=== PATIENT | male | born 1960 | race Caucasian/White ===

== ENCOUNTER → 2017-11-06 | Outpatient (CLI) | payer OTHER, MEDICAID ==
[2015-04-14 10:14] VITALS: BP 119/78
--- NOTE | 2017-11-06 15:00 | RAD ---
Examination: Left hip, two views History: Left hip pain Findings: There is no evidence for recent injury, bone destruction, periarticular calcification or ot her abnormality. The joint space is normal for age. The femoral head is in normal position. Impression: No acute or significant abnormality demonstrated. Reported By:
--- NOTE | 2017-11-06 15:05 | RAD ---
Examination: Lumbar spine, five views History: Low back pain Findings: There are transitional vertebrae at the thoracolumbar and lumbosacral junctions. There is m inimal levoscoliosis. There is no significant contour deformity, fracture, bone destruction or pedicl e erosion. The sacroiliac joints are normal. No subluxation/instability is demonstrated between flexi on-extension. Impression: No acute process. Minimal scoliosis. Congenital transitional vertebrae as described. Reported By:
== END ==
LOC: RAD 14:14
PROVIDERS: ATTEND Nurse Practitioner Family
DX: M25.552 Pain in left hip (principal); M51.36 Other intervertebral disc degeneration, lumbar region
CPT/HCPCS: 72110; 73501

== ENCOUNTER → 2018-03-27 | Outpatient (CLI) | payer OTHER, MEDICAID ==
[2015-04-14 10:14] VITALS: BP 119/78
--- NOTE | 2018-03-27 15:08 | RAD ---
HISTORY: Cough Study: PA and lateral chest Comparison: 05/29/2014 Findings: The lungs are clear. The heart size is normal. Electronic cardiac device is present on the left and its leads appear to be in appropriate position. Prior cervical spine surgery at been performed. Mi nimal thoracic spondylosis is noted. IMPRESSION: 1. No radiographic evidence of acute cardiopulmonary disease or significant change is noted when com pared to the prior examination. Reported By:
== END ==
LOC: RAD 14:40
PROVIDERS: ATTEND Internal Medicine
DX: R05 Cough (principal)
CPT/HCPCS: 71046

== ENCOUNTER 2018-08-08 10:36 | Observation (INO) ==
--- NOTE | 2018-08-08 11:50 | DR.H&P ---
H&P - History & Physical for Day of: H&P Date: 08/08/18 - Chief Complaint Chief Complaint: syncope, weakness, sob - History of Present Illness History of Present Illness: 58 WM DIRECT ADMIT FROM DR MILLER OFFICE AFTER PRESENTING FOR A FOLLOW UP ON CO MULTIPLE SYNCOPE EPISODES, PT HAS PACE MAKER SINCE 2012, EVALUATED BY DR BENJAMIN APPROX 2 WEEKS AGO. PT HAS PMH OF OA, MR, BLINDNESS, MENTAL HEALTH DISORDERS, AR, REFLUX. PT DENIES HX OF HEART CATH, CANNOT REMEMBER LAST STRESS TEST OR ECHO. PT HAD "EPISODE" WHILE IN OFFICE THIS AM. CO HEADACHE, DIZZINESS THEN BECAME PALE AND LAID BACK ON EXAM TABLE, PT BECAME VERY DIAPHORETIC, BP STABLE, BLOOD SUGAR 101. PT HAD EKG WITH LBBB, SR AT 90 WITH PACE SPIKES. EPISODE LAST APPROX 10 UNTIL FULL RECOVERY, PT CONTINUES WITH WEAKNESS AND DYSPNEA. PT ADMITTED TO ICU FOR STABLIZATION AND ARRANGE FOR TRANSFER FOR CARDIAC CATH. - Past Medical History Past Medical History: Arthritis, GERD, Hypertension Additional Medical History: MR - Past Surgical History Surgical History: Ortho Surgery Additional Surgical History: CSPINE. CATARACT. PACE MAKER 1013 - Family History Family Medical History: Diabetes Mellitus, Cancer, Hypertension - Social History Does patient currently use any type of tobacco product: No Have you used tobacco products in the last 12 months: No Type of Tobacco Use: None Does any household member use tobacco: No Alcohol Use: None Drug Use: None - Medications Home Medications: nitroglycerin Allergy (Verified 08/08/18 11:33) tetanus immune globulin Allergy (Verified 08/08/18 11:33) - Review of Systems Constitutional: Chills, Weakness Eyes: No Symptoms Reported ENT: No Symptoms Reported Respiratory: SOB with Excertion Cardiovascular: Palpitations, Light Headedness Gastrointestinal: No Symptoms Reported Genitourinary: No Symptoms Reported Musculoskeletal: No Symptoms Reported Skin: No Symptoms Reported Neurological: Weakness, Other (DIZZINESS) - Physical Exam Vital Signs: Blood Pressure [Right Arm] 116/80 Blood Pressure 116/80 Oriented: Normal Eyes: Normal Ear: Normal Nose: Normal Throat: Normal Respiratory: RLL Diminished, LLL Diminished Cardiovascular: Normal, Other (PACE MAKER PRES). negative: Murmur, Edema : Normal Auscultation: Bowel Sounds: Normal Palpation: Normal Tenderness: Normal Skin: Diaphoresis Musculoskeletal: Normal Psychiatric: Anxiety Affect: Anxious Speech Pattern: Clear, Appropriate - Assessment/Plan (1) Syncopal episodes Status: Acute Plan: ADMIT ICU, CARDIAC AND BP MONITORING. NPO, CXR ON ADMISSION. CARDIAC ENZYMES. SUPPLEMENTAL O2, VERIFY HOME MEDS. CBC CMP, ARRANGE FOR TRANSFER FOR CARDIAC CATH (2) Artificial cardiac pacemaker Status: Acute (3) Hypertension Status: Chronic (4) Mental retardation Status: Chronic (5) Chest pain Qualifiers: Chest pain type: unspecified Qualified Code(s): R07.9 - Chest pain, unspecified Status: Acute - Allergies Allergies/Adverse Reactions: Allergies Allergy/AdvReac Type Severity Reaction Status Date / Time nitroglycerin Allergy Verified 08/08/18 11:33 tetanus immune globulin Allergy Verified 08/08/18 11:33
[2018-08-08] MEDS ORDERED: NS 1000 ML 1,000 ML IV ONE (12:00)
[2018-08-08] MEDS ORDERED: NS 1000 ML 1,000 ML IV SCH (12:00)
[2018-08-08 12:10] VITALS: BMI 30.4
[2018-08-08 12:22] LABS: BASOPHILS % (AUTO) 0.6 % (0.2-1.0); EOSINOPHILS # (AUTO) 0.2 x10^3/uL (0.0-0.2); HEMATOCRIT 45.2 % (42.0-54.0); HEMOGLOBIN 15.7 g/dL (13.5-18.0); LYMPHOCYTES % (AUTO) 12.4 % (21.0-51.0); MEAN CORPUSCULAR HEMOGLOBIN 32.3 pg (27.0-34.0); MEAN CORPUSCULAR HGB CONC 34.7 g/dL (33.0-35.0); MEAN CORPUSCULAR VOLUME 93.1 fL (80.0-100.0); MEAN PLATELET VOLUME 7.9 fL (7.4-11.0); MONOCYTES # (AUTO) 0.7 x10^3/uL (0.3-0.8); MONOCYTES % (AUTO) 8.7 % (0.0-13.0); NEUTROPHILS # (AUTO) 6.3 x10^3/uL (2.2-4.8); NEUTROPHILS % (AUTO) 76.3 % (42.0-75.0); PLATELET COUNT 263 X10^3/uL (150.0-450.0); RED BLOOD COUNT 4.85 X10^6/uL (4.7-6.0); RED CELL DISTRIBUTION WIDTH 13.8 % (11.6-16.5); WHITE BLOOD COUNT 8.2 X10^3/uL (3.6-10.0)
[2018-08-08 12:37] LABS: BLOOD UREA NITROGEN 18 mg/dL (7-18); CALCIUM 8.9 mg/dL (8.5-10.1); CARBON DIOXIDE 26.4 mmol/L (21-32); CHLORIDE 101 mmol/L (98-107); COR NA(FOR HYPERGLY) 138 mmol/L (136-145); CREATININE 1.79 mg/dL (0.70-1.30); SODIUM 137 mmol/L (136-145); eGFR NON BLACK RACES 42 (>60)
[2018-08-08 12:41] LABS: ALANINE AMINOTRANSFERASE 20 Units/L (12-78); ALKALINE PHOSPHATASE 69 Units/L (46-116); ASPARTATE AMINO TRANSFERASE 14 Units/L (15-37); CKMB % 1.3 % (<4); CREATINE KINASE 76 Units/L (39-308); CREATINE KINASE MB < 1.0 ng/mL (0-4.0); TOTAL PROTEIN 8.3 g/dL (6.4-8.2)
[2018-08-08] MEDS: APRESOLINE INJ 20 MG VIAL IVP PRN ×2 (12:49→12:56)
[2018-08-08 13:29] LABS: TROPONIN I < 0.70 ng/mL (0-1.5)
[2018-08-08 15:11] VITALS: BP 113/68
--- NOTE | 2018-08-08 16:29 | RAD ---
HISTORY: Syncope, shortness of breath Study: Single view chest Comparison: 06/06/2018 Findings: Cervical fusion hardware is noted. There is a stable dual-chamber pacemaker. Lung volumes are reduced . No infiltrate, effusion or pneumothorax identified. The cardiac and mediastinal contours are within normal limits. The soft tissues are unremarkable. IMPRESSION: 1. No acute cardiopulmonary abnormality. Reported By:
--- NOTE | 2018-08-18 12:08 | PCM.DCPLAN ---
Discharge Summary - Admission Date Date of Admission: 08/08/18 - Discharge Date Discharge Date: 08/08/18 - Admission Diagnoses (1) Artificial cardiac pacemaker Status: Acute (2) Syncopal episodes Status: Acute (3) Hypertension Status: Chronic (4) Mental retardation Status: Chronic - Discharge Diagnoses Discharge Diagnosis: same as admission diagnosis - Discharge Medications Discharge Medications: Home Medication List latanoprost 1 drp/day OPHTHALMIC (EYE) DAILY 08/08/18 [History] Prescriptions: - Hospital Course Vital Signs: Temperature 97.9 F Pulse Rate [Apical] 73 Respiratory Rate 12 Blood Pressure [Right Arm] 113/68 Blood Pressure 116/80 O2 Sat by Pulse Oximetry 97 Latest Lab Results: Laboratory Last Values WBC 8.2 X10^3/uL (3.6-10.0) 08/08/18 12:10 RBC 4.85 X10^6/uL (4.7-6.0) 08/08/18 12:10 Hgb 15.7 g/dL (13.5-18.0) 08/08/18 12:10 Hct 45.2 % (42.0-54.0) 08/08/18 12:10 MCV 93.1 fL (80.0-100.0) 08/08/18 12:10 MCH 32.3 pg (27.0-34.0) 08/08/18 12:10 MCHC 34.7 g/dL (33.0-35.0) 08/08/18 12:10 RDW 13.8 % (11.6-16.5) 08/08/18 12:10 Plt Count 263 X10^3/uL (150.0-450.0) 08/08/18 12:10 MPV 7.9 fL (7.4-11.0) 08/08/18 12:10 Neut % (Auto) 76.3 % (42.0-75.0) H 08/08/18 12:10 Lymph % (Auto) 12.4 % (21.0-51.0) L 08/08/18 12:10 [place] % (Auto) 8.7 % (0.0-13.0) 08/08/18 12:10 Eos % (Auto) 2.0 % (0.9-2.9) 08/08/18 12:10 Baso % (Auto) 0.6 % (0.2-1.0) 08/08/18 12:10 Neut # (Auto) 6.3 x10^3/uL (2.2-4.8) H 08/08/18 12:10 Lymph # (Auto) 1.0 X10^3/uL (1.3-2.9) L 08/08/18 12:10 [place] # (Auto) 0.7 x10^3/uL (0.3-0.8) 08/08/18 12:10 Eos # (Auto) 0.2 x10^3/uL (0.0-0.2) 08/08/18 12:10 Baso # (Auto) 0.0 X10^3/uL (0.0-0.1) 08/08/18 12:10 Absolute Nucleated RBC 0.0 /100WBC 08/08/18 12:10 Sodium 137 mmol/L (136-145) 08/08/18 12:10 Corrected Sodium 138 mmol/L (136-145) 08/08/18 12:10 Potassium 3.7 mmol/L (3.5-5.1) 08/08/18 12:10 Chloride 101 mmol/L (98-107) 08/08/18 12:10 Carbon Dioxide 26.4 mmol/L (21-32) 08/08/18 12:10 BUN 18 mg/dL (7-18) 08/08/18 12:10 Creatinine 1.79 mg/dL (0.70-1.30) H 08/08/18 12:10 Est GFR (MDRD) Af Amer 50 (>60) L 08/08/18 12:10 Est GFR (MDRD) Non-Af 42 (>60) L 08/08/18 12:10 Glucose 128 mg/dL (65-99) H 08/08/18 12:10 POC Glucose (mg/dL) 110 mg/dL (65-99) H 08/08/18 12:13 Calcium 8.9 mg/dL (8.5-10.1) 08/08/18 12:10 Corrected Calcium TNP 08/08/18 12:10 Total Bilirubin 0.70 mg/dL (0.2-1.0) 08/08/18 12:10 AST 14 Units/L (15-37) L 08/08/18 12:10 ALT 20 Units/L (12-78) 08/08/18 12:10 Alkaline Phosphatase 69 Units/L (46-116) 08/08/18 12:10 Creatine Kinase 76 Units/L (39-308) 08/08/18 12:10 CK-MB (CK-2) < 1.0 ng/mL (0-4.0) 08/08/18 12:10 CK/CKMB % Calc 1.3 % (<4) 08/08/18 12:10 Troponin I < 0.70 ng/mL (0-1.5) 08/08/18 12:10 Total Protein 8.3 g/dL (6.4-8.2) H 08/08/18 12:10 Albumin 4.0 g/dL (3.4-5.0) 08/08/18 12:10 Globulin 4.3 g/dL (2.5-4.5) 08/08/18 12:10 Albumin/Globulin Ratio 0.9 Ratio (1.1-2.1) L 08/08/18 12:10 Hospital Course: 58 WM DIRECT ADMIT FROM DR MILLER OFFICE AFTER PRESENTING FOR A FOLLOW UP ON CO MULTIPLE SYNCOPE EPISODES, PT HAS PACE MAKER SINCE 2012, EVALUATED BY DR BENJAMIN APPROX 2 WEEKS AGO. PT HAS PMH OF OA, MR, BLINDNESS, MENTAL HEALTH DISORDERS, AR, REFLUX. PT DENIES HX OF HEART CATH, CANNOT REMEMBER LAST STRESS TEST OR ECHO. PT HAD "EPISODE" WHILE IN OFFICE THIS AM. CO HEADACHE, DIZZINESS THEN BECAME PALE AND LAID BACK ON EXAM TABLE, PT BECAME VERY DIAPHORETIC, BP STABLE, BLOOD SUGAR 101. PT HAD EKG WITH LBBB, SR AT 90 WITH PACE SPIKES. EPISODE LAST APPROX 10 UNTIL FULL RECOVERY, PT CONTINUES WITH WEAKNESS AND DYSPNEA. PT ADMITTED TO ICU FOR STABLIZATION AND ARRANGED TRANSFER FOR CARDIAC CATH TO [facility]. - Discharge Plan Disposition: XF [facility] HOSP Condition: Stable - Follow ups/Referrals Follow ups/Referrals: [facility] [Other] (PT TRANSFERRED VIA EMS TO [facility] FOR FURTHER ACUTE CARE.) NEISHA CARRILLO [Primary Care Provider] - 1 WEEK - Instructions Forms: Patient Portal
== END 2018-08-08 15:30 | disposition short-term general hospital (02) ==
LOC: ICU
PROVIDERS: ADMIT Internal Medicine; ATTEND Internal Medicine
DX: K21.9 Gastro-esophageal reflux disease without esophagitis; R53.1 Weakness; Z95.0 Presence of cardiac pacemaker; R06.02 Shortness of breath; R55 Syncope and collapse; R94.4 Abnormal results of kidney function studies; I10 Essential (primary) hypertension; F78 Other intellectual disabilities; R07.89 Other chest pain; R94.31 Abnormal electrocardiogram [ECG] [EKG]; R73.09 Other abnormal glucose
CPT/HCPCS: 36415; 71010; 71045; 80053; 82550; 82553; 84484; 85025; 93005; 93010; A4222; G0378; J7030

== ENCOUNTER 2018-08-20 10:19 | Observation (INO) ==
[2018-08-20] MEDS ORDERED: NS 1000 ML 1,000 ML ONE (10:30)
[2018-08-20] MEDS ORDERED: NS 1000 ML 1,000 ML IV ONE (10:42)
[2018-08-20 10:44] LABS: BASOPHILS # (AUTO) 0.1 X10^3/uL (0.0-0.1); BASOPHILS % (AUTO) 0.8 % (0.2-1.0); EOSINOPHILS # (AUTO) 0.2 x10^3/uL (0.0-0.2); EOSINOPHILS % (AUTO) 3.3 % (0.9-2.9); HEMATOCRIT 45.2 % (42.0-54.0); HEMOGLOBIN 15.7 g/dL (13.5-18.0); LYMPHOCYTES # (AUTO) 1.4 X10^3/uL (1.3-2.9); MEAN CORPUSCULAR HEMOGLOBIN 32.5 pg (27.0-34.0); MEAN CORPUSCULAR HGB CONC 34.8 g/dL (33.0-35.0); MEAN CORPUSCULAR VOLUME 93.5 fL (80.0-100.0); MEAN PLATELET VOLUME 7.9 fL (7.4-11.0); MONOCYTES # (AUTO) 0.6 x10^3/uL (0.3-0.8); MONOCYTES % (AUTO) 9.1 % (0.0-13.0); NEUTROPHILS % (AUTO) 63.8 % (42.0-75.0); PLATELET COUNT 267 X10^3/uL (150.0-450.0); RED BLOOD COUNT 4.84 X10^6/uL (4.7-6.0); WHITE BLOOD COUNT 6.3 X10^3/uL (3.6-10.0)
--- NOTE | 2018-08-20 10:53 | RAD ---
Chest portable one view Clinical indication: Syncopal episode, hypotension Findings: The lungs are well expanded and clear as are the pleural spaces. There are no findings of p ulmonary edema. A duo cardiac pacemaker is in place with good position of the leads. The heart size i s average for portable film. Impression: No acute radiographic abnormalities of the chest identified by portable technique. Reported By:
[2018-08-20] MEDS ORDERED: NS 1000 ML 1,000 ML IV SCH (11:00)
[2018-08-20 11:03] LABS: BLOOD UREA NITROGEN 19 mg/dL (7-18); CALCIUM 9.2 mg/dL (8.5-10.1); CARBON DIOXIDE 27.8 mmol/L (21-32); CHLORIDE 101 mmol/L (98-107); COR NA(FOR HYPERGLY) 140 mmol/L (136-145); CREATININE 1.42 mg/dL (0.70-1.30); SODIUM 138 mmol/L (136-145); TROPONIN I < 0.02 ng/mL (0-1.5); eGFR NON BLACK RACES 54 (>60)
[2018-08-20 11:08] LABS: ALANINE AMINOTRANSFERASE 26 Units/L (12-78); ALBUMIN 3.6 g/dL (3.4-5.0); ALKALINE PHOSPHATASE 61 Units/L (46-116); ASPARTATE AMINO TRANSFERASE 13 Units/L (15-37); CKMB % 2.1 % (<4); CREATINE KINASE 47 Units/L (39-308); CREATINE KINASE MB < 1.0 ng/mL (0-4.0); MAGNESIUM 2.1 mg/dL (1.7-2.9); TOTAL PROTEIN 8.2 g/dL (6.4-8.2)
--- NOTE | 2018-08-20 11:11 | CT ---
HISTORY: Syncope, hypotension Study: CT brain without contrast Comparison: None Technique: Multiple axial images of the brain were obtained without administration of IV contrast. Dose reducti on techniques including Automated Exposure Control (AEC) and adjustment of mA and kV were utilized. Findings: The brain parenchyma is within normal limits for patient's age. No evidence of acute hemorrhage, mid line shift, mass effect or abnormal extra-axial fluid collection. The ventricular system is symmetri c and nondilated. The soft tissues and osseous structures are unremarkable. The visualized paranasal sinuses are clear. There is a right ocular prosthesis. IMPRESSION: 1.No acute intracranial abnormality. Reported By:
--- NOTE | 2018-08-20 12:15 | DR.DIZZY ---
HPI Time seen Time seen: 12:15 PCP Primary Care Physician: SHELLIE DRIVER Complaint Chief Complaint Doctor Comments: Patient presented to the ED with complaint that he was going to "pass out". He had similar episode and was sent to [facility]; his cardiac work up is reported to have been negative. Chief Complaint:: EMS OUT TO PT WITH LOW BP/ PTS STATES " I WAS GOING TO PASS OUT JUST LIKE LAST TIME" PT WAS DIAPHORETIC AND PT WAS TT WETMORE 1 /12 WEEKS AGO AND THEY COULD NOT FIND OUT WHAT WAS GOING ON AND HE IS SCHEDULED FOR SOME TESTS ON SATURDAY PER NEISHA,ROBBIN Self Treatment fo Chief Complaint: PT IS ALERT AND ORIENTED TIMES FOUR, Source History Provided: Patient and EMS Mode of Arrival Mode of Arrival: Stretcher Timing Onset of Chief Complaint: 08/20/18 Context Stroke Symptoms: None PMH PMH Past Medical History: Yes Past Medical History: Arthritis, GERD and Hypertension Past Medical History Comment: ASCENCION DEE Past Surgical History: Yes Surgical History: Ortho Surgery Past Surgical History Comment: vani valiente Family History History of Family Medical Conditions: Yes Family Medical History: Diabetes Mellitus, Cancer and Hypertension Social History Does patient currently use any type of tobacco product: No Have you used tobacco products in the last 12 months: No Type of Tobacco Use: None Does any household member use tobacco: No Alcohol Use: None Do you use any recreational Drugs:: No Lives With: Family infectious screening In the last 2 months have you had wt loss of >10#?: NO Have you had fever, night sweats or hemotysis?: No Have you traveled outside the country in the last 6 months?: No Isolation: Standard ROS Review of Systems Constitutional: Weakness Eyes: No Symptoms Reported ENTM: No Symptoms Reported Cardiovascular: Syncope (near syncope) PE Vital Signs Vitals: Temperature 98.6 F Pulse Rate [Right Brachial] 60 Pulse Rate [Apical] 70 Pulse Rate 79 Respiratory Rate 18 Blood Pressure [Right Arm] 122/59 Blood Pressure 98/73 O2 Sat by Pulse Oximetry 96 General Limitations: Language Barrier General Appearance: Alert and In No Apparent Distress Head Head Exam: Normal Inspection, Atraumatic and Normocephalic Eyes Eye exam: Normal Appearance and PERRL; negative Conjunctival Injection Pupils: Regular, Round: Bilateral Sclera/Conjunctival: Normal Inspection: Bilateral Anterior Chamber: Normal Inspection: Bilateral ENT ENT Exam: Normal Exam, Normal Oropharynx and Normal External Ear Exam Chest Chest Inspection: Normal Inspection and Symmetric Chest Wall Rise Respiratory Respiratory Exam: Normal Lung Sounds Bilat Respiratory Exam: Bilateral: Clear to Auscultation Cardiovascular Cardiovascular Exam: Regular Rate and Normal Rhythm Abdominal Exam Abdominal Exam: Normal Inspection, Normal Bowel Sounds and Soft Abdominal Tenderness: negative RUQ, RLQ and LUQ Rectal Rectal Exam: Deferred Extremeties Extremities Exam: Normal Inspection and Normal Capillary Refill Back Back Exam: Normal Inspection and Full ROM Neurologic Neurological Exam: Alert, Oriented X3 and CN II-XII Intact Cranial Nerve Exam: EOM Function (II, III, IV, ): Normal Cerebellar Function: Normal Gait Skin Skin Exam: Warm, Dry, Normal Color and Pallor; negative Diaphoresis and Erythema COURSE Treatment Treatment: NS 1L BP 138/90 Reevaluation 1st: Improved Consultation Called: 12:00 Consultation Comments: Dr. Fierro agreed to admit for further evaluation and treatment ROR Labs Reviewed Laboratory Results Reviewed?: Yes Result Diagrams: 08/21/18 04:30 08/20/18 10:35 Laboratory: WBC 7.3 X10^3/uL (3.6-10.0) 08/21/18 04:30 RBC 4.29 X10^6/uL (4.7-6.0) L 08/21/18 04:30 Hgb 13.8 g/dL (13.5-18.0) 08/21/18 04:30 Hct 39.5 % (42.0-54.0) L 08/21/18 04:30 MCV 92.1 fL (80.0-100.0) 08/21/18 04:30 MCH 32.1 pg (27.0-34.0) 08/21/18 04:30 MCHC 34.9 g/dL (33.0-35.0) 08/21/18 04:30 RDW 13.8 % (11.6-16.5) 08/21/18 04:30 Plt Count 190 X10^3/uL (150.0-450.0) 08/21/18 04:30 MPV 8.4 fL (7.4-11.0) 08/21/18 04:30 Neut % (Auto) 55.5 % (42.0-75.0) 08/21/18 04:30 Lymph % (Auto) 30.5 % (21.0-51.0) 08/21/18 04:30 [place] % (Auto) 10.5 % (0.0-13.0) 08/21/18 04:30 Eos % (Auto) 2.9 % (0.9-2.9) 08/21/18 04:30 Baso % (Auto) 0.6 % (0.2-1.0) 08/21/18 04:30 Neut # (Auto) 4.0 x10^3/uL (2.2-4.8) 08/21/18 04:30 Lymph # (Auto) 2.2 X10^3/uL (1.3-2.9) 08/21/18 04:30 [place] # (Auto) 0.8 x10^3/uL (0.3-0.8) 08/21/18 04:30 Eos # (Auto) 0.2 x10^3/uL (0.0-0.2) 08/21/18 04:30 Baso # (Auto) 0.0 X10^3/uL (0.0-0.1) 08/21/18 04:30 Absolute Nucleated RBC 0.0 /100WBC 08/21/18 04:30 INR Target Range - 08/20/18 10:35 INR 1.05 (0.8-1.3) 08/20/18 10:35 APTT 29.7 SECONDS (22.9-36.5) 08/20/18 10:35 PTT Comment - 08/20/18 10:35 D-Dimer 152 ng/mL (0-400) 08/20/18 10:35 Sodium 138 mmol/L (136-145) 08/20/18 10:35 Corrected Sodium 140 mmol/L (136-145) 08/20/18 10:35 Potassium 3.3 mmol/L (3.5-5.1) L 08/20/18 10:35 Chloride 101 mmol/L (98-107) 08/20/18 10:35 Carbon Dioxide 27.8 mmol/L (21-32) 08/20/18 10:35 BUN 19 mg/dL (7-18) H 08/20/18 10:35 Creatinine 1.42 mg/dL (0.70-1.30) H 08/20/18 10:35 Est GFR (MDRD) Af Amer > 60 (>60) 08/20/18 10:35 Est GFR (MDRD) Non-Af 54 (>60) L 08/20/18 10:35 Glucose 165 mg/dL (65-99) H 08/20/18 10:35 Hemoglobin A1c 6.2 % 08/20/18 16:45 Calcium 9.2 mg/dL (8.5-10.1) 08/20/18 10:35 Corrected Calcium TNP 08/20/18 10:35 Magnesium 2.1 mg/dL (1.7-2.9) 08/20/18 10:35 Total Bilirubin 0.60 mg/dL (0.2-1.0) 08/20/18 10:35 AST 13 Units/L (15-37) L 08/20/18 10:35 ALT 26 Units/L (12-78) 08/20/18 10:35 Alkaline Phosphatase 61 Units/L (46-116) 08/20/18 10:35 Creatine Kinase 46 Units/L (39-308) 08/20/18 16:45 CK-MB (CK-2) < 1.0 ng/mL (0-4.0) 08/20/18 16:45 CK/CKMB % Calc 2.2 % (<4) 08/20/18 16:45 Troponin I < 0.02 ng/mL (0-1.5) 08/20/18 16:45 Total Protein 8.2 g/dL (6.4-8.2) 08/20/18 10:35 Albumin 3.6 g/dL (3.4-5.0) 08/20/18 10:35 Globulin 4.6 g/dL (2.5-4.5) H 08/20/18 10:35 Albumin/Globulin Ratio 0.8 Ratio (1.1-2.1) L 08/20/18 10:35 Specimen Type Clean catch urine 08/20/18 02:59 Urine Color Yellow (YELLOW) 08/20/18 02:59 Urine Appearance Clear (CLEAR) 08/20/18 02:59 Urine pH 5.0 (5.0 - 8.0) 08/20/18 02:59 Ur Specific [place] 1.015 (1.000-1.030) 08/20/18 02:59 Urine Protein Negative (NEGATIVE) 08/20/18 02:59 Urine Glucose (UA) Negative (NEGATIVE) 08/20/18 02:59 Urine Ketones Negative (NEGATIVE) 08/20/18 02:59 Urine Occult Blood Negative (NEGATIVE) 08/20/18 02:59 Urine Nitrite Negative (NEGATIVE) 08/20/18 02:59 Urine Bilirubin Negative (NEGATIVE) 08/20/18 02:59 Urine Urobilinogen Normal (NORMAL) 08/20/18 02:59 Ur Leukocyte Esterase Negative (NEGATIVE) 08/20/18 02:59 Other Results Comments: No acute brain abnormality XRAY XRAY Interpreted by: Radiologist XRAY Findings: Chest: No acute radiographic abnormalities of the chest identified... Diagnosis Discharge Problem: Near syncope, Acute hypokalemia
[2018-08-20] MEDS ORDERED: K-LYTE EFFERVESCENT ONE (12:21)
[2018-08-20] MEDS: K-LYTE EFFERVESCENT PO ONE (12:38)
[2018-08-20] MEDS: NS 1000 ML 1,000 ML IV SCH (13:39)
[2018-08-20 14:37] VITALS: BMI 23.6
--- NOTE | 2018-08-20 16:35 | DR.H&P ---
H&P - History & Physical for Day of: H&P Date: 08/20/18 - Chief Complaint Chief Complaint: SYNCOPE - History of Present Illness History of Present Illness: 58 WM ER ADMISSION AFTER PRESENTING WITH CO SYNCOPE. PT STATES HE HAD "WAVE COME OVER HIS HEAD, THEN HEADACHE AND STARTS TO SWEAT AND GETS DIZZY" PRIOR TO FAINTING EPISODES. PT DOES NOT ALWAY COMPLETELY FAINT. PT HAD EPISODE APPROX 1-[address] KELLOGG OFFICE AND SENT TO [facility] FOR HEART EVALUATION. PT HAD STRESS TEST AND ECHO, NO REPORTED HEART CATH. PT HAD NO MEDICATION CHANGES. PT DENIES CHEST PAIN, CO WEAKNESS. PT HAS PMH OF MR, BLINDNESS, HTN, OA, AR, PACE MAKER - Past Medical History Past Medical History: Hypertension, GERD, Arthritis Additional Medical History: MR - Past Surgical History Surgical History: Ortho Surgery Additional Surgical History: CSPINE. CATARACT. PACE MAKER 1013 - Family History Family Medical History: Diabetes Mellitus, Cancer, Hypertension - Social History Does patient currently use any type of tobacco product: No Have you used tobacco products in the last 12 months: No Type of Tobacco Use: None Does any household member use tobacco: No Alcohol Use: None Drug Use: None - Medications Home Medications: nitroglycerin Allergy (Verified 08/20/18 10:30) tetanus immune globulin Allergy (Verified 08/20/18 10:30) CONTINUE taking the following medications esomeprazole magnesium [Nexium] 40 mg PO DAILY 08/20/18 [History] - Review of Systems Constitutional: Weakness ENT: No Symptoms Reported Respiratory: SOB with Excertion Cardiovascular: No Symptoms Reported, Edema, Light Headedness Gastrointestinal: Nausea Genitourinary: No Symptoms Reported Musculoskeletal: No Symptoms Reported Skin: No Symptoms Reported Neurological: Weakness - Physical Exam Vital Signs: Temperature 98.4 F Pulse Rate [Right Brachial] 73 Pulse Rate [Apical] 70 Pulse Rate 79 Respiratory Rate 20 Blood Pressure [Right Arm] 99/62 Blood Pressure 98/73 O2 Sat by Pulse Oximetry 99 Oriented: Normal Eyes: Blurred Vision Ear: Normal Nose: Normal Throat: Normal Respiratory: RLL Diminished, LLL Diminished Cardiovascular: Normal. negative: Murmur : Normal Auscultation: Bowel Sounds: Normal Palpation: Normal Tenderness: Normal Skin: Diaphoresis Musculoskeletal: Normal Psychiatric: Anxiety Affect: Anxious Speech Pattern: Clear, Appropriate - Assessment/Plan (1) Syncopal episodes Status: Acute Plan: ADMIT, SERIAL CE, EKGS, POTASSIUM REPLACMENT. CXR ON ADMISSION CBC CMP UA ON ADMISSION. VERIFY HOME MEDS, BP AND LIPID CONTROL. A1C DUE TO NON FASTING HYPERGLYCEMIA. STATIN AND ASPIRIN THERAPY (2) Hypertension Status: Chronic (3) Artificial cardiac pacemaker Status: Acute - Allergies Allergies/Adverse Reactions: Allergies Allergy/AdvReac Type Severity Reaction Status Date / Time nitroglycerin Allergy Verified 08/20/18 10:30 tetanus immune globulin Allergy Verified 08/20/18 10:30
[2018-08-20 17:16] LABS: CKMB % 2.2 % (<4); CREATINE KINASE 46 Units/L (39-308); CREATINE KINASE MB < 1.0 ng/mL (0-4.0); TROPONIN I < 0.02 ng/mL (0-1.5)
[2018-08-21] MEDS: NS 1000 ML 1,000 ML IV SCH ×3 (03:24→23:18)
[2018-08-21 03:27] LABS: BILIRUBIN,URINE NEGATIVE (NEGATIVE); BLOOD/HEMOGLOBIN,URINE NEGATIVE (NEGATIVE); GLUCOSE, URINE NEGATIVE (NEGATIVE); KETONES,URINE NEGATIVE (NEGATIVE); LEUKOCYTE ESTERASE ,URINE NEGATIVE (NEGATIVE); NITRITES,URINE NEGATIVE (NEGATIVE); PROTEIN,URINE NEGATIVE (NEGATIVE); UROBILINOGEN,URINE NORMAL (NORMAL)
[2018-08-21 03:30] LABS: APPEARANCE,URINE CLEAR (CLEAR); COLOR,URINE YELLOW (YELLOW)
[2018-08-21 05:05] LABS: BASOPHILS % (AUTO) 0.6 % (0.2-1.0); EOSINOPHILS # (AUTO) 0.2 x10^3/uL (0.0-0.2); EOSINOPHILS % (AUTO) 2.9 % (0.9-2.9); HEMATOCRIT 39.5 % (42.0-54.0); HEMOGLOBIN 13.8 g/dL (13.5-18.0); LYMPHOCYTES # (AUTO) 2.2 X10^3/uL (1.3-2.9); LYMPHOCYTES % (AUTO) 30.5 % (21.0-51.0); MEAN CORPUSCULAR HEMOGLOBIN 32.1 pg (27.0-34.0); MEAN CORPUSCULAR HGB CONC 34.9 g/dL (33.0-35.0); MEAN CORPUSCULAR VOLUME 92.1 fL (80.0-100.0); MEAN PLATELET VOLUME 8.4 fL (7.4-11.0); MONOCYTES # (AUTO) 0.8 x10^3/uL (0.3-0.8); MONOCYTES % (AUTO) 10.5 % (0.0-13.0); NEUTROPHILS % (AUTO) 55.5 % (42.0-75.0); PLATELET COUNT 190 X10^3/uL (150.0-450.0); RED BLOOD COUNT 4.29 X10^6/uL (4.7-6.0); RED CELL DISTRIBUTION WIDTH 13.8 % (11.6-16.5); WHITE BLOOD COUNT 7.3 X10^3/uL (3.6-10.0)
[2018-08-21 05:10] LABS: ALANINE AMINOTRANSFERASE 20 Units/L (12-78); ALBUMIN 3.2 g/dL (3.4-5.0); ALKALINE PHOSPHATASE 52 Units/L (46-116); ASPARTATE AMINO TRANSFERASE 11 Units/L (15-37); BLOOD UREA NITROGEN 13 mg/dL (7-18); CALCIUM 8.5 mg/dL (8.5-10.1); CARBON DIOXIDE 28.9 mmol/L (21-32); CHLORIDE 103 mmol/L (98-107); COR CA(FOR HYPOALB) 9.1 mg/dL (8.5-10.1); CREATININE 1.17 mg/dL (0.70-1.30); SODIUM 139 mmol/L (136-145); TOTAL PROTEIN 6.9 g/dL (6.4-8.2); eGFR NON BLACK RACES > 60 (>60)
[2018-08-21] MEDS ORDERED: POTASSIUM CHLORIDE LIQ 20 MEQ UDC PO PRN (05:40)
[2018-08-21] MEDS ORDERED: K-RIDER 10 MEQ/NS 100 ML 10 MEQ/100 ML BAG IV PRN (05:40)
[2018-08-21] MEDS ORDERED: POTASSIUM CHL 40 MEQ/NS 0.45% 500 ML IV PRN (05:40)
[2018-08-21] MEDS ORDERED: K-LYTE EFFERVESCENT PO PRN (05:40)
[2018-08-21] MEDS ORDERED: POTASSIUM CHL 60 MEQ/NS 0.45% 500 ML IV PRN (05:40)
[2018-08-21] MEDS: FLONASE NASAL SPRAY ENOSTRIL SCH (08:36)
[2018-08-21] MEDS: MOBIC TAB 15 MG PO SCH (08:37)
[2018-08-21] MEDS: NexIUM PO SCH (08:37)
[2018-08-21] MEDS: HYZAAR 50/12.5 MG PO SCH (08:37)
[2018-08-21] MEDS: PROzac PO SCH (08:37)
[2018-08-21] MEDS ORDERED: NexIUM PO SCH (09:00)
[2018-08-21] MEDS ORDERED: FLUTICASONE PROPIONATE ENOSTRIL SCH (09:00)
[2018-08-21] MEDS ORDERED: XALATAN EACHEYE SCH (09:00)
[2018-08-21] MEDS ORDERED: PATIENT'S HOME MEDICATION (Esomeprazole Magnesium [Nexium 40mg Cap] 40 MG) PO SCH (09:00)
--- NOTE | 2018-08-21 13:19 | CT ---
CT ANGIOGRAM OF THE NECK WITH IV CONTRAST CLINICAL INDICATION: Syncope TECHNIQUE: Images were obtained through the neck per standard CTA protocol. Multiplanar reformatted, MIP, and volume rendered images were generated from the CT dataset.3D reconstructions were performed. Dose reduction techniques including Automated Exposure Control (AEC) and adjustment of mA and kV wer e utlized. COMPARISON: None. FINDINGS: The imaged aortic arch is normal. The origins of the brachiocephalic, bilateral common carotid, bila teral subclavian, and bilateral vertebral arteries demonstrate no significant stenosis.The bilateral internal and external carotid arteries are patent. There is no grossly significant ICA stenosis.The c ervical vertebral arteries are normal.There is no evidence of arterial dissection, significant stenos is, occlusion, extravasation of contrast material, arteriovenous fistula, or pseudoaneurysm.The visua lized soft tissues of the neck appear normal. ACDF has C4 through C7 with extensive multilevel degene rative disc disease.. IMPRESSION: 1. No significant arterial stenosis involving the vessels of the neck. Reported By:
[2018-08-21] MEDS: K-LYTE EFFERVESCENT PO ONE (14:34)
[2018-08-22] MEDS: NS 1000 ML 1,000 ML IV SCH ×2 (04:28→17:47)
[2018-08-22 05:10] LABS: BASOPHILS % (AUTO) 0.6 % (0.2-1.0); EOSINOPHILS # (AUTO) 0.2 x10^3/uL (0.0-0.2); EOSINOPHILS % (AUTO) 3.6 % (0.9-2.9); HEMATOCRIT 39.2 % (42.0-54.0); HEMOGLOBIN 13.6 g/dL (13.5-18.0); LYMPHOCYTES # (AUTO) 2.1 X10^3/uL (1.3-2.9); LYMPHOCYTES % (AUTO) 33.3 % (21.0-51.0); MEAN CORPUSCULAR HEMOGLOBIN 32.4 pg (27.0-34.0); MEAN CORPUSCULAR HGB CONC 34.7 g/dL (33.0-35.0); MEAN CORPUSCULAR VOLUME 93.5 fL (80.0-100.0); MEAN PLATELET VOLUME 8.5 fL (7.4-11.0); MONOCYTES # (AUTO) 0.6 x10^3/uL (0.3-0.8); MONOCYTES % (AUTO) 9.9 % (0.0-13.0); NEUTROPHILS # (AUTO) 3.4 x10^3/uL (2.2-4.8); NEUTROPHILS % (AUTO) 52.6 % (42.0-75.0); PLATELET COUNT 219 X10^3/uL (150.0-450.0); RED BLOOD COUNT 4.19 X10^6/uL (4.7-6.0); WHITE BLOOD COUNT 6.4 X10^3/uL (3.6-10.0)
[2018-08-22 05:33] LABS: ALANINE AMINOTRANSFERASE 18 Units/L (12-78); ALBUMIN 3.1 g/dL (3.4-5.0); ALKALINE PHOSPHATASE 51 Units/L (46-116); ASPARTATE AMINO TRANSFERASE 12 Units/L (15-37); BLOOD UREA NITROGEN 10 mg/dL (7-18); CALCIUM 8.4 mg/dL (8.5-10.1); CHLORIDE 104 mmol/L (98-107); COR CA(FOR HYPOALB) 9.1 mg/dL (8.5-10.1); CREATININE 1.15 mg/dL (0.70-1.30); SODIUM 140 mmol/L (136-145); TOTAL PROTEIN 6.7 g/dL (6.4-8.2); eGFR NON BLACK RACES > 60 (>60)
[2018-08-22] MEDS: PROzac PO SCH (08:47)
[2018-08-22] MEDS: HYZAAR 50/12.5 MG PO SCH (08:47)
[2018-08-22] MEDS: NexIUM PO SCH (08:47)
[2018-08-22] MEDS: MOBIC TAB 15 MG PO SCH (08:47)
[2018-08-22] MEDS: FLONASE NASAL SPRAY ENOSTRIL SCH (08:48)
[2018-08-22] MEDS ORDERED: K-DUR TAB 20 MEQ PO ONE (10:00)
--- NOTE | 2018-08-22 13:56 | PCM.PROG ---
Progress Note - Progress Note for Day of Date of Exam: 08/21/18 - Subjective Subjective: 58 WM ER ADMISSION WITH SYNCOPE. PT HYPOKALEMIA ON ADMISSION, SERIAL CE NEGATIVE. PT CURRENLTY ON POTASSIUM REPLACEMENT. CONTINUOUS CARDIAC MONITORING, CTA CAROTID THIS AM. ORTHOSTATICS, CONTINUE CURRENT MEDICATION REGIMEN. - Past Medical Family Social History Past Med/Fam/Surg Hx: No changes since H&P Allergies: Allergies nitroglycerin Allergy (Verified 08/20/18 10:30) tetanus immune globulin Allergy (Verified 08/20/18 10:30) - Review of Systems ROS: No change since H&P - Vital Signs and I&O's Vital Signs: Temperature 98.5 F Pulse Rate [Right Brachial] 66 Pulse Rate [Apical] 70 Pulse Rate 79 Respiratory Rate 19 Blood Pressure [Left Arm] 154/95 Blood Pressure [Right Arm] 129/75 Blood Pressure 98/73 O2 Sat by Pulse Oximetry 94 Intake and Output: Intake & Output 08/20/18 08/21/18 08/22/18 08/23/18 11:59 11:59 11:59 11:59 Intake Total 1360 / 1360 1780 / 1780 Output Total 600 / 600 Balance 760 / 760 1780 / 0 - Physical Exam Oriented: Normal Eyes: Blurred Vision Ear: Normal Nose: Normal Throat: Normal Respiratory: Normal Cardiovascular: Normal. negative: Murmur : Normal Auscultation: Bowel Sounds: Normal Tenderness: Normal Skin: Diaphoresis Musculoskeletal: Normal Psychiatric: Anxiety Affect: Anxious Speech Pattern: Clear - Laboratory and Diagnostics Result Diagrams: 08/22/18 04:05 08/22/18 04:05 Labs: Laboratory WBC 6.4 X10^3/uL (3.6-10.0) 08/22/18 04:05 RBC 4.19 X10^6/uL (4.7-6.0) L 08/22/18 04:05 Hgb 13.6 g/dL (13.5-18.0) 08/22/18 04:05 Hct 39.2 % (42.0-54.0) L 08/22/18 04:05 MCV 93.5 fL (80.0-100.0) 08/22/18 04:05 MCH 32.4 pg (27.0-34.0) 08/22/18 04:05 MCHC 34.7 g/dL (33.0-35.0) 08/22/18 04:05 RDW 14.0 % (11.6-16.5) 08/22/18 04:05 Plt Count 219 X10^3/uL (150.0-450.0) 08/22/18 04:05 MPV 8.5 fL (7.4-11.0) 08/22/18 04:05 Neut % (Auto) 52.6 % (42.0-75.0) 08/22/18 04:05 Lymph % (Auto) 33.3 % (21.0-51.0) 08/22/18 04:05 [place] % (Auto) 9.9 % (0.0-13.0) 08/22/18 04:05 Eos % (Auto) 3.6 % (0.9-2.9) H 08/22/18 04:05 Baso % (Auto) 0.6 % (0.2-1.0) 08/22/18 04:05 Neut # (Auto) 3.4 x10^3/uL (2.2-4.8) 08/22/18 04:05 Lymph # (Auto) 2.1 X10^3/uL (1.3-2.9) 08/22/18 04:05 [place] # (Auto) 0.6 x10^3/uL (0.3-0.8) 08/22/18 04:05 Eos # (Auto) 0.2 x10^3/uL (0.0-0.2) 08/22/18 04:05 Baso # (Auto) 0.0 X10^3/uL (0.0-0.1) 08/22/18 04:05 Absolute Nucleated RBC 0.1 /100WBC 08/22/18 04:05 INR Target Range - 08/20/18 10:35 INR 1.05 (0.8-1.3) 08/20/18 10:35 APTT 29.7 SECONDS (22.9-36.5) 08/20/18 10:35 PTT Comment - 08/20/18 10:35 D-Dimer 152 ng/mL (0-400) 08/20/18 10:35 Sodium 140 mmol/L (136-145) 08/22/18 04:05 Corrected Sodium TNP 08/22/18 04:05 Potassium 3.7 mmol/L (3.5-5.1) 08/22/18 04:05 Chloride 104 mmol/L (98-107) 08/22/18 04:05 Carbon Dioxide 28.0 mmol/L (21-32) 08/22/18 04:05 BUN 10 mg/dL (7-18) 08/22/18 04:05 Creatinine 1.15 mg/dL (0.70-1.30) 08/22/18 04:05 Est GFR (MDRD) Af Amer > 60 (>60) 08/22/18 04:05 Est GFR (MDRD) Non-Af > 60 (>60) 08/22/18 04:05 Glucose 108 mg/dL (65-99) H 08/22/18 04:05 Hemoglobin A1c 6.2 % 08/20/18 16:45 Calcium 8.4 mg/dL (8.5-10.1) L 08/22/18 04:05 Corrected Calcium 9.1 mg/dL (8.5-10.1) 08/22/18 04:05 Magnesium 1.7 mg/dL (1.7-2.9) 08/21/18 04:30 Total Bilirubin 0.30 mg/dL (0.2-1.0) 08/22/18 04:05 AST 12 Units/L (15-37) L 08/22/18 04:05 ALT 18 Units/L (12-78) 08/22/18 04:05 Alkaline Phosphatase 51 Units/L (46-116) 08/22/18 04:05 Creatine Kinase 46 Units/L (39-308) 08/20/18 16:45 CK-MB (CK-2) < 1.0 ng/mL (0-4.0) 08/20/18 16:45 CK/CKMB % Calc 2.2 % (<4) 08/20/18 16:45 Troponin I < 0.02 ng/mL (0-1.5) 08/20/18 16:45 Total Protein 6.7 g/dL (6.4-8.2) 08/22/18 04:05 Albumin 3.1 g/dL (3.4-5.0) L 08/22/18 04:05 Globulin 3.6 g/dL (2.5-4.5) 08/22/18 04:05 Albumin/Globulin Ratio 0.9 Ratio (1.1-2.1) L 08/22/18 04:05 Specimen Type Clean catch urine 08/20/18 02:59 Urine Color Yellow (YELLOW) 08/20/18 02:59 Urine Appearance Clear (CLEAR) 08/20/18 02:59 Urine pH 5.0 (5.0 - 8.0) 08/20/18 02:59 Ur Specific [place] 1.015 (1.000-1.030) 08/20/18 02:59 Urine Protein Negative (NEGATIVE) 08/20/18 02:59 Urine Glucose (UA) Negative (NEGATIVE) 08/20/18 02:59 Urine Ketones Negative (NEGATIVE) 08/20/18 02:59 Urine Occult Blood Negative (NEGATIVE) 08/20/18 02:59 Urine Nitrite Negative (NEGATIVE) 08/20/18 02:59 Urine Bilirubin Negative (NEGATIVE) 08/20/18 02:59 Urine Urobilinogen Normal (NORMAL) 08/20/18 02:59 Ur Leukocyte Esterase Negative (NEGATIVE) 08/20/18 02:59 - Plan (1) Syncopal episodes Status: Acute Plan: SERIAL CE, EKGS, POTASSIUM REPLACMENT. CXR Q AM CBC CMP UA ON ADMISSION. VERIFY HOME MEDS, BP AND LIPID CONTROL. A1C DUE TO NON FASTING HYPERGLYCEMIA. STATIN AND ASPIRIN THERAPY (2) Hypertension Status: Chronic (3) Artificial cardiac pacemaker Status: Acute (4) Mental retardation Status: Chronic
[2018-08-22 17:48] VITALS: BP 125/75
--- NOTE | 2018-08-31 15:08 | PCM.DCPLAN ---
Discharge Summary - Admission Date Date of Admission: 08/20/18 - Discharge Date Discharge Date: 08/20/18 - Admission Diagnoses (1) Acute hypokalemia Status: Acute (2) Artificial cardiac pacemaker Status: Acute (3) Near syncope Status: Acute (4) Hypertension Status: Chronic (5) Mental retardation Status: Chronic - Discharge Diagnoses Discharge Diagnosis: SAME ADMISSION DIAGNOSIS - Discharge Medications Discharge Medications: Home Medication List esomeprazole magnesium [Nexium] 40 mg PO DAILY 08/20/18 [History] Prescriptions: - Hospital Course Vital Signs: Temperature 97.9 F Pulse Rate [Right Brachial] 65 Pulse Rate [Apical] 70 Pulse Rate 79 Respiratory Rate 20 Blood Pressure [Left Arm] 154/95 Blood Pressure [Right Arm] 125/75 Blood Pressure 98/73 O2 Sat by Pulse Oximetry 96 Latest Lab Results: Laboratory Last Values WBC 6.4 X10^3/uL (3.6-10.0) 08/22/18 04:05 RBC 4.19 X10^6/uL (4.7-6.0) L 08/22/18 04:05 Hgb 13.6 g/dL (13.5-18.0) 08/22/18 04:05 Hct 39.2 % (42.0-54.0) L 08/22/18 04:05 MCV 93.5 fL (80.0-100.0) 08/22/18 04:05 MCH 32.4 pg (27.0-34.0) 08/22/18 04:05 MCHC 34.7 g/dL (33.0-35.0) 08/22/18 04:05 RDW 14.0 % (11.6-16.5) 08/22/18 04:05 Plt Count 219 X10^3/uL (150.0-450.0) 08/22/18 04:05 MPV 8.5 fL (7.4-11.0) 08/22/18 04:05 Neut % (Auto) 52.6 % (42.0-75.0) 08/22/18 04:05 Lymph % (Auto) 33.3 % (21.0-51.0) 08/22/18 04:05 [place] % (Auto) 9.9 % (0.0-13.0) 08/22/18 04:05 Eos % (Auto) 3.6 % (0.9-2.9) H 08/22/18 04:05 Baso % (Auto) 0.6 % (0.2-1.0) 08/22/18 04:05 Neut # (Auto) 3.4 x10^3/uL (2.2-4.8) 08/22/18 04:05 Lymph # (Auto) 2.1 X10^3/uL (1.3-2.9) 08/22/18 04:05 [place] # (Auto) 0.6 x10^3/uL (0.3-0.8) 08/22/18 04:05 Eos # (Auto) 0.2 x10^3/uL (0.0-0.2) 08/22/18 04:05 Baso # (Auto) 0.0 X10^3/uL (0.0-0.1) 08/22/18 04:05 Absolute Nucleated RBC 0.1 /100WBC 08/22/18 04:05 INR Target Range - 08/20/18 10:35 INR 1.05 (0.8-1.3) 08/20/18 10:35 APTT 29.7 SECONDS (22.9-36.5) 08/20/18 10:35 PTT Comment - 08/20/18 10:35 D-Dimer 152 ng/mL (0-400) 08/20/18 10:35 Sodium 140 mmol/L (136-145) 08/22/18 04:05 Corrected Sodium TNP 08/22/18 04:05 Potassium 3.7 mmol/L (3.5-5.1) 08/22/18 04:05 Chloride 104 mmol/L (98-107) 08/22/18 04:05 Carbon Dioxide 28.0 mmol/L (21-32) 08/22/18 04:05 BUN 10 mg/dL (7-18) 08/22/18 04:05 Creatinine 1.15 mg/dL (0.70-1.30) 08/22/18 04:05 Est GFR (MDRD) Af Amer > 60 (>60) 08/22/18 04:05 Est GFR (MDRD) Non-Af > 60 (>60) 08/22/18 04:05 Glucose 108 mg/dL (65-99) H 08/22/18 04:05 Hemoglobin A1c 6.2 % 08/20/18 16:45 Calcium 8.4 mg/dL (8.5-10.1) L 08/22/18 04:05 Corrected Calcium 9.1 mg/dL (8.5-10.1) 08/22/18 04:05 Magnesium 1.7 mg/dL (1.7-2.9) 08/21/18 04:30 Total Bilirubin 0.30 mg/dL (0.2-1.0) 08/22/18 04:05 AST 12 Units/L (15-37) L 08/22/18 04:05 ALT 18 Units/L (12-78) 08/22/18 04:05 Alkaline Phosphatase 51 Units/L (46-116) 08/22/18 04:05 Creatine Kinase 46 Units/L (39-308) 08/20/18 16:45 CK-MB (CK-2) < 1.0 ng/mL (0-4.0) 08/20/18 16:45 CK/CKMB % Calc 2.2 % (<4) 08/20/18 16:45 Troponin I < 0.02 ng/mL (0-1.5) 08/20/18 16:45 Total Protein 6.7 g/dL (6.4-8.2) 08/22/18 04:05 Albumin 3.1 g/dL (3.4-5.0) L 08/22/18 04:05 Globulin 3.6 g/dL (2.5-4.5) 08/22/18 04:05 Albumin/Globulin Ratio 0.9 Ratio (1.1-2.1) L 08/22/18 04:05 Specimen Type Clean catch urine 08/20/18 02:59 Urine Color Yellow (YELLOW) 08/20/18 02:59 Urine Appearance Clear (CLEAR) 08/20/18 02:59 Urine pH 5.0 (5.0 - 8.0) 08/20/18 02:59 Ur Specific [place] 1.015 (1.000-1.030) 08/20/18 02:59 Urine Protein Negative (NEGATIVE) 08/20/18 02:59 Urine Glucose (UA) Negative (NEGATIVE) 08/20/18 02:59 Urine Ketones Negative (NEGATIVE) 08/20/18 02:59 Urine Occult Blood Negative (NEGATIVE) 08/20/18 02:59 Urine Nitrite Negative (NEGATIVE) 08/20/18 02:59 Urine Bilirubin Negative (NEGATIVE) 08/20/18 02:59 Urine Urobilinogen Normal (NORMAL) 08/20/18 02:59 Ur Leukocyte Esterase Negative (NEGATIVE) 08/20/18 02:59 Hospital Course: 58 WM ER ADMISSION AFTER PRESENTING WITH CO SYNCOPE. PT STATES HE HAD "WAVE COME OVER HIS HEAD, THEN HEADACHE AND STARTS TO SWEAT AND GETS DIZZY" PRIOR TO FAINTING EPISODES. PT DOES NOT ALWAYS COMPLETELY FAINT. PT HAD EPISODE APPROX 1- [address] KELLOGG OFFICE AND SENT TO [facility] FOR HEART EVALUATION. PT HAD STRESS TEST AND ECHO, NO REPORTED HEART CATH. PT HAD NO MEDICATION CHANGES. PT DENIES CHEST PAIN, CO WEAKNESS. PT HAS PMH OF MR, BLINDNESS, HTN, OA, AR, PACE MAKER. LABS AND TELEMETRY WERE MONITORED. NO ACUTE EVENTS NOTED. PATIENT WAS STABLE AND WAS DISCHARGED HOME TO BE FOLLOWED IN OP SETTING. - Discharge Plan Disposition: 01 HOME, SELF-CARE Condition: Stable - Follow ups/Referrals Follow ups/Referrals: NEISHA CARRILLO [Primary Care Provider] - 1 WEEK - Instructions
== END 2018-08-22 18:30 | disposition home or self-care (01) ==
LOC: MED/SURG 10:19 → ER 10:19 → MED/SURG 12:57
PROVIDERS: ADMIT Internal Medicine; ATTEND Internal Medicine
DX: R94.4 Abnormal results of kidney function studies; F78 Other intellectual disabilities; R73.09 Other abnormal glucose; E87.6 Hypokalemia; Z95.0 Presence of cardiac pacemaker; K21.9 Gastro-esophageal reflux disease without esophagitis; R94.31 Abnormal electrocardiogram [ECG] [EKG]; R55 Syncope and collapse; I10 Essential (primary) hypertension; R06.02 Shortness of breath; M13.89 Other specified arthritis, multiple sites
CPT/HCPCS: 36415; 70450; 70498; 71010; 71045; 80053; 81003; 82550; 82553; 83036; 83735; 84132; 84484; 85025; 85378; 85610; 85730; 93005; 93010; 94760; 96365; 96367; 99284; A4222; G0378; J3480; J7030; J8499

== ENCOUNTER 2020-06-22 11:35 | Inpatient (IN) ==
[2020-06-22 13:34] LABS: BASOPHILS # (AUTO) 0.1 X10^3/uL (0.0-0.1); BASOPHILS % (AUTO) 1.2 % (0.2-1.0); EOSINOPHILS # (AUTO) 0.3 x10^3/uL (0.0-0.2); EOSINOPHILS % (AUTO) 6.2 % (0.9-2.9); HEMOGLOBIN 13.5 g/dL (13.5-18.0); LYMPHOCYTES # (AUTO) 1.4 X10^3/uL (1.3-2.9); LYMPHOCYTES % (AUTO) 29.4 % (21.0-51.0); MEAN CORPUSCULAR HEMOGLOBIN 29.7 pg (27.0-34.0); MEAN CORPUSCULAR VOLUME 89.8 fL (80.0-100.0); MEAN PLATELET VOLUME 7.5 fL (7.4-11.0); MONOCYTES # (AUTO) 0.6 x10^3/uL (0.3-0.8); MONOCYTES % (AUTO) 11.5 % (0.0-13.0); NEUTROPHILS # (AUTO) 2.5 x10^3/uL (2.2-4.8); NEUTROPHILS % (AUTO) 51.7 % (42.0-75.0); PLATELET COUNT 242 X10^3/uL (150.0-450.0); RED BLOOD COUNT 4.57 X10^6/uL (4.7-6.0); RED CELL DISTRIBUTION WIDTH 15.7 % (11.6-16.5); WHITE BLOOD COUNT 4.8 X10^3/uL (3.6-10.0)
[2020-06-22 13:48] LABS: ALANINE AMINOTRANSFERASE 20 Units/L (12-78); ALBUMIN 3.7 g/dL (3.4-5.0); ALKALINE PHOSPHATASE 63 Units/L (46-116); ASPARTATE AMINO TRANSFERASE 16 Units/L (15-37); BLOOD UREA NITROGEN 25 mg/dL (7-18); CALCIUM 8.9 mg/dL (8.5-10.1); CARBON DIOXIDE 28.2 mmol/L (21-32); CHLORIDE 106 mmol/L (98-107); COR NA(FOR HYPERGLY) 141 mmol/L (136-145); CREATININE 1.15 mg/dL (0.70-1.30); SODIUM 140 mmol/L (136-145); TOTAL PROTEIN 7.6 g/dL (6.4-8.2); eGFR NON BLACK RACES > 60 (>60)
--- NOTE | 2020-06-22 13:56 | RAD ---
HISTORYAB, SOBSTUDYPortable AP chestCOMPARISONSeptember 2017, report onlyFINDINGSThe lungs are grossly clear. There are intact pacemaker wire leads via the left subclavian vein. There is no edema or effusion or congestion.IMPRESSIONNo evidence for acute cardiopulmonary diseaseElectronically signed by: CHELSEA HUFF (Jun 22, 2020 13:54:50)
[2020-06-22] MEDS: NS 1000 ML 1,000 ML IV SCH (15:44)
[2020-06-22] MEDS: ZITHROMAX INJ 500 MG VIAL 500 MG in NS 250 ML IV 250 ML IV SCH (15:45)
[2020-06-22] MEDS: ZOSYN VIAL 3.375 GRAMS 3.375 G in NS 100 ML IV + SPIKE MINIBAG* 100 ML IV SCH ×2 (15:45→22:00)
[2020-06-22] MEDS: SOLU-Medrol 40 MG VIAL IVP SCH ×2 (15:45→21:39)
[2020-06-22 16:02] VITALS: BMI 31.6
[2020-06-22] MEDS: ROBITUSSIN DM PO SCH ×2 (17:00→20:50)
[2020-06-22] MEDS: ACCUNEB 1.25 MG NEBULE NEB SCH ×2 (17:15→17:16)
[2020-06-23] MEDS ORDERED: TYLENOL 325 MG TAB PO ONE (00:27)
[2020-06-23] MEDS: TYLENOL 325 MG TAB PO PRN ×2 (00:39→15:45)
[2020-06-23 02:58] LABS: BILIRUBIN,URINE NEGATIVE (NEGATIVE); BLOOD/HEMOGLOBIN,URINE NEGATIVE (NEGATIVE); GLUCOSE, URINE 4+ (NEGATIVE); KETONES,URINE 1+ (NEGATIVE); LEUKOCYTE ESTERASE ,URINE NEGATIVE (NEGATIVE); NITRITES,URINE NEGATIVE (NEGATIVE); PROTEIN,URINE NEGATIVE (NEGATIVE); UROBILINOGEN,URINE NORMAL (NORMAL)
[2020-06-23 03:01] LABS: APPEARANCE,URINE CLEAR (CLEAR); COLOR,URINE YELLOW (YELLOW)
[2020-06-23] MEDS: ACCUNEB 1.25 MG NEBULE NEB SCH ×4 (05:40→18:31)
[2020-06-23] MEDS: SOLU-Medrol 40 MG VIAL IVP SCH (05:53)
[2020-06-23] MEDS: ZOSYN VIAL 3.375 GRAMS 3.375 G in NS 100 ML IV + SPIKE MINIBAG* 100 ML IV SCH ×3 (05:53→22:26)
[2020-06-23 06:08] LABS: BASOPHILS % (AUTO) 0.1 % (0.2-1.0); HEMATOCRIT 40.4 % (42.0-54.0); HEMOGLOBIN 13.3 g/dL (13.5-18.0); LYMPHOCYTES # (AUTO) 0.5 X10^3/uL (1.3-2.9); LYMPHOCYTES % (AUTO) 5.7 % (21.0-51.0); MEAN CORPUSCULAR HEMOGLOBIN 29.6 pg (27.0-34.0); MEAN CORPUSCULAR HGB CONC 32.8 g/dL (33.0-35.0); MEAN CORPUSCULAR VOLUME 90.2 fL (80.0-100.0); MEAN PLATELET VOLUME 8.3 fL (7.4-11.0); MONOCYTES # (AUTO) 0.1 x10^3/uL (0.3-0.8); MONOCYTES % (AUTO) 1.4 % (0.0-13.0); NEUTROPHILS # (AUTO) 8.2 x10^3/uL (2.2-4.8); NEUTROPHILS % (AUTO) 92.8 % (42.0-75.0); PLATELET COUNT 240 X10^3/uL (150.0-450.0); RED BLOOD COUNT 4.48 X10^6/uL (4.7-6.0); RED CELL DISTRIBUTION WIDTH 15.7 % (11.6-16.5); WHITE BLOOD COUNT 8.8 X10^3/uL (3.6-10.0)
[2020-06-23 06:22] LABS: ALANINE AMINOTRANSFERASE 23 Units/L (12-78); ALBUMIN 3.7 g/dL (3.4-5.0); ALKALINE PHOSPHATASE 60 Units/L (46-116); ASPARTATE AMINO TRANSFERASE 17 Units/L (15-37); BLOOD UREA NITROGEN 25 mg/dL (7-18); CALCIUM 8.9 mg/dL (8.5-10.1); CARBON DIOXIDE 23.9 mmol/L (21-32); CHLORIDE 106 mmol/L (98-107); COR NA(FOR HYPERGLY) 142 mmol/L (136-145); CREATININE 1.25 mg/dL (0.70-1.30); SODIUM 141 mmol/L (136-145); TOTAL PROTEIN 7.7 g/dL (6.4-8.2); eGFR NON BLACK RACES > 60 (>60)
[2020-06-23 06:38] LABS: PLATELET MORPHOLOGY COMMENT NORMAL (NORMAL)
[2020-06-23] MEDS: MOBIC TAB 15 MG PO SCH (09:59)
[2020-06-23] MEDS: NORVASC TAB 5 MG PO SCH (09:59)
[2020-06-23] MEDS: NexIUM PO SCH (09:59)
[2020-06-23] MEDS: CLARITIN PO SCH (10:00)
[2020-06-23] MEDS: PROzac PO SCH (10:00)
[2020-06-23] MEDS: ROBITUSSIN DM PO SCH ×4 (10:02→21:00)
[2020-06-23] MEDS: FLONASE NASAL SPRAY ENOSTRIL SCH (10:02)
[2020-06-23] MEDS: ZITHROMAX INJ 500 MG VIAL 500 MG in NS 250 ML IV 250 ML IV SCH (10:02)
--- NOTE | 2020-06-23 14:01 | DR.H&P ---
H&P - History & Physical for Day of: H&P Date: 06/22/20 - Chief Complaint Chief Complaint: CCC, WHEEZING, SOB - History of Present Illness History of Present Illness: PT IS 60 WM DIRECT ADMIT FROM DR MILLER OFFICE WITH AB, FAILED OUTPT THERAPY. PT TOOK A ROUND OF ZITHROMAX AND HAD IM ROCEPHIN WITHOUT IMPROVEMENT. PT HAS PMH OF BLINDNESS, HTN, PACE MAKER, OA. PT ADMITTED FOR TREATMENT OF ACUTE ILLNESS, R/O COVID PNEUMONIA - Past Medical History Past Medical History: Hypertension, GERD, Arthritis Additional Medical History: MR - Past Surgical History Surgical History: Ortho Surgery Additional Surgical History: CSPINE. CATARACT. PACE MAKER 1013 - Family History Family Medical History: Diabetes Mellitus, Cancer, Hypertension - Social History Does patient currently use any type of tobacco product: No Have you used tobacco products in the last 12 months: No Type of Tobacco Use: None Alcohol Use: None Drug Use: None - Medications Home Medications: nitroglycerin Allergy (Verified 10/01/19 12:02) tetanus immune globulin Allergy (Verified 10/01/19 12:02) CONTINUE taking the following medications amlodipine 5 mg PO DAILY 06/22/20 [History] fluticasone propionate [Flonase Allergy Relief] 1 spray INTRANASAL DAILY 06/22/20 [History] latanoprost 1 drp OPHTHALMIC (EYE) HS 06/22/20 [History] loratadine 10 mg PO DAILY 06/22/20 [History] - Review of Systems Constitutional: Fever, Chills, Sweats, Malaise Eyes: No Symptoms Reported ENT: Nose Congestion, Throat Pain Respiratory: Cough, Shortness of Breath, Wheezing Cardiovascular: No Symptoms Reported Gastrointestinal: Nausea Genitourinary: No Symptoms Reported Musculoskeletal: No Symptoms Reported Skin: No Symptoms Reported Neurological: No Symptoms Reported - Physical Exam Vital Signs: Temperature 98.5 F Pulse Rate [Left Brachial] 86 Pulse Rate [Right Brachial] 77 Pulse Rate 80 Respiratory Rate 18 Blood Pressure [Left Arm] 122/71 Blood Pressure [Right Arm] 146/71 Blood Pressure 140/81 O2 Sat by Pulse Oximetry 96 Oriented: Normal Eyes: Other (CHRONICALLY LEGALLY BLIND) Ear: Normal Nose: Injected, Discharge Throat: Exudate Respiratory: RLL Diminished, LLL Diminished, RUL Exp. Wheeze, RML Exp. Wheeze, RLL Exp. Wheeze Cardiovascular: Normal, Other (PACE MAKER PRESENT) : Normal Auscultation: Bowel Sounds: Normal Palpation: Normal Tenderness: Normal Skin: Normal Musculoskeletal: Right, Left, Knee Psychiatric: Normal Mood Description: Calm Speech Pattern: Clear, Appropriate - Assessment/Plan (1) Shortness of breath Status: Acute Plan: ADMIT, CXR ON ADMISSION. COVID 19 RAPID SWAB R/O BERRIOS VIRUS ILLNESS. BLOOD AND SPUTUM CULTURES, IV ATBX THERAPY. RESP THEARPY, IV HYDRATION. SUPPLEMENTAL O2, VERIFY HOME MEDICATION. FALL RISK, BP CONTROL (2) Bronchopneumonia Status: Acute (3) Artificial cardiac pacemaker Status: Chronic (4) Hypertension Status: Chronic - Allergies Allergies/Adverse Reactions: Allergies Allergy/AdvReac Type Severity Reaction Status Date / Time nitroglycerin Allergy Verified 10/01/19 12:02 tetanus immune globulin Allergy Verified 10/01/19 12:02
[2020-06-23] MEDS: NS 1000 ML 1,000 ML IV SCH (15:44)
[2020-06-23] MEDS ORDERED: XALATAN OP SCH (21:00)
[2020-06-24] MEDS: ACCUNEB 1.25 MG NEBULE NEB SCH ×2 (00:31→06:26)
[2020-06-24 05:39] LABS: BASOPHILS % (AUTO) 0.1 % (0.2-1.0); HEMATOCRIT 36.8 % (42.0-54.0); HEMOGLOBIN 12.1 g/dL (13.5-18.0); LYMPHOCYTES # (AUTO) 1.8 X10^3/uL (1.3-2.9); LYMPHOCYTES % (AUTO) 12.6 % (21.0-51.0); MEAN CORPUSCULAR HEMOGLOBIN 29.8 pg (27.0-34.0); MEAN CORPUSCULAR HGB CONC 32.8 g/dL (33.0-35.0); MEAN CORPUSCULAR VOLUME 90.7 fL (80.0-100.0); MONOCYTES # (AUTO) 1.2 x10^3/uL (0.3-0.8); MONOCYTES % (AUTO) 8.4 % (0.0-13.0); NEUTROPHILS # (AUTO) 11.4 x10^3/uL (2.2-4.8); NEUTROPHILS % (AUTO) 78.9 % (42.0-75.0); PLATELET COUNT 223 X10^3/uL (150.0-450.0); RED BLOOD COUNT 4.06 X10^6/uL (4.7-6.0); RED CELL DISTRIBUTION WIDTH 15.7 % (11.6-16.5); WHITE BLOOD COUNT 14.4 X10^3/uL (3.6-10.0)
[2020-06-24 06:01] LABS: ALANINE AMINOTRANSFERASE 25 Units/L (12-78); ALBUMIN 3.4 g/dL (3.4-5.0); ALKALINE PHOSPHATASE 55 Units/L (46-116); ASPARTATE AMINO TRANSFERASE 19 Units/L (15-37); BLOOD UREA NITROGEN 30 mg/dL (7-18); CALCIUM 8.3 mg/dL (8.5-10.1); CARBON DIOXIDE 25.6 mmol/L (21-32); CHLORIDE 107 mmol/L (98-107); COR NA(FOR HYPERGLY) 142 mmol/L (136-145); CREATININE 1.29 mg/dL (0.70-1.30); SODIUM 141 mmol/L (136-145); eGFR NON BLACK RACES > 60 (>60)
[2020-06-24] MEDS: ZOSYN VIAL 3.375 GRAMS 3.375 G in NS 100 ML IV + SPIKE MINIBAG* 100 ML IV SCH (06:26)
[2020-06-24] MEDS: MOBIC TAB 15 MG PO SCH (08:40)
[2020-06-24] MEDS: NexIUM PO SCH (08:40)
[2020-06-24] MEDS: CLARITIN PO SCH (08:40)
[2020-06-24] MEDS: PROzac PO SCH (08:41)
[2020-06-24] MEDS: ZITHROMAX INJ 500 MG VIAL 500 MG in NS 250 ML IV 250 ML IV SCH (08:41)
[2020-06-24] MEDS: ROBITUSSIN DM PO SCH (08:41)
[2020-06-24] MEDS: NORVASC TAB 5 MG PO SCH (08:41)
[2020-06-24] MEDS: FLONASE NASAL SPRAY ENOSTRIL SCH (08:41)
--- NOTE | 2020-06-24 10:40 | RAD ---
HISTORYCough, wheezing, shortness of breathSTUDYChest PA and lateralCOMPARISONNoneFINDINGSThe heart is mildly enlarged. No congestive heart failure is noted. The lungs are well inflated and free of acute infiltrates. No pleural effusions are identified. There is a left-sided pacemaker overlying the left axilla.IMPRESSIONMild cardiomegaly without congestive heart failureLungs clearElectronically signed by: NAHOMY CONDON (Jun 24, 2020 10:39:16)
[2020-06-24 13:29] VITALS: BP 137/87
== END 2020-06-24 12:55 | disposition home health service (06) | DRG 195 ==
LOC: OBS 11:36 → MED/SURG 13:54
PROVIDERS: ADMIT Internal Medicine; ATTEND Internal Medicine
DX: Z11.59 Encounter for screening for other viral diseases; I49.5 Sick sinus syndrome; R06.02 Shortness of breath; K21.9 Gastro-esophageal reflux disease without esophagitis; J18.0 Bronchopneumonia, unspecified organism; Z95.0 Presence of cardiac pacemaker; F41.1 Generalized anxiety disorder
CPT/HCPCS: 36415; 71010; 71020; 71045; 71046; 80053; 81003; 85025; 87040; 87635; 94640; 94669; 97161; A4222; J0456; J2543; J2920; J3490; J7030; J7050; J7613

== ENCOUNTER 2021-10-18 10:47 | Observation (INO) ==
[2021-10-18] MEDS ORDERED: ZOFRAN INJ 4 MG VIAL IVP PRN (13:46)
--- NOTE | 2021-10-18 13:53 | DR.H&P ---
H&P - History & Physical for Day of: H&P Date: 10/18/21 - Chief Complaint Chief Complaint: CHEST PAIN, SOB, DIZZINESS, ELEVATED BP - History of Present Illness History of Present Illness: PT IS 61WM DIRECT ADMIT FROM DR KELLOGG OFFICE WITH CO CHEST PAIN WITH SOB, ONSET THIS AM. PT STATES HE BP WAS ELEVATED YESTERDAY AND HE HAS HAD DIZZINESS FOR 1 DAY. PT HAD HX OF HTN AND SICK SINUS SYNDROME, WITH PACEMAKER PRESENT. 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 PT STATES HE "WORRIED PACEMAKER IS NOT ACTING RIGHT". PT ADMITTED FOR TREATMENT AND EVALUATION OF ACUTE ILLNESS. - Past Medical History Past Medical History: Hypertension, GERD, Arthritis Additional Medical History: MR - Past Surgical History Surgical History: Ortho Surgery Additional Surgical History: CSPINE. CATARACT. PACE MAKER 1013 - Family History Family Medical History: Diabetes Mellitus, Cancer, Hypertension - Social History Does patient currently use any type of tobacco product: No Have you used tobacco products in the last 12 months: No Type of Tobacco Use: None Does any household member use tobacco: No Alcohol Use: None Drug Use: None Risks, benefits, and alternatives of opioids discussed: No Prescription drug monitoring program results: PDMP reviewed and no concerns identified - Medications Home Medications: nitroglycerin Allergy (Verified 04/20/21 09:34) tetanus immune globulin Allergy (Verified 04/20/21 09:34) - Review of Systems Constitutional: Weakness Eyes: No Symptoms Reported ENT: No Symptoms Reported Respiratory: Shortness of Breath Cardiovascular: Chest Pain Gastrointestinal: No Symptoms Reported Genitourinary: No Symptoms Reported Musculoskeletal: No Symptoms Reported, Arm Pain Neurological: Other (DIZZINESS) - Physical Exam Vital Signs: Blood Pressure [Left Arm] 137/87 Blood Pressure [Right Arm] 146/71 Blood Pressure 105/67 Oriented: Normal Eyes: Normal Ear: Normal Nose: Normal Throat: Normal Respiratory: RLL Diminished, LLL Diminished Cardiovascular: Normal, Other (PACEMAKER PRESENT) : Normal Auscultation: Bowel Sounds: Normal Palpation: Normal Tenderness: Normal Skin: Normal Musculoskeletal: Normal Psychiatric: Anxiety Affect: Anxious Speech Pattern: Clear, Appropriate - Assessment/Plan (1) Chest pain Status: Acute Plan: ADMIT, SERIAL CE AND EKG ON ADMISSION. D DIMER. CXR ON ADMISSION. VERIFY HOME MEDICATION. 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
[2021-10-18] MEDS ORDERED: NS 1,000 ML IV 1,000 ML IV SCH (14:00)
[2021-10-18 14:36] LABS: BASOPHILS % (AUTO) 0.6 % (0.2-1.0); EOSINOPHILS # (AUTO) 0.1 x10^3/uL (0.0-0.2); EOSINOPHILS % (AUTO) 2.1 % (0.9-2.9); HEMATOCRIT 45.2 % (42.0-54.0); HEMOGLOBIN 15.4 g/dL (13.5-18.0); LYMPHOCYTES # (AUTO) 0.8 X10^3/uL (1.3-2.9); LYMPHOCYTES % (AUTO) 11.9 % (21.0-51.0); MEAN CORPUSCULAR HEMOGLOBIN 32.4 pg (27.0-34.0); MEAN CORPUSCULAR HGB CONC 34.2 g/dL (33.0-35.0); MEAN CORPUSCULAR VOLUME 94.8 fL (80.0-100.0); MEAN PLATELET VOLUME 7.8 fL (7.4-11.0); MONOCYTES # (AUTO) 0.5 x10^3/uL (0.3-0.8); MONOCYTES % (AUTO) 8.1 % (0.0-13.0); NEUTROPHILS # (AUTO) 4.9 x10^3/uL (2.2-4.8); NEUTROPHILS % (AUTO) 77.3 % (42.0-75.0); PLATELET COUNT 243 X10^3/uL (150.0-450.0); RED BLOOD COUNT 4.76 X10^6/uL (4.7-6.0); RED CELL DISTRIBUTION WIDTH 13.9 % (11.6-16.5); WHITE BLOOD COUNT 6.3 X10^3/uL (3.6-10.0)
[2021-10-18] MEDS: PROTONIX INJ 40 MG VIAL IVP SCH (14:47)
[2021-10-18] MEDS ORDERED: PROVENTIL NEB TX 0.083% 2.5MG/ 3ML NEB PRN (14:47)
--- NOTE | 2021-10-18 14:51 | RAD ---
HISTORYCHEST PAIN, SOBSTUDYCHEST, 1 [id number]/31/2020FINDINGSThe cardiomediastinal silhouette is stable. Left-sided pacer and pacer wires unchanged. The lungs are clear without evidence of airspace disease or effusion. No pneumothorax. The bony thorax appears intact. ACDF hardware partially visualized.IMPRESSIONNo acute cardiopulmonary disease.Electronically signed by: NAHOMY CONDON (Oct 18, 2021 14:50:27)
[2021-10-18 14:54] LABS: ALANINE AMINOTRANSFERASE 16 Units/L (12-78); ALBUMIN 3.9 g/dL (3.4-5.0); ALKALINE PHOSPHATASE 62 Units/L (46-116); ASPARTATE AMINO TRANSFERASE 12 Units/L (15-37); BLOOD UREA NITROGEN 23 mg/dL (7-18); CALCIUM 8.9 mg/dL (8.5-10.1); CARBON DIOXIDE 24.2 mmol/L (21-32); CHLORIDE 102 mmol/L (98-107); CKMB % 1.2 % (<4); CREATINE KINASE 86 Units/L (39-308); CREATINE KINASE MB < 1.0 ng/mL (0-4.0); CREATININE 1.24 mg/dL (0.70-1.30); MAGNESIUM 2.4 mg/dL (1.7-2.9); SODIUM 136 mmol/L (136-145); TOTAL PROTEIN 7.7 g/dL (6.4-8.2); TROPONIN I < 0.02 ng/mL (0-1.5); eGFR NON BLACK RACES > 60 (>60)
[2021-10-18 16:32] LABS: BILIRUBIN,URINE NEGATIVE (NEGATIVE); BLOOD/HEMOGLOBIN,URINE 2+ (NEGATIVE); GLUCOSE, URINE NEGATIVE (NEGATIVE); KETONES,URINE 2+ (NEGATIVE); LEUKOCYTE ESTERASE ,URINE NEGATIVE (NEGATIVE); NITRITES,URINE NEGATIVE (NEGATIVE); PROTEIN,URINE 2+ (NEGATIVE); UROBILINOGEN,URINE 1+ (NORMAL)
[2021-10-18 16:52] LABS: APPEARANCE,URINE CLEAR (CLEAR); BACTERIA,URINE TRACE /HPF (NEGATIVE); COLOR,URINE YELLOW (YELLOW); SQUAMOUS EPITHELIAL CELL,UR RARE /HPF (NEGATIVE)
[2021-10-18 20:11] LABS: CKMB % 1.2 % (<4); CREATINE KINASE MB < 1.0 ng/mL (0-4.0); TROPONIN I < 0.02 ng/mL (0-1.5)
[2021-10-18 20:12] LABS: CREATINE KINASE 82 Units/L (39-308)
[2021-10-19 02:34] LABS: CKMB % 1.2 % (<4); CREATINE KINASE 84 Units/L (39-308); CREATINE KINASE MB < 1.0 ng/mL (0-4.0); TROPONIN I < 0.02 ng/mL (0-1.5)
[2021-10-19] MEDS: PROTONIX INJ 40 MG VIAL IVP SCH (08:54)
[2021-10-19] MEDS ORDERED: NORVASC TAB 5 MG PO SCH (09:00)
--- NOTE | 2021-10-19 10:45 | W.DIS.FURT ---
Summary of Discharge Discharge Summary of Date Date of Exam: 10/19/21 Admission Date Date of Admission: 10/18/21 Admission Diagnosis Patient Problems (Updated 10/18/21 @ 13:59 by NEISHA CARRILLO) Shortness of breath (Acute) R06.02 Legal blindness (Acute) H54.8 Mild intellectual disabilities (Acute) F70 Chest pain (Acute) R07.9 Hypertension (Chronic) I10 Artificial cardiac pacemaker (Chronic) Z95.0 Hospital Course: Pt is a 61 year old male past medical history of Hypertension, Pacemaker, legal blindness, and mild intellectual disability admitted for chest pain rule out after having some chest pain and shortness of breath. Serial ekg and cardiac enzymes negative, D-dimer negative, CXR: no acute cardiopulmonary concerns. On morning of discharge patient reports feeling better and symptoms have resolved. Pt discharged in stable condition. Instructed to follow up with pcp in 3-5 days. Vital Signs: Vital Signs (72 hours) 10/18/21 13:13 10/18/21 13:15 10/18/21 13:30 Temperature 98.1 F Pulse Rate 73 70 67 Pulse Rate [Apical] Respiratory Rate 15 14 16 Blood Pressure Blood Pressure [Left Arm] Blood Pressure [Right Arm] O2 Sat by Pulse Oximetry 96 96 93 L 10/18/21 13:45 10/18/21 13:46 10/18/21 14:00 Temperature 98.1 F Pulse Rate 75 73 74 Pulse Rate [Apical] Respiratory Rate 17 18 18 Blood Pressure 134/82 134/82 Blood Pressure [Left Arm] Blood Pressure [Right Arm] O2 Sat by Pulse Oximetry 96 99 96 10/18/21 14:03 10/18/21 14:15 10/18/21 14:30 Temperature 98.1 F Pulse Rate 82 85 Pulse Rate [Apical] 73 Respiratory Rate 18 22 24 Blood Pressure Blood Pressure [Left Arm] Blood Pressure [Right Arm] 133/85 O2 Sat by Pulse Oximetry 99 96 97 10/18/21 14:45 10/18/21 15:00 10/18/21 15:15 Temperature Pulse Rate 96 H 90 87 Pulse Rate [Apical] Respiratory Rate 18 17 12 Blood Pressure 120/68 Blood Pressure [Left Arm] Blood Pressure [Right Arm] O2 Sat by Pulse Oximetry 95 94 L 94 L 10/18/21 15:23 10/18/21 15:30 10/18/21 15:45 Temperature 98.1 F Pulse Rate 91 H 93 H Pulse Rate [Apical] 73 Respiratory Rate 18 18 24 Blood Pressure Blood Pressure [Left Arm] 133/85 Blood Pressure [Right Arm] O2 Sat by Pulse Oximetry 99 90 L 94 L 10/18/21 16:00 10/18/21 16:15 10/18/21 16:30 Temperature 97.4 F L Pulse Rate 89 90 93 H Pulse Rate [Apical] Respiratory Rate 14 15 22 Blood Pressure 130/74 Blood Pressure [Left Arm] Blood Pressure [Right Arm] O2 Sat by Pulse Oximetry 98 97 97 10/18/21 16:45 10/18/21 17:00 10/18/21 17:15 Temperature 97.4 F L Pulse Rate 88 106 H 99 H Pulse Rate [Apical] Respiratory Rate 12 31 H 36 H Blood Pressure 127/67 Blood Pressure [Left Arm] Blood Pressure [Right Arm] O2 Sat by Pulse Oximetry 97 96 96 10/18/21 17:30 10/18/21 17:47 10/18/21 18:00 Temperature Pulse Rate 95 H 98 H 92 H Pulse Rate [Apical] Respiratory Rate 12 24 16 Blood Pressure 127/74 Blood Pressure [Left Arm] Blood Pressure [Right Arm] O2 Sat by Pulse Oximetry 97 96 96 10/18/21 19:00 10/18/21 20:00 10/18/21 21:00 Temperature 98.5 F Pulse Rate 90 90 83 Pulse Rate [Apical] Respiratory Rate 15 21 24 Blood Pressure 141/69 120/62 121/63 Blood Pressure [Left Arm] Blood Pressure [Right Arm] O2 Sat by Pulse Oximetry 97 95 97 10/18/21 22:00 10/18/21 22:15 10/18/21 22:30 Temperature Pulse Rate 94 H 91 H 91 H Pulse Rate [Apical] Respiratory Rate 18 15 21 Blood Pressure 111/58 Blood Pressure [Left Arm] Blood Pressure [Right Arm] O2 Sat by Pulse Oximetry 96 96 97 10/18/21 22:45 10/18/21 23:00 10/18/21 23:15 Temperature Pulse Rate 93 H 85 97 H Pulse Rate [Apical] Respiratory Rate 29 H 18 16 Blood Pressure 120/67 Blood Pressure [Left Arm] Blood Pressure [Right Arm] O2 Sat by Pulse Oximetry 96 98 97 10/18/21 23:30 10/18/21 23:45 10/19/21 00:00 Temperature 98.3 F Pulse Rate 84 82 88 Pulse Rate [Apical] Respiratory Rate 18 26 H 26 H Blood Pressure 120/71 Blood Pressure [Left Arm] Blood Pressure [Right Arm] O2 Sat by Pulse Oximetry 97 96 93 L 10/19/21 00:15 10/19/21 00:30 10/19/21 00:45 Temperature Pulse Rate 87 88 96 H Pulse Rate [Apical] Respiratory Rate 25 H 25 H 30 H Blood Pressure Blood Pressure [Left Arm] Blood Pressure [Right Arm] O2 Sat by Pulse Oximetry 93 L 93 L 97 10/19/21 01:00 10/19/21 01:01 10/19/21 01:02 Temperature Pulse Rate 82 106 H 98 H Pulse Rate [Apical] Respiratory Rate 22 30 H 31 H Blood Pressure 128/70 128/70 Blood Pressure [Left Arm] Blood Pressure [Right Arm] O2 Sat by Pulse Oximetry 98 95 95 10/19/21 01:15 10/19/21 01:30 10/19/21 01:45 Temperature Pulse Rate 84 86 82 Pulse Rate [Apical] Respiratory Rate 22 18 27 H Blood Pressure Blood Pressure [Left Arm] Blood Pressure [Right Arm] O2 Sat by Pulse Oximetry 94 L 94 L 91 L 10/19/21 02:00 10/19/21 02:19 10/19/21 02:30 Temperature Pulse Rate 81 79 Pulse Rate [Apical] Respiratory Rate 29 H 16 Blood Pressure 121/62 Blood Pressure [Left Arm] Blood Pressure [Right Arm] O2 Sat by Pulse Oximetry 91 L 95 95 10/19/21 02:45 10/19/21 03:00 10/19/21 03:15 Temperature Pulse Rate 75 80 80 Pulse Rate [Apical] Respiratory Rate 19 14 26 H Blood Pressure 124/72 Blood Pressure [Left Arm] Blood Pressure [Right Arm] O2 Sat by Pulse Oximetry 96 93 L 91 L 10/19/21 03:30 10/19/21 03:45 10/19/21 04:00 Temperature Pulse Rate 81 80 77 Pulse Rate [Apical] Respiratory Rate 26 H 27 H 26 H Blood Pressure 113/71 Blood Pressure [Left Arm] Blood Pressure [Right Arm] O2 Sat by Pulse Oximetry 94 L 91 L 91 L 10/19/21 04:15 10/19/21 04:30 10/19/21 04:45 Temperature Pulse Rate 79 81 89 Pulse Rate [Apical] Respiratory Rate 26 H 22 22 Blood Pressure Blood Pressure [Left Arm] Blood Pressure [Right Arm] O2 Sat by Pulse Oximetry 92 L 91 L 93 L 10/19/21 05:00 10/19/21 05:18 10/19/21 05:30 Temperature 97.7 F Pulse Rate 80 97 H 79 Pulse Rate [Apical] Respiratory Rate 27 H 28 H Blood Pressure 123/56 Blood Pressure [Left Arm] Blood Pressure [Right Arm] O2 Sat by Pulse Oximetry 93 L 93 L 93 L 10/19/21 05:45 10/19/21 06:00 10/19/21 06:15 Temperature Pulse Rate 75 79 82 Pulse Rate [Apical] Respiratory Rate 19 12 25 H Blood Pressure 124/73 Blood Pressure [Left Arm] Blood Pressure [Right Arm] O2 Sat by Pulse Oximetry 95 96 90 L 10/19/21 06:30 10/19/21 06:45 10/19/21 07:00 Temperature Pulse Rate 83 81 77 Pulse Rate [Apical] Respiratory Rate 24 17 15 Blood Pressure 114/70 Blood Pressure [Left Arm] Blood Pressure [Right Arm] O2 Sat by Pulse Oximetry 92 L 92 L 94 L 10/19/21 07:15 10/19/21 07:30 10/19/21 07:45 Temperature Pulse Rate 74 80 103 H Pulse Rate [Apical] Respiratory Rate 18 25 H 27 H Blood Pressure Blood Pressure [Left Arm] Blood Pressure [Right Arm] O2 Sat by Pulse Oximetry 90 L 89 L 96 10/19/21 08:00 10/19/21 08:15 10/19/21 08:30 Temperature 98.1 F Pulse Rate 85 82 87 Pulse Rate [Apical] Respiratory Rate 23 13 7 L Blood Pressure 122/74 Blood Pressure [Left Arm] Blood Pressure [Right Arm] O2 Sat by Pulse Oximetry 96 97 96 10/19/21 08:45 10/19/21 09:00 Temperature Pulse Rate 84 88 Pulse Rate [Apical] Respiratory Rate 19 22 Blood Pressure 118/65 Blood Pressure [Left Arm] Blood Pressure [Right Arm] O2 Sat by Pulse Oximetry 98 96 Labs: Laboratory Last Values WBC 6.3 X10^3/uL (3.6-10.0) 10/18/21 14:21 RBC 4.76 X10^6/uL (4.7-6.0) 10/18/21 14:21 Hgb 15.4 g/dL (13.5-18.0) 10/18/21 14:21 Hct 45.2 % (42.0-54.0) 10/18/21 14:21 MCV 94.8 fL (80.0-100.0) 10/18/21 14:21 MCH 32.4 pg (27.0-34.0) 10/18/21 14: MCHC 34.2 g/dL (33.0-35.0) 10/18/21 14:21 RDW 13.9 % (11.6-16.5) 10/18/21 14:21 Plt Count 243 X10^3/uL (150.0-450.0) 10/18/21 14: MPV 7.8 fL (7.4-11.0) 10/18/21 14: Neut % (Auto) 77.3 % (42.0-75.0) H 10/18/21 14: Lymph % (Auto) 11.9 % (21.0-51.0) L 10/18/21 14: [place] % (Auto) 8.1 % (0.0-13.0) 10/18/21 14: Eos % (Auto) 2.1 % (0.9-2.9) 10/18/21 14: Baso % (Auto) 0.6 % (0.2-1.0) 10/18/21 14: Neut # (Auto) 4.9 x10^3/uL (2.2-4.8) H 10/18/21 14:21 Lymph # (Auto) 0.8 X10^3/uL (1.3-2.9) L 10/18/21 14:21 [place] # (Auto) 0.5 x10^3/uL (0.3-0.8) 10/18/21 14: Eos # (Auto) 0.1 x10^3/uL (0.0-0.2) 10/18/21 14:21 Baso # (Auto) 0.0 X10^3/uL (0.0-0.1) 10/18/21 14: Absolute Nucleated RBC 0.0 /100WBC 10/18/21 14:21 D-Dimer < 0.27 ug/ml (0.0-0.57) 10/18/21 14:21 Sodium 136 mmol/L (136-145) 10/18/21 14:21 Corrected Sodium TNP 10/18/21 14:21 Potassium 5.0 mmol/L (3.5-5.1) 10/18/21 14:21 Chloride 102 mmol/L (98-107) 10/18/21 14:21 Carbon Dioxide 24.2 mmol/L (21-32) 10/18/21 14:21 BUN 23 mg/dL (7-18) H 10/18/21 14:21 Creatinine 1.24 mg/dL (0.70-1.30) 10/18/21 14:21 Est GFR (MDRD) Af Amer > 60 (>60) 10/18/21 14:21 Est GFR (MDRD) Non-Af > 60 (>60) 10/18/21 14:21 Glucose 108 mg/dL (65-99) H 10/18/21 14:21 Calcium 8.9 mg/dL (8.5-10.1) 10/18/21 14:21 Corrected Calcium TNP 10/18/21 14:21 Magnesium 2.4 mg/dL (1.7-2.9) 10/18/21 14:21 Total Bilirubin 0.60 mg/dL (0.2-1.0) 10/18/21 14:21 AST 12 Units/L (15-37) L 10/18/21 14:21 ALT 16 Units/L (12-78) 10/18/21 14:21 Alkaline Phosphatase 62 Units/L (46-116) 10/18/21 14:21 Creatine Kinase 84 Units/L (39-308) 10/19/21 02:04 CK-MB (CK-2) < 1.0 ng/mL (0-4.0) 10/19/21 02:04 CK/CKMB % Calc 1.2 % (<4) 10/19/21 02:04 Troponin I < 0.02 ng/mL (0-1.5) 10/19/21 02:04 Total Protein 7.7 g/dL (6.4-8.2) 10/18/21 14:21 Albumin 3.9 g/dL (3.4-5.0) 10/18/21 14:21 Globulin 3.8 g/dL (2.5-4.5) 10/18/21 14:21 Albumin/Globulin Ratio 1.0 Ratio (1.1-2.1) L 10/18/21 14:21 Specimen Type Clean catch urine 10/18/21 16:05 Urine Color Yellow (YELLOW) 10/18/21 16:05 Urine Appearance Clear (CLEAR) 10/18/21 16:05 Urine pH 6.0 (5.0 - 8.0) 10/18/21 16:05 Ur Specific [place] 1.025 (1.000-1.030) 10/18/21 16:05 Urine Protein 2+ (NEGATIVE) 10/18/21 16:05 Urine Glucose (UA) Negative (NEGATIVE) 10/18/21 16:05 Urine Ketones 2+ (NEGATIVE) 10/18/21 16:05 Urine Occult Blood 2+ (NEGATIVE) 10/18/21 16:05 Urine Nitrite Negative (NEGATIVE) 10/18/21 16:05 Urine Bilirubin Negative (NEGATIVE) 10/18/21 16:05 Urine Urobilinogen 1+ (NORMAL) 10/18/21 16:05 Ur Leukocyte Esterase Negative (NEGATIVE) 10/18/21 16:05 Urine RBC 5-10 /HPF (0-3) A 10/18/21 16:05 Urine WBC 0-2 /HPF (0-5) 10/18/21 16:05 Ur Squamous Epith Cells Rare /HPF (NEGATIVE) 10/18/21 16:05 Urine Bacteria Trace /HPF (NEGATIVE) 10/18/21 16:05 Ur Culture Indicated? No/not indicated 10/18/21 16:05 SARS CoV-2 RNA Rapid JESSICA Negative (NEGATIVE) 10/18/21 12:05 Reason For Visit: CHEST PAIN Discharge Date Discharge Date: 10/19/21 Discharge Diagnosis All Active Problems (Updated 10/18/21 @ 13:59 by NEISHA CARRILLO) Bronchopneumonia (Acute) Shortness of breath (Acute) Legal blindness (Acute) Mild intellectual disabilities (Acute) Chest pain (Acute) Pneumonia (Acute) Hypertension (Chronic) Mental retardation (Chronic) Artificial cardiac pacemaker (Chronic) Plan of Treatment: Continue with present treatment and follow up plan. Pt is to keep follow up appointment as instructed and take medications as ordered. Discharge Medications Discharge Medications: nitroglycerin Allergy (Verified 10/18/21 14:22) tetanus immune globulin Allergy (Verified 10/18/21 14:22) CONTINUE taking the following medications Linzess 72 mcg PO QAM 10/18/21 [History] brimonidine 1 drp OPHTHALMIC (EYE) BID 10/18/21 [History] ferrous sulfate 325 mg PO DAILY 10/18/21 [History] sulfamethoxazole-trimethoprim 1 tab PO Q12H 10/18/21 [History] Follow up and Referral Follow Up: 1 Week Discharge Disposition Discharge Disposition: Home Discharge Condition: Stable Discharge Plan Discharge Plan Hospital Course: Pt is a 61 year old male past medical history of Hypertension, Pacemaker, legal blindness, and mild intellectual disability admitted for chest pain rule out after having some chest pain and shortness of breath. Serial ekg and cardiac enzymes negative, D-dimer negative, CXR: no acute cardiopulmonary concerns. On morning of discharge patient reports feeling better and symptoms have resolved. Pt discharged in stable condition. Instructed to follow up with pcp in 3-5 days. Patient Disposition: 01 , SELF-CARE Condition: Stable Health Concerns: Post Hospitalization: new medications and changes needed to prevent readmission or further decline. Pt educated and given instructions on all concerns. Plan of Treatment: Continue with present treatment and follow up plan. Pt is to keep follow up appointment as instructed and take medications as ordered. Prescriptions: Continued meloxicam 15 mg Tablet 15 mg PO DAILY RF: 0 fluoxetine 20 mg capsule 20 mg PO DAILY RF: 0 esomeprazole magnesium 40 mg capsule,delayed release(DR/EC) 40 mg PO DAILY RF: 0 latanoprost 0.005 % drops 1 drp OPHTHALMIC (EYE) HS RF: 0 amlodipine 5 mg tablet 5 mg PO DAILY RF: 0 sulfamethoxazole-trimethoprim 800-160 mg Tablet 1 tab PO Q12H RF: 0 ferrous sulfate 325 mg (65 mg iron) Tablet 325 mg PO DAILY RF: 0 brimonidine 0.2 % Drops 1 drp OPHTHALMIC (EYE) BID RF: 0 Linzess 72 mcg Capsule 72 mcg PO QAM RF: 0 Orders to Discharge Patient Discharge Orders: Discharge (Routine); Ordered 10/19/21 Ordered By: Eligio Buchanan Follow ups/Referrals Follow ups/Referrals: NEISHA CARRILLO [Primary Care Provider] - 1 WEEK Instructions Stand Alone Forms: Excuse From Work or School, Precautions for COVID19, [facility], Patient Portal, Social Distancing
[2021-10-19 10:59] VITALS: BP 117/60
== END 2021-10-19 11:38 | disposition home or self-care (01) ==
LOC: ICU
PROVIDERS: ADMIT Internal Medicine; ATTEND Internal Medicine
DX: R06.02 Shortness of breath; Z95.0 Presence of cardiac pacemaker; H54.8 Legal blindness, as defined in USA; K21.9 Gastro-esophageal reflux disease without esophagitis; R94.31 Abnormal electrocardiogram [ECG] [EKG]; I10 Essential (primary) hypertension; R42 Dizziness and giddiness; F70 Mild intellectual disabilities; Z20.822 Contact with and (suspected) exposure to COVID-19; R07.89 Other chest pain

== ENCOUNTER 2023-05-06 09:27 | Observation (INO) ==
[2023-05-06 09:38] VITALS: BMI 30.4
--- NOTE | 2023-05-06 09:39 | DR.HEADACH ---
HPI Time Seen Time Seen by Provider: 05/06/23 09:37 HPI Comment HPI Comment: PATIENT IS 62YR OLD MALE IN ER WITH HEADACHE, DIZZINESS AND WEAKNESS FOR SEVERAL DAYS. PATIENT SAID HIS BP WAS RUNNING HIGH AND MEDS ADJUSTED. FEELING WEAK SINCE. HE IS BLIND AND HAVE BALANCE ISSUES BUT THIS IS WORSE PAST FEW DAYS. NO VOMITING OR FEVER. DENIES TRAUMA.. Complaint/Symptoms Chief Complaint Doctors Comments: HEADACHE, DIZZINESS, WEAKNESS FOR SEVERAL DAYS. COVID-19 Coronavirus risk:travel/contact w/high risk person: Yes Has patient experienced Coronavirus symptoms: Yes Reviewed Nurses Notes Reviewed: Yes PMH PMH Past Medical History: Arthritis, GERD and Hypertension Past Surgical History: Yes Surgical History: Ortho Surgery Family History Family Medical History: Diabetes Mellitus and Hypertension Social History Do you use any recreational Drugs:: No ROS Review of Systems Constitutional: No Symptoms Reported; negative Fever Eyes: Other (BLINDNESS.) ENTM: Nose Congestion; negative Nose Discharge or Throat Pain Respiratoy: No Symptoms Reported Cardiovascular: No Symptoms Reported; negative Chest Pain Gastrointestinal/Abdominal: Nausea; negative Abdominal Pain, Diarrhea or Vomiting Genitourinary: No Symptoms Reported; negative Dysuria Neurological: Other (BLINDNESS.); negative Headache, Weakness or Dizziness Musculoskeletal: No Symptoms Reported; negative Muscle Pain Integumentary: No Symptoms Reported; negative Rash or Juandice Hematologic/Lymphatic: Easy Bruising Endocrine: No Symptoms Reported; negative Increased Thirst or Increased Urine Psychiatric: No Symptoms Reported All Other Systems: Reviewed and Negative PE Vital Signs Vitals: Temperature 98.1 F Pulse Rate 63 Pulse Rate 79 Respiratory Rate 16 Respiratory Rate 18 Blood Pressure [Left Arm] 140/85 Blood Pressure [Right Arm] 133/85 Blood Pressure 130/85 Blood Pressure 128/77 O2 Sat by Pulse Oximetry 99 O2 Sat by Pulse Oximetry 96 General Limitations: No Limitations General Appearance: Alert and In No Apparent Distress Head Head Exam: Normal Inspection and Atraumatic Eyes Eye exam: Other (BLINDNESS WITH INDWELLING PROSTHESIS.) ENT ENT Exam: Normal Exam, Normal Oropharynx, Normal External Ear Exam and TM's Normal Bilaterally External Ear Exam: Normal External Inspection TM/Canal Exam: Bilateral: Normal Nose Exam: Normal Nose Exam Throat Exam: Normal Inspection Neck Neck Exam: Normal Inspection and Trachea Midline; negative Tenderness Chest Chest Inspection: Normal Inspection and Symmetric Chest Wall Rise; negative T enderness Respiratory Respiratory Exam: Normal Lung Sounds Bilat; negative Accessory Muscle Use, Chest Wall Tenderness or Respiratory Distress Respiratory Exam: Bilateral: Rhonchi Cardiovascular Cardiovascular Exam: Regular Rate, Normal Rhythm and Normal Heart Sounds; negative Systolic Murmur or Diastolic Murmur Abdominal Exam Abdominal Exam: Normal Inspection, Normal Bowel Sounds, Soft and Distention; negative Tenderness Extremities Extremities Exam: Normal Inspection and Normal Capillary Refill Back Back Exam: Normal Inspection; negative (R) CVA Tenderness or (L) CVA Tenderness Neurologic Neurological Exam: Alert, Oriented X3 and Other (BLINDNESS.) Psychiatric Psychiatric Exam: Normal Affect and Normal Mood Skin Skin Exam: Intact MDM Differential Diagnosis Differential Diagnosis: Considerations may include:: Migraine, CVA, Mass Lesion, Sinusitis and Other (VERTIGO.) COURSE Treatment Treatment: SEE ORDERS DONE WHILE PATIENT WAS IN ER. LABS, EKG, CT AND XRAY REPORTS DISCUSSED WITH PATIENT. HE WILL BE ADMITTED FOR FURTHER EVALUATION AND MANAGEMENT. Consultation Consultation Comments: PATIENT DISCUSSED WITH DR. KELLOGG. HE WILL ADMIT PATIENT. Education/Counseling Education/Counseling: Patient Educated On: Diagnosis ROR Labs Reviewed Laboratory Results Reviewed?: Yes Result Diagrams: 05/09/23 06:10 05/09/23 06:10 Laboratory: WBC 7.8 X10^3/uL (3.6-10.0) 05/06/23 10:20 RBC 4.75 X10^6/uL (4.7-6.0) 05/06/23 10:20 Hgb 15.0 g/dL (13.5-18.0) 05/06/23 10:20 Hct 44.4 % (42.0-54.0) 05/06/23 10:20 MCV 93.6 fL (80.0-100.0) 05/06/23 10:20 MCH 31.6 pg (27.0-34.0) 05/06/23 10:20 MCHC 33.8 g/dL (33.0-35.0) 05/06/23 10:20 RDW 14.1 % (11.6-16.5) 05/06/23 10:20 Plt Count 250 X10^3/uL (150.0-450.0) 05/06/23 10:20 MPV 7.8 fL (7.4-11.0) 05/06/23 10:20 Neut % (Auto) 70.4 % (42.0-75.0) 05/06/23 10:20 Lymph % (Auto) 17.1 % (21.0-51.0) L 05/06/23 10:20 [place] % (Auto) 9.5 % (0.0-13.0) 05/06/23 10:20 Eos % (Auto) 2.4 % (0.9-2.9) 05/06/23 10:20 Baso % (Auto) 0.6 % (0.2-1.0) 05/06/23 10:20 Neut # (Auto) 5.5 x10^3/uL (2.2-4.8) H 05/06/23 10:20 Lymph # (Auto) 1.3 X10^3/uL (1.3-2.9) 05/06/23 10:20 [place] # (Auto) 0.7 x10^3/uL (0.3-0.8) 05/06/23 10:20 Eos # (Auto) 0.2 x10^3/uL (0.0-0.2) 05/06/23 10:20 Baso # (Auto) 0.0 X10^3/uL (0.0-0.1) 05/06/23 10:20 Absolute Nucleated RBC 0.0 /100WBC 05/06/23 10:20 Sodium 141 mmol/L (136-145) 05/06/23 10:20 Corrected Sodium 141 mmol/L (136-145) 05/06/23 10:20 Potassium 4.1 mmol/L (3.5-5.1) 05/06/23 10:20 Chloride 105 mmol/L (98-107) 05/06/23 10:20 Carbon Dioxide 27.6 mmol/L (21-32) 05/06/23 10:20 BUN 25 mg/dL (7-18) H 05/06/23 10:20 Creatinine 1.30 mg/dL (0.70-1.30) 05/06/23 10:20 Est GFR (MDRD) Af Amer > 60 (>60) 05/06/23 10:20 Est GFR (MDRD) Non-Af 59 (>60) 05/06/23 10:20 Glucose 115 mg/dL (65-99) H 05/06/23 10:20 Calcium 8.6 mg/dL (8.5-10.1) 05/06/23 10:20 Corrected Calcium TNP 05/06/23 10:20 Total Bilirubin 0.90 mg/dL (0.2-1.0) 05/06/23 10:20 AST 12 Units/L (15-37) L 05/06/23 10:20 ALT 18 Units/L (12-78) 05/06/23 10:20 Alkaline Phosphatase 56 Units/L (46-116) 05/06/23 10:20 Creatine Kinase 53 Units/L (39-308) 05/06/23 10:20 Troponin I High Sens 4.5 ng/L (4.0-60.0) 05/06/23 10:20 Total Protein 7.5 g/dL (6.4-8.2) 05/06/23 10:20 Albumin 3.9 g/dL (3.4-5.0) 05/06/23 10:20 Globulin 3.6 g/dL (2.5-4.5) 05/06/23 10:20 Albumin/Globulin Ratio 1.1 Ratio (1.1-2.1) 05/06/23 10:20 SARS-CoV-2 (PCR) Negative (NEGATIVE) 05/06/23 11:30 Influenza Type A (PCR) Negative (NEGATIVE) 05/06/23 11:30 Influenza Type B (PCR) Negative (NEGATIVE) 05/06/23 11:30 RSV (PCR) Negative (NEGATIVE) 05/06/23 11:30 XRAY XRAY Interpreted by: Radiologist (REPORTS DISCUSSED WITH PATIENT.) and Self EKG Rate: 62 [place]: Normal Rhythm: Paced Block: None Hypertrophy: None ST: Normal Opioid Opioid Risk Tool Age (Lucien box if 16-45): No History of Preadolescent Sexual Abuse: No Total: 0 Total Score Risk Category: Low Risk Copyright: Ashok CHAUDHRY predicting aberrant behaviors Discharge Plan Diagnosis Discharge Problem: Headache, Vertigo, Generalized weakness, Dizziness, Blindness of both eyes Discharge Plan Patient Disposition: 09 ADMITTED INPATIENT Condition: Stable Orders to Discharge Patient Discharge Orders: Discharge (Routine); Ordered 05/09/23 Ordered By: NEISHA CARRILLO
[2023-05-06] MEDS ORDERED: ANTIVERT TAB 25 MG PO ONE (09:57)
[2023-05-06] MEDS ORDERED: ANTIVERT TAB 25 MG ONE (09:58)
--- NOTE | 2023-05-06 10:16 | EKG ---
Test Reason : HEADACHE, DIZZINESS Blood Pressure : */* mmHG Vent. Rate : 62 BPM Atrial Rate : 62 BPM P-R Int : 184 ms QRS Dur : 88 ms QT Int : 390 ms P-R-T Axes : 47 65 38 degrees QTc Int : 395 ms Atrial-paced rhythm Abnormal ECG No previous ECGs available Confirmed by Gilberto Sahni ([id number]) on 05/07/2023 7:32:44 PM Referred By: Confirmed By: Gilberto Sahni
--- NOTE | 2023-05-06 10:27 | CT ---
HISTORYHeadache and dizzinessSTUDYCT brain without contrastCOMPARISONSeptember 2018TECHNIQUEMultiple axial images of the brain were obtained from the skull base to the vertex [without] administration of IV contrast.Dose reduction techniques including Automated Exposure Control (AEC) and adjustment of mA and kV were utlized.FINDINGS[No acute intraparenchymal hemorrhage or mass can be identified.] [No extra-axial fluid collections are seen.] [No alteration in the attenuation of the brain parenchyma can be identified to suggest acute or subacute ischemic change.] Mild periventricular small vessel ischemic changes and age-appropriate atrophy are noted. [The ventricular system is symmetric and nondilated.] [There is a right prosthesis noted in place.IMPRESSION[No acute intracranial process can be identified.]Electronically signed by: LEO MARIN (May 06, 2023 10:23:18)
[2023-05-06 10:29] LABS: BASOPHILS % (AUTO) 0.6 % (0.2-1.0); EOSINOPHILS # (AUTO) 0.2 x10^3/uL (0.0-0.2); EOSINOPHILS % (AUTO) 2.4 % (0.9-2.9); HEMATOCRIT 44.4 % (42.0-54.0); LYMPHOCYTES # (AUTO) 1.3 X10^3/uL (1.3-2.9); LYMPHOCYTES % (AUTO) 17.1 % (21.0-51.0); MEAN CORPUSCULAR HEMOGLOBIN 31.6 pg (27.0-34.0); MEAN CORPUSCULAR HGB CONC 33.8 g/dL (33.0-35.0); MEAN CORPUSCULAR VOLUME 93.6 fL (80.0-100.0); MEAN PLATELET VOLUME 7.8 fL (7.4-11.0); MONOCYTES # (AUTO) 0.7 x10^3/uL (0.3-0.8); MONOCYTES % (AUTO) 9.5 % (0.0-13.0); NEUTROPHILS # (AUTO) 5.5 x10^3/uL (2.2-4.8); NEUTROPHILS % (AUTO) 70.4 % (42.0-75.0); PLATELET COUNT 250 X10^3/uL (150.0-450.0); RED BLOOD COUNT 4.75 X10^6/uL (4.7-6.0); RED CELL DISTRIBUTION WIDTH 14.1 % (11.6-16.5); WHITE BLOOD COUNT 7.8 X10^3/uL (3.6-10.0)
[2023-05-06 10:46] LABS: ALANINE AMINOTRANSFERASE 18 Units/L (12-78); ALBUMIN 3.9 g/dL (3.4-5.0); ALKALINE PHOSPHATASE 56 Units/L (46-116); ASPARTATE AMINO TRANSFERASE 12 Units/L (15-37); BLOOD UREA NITROGEN 25 mg/dL (7-18); CALCIUM 8.6 mg/dL (8.5-10.1); CARBON DIOXIDE 27.6 mmol/L (21-32); CHLORIDE 105 mmol/L (98-107); COR NA(FOR HYPERGLY) 141 mmol/L (136-145); CREATINE KINASE 53 Units/L (39-308); GLUCOSE 115 mg/dL (65-99); POTASSIUM 4.1 mmol/L (3.5-5.1); SODIUM 141 mmol/L (136-145); TOTAL PROTEIN 7.5 g/dL (6.4-8.2); eGFR NON BLACK RACES 59 (>60)
[2023-05-06] MEDS ORDERED: NS 1,000 ML IV 1,000 ML ONE (13:03)
[2023-05-06] MEDS: NS 1,000 ML IV 1,000 ML IV SCH (13:12)
[2023-05-06] MEDS ORDERED: ANTIVERT TAB 25 MG PO PRN (13:41)
[2023-05-06] MEDS ORDERED: PHENERGAN TAB 25 MG PO PRN (13:41)
--- NOTE | 2023-05-06 15:32 | RAD ---
HISTORYHTN, ORTHO, PACEMAKER SOBSTUDYCHEST, 1 VIEWCOMPARISONJune 2021FINDINGSThe trachea is midline. The cardiac silhouette is stable as is a left-sided pacing device and a hiatal hernia. The lungs are clear without focal infiltrate or effusion. The bony thorax is unremarkable.IMPRESSIONNo acute cardiopulmonary disease.Electronically signed by: LEO MARIN (May 06, 2023 15:31:34)
--- NOTE | 2023-05-06 16:02 | EKG ---
Test Reason : weakness, fatigue Blood Pressure : */* mmHG Vent. Rate : 67 BPM Atrial Rate : 67 BPM P-R Int : 170 ms QRS Dur : 88 ms QT Int : 402 ms P-R-T Axes : 7 -20 15 degrees QTc Int : 424 ms Atrial-paced rhythm Abnormal ECG When compared with ECG of 06-MAY-2023 10:14, (Unconfirmed) Questionable change in QRS axis Confirmed by Gilberto Sahni ([id number]) on 05/07/2023 7:32:30 PM Referred By: Confirmed By: Gilberto Sahni
[2023-05-06] MEDS: MELATONIN PO SCH (21:12)
[2023-05-06] MEDS: CARDIZEM TAB 30 MG PLAIN PO SCH (21:12)
[2023-05-06 23:33] LABS: BILIRUBIN,URINE 1+ (NEGATIVE); BLOOD/HEMOGLOBIN,URINE NEGATIVE (NEGATIVE); GLUCOSE, URINE NEGATIVE (NEGATIVE); KETONES,URINE 1+ (NEGATIVE); LEUKOCYTE ESTERASE ,URINE 1+ (NEGATIVE); NITRITES,URINE NEGATIVE (NEGATIVE); PROTEIN,URINE 2+ (NEGATIVE); UROBILINOGEN,URINE 1+ (NORMAL)
[2023-05-06 23:40] LABS: APPEARANCE,URINE CLEAR (CLEAR); COLOR,URINE AMBER (YELLOW)
[2023-05-06 23:41] LABS: BACTERIA,URINE TRACE /HPF (NEGATIVE); CALCIUM OXALATE CRYSTALS,UR MANY /HPF (NEGATIVE); RBC,URINE NONE SEEN /HPF (0-3); SPERM,URINE FEW /HPF (NEGATIVE); SQUAMOUS EPITHELIAL CELL,UR FEW /HPF (NEGATIVE)
[2023-05-07 06:04] LABS: BASOPHILS % (AUTO) 0.7 % (0.2-1.0); EOSINOPHILS # (AUTO) 0.2 x10^3/uL (0.0-0.2); EOSINOPHILS % (AUTO) 3.8 % (0.9-2.9); HEMATOCRIT 40.9 % (42.0-54.0); HEMOGLOBIN 13.8 g/dL (13.5-18.0); LYMPHOCYTES # (AUTO) 1.6 X10^3/uL (1.3-2.9); LYMPHOCYTES % (AUTO) 26.2 % (21.0-51.0); MEAN CORPUSCULAR HEMOGLOBIN 31.7 pg (27.0-34.0); MEAN CORPUSCULAR HGB CONC 33.7 g/dL (33.0-35.0); MEAN PLATELET VOLUME 8.2 fL (7.4-11.0); MONOCYTES # (AUTO) 0.6 x10^3/uL (0.3-0.8); MONOCYTES % (AUTO) 9.9 % (0.0-13.0); NEUTROPHILS # (AUTO) 3.7 x10^3/uL (2.2-4.8); NEUTROPHILS % (AUTO) 59.4 % (42.0-75.0); PLATELET COUNT 240 X10^3/uL (150.0-450.0); RED BLOOD COUNT 4.35 X10^6/uL (4.7-6.0); WHITE BLOOD COUNT 6.2 X10^3/uL (3.6-10.0)
[2023-05-07 06:28] LABS: ALANINE AMINOTRANSFERASE 15 Units/L (12-78); ALBUMIN 3.4 g/dL (3.4-5.0); ALKALINE PHOSPHATASE 49 Units/L (46-116); ASPARTATE AMINO TRANSFERASE 9 Units/L (15-37); BLOOD UREA NITROGEN 30 mg/dL (7-18); CALCIUM 8.2 mg/dL (8.5-10.1); CARBON DIOXIDE 29.6 mmol/L (21-32); CHLORIDE 106 mmol/L (98-107); COR NA(FOR HYPERGLY) 143 mmol/L (136-145); CREATININE 1.13 mg/dL (0.70-1.30); GLUCOSE 126 mg/dL (65-99); POTASSIUM 4.1 mmol/L (3.5-5.1); SODIUM 142 mmol/L (136-145); TOTAL PROTEIN 6.7 g/dL (6.4-8.2); eGFR NON BLACK RACES > 60 (>60)
[2023-05-07] MEDS ORDERED: PATIENT'S HOME MEDICATION (Linaclotide [Linzess] 72 mcg capsule) PO SCH (09:00)
[2023-05-07] MEDS: NexIUM PO SCH (09:48)
[2023-05-07] MEDS: CARDIZEM TAB 30 MG PLAIN PO SCH ×2 (09:49→20:28)
[2023-05-07] MEDS: MOBIC TAB 15 MG PO SCH (09:49)
[2023-05-07] MEDS: PROzac PO SCH (09:49)
[2023-05-07] MEDS: NORVASC TAB 5 MG PO SCH (09:49)
[2023-05-07] MEDS: PATIENT'S HOME MEDICATION PO SCH (14:02)
[2023-05-07] MEDS: NS 1,000 ML IV 1,000 ML IV SCH (14:05)
--- NOTE | 2023-05-07 15:58 | EKG ---
Test Reason : weakness, fatigue Blood Pressure : */* mmHG Vent. Rate : 69 BPM Atrial Rate : 69 BPM P-R Int : * ms QRS Dur : 80 ms QT Int : 378 ms P-R-T Axes : * -17 11 degrees QTc Int : 405 ms Atrial-paced rhythm Abnormal ECG When compared with ECG of 06-MAY-2023 15:54, (Unconfirmed) No significant change was found Confirmed by Gilberto Sahni ([id number]) on 05/07/2023 5:40:20 PM Referred By: Confirmed By: Gilberto Sahni
[2023-05-07] MEDS: MELATONIN PO SCH (20:28)
[2023-05-08] MEDS: CARDIZEM TAB 30 MG PLAIN PO SCH ×2 (08:12→21:09)
[2023-05-08] MEDS: NORVASC TAB 5 MG PO SCH (08:12)
[2023-05-08] MEDS: PROzac PO SCH (08:12)
[2023-05-08] MEDS: MOBIC TAB 15 MG PO SCH (08:12)
[2023-05-08] MEDS: NexIUM PO SCH (08:13)
[2023-05-08] MEDS: PATIENT'S HOME MEDICATION PO SCH (09:49)
[2023-05-08] MEDS: NS 1,000 ML IV 1,000 ML IV SCH (13:22)
[2023-05-08] MEDS: MELATONIN PO SCH (21:09)
[2023-05-09 06:51] LABS: BASOPHILS % (AUTO) 0.5 % (0.2-1.0); EOSINOPHILS # (AUTO) 0.3 x10^3/uL (0.0-0.2); EOSINOPHILS % (AUTO) 3.8 % (0.9-2.9); HEMATOCRIT 40.3 % (42.0-54.0); HEMOGLOBIN 13.7 g/dL (13.5-18.0); LYMPHOCYTES # (AUTO) 1.3 X10^3/uL (1.3-2.9); LYMPHOCYTES % (AUTO) 19.2 % (21.0-51.0); MEAN CORPUSCULAR HEMOGLOBIN 31.7 pg (27.0-34.0); MEAN CORPUSCULAR VOLUME 93.2 fL (80.0-100.0); MEAN PLATELET VOLUME 8.2 fL (7.4-11.0); MONOCYTES # (AUTO) 0.6 x10^3/uL (0.3-0.8); MONOCYTES % (AUTO) 8.4 % (0.0-13.0); NEUTROPHILS # (AUTO) 4.7 x10^3/uL (2.2-4.8); NEUTROPHILS % (AUTO) 68.1 % (42.0-75.0); PLATELET COUNT 234 X10^3/uL (150.0-450.0); RED BLOOD COUNT 4.32 X10^6/uL (4.7-6.0); RED CELL DISTRIBUTION WIDTH 13.8 % (11.6-16.5); WHITE BLOOD COUNT 6.9 X10^3/uL (3.6-10.0)
[2023-05-09 07:11] LABS: ALANINE AMINOTRANSFERASE 15 Units/L (12-78); ALBUMIN 3.3 g/dL (3.4-5.0); ALKALINE PHOSPHATASE 48 Units/L (46-116); ASPARTATE AMINO TRANSFERASE 8 Units/L (15-37); BLOOD UREA NITROGEN 16 mg/dL (7-18); CALCIUM 8.2 mg/dL (8.5-10.1); CARBON DIOXIDE 26.8 mmol/L (21-32); CHLORIDE 106 mmol/L (98-107); COR CA(FOR HYPOALB) 8.8 mg/dL (8.5-10.1); GLUCOSE 100 mg/dL (65-99); POTASSIUM 3.5 mmol/L (3.5-5.1); SODIUM 141 mmol/L (136-145); TOTAL PROTEIN 6.5 g/dL (6.4-8.2); eGFR NON BLACK RACES > 60 (>60)
[2023-05-09] MEDS: PATIENT'S HOME MEDICATION PO SCH (08:35)
[2023-05-09] MEDS: CARDIZEM TAB 30 MG PLAIN PO SCH (08:36)
[2023-05-09] MEDS: NORVASC TAB 5 MG PO SCH (08:36)
[2023-05-09] MEDS: NexIUM PO SCH (08:36)
[2023-05-09] MEDS: MOBIC TAB 15 MG PO SCH (08:36)
[2023-05-09] MEDS: PROzac PO SCH (08:36)
[2023-05-09 09:28] VITALS: BP 120/70; PULSE 62; TEMP 97.8; O2SAT 96
--- NOTE | 2023-05-16 13:05 | DR.H&P ---
H&P - History & Physical for Day of: H&P Date: 05/06/23 - Chief Complaint Chief Complaint: MAURICIO, DIZZINESS, WEAKNESS - History of Present Illness History of Present Illness: PATIENT IS 62YR OLD MALE IN ER WITH HEADACHE, DIZZINESS AND WEAKNESS FOR SEVERAL DAYS. PATIENT SAID HIS BP WAS RUNNING HIGH AND MEDS ADJUSTED RECENTLY. PT FEELING WEAK SINCE. HE IS BLIND AND HAVE BALANCE ISSUES BUT THIS IS WORSE PAST FEW DAYS. NO VOMITING OR FEVER. DENIES TRAUMA. - Past Medical History Past Medical History: Hypertension, GERD, Arthritis Additional Medical History: MR - Past Surgical History Surgical History: Ortho Surgery Additional Surgical History: CSPINE. CATARACT. PACE MAKER 1013 - Family History Family Medical History: Diabetes Mellitus, Hypertension - Social History Does patient currently use any type of tobacco product: No Have you used tobacco products in the last 12 months: No Type of Tobacco Use: None Does any household member use tobacco: No Alcohol Use: None Drug Use: None - Review of Systems Constitutional: Weakness Eyes: No Symptoms Reported ENT: No Symptoms Reported Respiratory: SOB with Excertion Cardiovascular: No Symptoms Reported Gastrointestinal: No Symptoms Reported Genitourinary: No Symptoms Reported Musculoskeletal: No Symptoms Reported Skin: No Symptoms Reported (DIZZINESS) Oriented: Normal Eyes: negative: Normal (CHRONIC VISION IMPAIREMENT) Ear: Normal Nose: Normal Respiratory: RLL Diminished, LLL Diminished Cardiovascular: Normal : Normal Auscultation: Bowel Sounds: Normal Palpation: Normal Tenderness: Normal Skin: Decreased Turgur Musculoskeletal: Normal Psychiatric: Anxiety Affect: Anxious Speech Pattern: Clear, Appropriate - Assessment/Plan (1) Dizziness Status: Acute Plan: CT HEAD ON ADMISSION, SERIAL CE AND EKG. BP CONTROL, CXR ON ADMISSION. VERIFY HOME MEDICATIONS (2) Legal blindness Status: Acute (3) Mild intellectual disabilities Status: Acute (4) Headache Status: Acute (5) Vertigo Status: Acute (6) Generalized weakness Status: Acute (7) Hypertension Status: Chronic - Allergies Allergies/Adverse Reactions: Allergies Allergy/AdvReac Type Severity Reaction Status Date / Time brimonidine Allergy Verified 05/06/23 09:38 ferrous sulfate Allergy Verified 05/06/23 09:38 [From FeroSul] iron [From FeroSul] Allergy Verified 05/06/23 09:38 nitroglycerin Allergy Verified 05/11/22 09:42 tetanus immune globulin Allergy Verified 05/11/22 09:42 - Medications Home Medications: Home Medications Medication Instructions Recorded Confirmed amlodipine 2.5 mg tablet (Norvasc) 5 mg PO DAILY 05/06/23 05/06/23 diltiazem HCl 60 mg tablet 1 tab PO BID 05/06/23 05/06/23 esomeprazole magnesium 40 mg 40 mg PO DAILY 05/06/23 05/06/23 capsule,delayed release (Nexium) fluoxetine 20 mg capsule 1 cap PO QDAY 05/06/23 05/06/23 linaclotide 72 mcg capsule 1 cap PO QAM 05/06/23 05/06/23 (Linzess) melatonin 5 mg tablet 5 mg PO HS 05/06/23 05/06/23 meloxicam 15 mg tablet 15 mg PO DAILY 05/06/23 05/06/23 promethazine 25 mg tablet 25 mg PO QID PRN 05/06/23 05/06/23
--- NOTE | 2023-05-16 13:29 | PCM.PROG ---
Progress Note - Progress Note for Day of Date of Exam: 05/07/23 - Subjective Subjective: PT IS 62 WM, ER ADMISSION WITH CO MAURICIO AND DIZZINESS WITH ELEVATED BLOOD PRESSURE. PT REPORTS HE WAS SET UP FOR AN OUTPT STRESS TEST WITH [facility]. PLANNED TO CONSULT DR QUILES TODAY. PT'S SERIAL CE AND EKGS WERE STABLE. PT HAS NOT HAD ANY CHEST PAIN OR SOB SINCE ADMISSION. BP ST ABLE. - Past Medical Family Social History Past Med/Fam/Surg Hx: No changes since H&P Allergies: Allergies brimonidine Allergy (Verified 05/06/23 09:38) ferrous sulfate [From FeroSul] Allergy (Verified 05/06/23 09:38) iron [From FeroSul] Allergy (Verified 05/06/23 09:38) nitroglycerin Allergy (Verified 05/11/22 09:42) tetanus immune globulin Allergy (Verified 05/11/22 09:42) - Review of Systems ROS: No change since H&P - Physical Exam Oriented: Normal Eyes: negative: Normal (CHRONIC VISION IMPAIREMENT) Ear: Normal Nose: Normal Respiratory: Diminished Cardiovascular: Normal : Normal Auscultation: Bowel Sounds: Normal Tenderness: Normal Skin: Decreased Turgur Musculoskeletal: Normal Psychiatric: Anxiety Affect: Anxious Speech Pattern: Clear, Appropriate - Laboratory and Diagnostics Result Diagrams: 05/09/23 06:10 05/09/23 06:10 Labs: Laboratory WBC 6.9 X10^3/uL (3.6-10.0) 05/09/23 06:10 RBC 4.32 X10^6/uL (4.7-6.0) L 05/09/23 06:10 Hgb 13.7 g/dL (13.5-18.0) 05/09/23 06:10 Hct 40.3 % (42.0-54.0) L 05/09/23 06:10 MCV 93.2 fL (80.0-100.0) 05/09/23 06:10 MCH 31.7 pg (27.0-34.0) 05/09/23 06:10 MCHC 34.0 g/dL (33.0-35.0) 05/09/23 06:10 RDW 13.8 % (11.6-16.5) 05/09/23 06:10 Plt Count 234 X10^3/uL (150.0-450.0) 05/09/23 06:10 MPV 8.2 fL (7.4-11.0) 05/09/23 06:10 Neut % (Auto) 68.1 % (42.0-75.0) 05/09/23 06:10 Lymph % (Auto) 19.2 % (21.0-51.0) L 05/09/23 06:10 [place] % (Auto) 8.4 % (0.0-13.0) 05/09/23 06:10 Eos % (Auto) 3.8 % (0.9-2.9) H 05/09/23 06:10 Baso % (Auto) 0.5 % (0.2-1.0) 05/09/23 06:10 Neut # (Auto) 4.7 x10^3/uL (2.2-4.8) 05/09/23 06:10 Lymph # (Auto) 1.3 X10^3/uL (1.3-2.9) 05/09/23 06:10 [place] # (Auto) 0.6 x10^3/uL (0.3-0.8) 05/09/23 06:10 Eos # (Auto) 0.3 x10^3/uL (0.0-0.2) H 05/09/23 06:10 Baso # (Auto) 0.0 X10^3/uL (0.0-0.1) 05/09/23 06:10 Absolute Nucleated RBC 0.0 /100WBC 05/09/23 06:10 D-Dimer 0.29 ug/ml (0.0-0.57) 05/09/23 06:10 Sodium 141 mmol/L (136-145) 05/09/23 06:10 Corrected Sodium TNP 05/09/23 06:10 Potassium 3.5 mmol/L (3.5-5.1) 05/09/23 06:10 Chloride 106 mmol/L (98-107) 05/09/23 06:10 Carbon Dioxide 26.8 mmol/L (21-32) 05/09/23 06:10 BUN 16 mg/dL (7-18) 05/09/23 06:10 Creatinine 0.90 mg/dL (0.70-1.30) 05/09/23 06:10 Est GFR (MDRD) Af Amer > 60 (>60) 05/09/23 06:10 Est GFR (MDRD) Non-Af > 60 (>60) 05/09/23 06:10 Glucose 100 mg/dL (65-99) H 05/09/23 06:10 Calcium 8.2 mg/dL (8.5-10.1) L 05/09/23 06:10 Corrected Calcium 8.8 mg/dL (8.5-10.1) 05/09/23 06:10 Magnesium 2.0 mg/dL (2.0-2.9) 05/07/23 05:27 Total Bilirubin 0.40 mg/dL (0.2-1.0) 05/09/23 06:10 AST 8 Units/L (15-37) L 05/09/23 06:10 ALT 15 Units/L (12-78) 05/09/23 06:10 Alkaline Phosphatase 48 Units/L (46-116) 05/09/23 06:10 Creatine Kinase 53 Units/L (39-308) 05/06/23 10:20 Troponin I High Sens < 4.0 ng/L (4.0-60.0) L 05/06/23 22:20 Total Protein 6.5 g/dL (6.4-8.2) 05/09/23 06:10 Albumin 3.3 g/dL (3.4-5.0) L 05/09/23 06:10 Globulin 3.2 g/dL (2.5-4.5) 05/09/23 06:10 Albumin/Globulin Ratio 1.0 Ratio (1.1-2.1) L 05/09/23 06:10 Specimen Type Clean catch urine 05/06/23 23:15 Urine Color Jojo (YELLOW) 05/06/23 23:15 Urine Appearance Clear (CLEAR) 05/06/23 23:15 Urine pH 5.0 (5.0 - 8.0) 05/06/23 23:15 Ur Specific [place] 1.030 (1.000-1.030) 05/06/23 23:15 Urine Protein 2+ (NEGATIVE) 05/06/23 23:15 Urine Glucose (UA) Negative (NEGATIVE) 05/06/23 23:15 Urine Ketones 1+ (NEGATIVE) 05/06/23 23:15 Urine Blood Negative (NEGATIVE) 05/06/23 23:15 Urine Nitrite Negative (NEGATIVE) 05/06/23 23:15 Urine Bilirubin 1+ (NEGATIVE) 05/06/23 23:15 Urine Urobilinogen 1+ (NORMAL) 05/06/23 23:15 Ur Leukocyte Esterase 1+ (NEGATIVE) 05/06/23 23:15 Urine RBC None seen /HPF (0-3) 05/06/23 23:15 Urine WBC 0-2 /HPF (0-5) 05/06/23 23:15 Ur Squamous Epith Cells Few /HPF (NEGATIVE) 05/06/23 23:15 Calcium Oxalate Crystal Many /HPF (NEGATIVE) 05/06/23 23:15 Urine Bacteria Trace /HPF (NEGATIVE) 05/06/23 23:15 Urine Mucus Many /HPF (NEGATIVE) 05/06/23 23:15 Urine Sperm Few /HPF (NEGATIVE) 05/06/23 23:15 Ur Culture Indicated? No/not indicated 05/06/23 23:15 SARS-CoV-2 (PCR) Negative (NEGATIVE) 05/06/23 11:30 Influenza Type A (PCR) Negative (NEGATIVE) 05/06/23 11:30 Influenza Type B (PCR) Negative (NEGATIVE) 05/06/23 11:30 RSV (PCR) Negative (NEGATIVE) 05/06/23 11:30 - Plan (1) Dizziness Status: Acute Plan: CT HEAD ON ADMISSION, SERIAL CE AND EKG. BP CONTROL, CXR ON ADMISSION. VERIFY HOME MEDICATIONS. CARDIOLOGY CONSULT (2) Sick sinus syndrome Status: Acute (3) Legal blindness Status: Acute (4) Mild intellectual disabilities Status: Acute (5) Headache Status: Acute (6) Vertigo Status: Acute (7) Generalized weakness Status: Acute (8) Hypertension Status: Chronic
== END 2023-05-09 11:20 | disposition home or self-care (01) ==
LOC: ER 09:27 → MED/SURG 09:27
PROVIDERS: ADMIT Internal Medicine; ATTEND Internal Medicine
DX: Z95.0 Presence of cardiac pacemaker; K21.9 Gastro-esophageal reflux disease without esophagitis; I10 Essential (primary) hypertension; I49.5 Sick sinus syndrome; G47.33 Obstructive sleep apnea (adult) (pediatric); R42 Dizziness and giddiness; R53.1 Weakness; R06.02 Shortness of breath; F70 Mild intellectual disabilities; Z20.822 Contact with and (suspected) exposure to COVID-19; R51.9 Headache, unspecified; H54.8 Legal blindness, as defined in USA

== ENCOUNTER 2023-12-23 14:06 | Observation (INO) ==
[2023-12-23 14:13] VITALS: BMI 29.6
--- NOTE | 2023-12-23 19:15 | DR.GENAD ---
HPI Time Seen Time Seen by Provider: 12/23/23 19:13 PCP Primary Care Physician: Sofie HPI Comment HPI Comment: Posted biopsy this morning and patient is having hematuria. Complaint/Symptoms Chief Complaint Doctors Comments: Patient is 63-year-old male in the emergency room with hematuria. He had a prostate biopsy at [place] this morning with Dr. Russell. Patient in ER with caregiver who usually care for patient during the day at night. There is no care available to him at night and the caregiver was concerned that he may fall. He is legally blind. 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 Patient denies dysuria or fever. Chief Complaint:: financial planning assistant is present with the patient in triage. She states that the patient had a prostate biopsy this morning and can't be left alone. She states that Clementina Hernandez FURRIER APPRENTICE stated that she would direct admit the patient to be monitored overnight. However, Clementina Hernandez is currently sick and could not put in the order. The health care attorney states that she is unable to stay the night with the patient to monitor him, so they have presented to the ER for monitoring. COVID-19 Coronavirus risk:travel/contact w/high risk person: No Has patient experienced Coronavirus symptoms: No Nurses notes reviewed Nurses Notes Review: Yes Source History Provided: Patient and Other Mode of Arrival Mode of Arrival: Wheelchair Timing Onset of Chief Complaint: 12/23/23 PMH PMH Past Medical History: Yes Past Medical History: Arthritis, COPD, GERD, Hypertension and Sleep Apnea Past Surgical History: Yes Surgical History: Ortho Surgery and Other Past Surgical History Comment: Neck, carpel tunnel, Pacemaker placement, right elbow, cornial transplant Family History History of Family Medical Conditions: Yes Family Medical History: Diabetes Mellitus and Hypertension Social History Does patient currently use any type of tobacco product: No Have you used tobacco products in the last 12 months: No Type of Tobacco Use: None Does any household member use tobacco: No Alcohol Use: None Do you use any recreational Drugs:: No Lives With: Alone Lives Where: Home Travel Risk Coronavirus risk:travel/contact w/high risk person: No Has patient experienced Coronavirus symptoms: No Infectious screening In the last 2 months have you had wt loss of >10#?: NO Have you had fever, night sweats or hemotysis?: No Have you traveled outside the country in the last 6 months?: No Isolation: Standard ROS Review of Systems Constitutional: Weakness; negative Fever Eyes: Other (Legally blind.) ENTM: negative Nose Discharge or Nose Congestion Respiratoy: negative Moist Cough, Short of Breath or Wheezing Cardiovascular: No Symptoms Reported; negative Chest Pain Gastrointestinal/Abdominal: No Symptoms Reported; negative Abdominal Pain, Diarrhea or Vomiting Genitourinary: Hematuria; negative Dysuria Neurological: Dizziness and Other (ATAXIA.); negative Headache Musculoskeletal: No Symptoms Reported; negative Muscle Pain Integumentary: No Symptoms Reported; negative Rash or Juandice Hematologic/Lymphatic: No Symptoms Reported; negative Easy Bruising Endocrine: No Symptoms Reported; negative Increased Thirst or Increased Urine Psychiatric: Other (Patient appeared to have mild slowness.) All Other Systems: Reviewed and Negative PE Vital Signs Vitals: Vital Signs Pulse Rate [Left Brachial] 78 Respiratory Rate 20 Blood Pressure [Left Arm] 122/70 Blood Pressure [Left Arm] 126/75 O2 Sat by Pulse Oximetry 98 General Limitations: Other (Mild mental slowness.) General Appearance: Alert and In No Apparent Distress Head Head Exam: Normal Inspection Eyes Eye exam: Normal Appearance; negative Scleral Icterus or Conjunctival Injection ENT ENT Exam: Normal Exam, Normal Oropharynx, Normal External Ear Exam and TM's Normal Bilaterally Neck Neck Exam: Normal Inspection and Trachea Midline; negative Tenderness Chest Chest Inspection: Normal Inspection and Symmetric Chest Wall Rise; negative Tenderness Respiratory Respiratory Exam: Normal Lung Sounds Bilat; negative Accessory Muscle Use, Chest Wall Tenderness or Respiratory Distress Cardiovascular Cardiovascular Exam: Regular Rate, Normal Rhythm and Normal Heart Sounds; negative Systolic Murmur or Diastolic Murmur Abdominal Exam Abdominal Exam: Normal Inspection, Normal Bowel Sounds and Soft; negative Tenderness Extremities Extremities Exam: Normal Inspection and Tenderness; negative Normal Capillary Refill Back Back Exam: Normal Inspection; negative (R) CVA Tenderness or (L) CVA Tenderness Neurologic Neurological Exam: Alert and Oriented X3; negative Motor Sensory Deficit Psychiatric Psychiatric Exam: Normal Affect and Normal Mood Skin Skin Exam: Warm and Dry; negative Rash MDM Differential Diagnosis Differential Diagnosis: Hematuria status, post prostate biopsy, ataxia/imbalance. COURSE Treatment Treatment: See orders done while patient was in the ER. Patient had continue mon ving bright red hematuria in the emergency room. Patient was calm and did not have any pain in the abdomen or lower back area. Patient is being admitted to the hospital for further management. Consultation Consultation Comments: Discussed patient with Dr. Fierro. He will admit patient. 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.) ROR Labs Reviewed Laboratory Results Reviewed?: Yes 12/24/23 06:53 12/24/23 06:53 Laboratory: WBC 7.4 X10^3/uL (3.6-10.0) 12/24/23 06:53 RBC 4.51 X10^6/uL (4.7-6.0) L 12/24/23 06:53 Hgb 14.4 g/dL (13.5-18.0) 12/24/23 06:53 Hct 42.6 % (42.0-54.0) 12/24/23 06:53 MCV 94.6 fL (80.0-100.0) 12/24/23 06:53 MCH 31.9 pg (27.0-34.0) 12/24/23 06:53 MCHC 33.7 g/dL (33.0-35.0) 12/24/23 06:53 RDW 13.8 % (11.6-16.5) 12/24/23 06:53 Plt Count 257 X10^3/uL (150.0-450.0) 12/24/23 06:53 MPV 7.7 fL (7.4-11.0) 12/24/23 06:53 Neut % (Auto) 66.9 % (42.0-75.0) 12/24/23 06:53 Lymph % (Auto) 19.0 % (21.0-51.0) L 12/24/23 06:53 [place] % (Auto) 10.3 % (0.0-13.0) 12/24/23 06:53 Eos % (Auto) 3.1 % (0.9-2.9) H 12/24/23 06:53 Baso % (Auto) 0.7 % (0.2-1.0) 12/24/23 06:53 Neut # (Auto) 5.0 x10^3/uL (2.2-4.8) H 12/24/23 06:53 Lymph # (Auto) 1.4 X10^3/uL (1.3-2.9) 12/24/23 06:53 [place]igg # (Auto) 0.8 x10^3/uL (0.3-0.8) 12/24/23 06:53 Eos # (Auto) 0.2 x10^3/uL (0.0-0.2) 12/24/23 06:53 Baso # (Auto) 0.1 X10^3/uL (0.0-0.1) 12/24/23 06:53 Absolute Nucleated RBC 0.1 /100WBC 12/24/23 06:53 PT 14.3 SECONDS (11.8-14.3) 12/24/23 06:53 INR Target Range - 12/24/23 06:53 INR 1.13 (0.8-1.3) 12/24/23 06:53 APTT 33.2 SECONDS (22.9-36.5) 12/24/23 06:53 PTT Comment - 12/24/23 06:53 Sodium 138 mmol/L (136-145) 12/24/23 06:53 Corrected Sodium 138 mmol/L (136-145) 12/24/23 06:53 Potassium 3.6 mmol/L (3.5-5.1) 12/24/23 06:53 Chloride 103 mmol/L (98-107) 12/24/23 06:53 Carbon Dioxide 27.3 mmol/L (21-32) 12/24/23 06:53 BUN 15 mg/dL (7-18) 12/24/23 06:53 Creatinine 1.22 mg/dL (0.70-1.30) 12/24/23 06:53 Est GFR (MDRD) Af Amer > 60 (>60) 12/24/23 06:53 Est GFR (MDRD) Non-Af > 60 (>60) 12/24/23 06:53 Glucose 119 mg/dL (65-99) H 12/24/23 06:53 Calcium 8.6 mg/dL (8.5-10.1) 12/24/23 06:53 Corrected Calcium 9.2 mg/dL (8.5-10.1) 12/24/23 06:53 Total Bilirubin 0.80 mg/dL (0.2-1.0) 12/24/23 06:53 AST 10 Units/L (15-37) L 12/24/23 06:53 ALT 13 Units/L (12-78) 12/24/23 06:53 Alkaline Phosphatase 73 Units/L (46-116) 12/24/23 06:53 Total Protein 7.0 g/dL (6.4-8.2) 12/24/23 06:53 Albumin 3.2 g/dL (3.4-5.0) L 12/24/23 06:53 Globulin 3.8 g/dL (2.5-4.5) 12/24/23 06:53 Albumin/Globulin Ratio 0.8 Ratio (1.1-2.1) L 12/24/23 06:53 Specimen Type Clean catch urine 12/23/23 20:09 Urine Color Bloody (YELLOW) 12/23/23 20:09 Urine Appearance Cloudy (CLEAR) 12/23/23 20:09 Urine pH 5.0 (5.0 - 8.0) 12/23/23 20:09 Ur Specific [place] 1.030 (1.000-1.030) 12/23/23 20:09 Urine Protein 1+ (NEGATIVE) 12/23/23 20:09 Urine Glucose (UA) Negative (NEGATIVE) 12/23/23 20:09 Urine Ketones Negative (NEGATIVE) 12/23/23 20:09 Urine Blood Negative (NEGATIVE) 12/23/23 20:09 Urine Nitrite Negative (NEGATIVE) 12/23/23 20:09 Urine Bilirubin Negative (NEGATIVE) 12/23/23 20:09 Urine Urobilinogen Normal (NORMAL) 12/23/23 20:09 Ur Leukocyte Esterase Negative (NEGATIVE) 12/23/23 20:09 Urine RBC Tntc /HPF (0-3) A 12/23/23 20:09 Urine WBC None seen /HPF (0-5) 12/23/23 20:09 Ur Squamous Epith Cells Negative /HPF (NEGATIVE) 12/23/23 20:09 Urine Bacteria Trace /HPF (NEGATIVE) 12/23/23 20:09 Ur Culture Indicated? No/not indicated 12/23/23 20:09 Opioid Opioid Risk Tool Age (Lucien box if 16-45): No History of Preadolescent Sexual Abuse: No Total: 0 Total Score Risk Category: Low Risk Copyright: Ashok CHAUDHRY predicting aberrant behaviors Discharge Plan Diagnosis Discharge Problem: Legal blindness, Ataxia, H/O prostate biopsy Hematuria Qualifiers: Hematuria type: unspecified type Qualified Code(s): R31.9 - Hematuria, unspecified Discharge Plan Patient Disposition: 09 ADMITTED INPATIENT Condition: Stable
[2023-12-23 19:46] LABS: BASOPHILS # (AUTO) 0.1 X10^3/uL (0.0-0.1); BASOPHILS % (AUTO) 0.9 % (0.2-1.0); EOSINOPHILS # (AUTO) 0.2 x10^3/uL (0.0-0.2); HEMATOCRIT 42.8 % (42.0-54.0); HEMOGLOBIN 14.4 g/dL (13.5-18.0); LYMPHOCYTES # (AUTO) 1.4 X10^3/uL (1.3-2.9); LYMPHOCYTES % (AUTO) 15.7 % (21.0-51.0); MEAN CORPUSCULAR HEMOGLOBIN 32.2 pg (27.0-34.0); MEAN CORPUSCULAR HGB CONC 33.7 g/dL (33.0-35.0); MEAN CORPUSCULAR VOLUME 95.7 fL (80.0-100.0); MEAN PLATELET VOLUME 7.5 fL (7.4-11.0); MONOCYTES % (AUTO) 11.1 % (0.0-13.0); NEUTROPHILS # (AUTO) 6.1 x10^3/uL (2.2-4.8); NEUTROPHILS % (AUTO) 70.3 % (42.0-75.0); PLATELET COUNT 255 X10^3/uL (150.0-450.0); RED BLOOD COUNT 4.47 X10^6/uL (4.7-6.0); WHITE BLOOD COUNT 8.7 X10^3/uL (3.6-10.0)
[2023-12-23 19:58] LABS: ALANINE AMINOTRANSFERASE 14 Units/L (12-78); ALBUMIN 3.2 g/dL (3.4-5.0); ALKALINE PHOSPHATASE 74 Units/L (46-116); ASPARTATE AMINO TRANSFERASE 8 Units/L (15-37); BLOOD UREA NITROGEN 17 mg/dL (7-18); CALCIUM 8.6 mg/dL (8.5-10.1); CARBON DIOXIDE 29.3 mmol/L (21-32); CHLORIDE 103 mmol/L (98-107); COR CA(FOR HYPOALB) 9.2 mg/dL (8.5-10.1); COR NA(FOR HYPERGLY) 139 mmol/L (136-145); CREATININE 1.31 mg/dL (0.70-1.30); GLUCOSE 114 mg/dL (65-99); POTASSIUM 3.9 mmol/L (3.5-5.1); SODIUM 139 mmol/L (136-145); TOTAL PROTEIN 7.2 g/dL (6.4-8.2); eGFR NON BLACK RACES 59 (>60)
[2023-12-23 20:34] LABS: BILIRUBIN,URINE NEGATIVE (NEGATIVE); BLOOD/HEMOGLOBIN,URINE NEGATIVE (NEGATIVE); GLUCOSE, URINE NEGATIVE (NEGATIVE); KETONES,URINE NEGATIVE (NEGATIVE); LEUKOCYTE ESTERASE ,URINE NEGATIVE (NEGATIVE); NITRITES,URINE NEGATIVE (NEGATIVE); PROTEIN,URINE 1+ (NEGATIVE); UROBILINOGEN,URINE NORMAL (NORMAL)
[2023-12-23 20:46] LABS: COLOR,URINE BLOODY (YELLOW)
[2023-12-23 20:48] LABS: APPEARANCE,URINE CLOUDY (CLEAR)
[2023-12-23 20:49] LABS: BACTERIA,URINE TRACE /HPF (NEGATIVE); RBC,URINE TNTC /HPF (0-3); SQUAMOUS EPITHELIAL CELL,UR NEGATIVE /HPF (NEGATIVE)
[2023-12-24 07:12] LABS: BASOPHILS # (AUTO) 0.1 X10^3/uL (0.0-0.1); BASOPHILS % (AUTO) 0.7 % (0.2-1.0); EOSINOPHILS # (AUTO) 0.2 x10^3/uL (0.0-0.2); EOSINOPHILS % (AUTO) 3.1 % (0.9-2.9); HEMATOCRIT 42.6 % (42.0-54.0); HEMOGLOBIN 14.4 g/dL (13.5-18.0); LYMPHOCYTES # (AUTO) 1.4 X10^3/uL (1.3-2.9); MEAN CORPUSCULAR HEMOGLOBIN 31.9 pg (27.0-34.0); MEAN CORPUSCULAR HGB CONC 33.7 g/dL (33.0-35.0); MEAN CORPUSCULAR VOLUME 94.6 fL (80.0-100.0); MEAN PLATELET VOLUME 7.7 fL (7.4-11.0); MONOCYTES # (AUTO) 0.8 x10^3/uL (0.3-0.8); MONOCYTES % (AUTO) 10.3 % (0.0-13.0); NEUTROPHILS % (AUTO) 66.9 % (42.0-75.0); PLATELET COUNT 257 X10^3/uL (150.0-450.0); RED BLOOD COUNT 4.51 X10^6/uL (4.7-6.0); RED CELL DISTRIBUTION WIDTH 13.8 % (11.6-16.5); WHITE BLOOD COUNT 7.4 X10^3/uL (3.6-10.0)
[2023-12-24 07:22] LABS: ALANINE AMINOTRANSFERASE 13 Units/L (12-78); ALBUMIN 3.2 g/dL (3.4-5.0); ALKALINE PHOSPHATASE 73 Units/L (46-116); ASPARTATE AMINO TRANSFERASE 10 Units/L (15-37); BLOOD UREA NITROGEN 15 mg/dL (7-18); CALCIUM 8.6 mg/dL (8.5-10.1); CARBON DIOXIDE 27.3 mmol/L (21-32); CHLORIDE 103 mmol/L (98-107); COR CA(FOR HYPOALB) 9.2 mg/dL (8.5-10.1); COR NA(FOR HYPERGLY) 138 mmol/L (136-145); CREATININE 1.22 mg/dL (0.70-1.30); GLUCOSE 119 mg/dL (65-99); POTASSIUM 3.6 mmol/L (3.5-5.1); SODIUM 138 mmol/L (136-145); eGFR NON BLACK RACES > 60 (>60)
[2023-12-24 07:29] LABS: INR 1.13 (0.8-1.3)
[2023-12-24] MEDS: NS 1,000 ML IV 1,000 ML ONE ×2 (08:36→08:58)
[2023-12-24] MEDS ORDERED: NS 1,000 ML IV 1,000 ML IV SCH ×2 (11:17)
[2023-12-24] MEDS ORDERED: NORCO 7.5/325 MG TAB PO PRN (11:49)
[2023-12-24] MEDS: CIPRO IV 400 MG PREMIX* 400 MG/200 ML IV.SOLN. IV SCH ×2 (13:54→20:34)
[2023-12-24] MEDS: NS 1,000 ML IV 1,000 ML IV SCH (13:55)
[2023-12-24] MEDS ORDERED: COSOPT OPTH AFFEYE SCH (15:00)
[2023-12-24 17:09] LABS: BILIRUBIN,URINE 1+ (NEGATIVE); BLOOD/HEMOGLOBIN,URINE 5+ (NEGATIVE); GLUCOSE, URINE NEGATIVE (NEGATIVE); KETONES,URINE 1+ (NEGATIVE); LEUKOCYTE ESTERASE ,URINE 2+ (NEGATIVE); NITRITES,URINE POSITIVE (NEGATIVE); PROTEIN,URINE 3+ (NEGATIVE); UROBILINOGEN,URINE 1+ (NORMAL)
[2023-12-24 17:20] LABS: APPEARANCE,URINE CLOUDY (CLEAR); BACTERIA,URINE 2+ /HPF (NEGATIVE); COLOR,URINE BLOODY (YELLOW); RBC,URINE TNTC /HPF (0-3); SQUAMOUS EPITHELIAL CELL,UR RARE /HPF (NEGATIVE)
--- NOTE | 2023-12-24 17:59 | DR.H&P ---
H&P History & Physical for Day of: H&P Date: 12/24/23 Chief Complaint Chief Complaint: BLOOD IN URINE Allergies Allergies Allergy/AdvReac Type Severity Reaction Status Date / Time brimonidine Allergy Verified 12/24/23 08:29 ferrous sulfate Allergy Verified 12/24/23 08:29 [From FeroSul] iron [From FeroSul] Allergy Verified 12/24/23 08:29 nitroglycerin Allergy Verified 12/24/23 08:29 tetanus immune globulin Allergy Verified 12/24/23 08:29 History of Present Illness History of Present Illness: PT IS 63 WM, ER ADMISSION AFTER PRESENTING WITH CO HEMATURIA FOLLOWING A PROSTATE BIOPSY ON 12/[address] STEIN AT [facility]. PT IS LEGALLY BLIND AND REQUIRES ASSISTANCE WITH ADLS. PT ADMITTED FOR TREATMENT AND EVALUATION OF POST OPERATIVE HEMATURIA AND PAIN CONTROL. 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 1013 Family History Family Medical History: Diabetes Mellitus and Hypertension Social History Does patient currently use any type of tobacco product: No Have you used tobacco products in the last 12 months: No Type of Tobacco Use: None Does any household member use tobacco: No Alcohol Use: None Medications Home Medications: Home Medications Medication Instructions Recorded Confirmed Type amlodipine 2.5 mg tablet (Norvasc) 5 mg PO DAILY 05/06/23 12/24/23 History diltiazem HCl 60 mg tablet 60 mg PO BID 05/06/23 12/24/23 History linaclotide 72 mcg capsule 72 mcg PO QAM 05/06/23 12/24/23 History (Linzess) melatonin 5 mg tablet 5 mg PO HS 05/06/23 12/23/23 History meloxicam 15 mg tablet 15 mg PO DAILY 05/06/23 12/23/23 History albuterol sulfate 90 mcg/actuation 90 mcg inhalation Q4HR PRN 08/20/23 12/24/23 History aerosol inhaler pantoprazole 40 mg tablet,delayed 40 mg PO BID 08/20/23 12/23/23 History release ciprofloxacin HCl 500 mg tablet 500 mg PO BID 12/23/23 12/23/23 History (Cipro) fluoxetine 40 mg capsule 40 mg PO QDAY 12/23/23 12/23/23 History hydrocodone 7.5 mg-acetaminophen 1 tab PO Q8H PRN 12/23/23 12/23/23 History 325 mg tablet loratadine 10 mg capsule 10 mg PO DAILY 12/23/23 12/23/23 History dorzolamide-timolol (PF) 2 %-0.5 % 1 drp ophthalmic (eye) BID 12/24/23 12/24/23 History eye drops in a dropperette [id number] 3.5 1 - 2 drp ophthalmic (eye) BID 12/24/23 12/24/23 History mg/mL-10,000 unit/mL-0.1% eye drops Labs 12/24/23 06:53 12/24/23 06:53 Labs: Laboratory WBC 7.4 X10^3/uL (3.6-10.0) 12/24/23 06:53 RBC 4.51 X10^6/uL (4.7-6.0) L 12/24/23 06:53 Hgb 14.4 g/dL (13.5-18.0) 12/24/23 06:53 Hct 42.6 % (42.0-54.0) 12/24/23 06:53 MCV 94.6 fL (80.0-100.0) 12/24/23 06:53 MCH 31.9 pg (27.0-34.0) 12/24/23 06:53 MCHC 33.7 g/dL (33.0-35.0) 12/24/23 06:53 RDW 13.8 % (11.6-16.5) 12/24/23 06:53 Plt Count 257 X10^3/uL (150.0-450.0) 12/24/23 06:53 MPV 7.7 fL (7.4-11.0) 12/24/23 06:53 Neut % (Auto) 66.9 % (42.0-75.0) 12/24/23 06:53 Lymph % (Auto) 19.0 % (21.0-51.0) L 12/24/23 06:53 Carbon % (Auto) 10.3 % (0.0-13.0) 12/24/23 06:53 Eos % (Auto) 3.1 % (0.9-2.9) H 12/24/23 06:53 Baso % (Auto) 0.7 % (0.2-1.0) 12/24/23 06:53 Neut # (Auto) 5.0 x10^3/uL (2.2-4.8) H 12/24/23 06:53 Lymph # (Auto) 1.4 X10^3/uL (1.3-2.9) 12/24/23 06:53 Carbon # (Auto) 0.8 x10^3/uL (0.3-0.8) 12/24/23 06:53 Eos # (Auto) 0.2 x10^3/uL (0.0-0.2) 12/24/23 06:53 Baso # (Auto) 0.1 X10^3/uL (0.0-0.1) 12/24/23 06:53 Absolute Nucleated RBC 0.1 /100WBC 12/24/23 06:53 PT 14.3 SECONDS (11.8-14.3) 12/24/23 06:53 INR Target Range - 12/24/23 06:53 INR 1.13 (0.8-1.3) 12/24/23 06:53 APTT 33.2 SECONDS (22.9-36.5) 12/24/23 06:53 PTT Comment - 12/24/23 06:53 Sodium 138 mmol/L (136-145) 12/24/23 06:53 Corrected Sodium 138 mmol/L (136-145) 12/24/23 06:53 Potassium 3.6 mmol/L (3.5-5.1) 12/24/23 06:53 Chloride 103 mmol/L (98-107) 12/24/23 06:53 Carbon Dioxide 27.3 mmol/L (21-32) 12/24/23 06:53 BUN 15 mg/dL (7-18) 12/24/23 06:53 Creatinine 1.22 mg/dL (0.70-1.30) 12/24/23 06:53 Est GFR (MDRD) Af Amer > 60 (>60) 12/24/23 06:53 Est GFR (MDRD) Non-Af > 60 (>60) 12/24/23 06:53 Glucose 119 mg/dL (65-99) H 12/24/23 06:53 Calcium 8.6 mg/dL (8.5-10.1) 12/24/23 06:53 Corrected Calcium 9.2 mg/dL (8.5-10.1) 12/24/23 06:53 Total Bilirubin 0.80 mg/dL (0.2-1.0) 12/24/23 06:53 AST 10 Units/L (15-37) L 12/24/23 06:53 ALT 13 Units/L (12-78) 12/24/23 06:53 Alkaline Phosphatase 73 Units/L (46-116) 12/24/23 06:53 Total Protein 7.0 g/dL (6.4-8.2) 12/24/23 06:53 Albumin 3.2 g/dL (3.4-5.0) L 12/24/23 06:53 Globulin 3.8 g/dL (2.5-4.5) 12/24/23 06:53 Albumin/Globulin Ratio 0.8 Ratio (1.1-2.1) L 12/24/23 06:53 Specimen Type Clean catch urine 12/24/23 16:48 Urine Color Bloody (YELLOW) 12/24/23 16:48 Urine Appearance Cloudy (CLEAR) 12/24/23 16:48 Urine pH 5.0 (5.0 - 8.0) 12/24/23 16:48 Ur Specific [place] 1.025 (1.000-1.030) 12/24/23 16:48 Urine Protein 3+ (NEGATIVE) 12/24/23 16:48 Urine Glucose (UA) Negative (NEGATIVE) 12/24/23 16:48 Urine Ketones 1+ (NEGATIVE) 12/24/23 16:48 Urine Blood 5+ (NEGATIVE) 12/24/23 16:48 Urine Nitrite Positive (NEGATIVE) 12/24/23 16:48 Urine Bilirubin 1+ (NEGATIVE) 12/24/23 16:48 Urine Urobilinogen 1+ (NORMAL) 12/24/23 16:48 Ur Leukocyte Esterase 2+ (NEGATIVE) 12/24/23 16:48 Urine RBC Tntc /HPF (0-3) A 12/24/23 16:48 Urine WBC 5-10 /HPF (0-5) A 12/24/23 16:48 Ur Squamous Epith Cells Rare /HPF (NEGATIVE) 12/24/23 16:48 Amorphous Sediment 2+ /HPF (NEGATIVE) 12/24/23 16:48 Urine Bacteria 2+ /HPF (NEGATIVE) 12/24/23 16:48 Ur Culture Indicated? Yes/culture set up 12/24/23 16:48 Review of Systems Constitutional: No Symptoms Reported Eyes: Redness ENT: No Symptoms Reported Respiratory: No Symptoms Reported Cardiovascular: No Symptoms Reported Gastrointestinal: Constipation Genitourinary: Dysuria and Hematuria Musculoskeletal: Back Pain Skin: No Symptoms Reported Neurological: No Symptoms Reported Physical Exam Vital Signs: Vital Signs Temperature 98.6 F Pulse Rate [Left Brachial] 73 Respiratory Rate 18 Blood Pressure [Left Arm] 127/60 O2 Sat by Pulse Oximetry 95 Oriented: Normal Eyes: Other (CHRONIC VISION IMPAIRMENT) Ear: Normal Throat: Normal Cardiovascular: Normal (PACEMAKER PRESENT) : Hematuria Auscultation: Bowel Sounds: Normal Skin: Normal Musculoskeletal: Back:Lumbar Mood Description: Calm Speech Pattern: Clear and Appropriate Assessment/Plan (1) Hematuria: Qualifiers: Hematuria type: unspecified type Qualified Code(s): R31.9 - Hematuria, unspecified Narrative Support Text: ADMIT, IV HYDRATION BP CONTROL RESUME HOME MEDICATION PAIN CONTROL, MONITOR FOR CONSTIPATION REPEAT AM LABS, STRICT I&OS Status: Acute (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
[2023-12-24] MEDS: COSOPT OPTH RIGHTEYE SCH (20:30)
[2023-12-24] MEDS: PROTONIX TAB 40 MG PO SCH (20:31)
[2023-12-24] MEDS: MELATONIN PO SCH (20:32)
[2023-12-24] MEDS: CARDIZEM TAB 30 MG PLAIN PO SCH (20:33)
[2023-12-24] MEDS ORDERED: STERILE WATER IRRIGATION IR ONE (21:32)
[2023-12-25] MEDS: NS 1,000 ML IV 1,000 ML IV SCH (05:18)
[2023-12-25 06:30] LABS: BASOPHILS % (AUTO) 0.7 % (0.2-1.0); EOSINOPHILS # (AUTO) 0.3 x10^3/uL (0.0-0.2); EOSINOPHILS % (AUTO) 4.8 % (0.9-2.9); HEMATOCRIT 37.7 % (42.0-54.0); HEMOGLOBIN 12.6 g/dL (13.5-18.0); LYMPHOCYTES # (AUTO) 1.6 X10^3/uL (1.3-2.9); LYMPHOCYTES % (AUTO) 23.1 % (21.0-51.0); MEAN CORPUSCULAR HEMOGLOBIN 31.9 pg (27.0-34.0); MEAN CORPUSCULAR HGB CONC 33.5 g/dL (33.0-35.0); MEAN CORPUSCULAR VOLUME 95.2 fL (80.0-100.0); MEAN PLATELET VOLUME 7.8 fL (7.4-11.0); MONOCYTES # (AUTO) 0.9 x10^3/uL (0.3-0.8); MONOCYTES % (AUTO) 12.6 % (0.0-13.0); NEUTROPHILS % (AUTO) 58.8 % (42.0-75.0); PLATELET COUNT 237 X10^3/uL (150.0-450.0); RED BLOOD COUNT 3.95 X10^6/uL (4.7-6.0); RED CELL DISTRIBUTION WIDTH 13.9 % (11.6-16.5); WHITE BLOOD COUNT 6.8 X10^3/uL (3.6-10.0)
[2023-12-25 07:01] LABS: ALANINE AMINOTRANSFERASE 11 Units/L (12-78); ALBUMIN 2.7 g/dL (3.4-5.0); ALKALINE PHOSPHATASE 60 Units/L (46-116); ASPARTATE AMINO TRANSFERASE 9 Units/L (15-37); BLOOD UREA NITROGEN 14 mg/dL (7-18); CARBON DIOXIDE 27.4 mmol/L (21-32); CHLORIDE 106 mmol/L (98-107); COR NA(FOR HYPERGLY) 141 mmol/L (136-145); CREATININE 1.11 mg/dL (0.70-1.30); GLUCOSE 112 mg/dL (65-99); POTASSIUM 3.4 mmol/L (3.5-5.1); SODIUM 141 mmol/L (136-145); TOTAL PROTEIN 6.2 g/dL (6.4-8.2); eGFR NON BLACK RACES > 60 (>60)
[2023-12-25] MEDS: PROTONIX TAB 40 MG PO SCH ×2 (08:33→20:39)
[2023-12-25] MEDS: NS + KCL 20 MEQ/L 1,000 ML IV SCH (08:33)
[2023-12-25] MEDS: CARDIZEM TAB 30 MG PLAIN PO SCH ×2 (08:33→20:39)
[2023-12-25] MEDS: CIPRO IV 400 MG PREMIX* 400 MG/200 ML IV.SOLN. IV SCH ×2 (08:44→20:40)
[2023-12-25] MEDS: COSOPT OPTH RIGHTEYE SCH ×2 (08:47→20:42)
[2023-12-25] MEDS ORDERED: CONSULT PHARMACY - POTASSIUM & MAGNESIUM XX SCH (09:00)
[2023-12-25 19:53] VITALS: RESP 20
[2023-12-25] MEDS: MELATONIN PO SCH (20:39)
[2023-12-26] MEDS: NS + KCL 20 MEQ/L 1,000 ML IV SCH (03:50)
[2023-12-26 06:28] LABS: BASOPHILS # (AUTO) 0.1 X10^3/uL (0.0-0.1); EOSINOPHILS # (AUTO) 0.4 x10^3/uL (0.0-0.2); EOSINOPHILS % (AUTO) 5.2 % (0.9-2.9); HEMATOCRIT 39.1 % (42.0-54.0); HEMOGLOBIN 13.1 g/dL (13.5-18.0); LYMPHOCYTES # (AUTO) 1.6 X10^3/uL (1.3-2.9); LYMPHOCYTES % (AUTO) 22.8 % (21.0-51.0); MEAN CORPUSCULAR HEMOGLOBIN 31.7 pg (27.0-34.0); MEAN CORPUSCULAR HGB CONC 33.4 g/dL (33.0-35.0); MEAN CORPUSCULAR VOLUME 95.1 fL (80.0-100.0); MEAN PLATELET VOLUME 8.1 fL (7.4-11.0); MONOCYTES # (AUTO) 0.9 x10^3/uL (0.3-0.8); MONOCYTES % (AUTO) 12.7 % (0.0-13.0); NEUTROPHILS # (AUTO) 4.1 x10^3/uL (2.2-4.8); NEUTROPHILS % (AUTO) 58.3 % (42.0-75.0); PLATELET COUNT 236 X10^3/uL (150.0-450.0); RED BLOOD COUNT 4.12 X10^6/uL (4.7-6.0)
[2023-12-26 07:04] LABS: ALANINE AMINOTRANSFERASE 10 Units/L (12-78); ALBUMIN 2.7 g/dL (3.4-5.0); ALKALINE PHOSPHATASE 70 Units/L (46-116); ASPARTATE AMINO TRANSFERASE 10 Units/L (15-37); BLOOD UREA NITROGEN 11 mg/dL (7-18); CALCIUM 8.2 mg/dL (8.5-10.1); CARBON DIOXIDE 26.1 mmol/L (21-32); CHLORIDE 107 mmol/L (98-107); COR CA(FOR HYPOALB) 9.2 mg/dL (8.5-10.1); COR NA(FOR HYPERGLY) 141 mmol/L (136-145); CREATININE 0.96 mg/dL (0.70-1.30); GLUCOSE 115 mg/dL (65-99); POTASSIUM 3.6 mmol/L (3.5-5.1); SODIUM 141 mmol/L (136-145); TOTAL PROTEIN 6.3 g/dL (6.4-8.2); eGFR NON BLACK RACES > 60 (>60)
[2023-12-26] MEDS: PROTONIX TAB 40 MG PO SCH (08:59)
[2023-12-26] MEDS: CIPRO IV 400 MG PREMIX* 400 MG/200 ML IV.SOLN. IV SCH (08:59)
[2023-12-26] MEDS: COSOPT OPTH RIGHTEYE SCH (08:59)
[2023-12-26] MEDS: CARDIZEM TAB 30 MG PLAIN PO SCH (08:59)
[2023-12-26] MEDS ORDERED: LINZESS PO SCH (09:00)
[2023-12-26] MEDS ORDERED: K-DUR TAB 20 MEQ PO ONE (09:00)
[2023-12-26] MEDS ORDERED: CONSULT PHARMACY - POTASSIUM & MAGNESIUM XX SCH (09:00)
[2023-12-26 10:24] VITALS: BP 144/70; PULSE 75; TEMP 98.3; O2SAT 98
== END 2023-12-26 10:40 | disposition home or self-care (01) ==
LOC: U 14:06 → ER 14:06 → MED/SURG 14:06 → U 12-24 08:40
PROVIDERS: ADMIT Internal Medicine; ATTEND Internal Medicine
DX: Z98.890 Other specified postprocedural states; K21.9 Gastro-esophageal reflux disease without esophagitis; I49.5 Sick sinus syndrome; R31.9 Hematuria, unspecified; I10 Essential (primary) hypertension; Z95.0 Presence of cardiac pacemaker; H54.8 Legal blindness, as defined in USA; F41.8 Other specified anxiety disorders; F70 Mild intellectual disabilities; N39.0 Urinary tract infection, site not specified; M54.59 Other low back pain; E87.6 Hypokalemia; J44.9 Chronic obstructive pulmonary disease, unspecified

== ENCOUNTER 2024-04-16 11:00 | Inpatient (IN) ==
--- NOTE | 2024-04-16 11:19 | DR.N/VMALE ---
HPI Time Seen Time Seen by Provider: 04/16/24 11:10 Primary Care Physician Primary Care Physician: Tiffany Hernandez Complaints Chief Complaint Doctors Comments: 63-year-old male presents for evaluation. Brought in by EMS. Patient developed nausea and vomiting, diarrhea yesterday. Vomiting persisted throughout the night. Having a headache. No known fevers, no upper respiratory symptoms. He is having some chills. Denies urinary difficulty. Stools have been loose. Chief Complaint:: nausea and vomiting since yesterday, patient has dark emesis without foul odor. Patient complains of headache but denies other pain. He r eports a loose stool yesterday COVID-19 Coronavirus risk:travel/contact w/high risk person: No Has patient experienced Coronavirus symptoms: No Reviewed Nurses Notes Reviewed: Yes Source History Provided: Patient and EMS Mode of Arrival Mode of Arrival: EMS Timing Onset of Chief Complaint: 04/15/24 PMH PMH Past Medical History: Yes Past Medical History: Arthritis, COPD, GERD, Hypertension and Sleep Apnea Past Surgical History: Yes Surgical History: Ortho Surgery and Other Family History History of Family Medical Conditions: Yes Family Medical History: Diabetes Mellitus and Hypertension Social History Does patient currently use any type of tobacco product: No Have you used tobacco products in the last 12 months: No Type of Tobacco Use: None Does any household member use tobacco: No Alcohol Use: None Do you use any recreational Drugs:: No Lives With: Other Lives Where: Assisted Care Travel Risk Coronavirus risk:travel/contact w/high risk person: No Has patient experienced Coronavirus symptoms: No Infectious screening In the last 2 months have you had wt loss of >10#?: NO Have you had fever, night sweats or hemotysis?: No Have you traveled outside the country in the last 6 months?: No Isolation: Standard ROS Review of Systems Constitutional: Chills and Weakness Eyes: No Symptoms Reported ENTM: No Symptoms Reported Respiratoy: No Symptoms Reported Cardiovascular: No Symptoms Reported Gastrointestinal/Abdominal: See HPI Genitourinary: No Symptoms Reported Neurological: No Symptoms Reported Musculoskeletal: No Symptoms Reported Integumentary: No Symptoms Reported Hematologic/Lymphatic: No Symptoms Reported Endocrine: No Symptoms Reported All Other Systems: Reviewed and Negative PE Vital Signs Vitals: Vital Signs Temperature 98.5 F Pulse Rate 100 Pulse Rate 109 Pulse Rate 108 Pulse Rate 103 Pulse Rate 109 Pulse Rate 92 Respiratory Rate 16 Blood Pressure 143/88 Blood Pressure 135/64 Blood Pressure 135/64 Blood Pressure 123/79 O2 Sat by Pulse Oximetry 93 O2 Sat by Pulse Oximetry 99 O2 Sat by Pulse Oximetry 98 O2 Sat by Pulse Oximetry 99 O2 Sat by Pulse Oximetry 99 O2 Sat by Pulse Oximetry 98 General General Appearance: Alert and In No Apparent Distress ENT ENT Exam: Normal Oropharynx and Mucous Membranes Moist Neck Neck Exam: Normal Inspection and Full ROM; negative Tenderness Respiratory Respiratory Exam: Normal Lung Sounds Bilat; negative Accessory Muscle Use or Respiratory Distress Cardiovascular Cardiovascular Exam: Regular Rate, Normal Rhythm and Normal Heart Sounds Abdominal Exam Abdominal Exam: Normal Bowel Sounds, Soft and Tenderness (Suprapubic region, no guarding or rebound) Extremities Extremities Exam: Normal Inspection; negative Edema Neurologic Neurological Exam: Alert, Oriented X3 and CN II-XII Intact; negative Motor Sensory Deficit Skin Skin Exam: Warm and Dry COURSE Treatment Treatment: 63-year-old male with nausea, vomiting, diarrhea since yesterday. IV started by EMS, given Zofran prior to arrival. Will add IV Protonix here. Workup initiated. 1236 - + coffee ground emesis, sent for hemoccult testing. Emesis + for blood. Hgb 11.8. Rest of labs acceptable. CT of the abdomen pelvis with IV contrast performed, has hazy inflammation involving the mesentery, shotty nodes, consistent with mesenteric adenitis. Discussed with covering MD, Dr. Fierro, accepts the admission. [facility] Labs Reviewed Laboratory Results Reviewed?: Yes 04/16/24 11:20 04/16/24 11:20 Laboratory: WBC 12.6 X10^3/uL (3.6-10.0) H 04/16/24 11:20 RBC 3.90 X10^6/uL (4.7-6.0) L 04/16/24 11:20 Hgb 11.8 g/dL (13.5-18.0) L 04/16/24 11:20 Hct 36.4 % (42.0-54.0) L 04/16/24 11:20 MCV 93.4 fL (80.0-100.0) 04/16/24 11:20 MCH 30.4 pg (27.0-34.0) 04/16/24 11:20 MCHC 32.6 g/dL (33.0-35.0) L 04/16/24 11:20 RDW 14.2 % (11.6-16.5) 04/16/24 11:20 Plt Count 234 X10^3/uL (150.0-450.0) 04/16/24 11:20 MPV 8.0 fL (7.4-11.0) 04/16/24 11:20 Neut % (Auto) 82.0 % (42.0-75.0) H 04/16/24 11:20 Lymph % (Auto) 10.5 % (21.0-51.0) L 04/16/24 11:20 [place] % (Auto) 7.0 % (0.0-13.0) 04/16/24 11:20 Eos % (Auto) 0.0 % (0.9-2.9) L 04/16/24 11:20 Baso % (Auto) 0.5 % (0.2-1.0) 04/16/24 11:20 Neut # (Auto) 10.3 x10^3/uL (2.2-4.8) H 04/16/24 11:20 Lymph # (Auto) 1.3 X10^3/uL (1.3-2.9) 04/16/24 11:20 [place] # (Auto) 0.9 x10^3/uL (0.3-0.8) H 04/16/24 11:20 Eos # (Auto) 0.0 x10^3/uL (0.0-0.2) 04/16/24 11:20 Baso # (Auto) 0.1 X10^3/uL (0.0-0.1) 04/16/24 11:20 Absolute Nucleated RBC 0.0 /100WBC 04/16/24 11:20 Sodium 142 mmol/L (136-145) 04/16/24 11:20 Corrected Sodium 143 mmol/L (136-145) 04/16/24 11:20 Potassium 4.3 mmol/L (3.5-5.1) 04/16/24 11:20 Chloride 109 mmol/L (98-107) H 04/16/24 11:20 Carbon Dioxide 26.4 mmol/L (21-32) 04/16/24 11:20 BUN 47 mg/dL (7-18) H 04/16/24 11:20 Creatinine 1.13 mg/dL (0.70-1.30) 04/16/24 11:20 Est GFR (MDRD) Af Amer > 60 (>60) 04/16/24 11:20 Est GFR (MDRD) Non-Af > 60 (>60) 04/16/24 11:20 Glucose 141 mg/dL (65-99) H 04/16/24 11:20 Calcium 8.1 mg/dL (8.5-10.1) L 04/16/24 11:20 Corrected Calcium 8.7 mg/dL (8.5-10.1) 04/16/24 11:20 Total Bilirubin 0.40 mg/dL (0.2-1.0) 04/16/24 11:20 AST 7 Units/L (15-37) L 04/16/24 11:20 ALT 11 Units/L (12-78) L 04/16/24 11:20 Alkaline Phosphatase 46 Units/L (46-116) 04/16/24 11:20 Troponin I High Sens 7.5 ng/L (4.0-60.0) 04/16/24 11:20 Total Protein 6.5 g/dL (6.4-8.2) 04/16/24 11:20 Albumin 3.2 g/dL (3.4-5.0) L 04/16/24 11:20 Globulin 3.3 g/dL (2.5-4.5) 04/16/24 11:20 Albumin/Globulin Ratio 1.0 Ratio (1.1-2.1) L 04/16/24 11:20 Lipase 22 Units/L (16-77) 04/16/24 11:20 Specimen Type Clean catch urine 04/16/24 11:06 Urine Color Yellow (YELLOW) 04/16/24 11:06 Urine Appearance Clear (CLEAR) 04/16/24 11:06 Urine pH 6.0 (5.0 - 8.0) 04/16/24 11:06 Ur Specific [place] 1.015 (1.000-1.030) 04/16/24 11:06 Urine Protein 1+ (NEGATIVE) 04/16/24 11:06 Urine Glucose (UA) Negative (NEGATIVE) 04/16/24 11:06 Urine Ketones 1+ (NEGATIVE) 04/16/24 11:06 Urine Blood Negative (NEGATIVE) 04/16/24 11:06 Urine Nitrite Negative (NEGATIVE) 04/16/24 11:06 Urine Bilirubin Negative (NEGATIVE) 04/16/24 11:06 Urine Urobilinogen Normal (NORMAL) 04/16/24 11:06 Ur Leukocyte Esterase Negative (NEGATIVE) 04/16/24 11:06 Urine RBC 0-2 /HPF (0-3) 04/16/24 11:06 Urine WBC 0-2 /HPF (0-5) 04/16/24 11:06 Ur Squamous Epith Cells Rare /HPF (NEGATIVE) 04/16/24 11:06 Urine Bacteria Negative /HPF (NEGATIVE) 04/16/24 11:06 Urine Mucus Rare /HPF (NEGATIVE) 04/16/24 11:06 Urine Sperm Few /HPF (NEGATIVE) 04/16/24 11:06 Ur Culture Indicated? No/not indicated 04/16/24 11:06 Stool Occult Blood Positive (NEGATIVE) A 04/16/24 12:30 Labs acceptable. XRAY XRAY Interpreted by: Both X-ray Results: EXAM: ABDCMEN/PELVIS WITH CON HISTORY: Nausea vomiting abdominal pain COMPARISON: None available. TECHNIQUE: Multiple axial images of the abdomen and pelvis were obtained from the lung bases to the pubic symphysis after the administration of IV contrast. Dose reduction techniques including Automated Exposure Control (AEC) and adjustment of mA and kV were utilized. FINDINGS: The visualized portions of the lung bases are unremarkable . The liver, spleen, pancreas, kidneys, and adrenal glands are unremarkable in their CT appearance. The gallbladder is unremarkable in its CT appearance. Hazy mesentery with prominent lymph nodes within the central mesentery is observed maybe on the basis of mesenteric lymphadenitis uncommonly associated with other viral illnesses. Correlation with history and presentation is requested. Continued follow up based on clinical needs is recommended. The appendix is not definitely identified. However, no pericecal stranding or fluid can be identified to suggest secondary signs of appendicitis. no bowel wall thickening or bowel dilatation is present. The colon is unremarkable. Specifically, there is no diverticulosis noted within the sigmoid colon. The urinary bladder is grossly unremarkable. The bony structures are grossly intact. IMPRESSION: Hazy mesentery with shotty lymph nodes throughout consistent with a mesenteric adenitis. Otherwise unremarkable evaluation of the abdomen and pelvis with contrast. THIS IS AN ELECTRONICALLY VERIFIED FINAL REPORT 04/16/2024 12:46 PM - Electronically signed by Roberth Branch MD Opioid Opioid Risk Tool Age (Lucien box if 16-45): No History of Preadolescent Sexual Abuse: No Total: 0 Total Score Risk Category: Low Risk Copyright: [facility] predicting aberrant behaviors Discharge Plan Diagnosis Discharge Problem: Hematemesis Discharge Plan Patient Disposition: 09 ADMITTED INPATIENT Condition: Stable Orders to Discharge Patient Discharge Orders: Transfer (Routine); Ordered 04/16/24 Ordered By: Carlos Davidson
[2024-04-16] MEDS: PROTONIX INJ 40 MG VIAL IVP ONE (11:20)
[2024-04-16 11:30] LABS: HEMOGLOBIN 11.8 g/dL (13.5-18.0); MEAN CORPUSCULAR HEMOGLOBIN 30.4 pg (27.0-34.0); PLATELET COUNT 234 X10^3/uL (150.0-450.0)
[2024-04-16 11:33] LABS: BASOPHILS # (AUTO) 0.1 X10^3/uL (0.0-0.1); BASOPHILS % (AUTO) 0.5 % (0.2-1.0); HEMATOCRIT 36.4 % (42.0-54.0); LYMPHOCYTES # (AUTO) 1.3 X10^3/uL (1.3-2.9); LYMPHOCYTES % (AUTO) 10.5 % (21.0-51.0); MEAN CORPUSCULAR HGB CONC 32.6 g/dL (33.0-35.0); MEAN CORPUSCULAR VOLUME 93.4 fL (80.0-100.0); MONOCYTES # (AUTO) 0.9 x10^3/uL (0.3-0.8); NEUTROPHILS # (AUTO) 10.3 x10^3/uL (2.2-4.8); RED CELL DISTRIBUTION WIDTH 14.2 % (11.6-16.5); WHITE BLOOD COUNT 12.6 X10^3/uL (3.6-10.0)
[2024-04-16 11:44] LABS: ALANINE AMINOTRANSFERASE 11 Units/L (12-78); ALBUMIN 3.2 g/dL (3.4-5.0); ALKALINE PHOSPHATASE 46 Units/L (46-116); ASPARTATE AMINO TRANSFERASE 7 Units/L (15-37); BLOOD UREA NITROGEN 47 mg/dL (7-18); CALCIUM 8.1 mg/dL (8.5-10.1); CARBON DIOXIDE 26.4 mmol/L (21-32); CHLORIDE 109 mmol/L (98-107); COR CA(FOR HYPOALB) 8.7 mg/dL (8.5-10.1); COR NA(FOR HYPERGLY) 143 mmol/L (136-145); CREATININE 1.13 mg/dL (0.70-1.30); GLUCOSE 141 mg/dL (65-99); LIPASE 22 Units/L (16-77); POTASSIUM 4.3 mmol/L (3.5-5.1); SODIUM 142 mmol/L (136-145); TOTAL PROTEIN 6.5 g/dL (6.4-8.2); eGFR NON BLACK RACES > 60 (>60)
[2024-04-16] MEDS: ZOFRAN INJ 4 MG VIAL IVP ONE (11:46)
[2024-04-16 11:58] LABS: BILIRUBIN,URINE NEGATIVE (NEGATIVE); BLOOD/HEMOGLOBIN,URINE NEGATIVE (NEGATIVE); GLUCOSE, URINE NEGATIVE (NEGATIVE); KETONES,URINE 1+ (NEGATIVE); LEUKOCYTE ESTERASE ,URINE NEGATIVE (NEGATIVE); NITRITES,URINE NEGATIVE (NEGATIVE); PROTEIN,URINE 1+ (NEGATIVE); UROBILINOGEN,URINE NORMAL (NORMAL)
[2024-04-16 12:02] LABS: APPEARANCE,URINE CLEAR (CLEAR); COLOR,URINE YELLOW (YELLOW)
[2024-04-16 12:20] LABS: BACTERIA,URINE NEGATIVE /HPF (NEGATIVE); RBC,URINE 0-2 /HPF (0-3); SQUAMOUS EPITHELIAL CELL,UR RARE /HPF (NEGATIVE)
[2024-04-16 12:21] LABS: SPERM,URINE FEW /HPF (NEGATIVE)
--- NOTE | 2024-04-16 12:50 | CT ---
EXAM:ABDCMEN/PELVIS WITH CONHISTORY:Nausea vomiting abdominal painCOMPARISON:None available.TECHNIQUE:Multiple axial images of the abdomen and pelvis were obtained from the lung bases to the pubic symphysis after the administration of IV contrast. Dose reduction techniques including Automated Exposure Control (AEC) and adjustment of mA and kV were utilized.FINDINGS:The visualized portions of the lung bases are unremarkable . The liver, spleen, pancreas, kidneys, and adrenal glands are unremarkable in their CT appearance. The gallbladder is unremarkable in its CT appearance. Hazy mesentery with prominent lymph nodes within the central mesentery is observed maybe on the basis of mesenteric lymphadenitis uncommonly associated with other viral illnesses. Correlation with history and presentation is requested. Continued follow up based on clinical needs is recommended. The appendix is not definitely identified. However, no pericecal stranding or fluid can be identified to suggest secondary signs of appendicitis. no bowel wall thickening or bowel dilatation is present. The colon is unremarkable. Specifically, there is no diverticulosis noted within the sigmoid colon. The urinary bladder is grossly unremarkable. The bony structures are grossly intact.IMPRESSION:Hazy mesentery with shotty lymph nodes throughout consistent with a mesenteric adenitis. Otherwise unremarkable evaluation of the abdomen and pelvis with contrast.THIS IS AN ELECTRONICALLY VERIFIED FINAL REPORT04/16/2024 12:46 PM - Electronically signed by Roberth Branch MD
[2024-04-16] MEDS: COMPAZINE INJ IVP ONE (13:42)
[2024-04-16] MEDS: BENADRYL INJ 50 MG VIAL IVP ONE (13:42)
[2024-04-16 14:38] VITALS: BMI 27.9
[2024-04-16] MEDS: ZOFRAN INJ 4 MG VIAL ONE (14:39)
[2024-04-16] MEDS: BENADRYL INJ 50 MG VIAL ONE (14:39)
[2024-04-16] MEDS: OMNIPAQUE 350 mg/mL 100 mL BTL 100 ML ONE (14:39)
[2024-04-16] MEDS: COMPAZINE INJ ONE (14:39)
[2024-04-16] MEDS ORDERED: ZOFRAN INJ 4 MG VIAL IVP PRN (15:08)
[2024-04-16] MEDS: D5 NS 1,000 ML IV 1,000 ML IV SCH (15:16)
[2024-04-16] MEDS: CONSULT PHARMACY - POTASSIUM & MAGNESIUM XX SCH (15:18)
[2024-04-16] MEDS ORDERED: PROVENTIL NEB TX 0.083% 2.5MG/ 3ML NEB PRN (16:19)
[2024-04-16] MEDS: TOBREX DROPS LEFTEYE SCH (16:59)
[2024-04-16] MEDS: TOBREX DROPS RIGHTEYE SCH (17:00)
[2024-04-16] MEDS: CARDIZEM TAB 30 MG PLAIN PO SCH (22:00)
[2024-04-17 06:50] LABS: BASOPHILS % (AUTO) 0.4 % (0.2-1.0); HEMATOCRIT 26.4 % (42.0-54.0); LYMPHOCYTES # (AUTO) 1.4 X10^3/uL (1.3-2.9); LYMPHOCYTES % (AUTO) 15.9 % (21.0-51.0); MEAN CORPUSCULAR HEMOGLOBIN 31.2 pg (27.0-34.0); MEAN CORPUSCULAR VOLUME 91.8 fL (80.0-100.0); MEAN PLATELET VOLUME 7.6 fL (7.4-11.0); MONOCYTES # (AUTO) 0.9 x10^3/uL (0.3-0.8); MONOCYTES % (AUTO) 9.7 % (0.0-13.0); NEUTROPHILS # (AUTO) 6.6 x10^3/uL (2.2-4.8); PLATELET COUNT 196 X10^3/uL (150.0-450.0); RED BLOOD COUNT 2.88 X10^6/uL (4.7-6.0); RED CELL DISTRIBUTION WIDTH 14.6 % (11.6-16.5)
[2024-04-17 07:04] LABS: ALANINE AMINOTRANSFERASE 13 Units/L (12-78); ALBUMIN 2.8 g/dL (3.4-5.0); ALKALINE PHOSPHATASE 36 Units/L (46-116); ASPARTATE AMINO TRANSFERASE 8 Units/L (15-37); BLOOD UREA NITROGEN 27 mg/dL (7-18); CALCIUM 7.7 mg/dL (8.5-10.1); CARBON DIOXIDE 27.3 mmol/L (21-32); CHLORIDE 110 mmol/L (98-107); COR CA(FOR HYPOALB) 8.7 mg/dL (8.5-10.1); COR NA(FOR HYPERGLY) 143 mmol/L (136-145); CREATININE 0.99 mg/dL (0.70-1.30); GLUCOSE 160 mg/dL (65-99); POTASSIUM 3.5 mmol/L (3.5-5.1); SODIUM 142 mmol/L (136-145); TOTAL PROTEIN 5.6 g/dL (6.4-8.2); eGFR NON BLACK RACES > 60 (>60)
[2024-04-17] MEDS ORDERED: NORVASC TAB 2.5 MG ONE (08:25)
--- NOTE | 2024-04-17 08:33 | EKG ---
Test Reason : Preop Blood Pressure : */* mmHG Vent. Rate : 85 BPM Atrial Rate : 85 BPM P-R Int : 148 ms QRS Dur : 80 ms QT Int : 358 ms P-R-T Axes : 47 2 -10 degrees QTc Int : 426 ms Atrial-paced rhythm Septal infarct (cited on or before 20-AUG-2023) Abnormal ECG When compared with ECG of 20-AUG-2023 08:52, Questionable change in initial forces of Septal leads Confirmed by Lucho Mina MD ([id number]) on 04/17/2024 8:52:26 AM Referred By: Confirmed By: Lucho Mina MD
[2024-04-17] MEDS: PROTONIX INJ 40 MG VIAL IVP SCH ×2 (08:53→21:24)
[2024-04-17] MEDS: NORVASC TAB 2.5 MG PO SCH (08:54)
[2024-04-17] MEDS: PROzac PO SCH (09:03)
[2024-04-17] MEDS: D5 LR 1,000 ML 1,000 ML IV ONE (10:46)
[2024-04-17] MEDS: DIPRIVAN VIAL 20 ML ONE (10:50)
--- NOTE | 2024-04-17 11:28 | DR.H&P ---
H&P History & Physical for Day of: H&P Date: 04/16/24 Chief Complaint Chief Complaint: N/V/D History of Present Illness History of Present Illness: PT IS 63 WM, ER ADMISSION AFTER EMS TRANSPORT FOR [place] nausea and vomiting since yesterday, patient has dark emesis without foul odor. Patient complains of headache but denies other pain. He reports a loose stool yesterday. 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 PT HAS CHRONIC VISION IMPAIRMENT, AND MID. 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 1013 Family History Family Medical History: Diabetes Mellitus and Hypertension Social History Does patient currently use any type of tobacco product: No Have you used tobacco products in the last 12 months: No Type of Tobacco Use: None Does any household member use tobacco: No Alcohol Use: None Drug Use: None Medications Home Medications: Home Medications Medication Instructions Recorded Confirmed Type amlodipine 2.5 mg tablet (Norvasc) 5 mg PO DAILY 05/06/23 04/16/24 History diltiazem HCl 60 mg tablet 60 mg PO BID 05/06/23 04/16/24 History linaclotide 72 mcg capsule 72 mcg PO QAM 05/06/23 04/16/24 History (Linzess) meloxicam 15 mg tablet 15 mg PO DAILY 05/06/23 04/16/24 History pantoprazole 40 mg tablet,delayed 40 mg PO BID 08/20/23 04/16/24 History release fluoxetine 40 mg capsule 40 mg PO QDAY 12/23/23 04/16/24 History erythromycin 5 mg/gram (0.5 %) eye 1 applic ophthalmic (eye) DAILY 04/16/24 04/16/24 History ointment Allergies Allergies Allergy/AdvReac Type Severity Reaction Status Date / Time brimonidine Allergy Verified 04/16/24 11:08 ferrous sulfate Allergy Verified 04/16/24 11:08 [From FeroSul] iron [From FeroSul] Allergy Verified 04/16/24 11:08 nitroglycerin Allergy Verified 04/16/24 11:08 tetanus immune globulin Allergy Verified 04/16/24 11:08 Labs 04/17/24 06:35 04/17/24 06:35 Labs: Laboratory WBC 9.0 X10^3/uL (3.6-10.0) 04/17/24 06:35 RBC 2.88 X10^6/uL (4.7-6.0) L 04/17/24 06:35 Hgb 9.0 g/dL (13.5-18.0) L D 04/17/24 06:35 Hct 26.4 % (42.0-54.0) L 04/17/24 06:35 MCV 91.8 fL (80.0-100.0) 04/17/24 06:35 MCH 31.2 pg (27.0-34.0) 04/17/24 06:35 MCHC 34.0 g/dL (33.0-35.0) 04/17/24 06:35 RDW 14.6 % (11.6-16.5) 04/17/24 06:35 Plt Count 196 X10^3/uL (150.0-450.0) 04/17/24 06:35 MPV 7.6 fL (7.4-11.0) 04/17/24 06:35 Neut % (Auto) 74.0 % (42.0-75.0) 04/17/24 06:35 Lymph % (Auto) 15.9 % (21.0-51.0) L 04/17/24 06:35 [place] % (Auto) 9.7 % (0.0-13.0) 04/17/24 06:35 Eos % (Auto) 0.0 % (0.9-2.9) L 04/17/24 06:35 Baso % (Auto) 0.4 % (0.2-1.0) 04/17/24 06:35 Neut # (Auto) 6.6 x10^3/uL (2.2-4.8) H 04/17/24 06:35 Lymph # (Auto) 1.4 X10^3/uL (1.3-2.9) 04/17/24 06:35 [place] # (Auto) 0.9 x10^3/uL (0.3-0.8) H 04/17/24 06:35 Eos # (Auto) 0.0 x10^3/uL (0.0-0.2) 04/17/24 06:35 Baso # (Auto) 0.0 X10^3/uL (0.0-0.1) 04/17/24 06:35 Absolute Nucleated RBC 0.0 /100WBC 04/17/24 06:35 Sodium 142 mmol/L (136-145) 04/17/24 06:35 Corrected Sodium 143 mmol/L (136-145) 04/17/24 06:35 Potassium 3.5 mmol/L (3.5-5.1) 04/17/24 06:35 Chloride 110 mmol/L (98-107) H 04/17/24 06:35 Carbon Dioxide 27.3 mmol/L (21-32) 04/17/24 06:35 BUN 27 mg/dL (7-18) H 04/17/24 06:35 Creatinine 0.99 mg/dL (0.70-1.30) 04/17/24 06:35 Est GFR (MDRD) Af Amer > 60 (>60) 04/17/24 06:35 Est GFR (MDRD) Non-Af > 60 (>60) 04/17/24 06:35 Glucose 160 mg/dL (65-99) H 04/17/24 06:35 Calcium 7.7 mg/dL (8.5-10.1) L 04/17/24 06:35 Corrected Calcium 8.7 mg/dL (8.5-10.1) 04/17/24 06:35 Magnesium 2.0 mg/dL (2.0-2.9) 04/17/24 06:35 Total Bilirubin 0.60 mg/dL (0.2-1.0) 04/17/24 06:35 AST 8 Units/L (15-37) L 04/17/24 06:35 ALT 13 Units/L (12-78) 04/17/24 06:35 Alkaline Phosphatase 36 Units/L (46-116) L 04/17/24 06:35 Troponin I High Sens 7.5 ng/L (4.0-60.0) 04/16/24 11:20 Total Protein 5.6 g/dL (6.4-8.2) L 04/17/24 06:35 Albumin 2.8 g/dL (3.4-5.0) L 04/17/24 06:35 Globulin 2.8 g/dL (2.5-4.5) 04/17/24 06:35 Albumin/Globulin Ratio 1.0 Ratio (1.1-2.1) L 04/17/24 06:35 Lipase 22 Units/L (16-77) 04/16/24 11:20 Specimen Type Clean catch urine 04/16/24 11:06 Urine Color Yellow (YELLOW) 04/16/24 11:06 Urine Appearance Clear (CLEAR) 04/16/24 11:06 Urine pH 6.0 (5.0 - 8.0) 04/16/24 11:06 Ur Specific [place] 1.015 (1.000-1.030) 04/16/24 11:06 Urine Protein 1+ (NEGATIVE) 04/16/24 11:06 Urine Glucose (UA) Negative (NEGATIVE) 04/16/24 11:06 Urine Ketones 1+ (NEGATIVE) 04/16/24 11:06 Urine Blood Negative (NEGATIVE) 04/16/24 11:06 Urine Nitrite Negative (NEGATIVE) 04/16/24 11:06 Urine Bilirubin Negative (NEGATIVE) 04/16/24 11:06 Urine Urobilinogen Normal (NORMAL) 04/16/24 11:06 Ur Leukocyte Esterase Negative (NEGATIVE) 04/16/24 11:06 Urine RBC 0-2 /HPF (0-3) 04/16/24 11:06 Urine WBC 0-2 /HPF (0-5) 04/16/24 11:06 Ur Squamous Epith Cells Rare /HPF (NEGATIVE) 04/16/24 11:06 Urine Bacteria Negative /HPF (NEGATIVE) 04/16/24 11:06 Urine Mucus Rare /HPF (NEGATIVE) 04/16/24 11:06 Urine Sperm Few /HPF (NEGATIVE) 04/16/24 11:06 Ur Culture Indicated? No/not indicated 04/16/24 11:06 Stool Occult Blood Positive (NEGATIVE) A 04/16/24 12:30 Review of Systems Constitutional: Weakness Eyes: No Symptoms Reported ENT: Nose Congestion Respiratory: Shortness of Breath Cardiovascular: No Symptoms Reported Gastrointestinal: Nausea, Vomiting and Diarrhea Genitourinary: No Symptoms Reported Musculoskeletal: No Symptoms Reported Skin: No Symptoms Reported Neurological: Weakness Physical Exam Vital Signs: Vital Signs Temperature 97.4 F Temperature 98.2 F Pulse Rate [Left Brachial] 96 Pulse Rate [Left Brachial] 89 Respiratory Rate 18 Respiratory Rate 20 Blood Pressure [Right Arm] 129/59 Blood Pressure [Right Arm] 145/78 O2 Sat by Pulse Oximetry 94 O2 Sat by Pulse Oximetry 96 Oriented: Normal Eyes: Normal Ear: Normal Nose: Discharge Throat: Normal Respiratory: Diminished Throughout Cardiovascular: Normal : Normal Auscultation: Bowel Sounds: Increased Palpation: negative Spleen Enlarged or Liver Enlarged Tenderness: Diffuse Skin: Decreased Turgur Musculoskeletal: Normal Psychiatric: Anxiety Mood Description: Calm Affect: Normal Speech Pattern: Clear and Appropriate Assessment/Plan (1) Hematemesis: Narrative Support Text: ADMIT, PPI BID ANEMIA PANEL, OCCULT STOOL IV HYDRATION, GI CONSULT VERIFY HOME MEDICATIONS NO NSAIDS Status: Acute (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
[2024-04-17 11:34] LABS: RETICULOCYTE % 1.29 % (0.8-2.2)
[2024-04-17] MEDS: CARAFATE PO SCH (13:08)
[2024-04-18 05:12] LABS: BASOPHILS # (AUTO) 0.1 X10^3/uL (0.0-0.1); BASOPHILS % (AUTO) 0.9 % (0.2-1.0); EOSINOPHILS # (AUTO) 0.1 x10^3/uL (0.0-0.2); EOSINOPHILS % (AUTO) 1.5 % (0.9-2.9); HEMATOCRIT 24.6 % (42.0-54.0); HEMOGLOBIN 8.4 g/dL (13.5-18.0); LYMPHOCYTES # (AUTO) 1.7 X10^3/uL (1.3-2.9); MEAN CORPUSCULAR HEMOGLOBIN 31.3 pg (27.0-34.0); MEAN CORPUSCULAR HGB CONC 34.2 g/dL (33.0-35.0); MEAN CORPUSCULAR VOLUME 91.5 fL (80.0-100.0); MONOCYTES # (AUTO) 0.8 x10^3/uL (0.3-0.8); NEUTROPHILS # (AUTO) 4.3 x10^3/uL (2.2-4.8); NEUTROPHILS % (AUTO) 61.6 % (42.0-75.0); PLATELET COUNT 182 X10^3/uL (150.0-450.0); RED BLOOD COUNT 2.68 X10^6/uL (4.7-6.0); RED CELL DISTRIBUTION WIDTH 14.2 % (11.6-16.5); WHITE BLOOD COUNT 6.9 X10^3/uL (3.6-10.0)
[2024-04-18 05:23] LABS: ALANINE AMINOTRANSFERASE 14 Units/L (12-78); ALBUMIN 2.8 g/dL (3.4-5.0); ALKALINE PHOSPHATASE 35 Units/L (46-116); ASPARTATE AMINO TRANSFERASE 13 Units/L (15-37); BLOOD UREA NITROGEN 12 mg/dL (7-18); CALCIUM 7.9 mg/dL (8.5-10.1); CARBON DIOXIDE 25.8 mmol/L (21-32); CHLORIDE 108 mmol/L (98-107); COR CA(FOR HYPOALB) 8.9 mg/dL (8.5-10.1); COR NA(FOR HYPERGLY) 141 mmol/L (136-145); CREATININE 0.87 mg/dL (0.70-1.30); GLUCOSE 135 mg/dL (65-99); POTASSIUM 3.3 mmol/L (3.5-5.1); SODIUM 140 mmol/L (136-145); TOTAL PROTEIN 5.6 g/dL (6.4-8.2); eGFR NON BLACK RACES > 60 (>60)
[2024-04-18] MEDS ORDERED: NORVASC TAB 2.5 MG ONE (08:27)
[2024-04-18] MEDS: K-DUR TAB 20 MEQ PO ONE (08:44)
[2024-04-18 11:37] LABS: RETICULOCYTE % 1.57 % (0.8-2.2)
[2024-04-18] MEDS: VITAMIN B-12 INJ IM SCH (12:03)
[2024-04-18] MEDS: REGLAN TAB 5 MG PO SCH (12:03)
--- NOTE | 2024-04-18 17:27 | PCM.PROG ---
Progress Note Progress Note for Day of Date of Exam: 04/18/24 Subjective Subjective: The patient reports feeling much better this morning and has no new complaints. We planned to discharge the patient home today; however, his hemoglobin has gone from 9.0-8.4. His potassium level was also low this morning at 3.3, and his albumin level was also low. His vitamin B12 is low at 187, and his ferritin is low at 25. We were going to replace his potassium this afternoon; however, we see he is allergic to ferrous sulfate from FeroSul and iron from FeroSul. I discussed this with him in the morning and the pharmacist to see if he might be a possible candidate for ferrous gluconate instead. We will also call the patient's family to see if they know anything about this so we can proceed with iron replacement. I started his vitamin B12 replacement today with cyanocobalamin 1000 mcg IM daily while he is in the hospital. His folate level was normal. His reticulocyte count and reticulocyte percent were also both normal. We will continue his IV Protonix twice daily and repeat his labs tomorrow morning. Past Medical Family Social History Allergies: Allergies brimonidine Allergy (Verified 04/16/24 11:08) ferrous sulfate [From FeroSul] Allergy (Verified 04/16/24 11:08) iron [From FeroSul] Allergy (Verified 04/16/24 11:08) nitroglycerin Allergy (Verified 04/16/24 11:08) tetanus immune globulin Allergy (Verified 04/16/24 11:08) Review of Systems ROS: No change since H&P Vital Signs and I&O's Vital Signs: Vital Signs Temperature 97.8 F Temperature 97.6 F Pulse Rate [Left Brachial] 81 Pulse Rate [Left Brachial] 84 Respiratory Rate 18 Respiratory Rate 18 Blood Pressure [Right Arm] 150/69 Blood Pressure [Right Arm] 149/71 O2 Sat by Pulse Oximetry 97 O2 Sat by Pulse Oximetry 97 Intake and Output: Intake & Output 04/16/24 04/17/24 04/18/24 04/19/24 11:59 11:59 11:59 11:59 Intake Total 2012 3423 / 3423 1355 / 1355 Output Total 0 / 0 200 / 200 100 / 100 Balance 2012 3223 / 3223 1255 / 1255 Physical Exam Oriented: Normal Eyes: Normal Ear: Normal Nose: Discharge Throat: Normal Respiratory: Normal Cardiovascular: Normal : Normal Auscultation: Bowel Sounds: Increased Tenderness: Diffuse Skin: Decreased Turgur Musculoskeletal: Normal Psychiatric: Anxiety Mood Description: Calm Affect: Normal Speech Pattern: Clear Laboratory and Diagnostics 04/18/24 04:42 04/18/24 04:42 Labs: Laboratory WBC 6.9 X10^3/uL (3.6-10.0) 04/18/24 04:42 RBC 2.68 X10^6/uL (4.7-6.0) L 04/18/24 04:42 Hgb 8.4 g/dL (13.5-18.0) L 04/18/24 04:42 Hct 24.6 % (42.0-54.0) L 04/18/24 04:42 MCV 91.5 fL (80.0-100.0) 04/18/24 04:42 MCH 31.3 pg (27.0-34.0) 04/18/24 04:42 MCHC 34.2 g/dL (33.0-35.0) 04/18/24 04:42 RDW 14.2 % (11.6-16.5) 04/18/24 04:42 Plt Count 182 X10^3/uL (150.0-450.0) 04/18/24 04:42 MPV 8.0 fL (7.4-11.0) 04/18/24 04:42 Neut % (Auto) 61.6 % (42.0-75.0) 04/18/24 04:42 Lymph % (Auto) 24.0 % (21.0-51.0) 04/18/24 04:42 [place] % (Auto) 12.0 % (0.0-13.0) 04/18/24 04:42 Eos % (Auto) 1.5 % (0.9-2.9) 04/18/24 04:42 Baso % (Auto) 0.9 % (0.2-1.0) 04/18/24 04:42 Neut # (Auto) 4.3 x10^3/uL (2.2-4.8) 04/18/24 04:42 Lymph # (Auto) 1.7 X10^3/uL (1.3-2.9) 04/18/24 04:42 [place] # (Auto) 0.8 x10^3/uL (0.3-0.8) 04/18/24 04:42 Eos # (Auto) 0.1 x10^3/uL (0.0-0.2) 04/18/24 04:42 Baso # (Auto) 0.1 X10^3/uL (0.0-0.1) 04/18/24 04:42 Absolute Nucleated RBC 0.1 /100WBC 04/18/24 04:42 Absolute Retic 0.0421 10^6/uL 04/18/24 11:20 Percent Retic 1.57 % (0.8-2.2) 04/18/24 11:20 Sodium 140 mmol/L (136-145) 04/18/24 04:42 Corrected Sodium 141 mmol/L (136-145) 04/18/24 04:42 Potassium 3.3 mmol/L (3.5-5.1) L 04/18/24 04:42 Chloride 108 mmol/L (98-107) H 04/18/24 04:42 Carbon Dioxide 25.8 mmol/L (21-32) 04/18/24 04:42 BUN 12 mg/dL (7-18) 04/18/24 04:42 Creatinine 0.87 mg/dL (0.70-1.30) 04/18/24 04:42 Est GFR (MDRD) Af Amer > 60 (>60) 04/18/24 04:42 Est GFR (MDRD) Non-Af > 60 (>60) 04/18/24 04:42 Glucose 135 mg/dL (65-99) H 04/18/24 04:42 Calcium 7.9 mg/dL (8.5-10.1) L 04/18/24 04:42 Corrected Calcium 8.9 mg/dL (8.5-10.1) 04/18/24 04:42 Magnesium 2.0 mg/dL (2.0-2.9) 04/17/24 06:35 Iron 40 ug/dL (50-175) L 04/18/24 11:20 TIBC 277 ug/dL (250-450) 04/18/24 11:20 Transferrin 229 mg/dL (202-364) 04/18/24 11:20 Ferritin 25 ng/mL (26-388) L 04/18/24 11:20 Total Bilirubin 0.50 mg/dL (0.2-1.0) 04/18/24 04:42 AST 13 Units/L (15-37) L 04/18/24 04:42 ALT 14 Units/L (12-78) 04/18/24 04:42 Alkaline Phosphatase 35 Units/L (46-116) L 04/18/24 04:42 Troponin I High Sens 7.5 ng/L (4.0-60.0) 04/16/24 11:20 Total Protein 5.6 g/dL (6.4-8.2) L 04/18/24 04:42 Albumin 2.8 g/dL (3.4-5.0) L 04/18/24 04:42 Globulin 2.8 g/dL (2.5-4.5) 04/18/24 04:42 Albumin/Globulin Ratio 1.0 Ratio (1.1-2.1) L 04/18/24 04:42 Lipase 22 Units/L (16-77) 04/16/24 11:20 Vitamin B12 187 pg/mL (193-986) L 04/18/24 11:20 Folate 13.5 ng/mL (>8.6) 04/18/24 11:20 Specimen Type Clean catch urine 04/16/24 11:06 Urine Color Yellow (YELLOW) 04/16/24 11:06 Urine Appearance Clear (CLEAR) 04/16/24 11:06 Urine pH 6.0 (5.0 - 8.0) 04/16/24 11:06 Ur Specific [place] 1.015 (1.000-1.030) 04/16/24 11:06 Urine Protein 1+ (NEGATIVE) 04/16/24 11:06 Urine Glucose (UA) Negative (NEGATIVE) 04/16/24 11:06 Urine Ketones 1+ (NEGATIVE) 04/16/24 11:06 Urine Blood Negative (NEGATIVE) 04/16/24 11:06 Urine Nitrite Negative (NEGATIVE) 04/16/24 11:06 Urine Bilirubin Negative (NEGATIVE) 04/16/24 11:06 Urine Urobilinogen Normal (NORMAL) 04/16/24 11:06 Ur Leukocyte Esterase Negative (NEGATIVE) 04/16/24 11:06 Urine RBC 0-2 /HPF (0-3) 04/16/24 11:06 Urine WBC 0-2 /HPF (0-5) 04/16/24 11:06 Ur Squamous Epith Cells Rare /HPF (NEGATIVE) 04/16/24 11:06 Urine Bacteria Negative /HPF (NEGATIVE) 04/16/24 11:06 Urine Mucus Rare /HPF (NEGATIVE) 04/16/24 11:06 Urine Sperm Few /HPF (NEGATIVE) 04/16/24 11:06 Ur Culture Indicated? No/not indicated 04/16/24 11:06 Stool Occult Blood Positive (NEGATIVE) A 04/16/24 12:30 Plan (1) Hematemesis: Status: Resolved Qualifiers: Nausea presence: unspecified Qualified Code(s): K92.0 - Hematemesis Narrative Support Text: Resolved at this time (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 (5) Iron deficiency anemia due to chronic blood loss: Status: Acute Plan: Since the patient is allergic to ferrous sulfate and iron from FeroSul, I will discuss this with the pharmacist in the morning to see if he will be a candidate for ferrous gluconate. I will also have the charge nurse call the patient's family to see if they know if he has a true allergy to iron or ferrous sulfate. (6) Vitamin B 12 deficiency: Status: Acute Plan: Cyanocobalamin 1000 mcg IM daily. (7) Hypokalemia: Status: Acute Plan: We will start the potassium replacement protocol and replace his potassium per protocol.
[2024-04-18] MEDS: RESTORIL CAP 15 MG PO PRN (23:52)
[2024-04-19 06:42] LABS: BASOPHILS # (AUTO) 0.1 X10^3/uL (0.0-0.1); BASOPHILS % (AUTO) 0.6 % (0.2-1.0); EOSINOPHILS # (AUTO) 0.2 x10^3/uL (0.0-0.2); EOSINOPHILS % (AUTO) 2.6 % (0.9-2.9); HEMATOCRIT 26.4 % (42.0-54.0); HEMOGLOBIN 8.9 g/dL (13.5-18.0); LYMPHOCYTES # (AUTO) 1.8 X10^3/uL (1.3-2.9); LYMPHOCYTES % (AUTO) 21.1 % (21.0-51.0); MEAN CORPUSCULAR HEMOGLOBIN 31.3 pg (27.0-34.0); MEAN CORPUSCULAR HGB CONC 33.6 g/dL (33.0-35.0); MEAN CORPUSCULAR VOLUME 93.3 fL (80.0-100.0); MEAN PLATELET VOLUME 8.5 fL (7.4-11.0); MONOCYTES # (AUTO) 0.9 x10^3/uL (0.3-0.8); MONOCYTES % (AUTO) 10.7 % (0.0-13.0); NEUTROPHILS # (AUTO) 5.4 x10^3/uL (2.2-4.8); PLATELET COUNT 230 X10^3/uL (150.0-450.0); RED BLOOD COUNT 2.83 X10^6/uL (4.7-6.0); RED CELL DISTRIBUTION WIDTH 14.6 % (11.6-16.5); WHITE BLOOD COUNT 8.3 X10^3/uL (3.6-10.0)
[2024-04-19 07:02] LABS: ALANINE AMINOTRANSFERASE 13 Units/L (12-78); ALBUMIN 3.1 g/dL (3.4-5.0); ALKALINE PHOSPHATASE 43 Units/L (46-116); ASPARTATE AMINO TRANSFERASE 18 Units/L (15-37); BLOOD UREA NITROGEN 11 mg/dL (7-18); CALCIUM 7.9 mg/dL (8.5-10.1); CHLORIDE 107 mmol/L (98-107); COR CA(FOR HYPOALB) 8.6 mg/dL (8.5-10.1); COR NA(FOR HYPERGLY) 141 mmol/L (136-145); CREATININE 0.97 mg/dL (0.70-1.30); GLUCOSE 122 mg/dL (65-99); MAGNESIUM 1.9 mg/dL (2.0-2.9); SODIUM 140 mmol/L (136-145); TOTAL PROTEIN 6.2 g/dL (6.4-8.2); eGFR NON BLACK RACES > 60 (>60)
[2024-04-19 07:09] LABS: POTASSIUM 2.9 mmol/L (3.5-5.1)
[2024-04-19] MEDS ORDERED: CONSULT PHARMACY - POTASSIUM & MAGNESIUM XX SCH (08:00)
[2024-04-19] MEDS ORDERED: NORVASC TAB 2.5 MG ONE (08:17)
[2024-04-19] MEDS: MAG-OX TAB PO SCH (08:52)
[2024-04-19] MEDS: K-DUR TAB 20 MEQ PO ONE ×2 (08:52→10:43)
[2024-04-19] MEDS: FERROUS GLUCONATE PO SCH (11:49)
[2024-04-19] MEDS ORDERED: TYLENOL 325 MG TAB PO PRN (18:32)
--- NOTE | 2024-04-19 19:18 | PCM.PROG ---
Progress Note Progress Note for Day of Date of Exam: 04/19/24 Subjective Subjective: The patient reports feeling much better this morning and has no new complaints. Unfortunately, we are not able to discharge the patient home today since his potassium dropped to 2.9. His magnesium is low at 1.9. We will replace his electrolytes today and, hopefully, can correct them before discharge tomorrow. His hemoglobin has gone up from 8.4 to 8.9 and is stable now. His vital signs are stable, and he is afebrile. Past Medical Family Social History Allergies: Allergies brimonidine Allergy (Verified 04/16/24 11:08) ferrous sulfate [From FeroSul] Allergy (Verified 04/16/24 11:08) iron [From FeroSul] Allergy (Verified 04/16/24 11:08) nitroglycerin Allergy (Verified 04/16/24 11:08) tetanus immune globulin Allergy (Verified 04/16/24 11:08) Review of Systems ROS: No change since H&P Vital Signs and I&O's Vital Signs: Vital Signs Temperature 98.2 F Temperature 98.1 F Pulse Rate [Left Brachial] 102 Pulse Rate [Left Brachial] 92 Respiratory Rate 20 Respiratory Rate 20 Blood Pressure [Right Arm] 139/79 Blood Pressure [Right Arm] 123/69 O2 Sat by Pulse Oximetry 97 O2 Sat by Pulse Oximetry 93 Intake and Output: Intake & Output 04/17/24 04/18/24 04/19/24 04/20/24 11:59 11:59 11:59 11:59 Intake Total 2012 3423 / 3423 3375 / 3375 2124 Output Total 0 / 0 200 / 200 100 / 100 Balance 2012 3223 / 3223 3275 / 3275 2124 Physical Exam Oriented: Normal Eyes: Normal Ear: Normal Nose: Discharge Throat: Normal Respiratory: Normal Cardiovascular: Normal : Normal Auscultation: Bowel Sounds: Increased Tenderness: Diffuse Skin: Decreased Turgur Musculoskeletal: Normal Psychiatric: Anxiety Mood Description: Calm Affect: Normal Speech Pattern: Clear Laboratory and Diagnostics 04/19/24 05:20 04/19/24 05:20 Labs: Laboratory WBC 8.3 X10^3/uL (3.6-10.0) 04/19/24 05:20 RBC 2.83 X10^6/uL (4.7-6.0) L 04/19/24 05:20 Hgb 8.9 g/dL (13.5-18.0) L 04/19/24 05:20 Hct 26.4 % (42.0-54.0) L 04/19/24 05:20 MCV 93.3 fL (80.0-100.0) 04/19/24 05:20 MCH 31.3 pg (27.0-34.0) 04/19/24 05:20 MCHC 33.6 g/dL (33.0-35.0) 04/19/24 05:20 RDW 14.6 % (11.6-16.5) 04/19/24 05:20 Plt Count 230 X10^3/uL (150.0-450.0) 04/19/24 05:20 MPV 8.5 fL (7.4-11.0) 04/19/24 05:20 Neut % (Auto) 65.0 % (42.0-75.0) 04/19/24 05:20 Lymph % (Auto) 21.1 % (21.0-51.0) 04/19/24 05:20 [place] % (Auto) 10.7 % (0.0-13.0) 04/19/24 05:20 Eos % (Auto) 2.6 % (0.9-2.9) 04/19/24 05:20 Baso % (Auto) 0.6 % (0.2-1.0) 04/19/24 05:20 Neut # (Auto) 5.4 x10^3/uL (2.2-4.8) H 04/19/24 05:20 Lymph # (Auto) 1.8 X10^3/uL (1.3-2.9) 04/19/24 05:20 [place] # (Auto) 0.9 x10^3/uL (0.3-0.8) H 04/19/24 05:20 Eos # (Auto) 0.2 x10^3/uL (0.0-0.2) 04/19/24 05:20 Baso # (Auto) 0.1 X10^3/uL (0.0-0.1) 04/19/24 05:20 Absolute Nucleated RBC 0.0 /100WBC 04/19/24 05:20 Absolute Retic 0.0421 10^6/uL 04/18/24 11:20 Percent Retic 1.57 % (0.8-2.2) 04/18/24 11:20 Sodium 140 mmol/L (136-145) 04/19/24 05:20 Corrected Sodium 141 mmol/L (136-145) 04/19/24 05:20 Potassium 2.9 mmol/L (3.5-5.1) L* 04/19/24 05:20 Chloride 107 mmol/L (98-107) 04/19/24 05:20 Carbon Dioxide 27.0 mmol/L (21-32) 04/19/24 05:20 BUN 11 mg/dL (7-18) 04/19/24 05:20 Creatinine 0.97 mg/dL (0.70-1.30) 04/19/24 05:20 Est GFR (MDRD) Af Amer > 60 (>60) 04/19/24 05:20 Est GFR (MDRD) Non-Af > 60 (>60) 04/19/24 05:20 Glucose 122 mg/dL (65-99) H 04/19/24 05:20 Calcium 7.9 mg/dL (8.5-10.1) L 04/19/24 05:20 Corrected Calcium 8.6 mg/dL (8.5-10.1) 04/19/24 05:20 Magnesium 1.9 mg/dL (2.0-2.9) L 04/19/24 05:20 Iron 40 ug/dL (50-175) L 04/18/24 11:20 TIBC 277 ug/dL (250-450) 04/18/24 11:20 Transferrin 229 mg/dL (202-364) 04/18/24 11:20 Ferritin 25 ng/mL (26-388) L 04/18/24 11:20 Total Bilirubin 0.50 mg/dL (0.2-1.0) 04/19/24 05:20 AST 18 Units/L (15-37) 04/19/24 05:20 ALT 13 Units/L (12-78) 04/19/24 05:20 Alkaline Phosphatase 43 Units/L (46-116) L 04/19/24 05:20 Troponin I High Sens 7.5 ng/L (4.0-60.0) 04/16/24 11:20 Total Protein 6.2 g/dL (6.4-8.2) L 04/19/24 05:20 Albumin 3.1 g/dL (3.4-5.0) L 04/19/24 05:20 Globulin 3.1 g/dL (2.5-4.5) 04/19/24 05:20 Albumin/Globulin Ratio 1.0 Ratio (1.1-2.1) L 04/19/24 05:20 Lipase 22 Units/L (16-77) 04/16/24 11:20 Vitamin B12 187 pg/mL (193-986) L 04/18/24 11:20 Folate 13.5 ng/mL (>8.6) 04/18/24 11:20 Specimen Type Clean catch urine 04/16/24 11:06 Urine Color Yellow (YELLOW) 04/16/24 11:06 Urine Appearance Clear (CLEAR) 04/16/24 11:06 Urine pH 6.0 (5.0 - 8.0) 04/16/24 11:06 Ur Specific [place] 1.015 (1.000-1.030) 04/16/24 11:06 Urine Protein 1+ (NEGATIVE) 04/16/24 11:06 Urine Glucose (UA) Negative (NEGATIVE) 04/16/24 11:06 Urine Ketones 1+ (NEGATIVE) 04/16/24 11:06 Urine Blood Negative (NEGATIVE) 04/16/24 11:06 Urine Nitrite Negative (NEGATIVE) 04/16/24 11:06 Urine Bilirubin Negative (NEGATIVE) 04/16/24 11:06 Urine Urobilinogen Normal (NORMAL) 04/16/24 11:06 Ur Leukocyte Esterase Negative (NEGATIVE) 04/16/24 11:06 Urine RBC 0-2 /HPF (0-3) 04/16/24 11:06 Urine WBC 0-2 /HPF (0-5) 04/16/24 11:06 Ur Squamous Epith Cells Rare /HPF (NEGATIVE) 04/16/24 11:06 Urine Bacteria Negative /HPF (NEGATIVE) 04/16/24 11:06 Urine Mucus Rare /HPF (NEGATIVE) 04/16/24 11:06 Urine Sperm Few /HPF (NEGATIVE) 04/16/24 11:06 Ur Culture Indicated? No/not indicated 04/16/24 11:06 Stool Occult Blood Positive (NEGATIVE) A 04/16/24 12:30 Plan (1) Hematemesis: Status: Resolved Qualifiers: Nausea presence: unspecified Qualified Code(s): K92.0 - Hematemesis (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 (5) Iron deficiency anemia due to chronic blood loss: Status: Acute Plan: Since the patient is allergic to ferrous sulfate and iron from FeroSul, I will discuss this with the pharmacist in the morning to see if he will be a candidate for ferrous gluconate. I will also have the charge nurse call the patient's family to see if they know if he has a true allergy to iron or ferrous sulfate. (6) Vitamin B 12 deficiency: Status: Acute Plan: Cyanocobalamin 1000 mcg IM daily. (7) Hypokalemia: Status: Acute Plan: We will start the potassium replacement protocol and replace his potassium per protocol. (8) Hypomagnesemia: Status: Acute Plan: Replace.
[2024-04-19] MEDS: CONSULT PHARMACY - POTASSIUM & MAGNESIUM XX SCH (19:23)
[2024-04-19] MEDS: ULTRAM PO PRN (19:46)
[2024-04-20 06:10] LABS: BASOPHILS % (AUTO) 0.2 % (0.2-1.0); EOSINOPHILS % (AUTO) 0.1 % (0.9-2.9); HEMATOCRIT 26.1 % (42.0-54.0); HEMOGLOBIN 8.7 g/dL (13.5-18.0); LYMPHOCYTES # (AUTO) 0.7 X10^3/uL (1.3-2.9); LYMPHOCYTES % (AUTO) 4.6 % (21.0-51.0); MEAN CORPUSCULAR HEMOGLOBIN 30.9 pg (27.0-34.0); MEAN CORPUSCULAR HGB CONC 33.2 g/dL (33.0-35.0); MEAN CORPUSCULAR VOLUME 93.1 fL (80.0-100.0); MEAN PLATELET VOLUME 7.9 fL (7.4-11.0); MONOCYTES % (AUTO) 12.3 % (0.0-13.0); NEUTROPHILS # (AUTO) 13.3 x10^3/uL (2.2-4.8); NEUTROPHILS % (AUTO) 82.8 % (42.0-75.0); PLATELET COUNT 243 X10^3/uL (150.0-450.0); RED CELL DISTRIBUTION WIDTH 14.5 % (11.6-16.5); WHITE BLOOD COUNT 16.1 X10^3/uL (3.6-10.0)
[2024-04-20 06:24] LABS: CALCIUM 8.4 mg/dL (8.5-10.1); CARBON DIOXIDE 21.7 mmol/L (21-32); CREATININE 1.78 mg/dL (0.70-1.30); POTASSIUM 3.7 mmol/L (3.5-5.1)
[2024-04-20 06:27] LABS: MAGNESIUM 2.2 mg/dL (2.0-2.9)
[2024-04-20] MEDS ORDERED: CONSULT PHARMACY - POTASSIUM & MAGNESIUM XX SCH (07:00)
[2024-04-20] MEDS ORDERED: NORVASC TAB 2.5 MG ONE (08:08)
[2024-04-20] MEDS: MICRO K EXTEN CAP 10 MEQ PO SCH (08:33)
[2024-04-20] MEDS: INVanz INJ 1 GRAM VIAL 1 G in NS 100 ML IV 100 ML IV SCH (11:53)
[2024-04-20] MEDS: NS 250 ML IV 25 ML IV PRN (11:53)
[2024-04-20] MEDS: COREG TAB 12.5 MG PO SCH (11:54)
[2024-04-20] MEDS: LEVAQUIN PREMIX IV 500 MG 500 MG/100 ML BAG IV SCH (13:37)
[2024-04-20 14:45] LABS: BILIRUBIN,URINE NEGATIVE (NEGATIVE); BLOOD/HEMOGLOBIN,URINE 5+ (NEGATIVE); GLUCOSE, URINE NEGATIVE (NEGATIVE); KETONES,URINE NEGATIVE (NEGATIVE); LEUKOCYTE ESTERASE ,URINE 1+ (NEGATIVE); NITRITES,URINE NEGATIVE (NEGATIVE); PROTEIN,URINE 2+ (NEGATIVE); UROBILINOGEN,URINE NORMAL (NORMAL)
[2024-04-20 14:48] LABS: APPEARANCE,URINE SLIGHTLY HAZY (CLEAR); COLOR,URINE YELLOW (YELLOW)
[2024-04-20 14:54] LABS: BACTERIA,URINE 1+ /HPF (NEGATIVE); SPERM,URINE MANY /HPF (NEGATIVE); SQUAMOUS EPITHELIAL CELL,UR FEW /HPF (NEGATIVE)
--- NOTE | 2024-04-20 15:33 | RAD ---
EXAM: CHEST, 1 VIEW HISTORY: WBC; COMPARISON: 11/26/2023 FINDINGS: The cardiomediastinal silhouette is stable. Similar hiatal hernia. Left-sided pacer and pacer wires unchanged. No acute airspace disease. No pneumothorax or effusion. No acute osseous abnormality. ACDF hardware. IMPRESSION: No acute cardiopulmonary disease. THIS IS AN ELECTRONICALLY VERIFIED FINAL REPORT 04/20/2024 3:29 PM - Electronically signed by Je Jones MD
--- NOTE | 2024-04-20 16:02 | PCM.PROG ---
Progress Note Progress Note for Day of Date of Exam: 04/20/24 Subjective Subjective: The patient reports the same this morning. This morning, we see that his white blood cell count has doubled since yesterday and is 16,100. His creatinine has gone up to 1.78, and his estimated GFR has gone from greater than 60 down to 41. The patient had a lactic acid that was elevated at 2.1 this morning. It was repeated a few hours later and had increased to 8.0. Repeating this a few hours later showed that he had decreased down to 2.5. After I was called about the level going from 2.8 to 8.0, I was called, and we added Levaquin 500 mg IV daily. We had started him on Invanz yesterday at 1 g IV daily. I see that the patient is becoming tachycardic, and it looks like the patient is septic. He had a fever again last night, but not as high as the night before. This chest x-ray and urinalysis were clear, indicating that he had no UTI and no nosocomial pneumonia. He had blood cultures drawn x 2 the night before when he had a fever of 101.3F. Those blood cultures are currently still pending. We will assume that he is septic and treat him accordingly. I have initiated the sepsis protocol. The charge nurse has moved him to a bed closer to the nurse's station so they can monitor him more closely. Past Medical Family Social History Allergies: Allergies brimonidine Allergy (Verified 04/16/24 11:08) ferrous sulfate [From FeroSul] Allergy (Verified 04/16/24 11:08) iron [From FeroSul] Allergy (Verified 04/16/24 11:08) nitroglycerin Allergy (Verified 04/16/24 11:08) tetanus immune globulin Allergy (Verified 04/16/24 11:08) Review of Systems ROS: No change since H&P Vital Signs and I&O's Vital Signs: Vital Signs Temperature 98.8 F Temperature 97.2 F Pulse Rate [Left Brachial] 115 Pulse Rate [Left Brachial] 101 Respiratory Rate 20 Respiratory Rate 18 Blood Pressure [Right Arm] 133/68 Blood Pressure [Right Arm] 162/84 O2 Sat by Pulse Oximetry 95 O2 Sat by Pulse Oximetry 95 Intake and Output: Intake & Output 05/25/24 05/26/24 05/27/24 05/28/24 11:59 11:59 11:59 11:59 Intake Total 3423 / 3423 3375 / 3375 5415 / 5415 Output Total 200 / 200 100 / 100 Balance 3223 / 3223 3275 / 3275 5415 / 5415 Physical Exam Oriented: Normal Eyes: Normal Ear: Normal Nose: Discharge Throat: Normal Respiratory: Normal Cardiovascular: Normal : Normal Auscultation: Bowel Sounds: Increased Tenderness: Diffuse Skin: Decreased [place]urgur Musculoskeletal: Normal Psychiatric: Anxiety Mood Description: Calm Affect: Normal Speech Pattern: Clear Laboratory and Diagnostics 04/20/24 05:58 04/20/24 05:58 Labs: Laboratory WBC 16.1 X10^3/uL (3.6-10.0) H 04/20/24 05:58 RBC 2.80 X10^6/uL (4.7-6.0) L 04/20/24 05:58 Hgb 8.7 g/dL (13.5-18.0) L 04/20/24 05:58 Hct 26.1 % (42.0-54.0) L 04/20/24 05:58 MCV 93.1 fL (80.0-100.0) 04/20/24 05:58 MCH 30.9 pg (27.0-34.0) 04/20/24 05:58 MCHC 33.2 g/dL (33.0-35.0) 04/20/24 05:58 RDW 14.5 % (11.6-16.5) 04/20/24 05:58 Plt Count 243 X10^3/uL (150.0-450.0) 04/20/24 05:58 MPV 7.9 fL (7.4-11.0) 04/20/24 05:58 Neut % (Auto) 82.8 % (42.0-75.0) H 04/20/24 05:58 Lymph % (Auto) 4.6 % (21.0-51.0) L 04/20/24 05:58 [place] % (Auto) 12.3 % (0.0-13.0) 04/20/24 05:58 Eos % (Auto) 0.1 % (0.9-2.9) L 04/20/24 05:58 Baso % (Auto) 0.2 % (0.2-1.0) 04/20/24 05:58 Neut # (Auto) 13.3 x10^3/uL (2.2-4.8) H 04/20/24 05:58 Lymph # (Auto) 0.7 X10^3/uL (1.3-2.9) L 04/20/24 05:58 [place] # (Auto) 2.0 x10^3/uL (0.3-0.8) H 04/20/24 05:58 Eos # (Auto) 0.0 x10^3/uL (0.0-0.2) 04/20/24 05:58 Baso # (Auto) 0.0 X10^3/uL (0.0-0.1) 04/20/24 05:58 Absolute Nucleated RBC 0.1 /100WBC 04/20/24 05:58 Absolute Retic 0.0421 10^6/uL 04/18/24 11:20 Percent Retic 1.57 % (0.8-2.2) 04/18/24 11:20 Sodium 139 mmol/L (136-145) 04/20/24 05:58 Corrected Sodium 140 mmol/L (136-145) 04/20/24 05:58 Potassium 3.7 mmol/L (3.5-5.1) 04/20/24 05:58 Chloride 105 mmol/L (98-107) 04/20/24 05:58 Carbon Dioxide 21.7 mmol/L (21-32) 04/20/24 05:58 BUN 22 mg/dL (7-18) H 04/20/24 05:58 Creatinine 1.78 mg/dL (0.70-1.30) H 04/20/24 05:58 Est GFR (MDRD) Af Amer 50 (>60) L 04/20/24 05:58 Est GFR (MDRD) Non-Af 41 (>60) L 04/20/24 05:58 Glucose 144 mg/dL (65-99) H 04/20/24 05:58 Lactic Acid 2.5 mmol/L (0.4-2.0) H 04/20/24 13:10 Calcium 8.4 mg/dL (8.5-10.1) L 04/20/24 05:58 Corrected Calcium 8.6 mg/dL (8.5-10.1) 04/19/24 05:20 Magnesium 2.2 mg/dL (2.0-2.9) 04/20/24 05:58 Iron 40 ug/dL (50-175) L 04/18/24 11:20 TIBC 277 ug/dL (250-450) 04/18/24 11:20 Transferrin 229 mg/dL (202-364) 04/18/24 11:20 Ferritin 25 ng/mL (26-388) L 04/18/24 11:20 Total Bilirubin 0.50 mg/dL (0.2-1.0) 04/19/24 05:20 AST 18 Units/L (15-37) 04/19/24 05:20 ALT 13 Units/L (12-78) 04/19/24 05:20 Alkaline Phosphatase 43 Units/L (46-116) L 04/19/24 05:20 Troponin I High Sens 7.5 ng/L (4.0-60.0) 04/16/24 11:20 Total Protein 6.2 g/dL (6.4-8.2) L 04/19/24 05:20 Albumin 3.1 g/dL (3.4-5.0) L 04/19/24 05:20 Globulin 3.1 g/dL (2.5-4.5) 04/19/24 05:20 Albumin/Globulin Ratio 1.0 Ratio (1.1-2.1) L 04/19/24 05:20 Lipase 22 Units/L (16-77) 04/16/24 11:20 Vitamin B12 187 pg/mL (193-986) L 04/18/24 11:20 Folate 13.5 ng/mL (>8.6) 04/18/24 11:20 Specimen Type Clean catch urine 04/20/24 14:15 Urine Color Yellow (YELLOW) 04/20/24 14:15 Urine Appearance Slightly hazy (CLEAR) 04/20/24 14:15 Urine pH 7.0 (5.0 - 8.0) 04/20/24 14:15 Ur Specific [place] 1.010 (1.000-1.030) 04/20/24 14:15 Urine Protein 2+ (NEGATIVE) 04/20/24 14:15 Urine Glucose (UA) Negative (NEGATIVE) 04/20/24 14:15 Urine Ketones Negative (NEGATIVE) 04/20/24 14:15 Urine Blood 5+ (NEGATIVE) 04/20/24 14:15 Urine Nitrite Negative (NEGATIVE) 04/20/24 14:15 Urine Bilirubin Negative (NEGATIVE) 04/20/24 14:15 Urine Urobilinogen Normal (NORMAL) 04/20/24 14:15 Ur Leukocyte Esterase 1+ (NEGATIVE) 04/20/24 14:15 Urine RBC 10-20 /HPF (0-3) A 04/20/24 14:15 Urine WBC 0-2 /HPF (0-5) 04/20/24 14:15 Ur Squamous Epith Cells Few /HPF (NEGATIVE) 04/20/24 14:15 Amorphous Sediment 1+ /HPF (NEGATIVE) 04/20/24 14:15 Urine Bacteria 1+ /HPF (NEGATIVE) 04/20/24 14:15 Urine Mucus Rare /HPF (NEGATIVE) 04/16/24 11:06 Urine Sperm Many /HPF (NEGATIVE) 04/20/24 14:15 Ur Culture Indicated? No/not indicated 04/20/24 14:15 Stool Occult Blood Positive (NEGATIVE) A 04/16/24 12:30 Radiology Reviewed: Yes Plan (1) Sepsis: Status: Acute Plan: The patient reports feeling fine and ready to go home this morning. I told him that he needed to stay here because he had a white blood cell count that doubled from yesterday and was very elevated at 16,100. I also see that his heart rate is going up, as well as his creatinine, and I told him that he could likely have an infection somewhere, and it would most likely be in the blood. He states that he is definitely going home tomorrow. He does not appear ill or sick at all today. His lungs are clear, and his physical exam is unremarkable. We checked a urinalysis, chest x-ray, an AIT sputum culture, and a regular sputum culture to find the source of the patient's fever and elevated white count. We also suspect that he is most likely septic because his lactic acid level is elevated at 2.1, which trended up to 8.0 and then trended back down to 2.5. The patient was already started on Invanz 1 g IV daily yesterday because of the fever he had the night before. After I was called because of his elevated lactic acid, I added Levaquin 500 mg IV daily. I also initiated the sepsis protocol. The charge nurse changed his room to another one closer to the nurse's station so they could observe him more closely. (2) Iron deficiency anemia due to chronic blood loss: Status: Acute Plan: Since the patient is allergic to ferrous sulfate and iron from FeroSul, I will discuss this with the pharmacist in the morning to see if he will be a candidate for ferrous gluconate. I will also have the charge nurse call the patient's family to see if they know if he has a true allergy to iron or ferrous sulfate. (3) Vitamin B 12 deficiency: Status: Acute Plan: Cyanocobalamin 1000 mcg IM daily. (4) Hypokalemia: Status: Acute Plan: We will start the potassium replacement protocol and replace his potassium per protocol. (5) Hypomagnesemia: Status: Acute Plan: Replace. (6) Hematemesis: Status: Resolved Qualifiers: Nausea presence: unspecified Qualified Code(s): K92.0 - Hematemesis (7) Mild intellectual disabilities: Status: Acute (8) Legal blindness: Status: Acute (9) Artificial cardiac pacemaker: Status: Chronic
[2024-04-21 06:35] LABS: BASOPHILS % (AUTO) 0 % (0.2-1.0); HEMOGLOBIN 7.6 g/dL (13.5-18.0); LYMPHOCYTES # (AUTO) 0.6 X10^3/uL (1.3-2.9); MEAN CORPUSCULAR HEMOGLOBIN 30.8 pg (27.0-34.0); MEAN CORPUSCULAR HGB CONC 32.9 g/dL (33.0-35.0); MEAN CORPUSCULAR VOLUME 93.8 fL (80.0-100.0); MEAN PLATELET VOLUME 7.8 fL (7.4-11.0); MONOCYTES # (AUTO) 1.9 x10^3/uL (0.3-0.8); MONOCYTES % (AUTO) 9.9 % (0.0-13.0); NEUTROPHILS # (AUTO) 16.3 x10^3/uL (2.2-4.8); NEUTROPHILS % (AUTO) 87.1 % (42.0-75.0); PLATELET COUNT 235 X10^3/uL (150.0-450.0); RED BLOOD COUNT 2.45 X10^6/uL (4.7-6.0); RED CELL DISTRIBUTION WIDTH 14.8 % (11.6-16.5); WHITE BLOOD COUNT 18.7 X10^3/uL (3.6-10.0)
[2024-04-21 06:40] LABS: CALCIUM 8.4 mg/dL (8.5-10.1); CARBON DIOXIDE 20.2 mmol/L (21-32); CREATININE 2.94 mg/dL (0.70-1.30); POTASSIUM 3.7 mmol/L (3.5-5.1)
[2024-04-21 06:42] LABS: MAGNESIUM 2.2 mg/dL (2.0-2.9)
--- NOTE | 2024-04-21 07:22 | RAD ---
EXAM: Portable chest HISTORY: Leukocytosis COMPARISON: 04/20/2024 FINDINGS: There is a pacemaker in the left axilla. Heart size is normal. Bryanna are normal. Right hemidiaphr agm is chronically elevated. Lung ely are free of acute infiltrates. There is hiatal hernia pres ent. No pleural effusions are identified. Bony thorax is unremarkable. IMPRESSION: Chronic elevation of the right hemidiaphragm Lungs clear Hiatal hernia THIS IS AN ELECTRONICALLY VERIFIED FINAL REPORT 04/21/2024 7:18 AM - Electronically signed by Je Jones MD
[2024-04-21] MEDS ORDERED: CONSULT PHARMACY - POTASSIUM & MAGNESIUM XX SCH (08:00)
[2024-04-21 08:24] VITALS: RESP 20
[2024-04-21] MEDS ORDERED: NORVASC TAB 2.5 MG ONE (08:42)
[2024-04-21] MEDS: K-DUR TAB 20 MEQ PO SCH (09:10)
[2024-04-21 13:39] LABS: ALBUMIN 2.7 g/dL (3.4-5.0); COR CA(FOR HYPOALB) 9.4 mg/dL (8.5-10.1); TOTAL PROTEIN 6.1 g/dL (6.4-8.2)
[2024-04-21 14:13] LABS: ALBUMIN 3.3 g/dL (3.4-5.0); TOTAL PROTEIN 6.6 g/dL (6.4-8.2)
[2024-04-21 15:45] LABS: ALBUMIN 2.5 g/dL (3.4-5.0); CALCIUM 8.3 mg/dL (8.5-10.1); CARBON DIOXIDE 20.8 mmol/L (21-32); COR CA(FOR HYPOALB) 9.5 mg/dL (8.5-10.1); CREATININE 2.38 mg/dL (0.70-1.30); POTASSIUM 3.6 mmol/L (3.5-5.1); TOTAL PROTEIN 5.9 g/dL (6.4-8.2)
--- NOTE | 2024-04-21 17:14 | PCM.PROG ---
Progress Note Progress Note for Day of Date of Exam: 04/21/24 Subjective Subjective: Patient is a 63 year old white male who was an ER admission on 04/16 after presenting with nausea/vomiting with dark emesis without foul odor. ER workup included + coffee ground emesis, sent for hemoccult testing. Emesis + for blood. Hgb 11.8. Rest of labs acceptable. CT of the abdomen pelvis with IV contrast performed, has hazy inflammation involving the mesentery, shotty nodes, consistent with mesenteric adenitis. Upon admission, we obtained an anemia panel and started him on PPI BID, IV hydration, IV abx, and consulted GI. He had a fever up to 100.1 on the night of admission. His hgb dropped to 9.0 on the morning after admission. His anemia panel resulted ferritin 26, iron 133, b12 184. He is status post EGD per Dr. Gutierrez on 04/17 that revealed hiatial hernia and gastritis. The next morning, 04/18, his hgb further dropped to 8.4. He was also hypokalemic with low protein. He was started on a b12 supplement and potassium replacement. The morning of 04/19, patient hgb had increased to 8.9 and his vital signs were stable. His potassium had further dropped to 2.9, so we ordered pot assium replacement per protocol. We started him on ferrous gluconate since he has an allergy to ferrous sulfate. The next morning, 04/20, his hgb was 8.7, potassium up to 3.7, and kidney function declined to bun 22/creatinine 1.78. His wbc had doubled from the day prior- up to 16.100. His lactic acid was also up at 2.1. We obtained a repeat lactic acid a few hours after and it had increased to 8.0. Sepsis protocol was initiated and Levaquin was added. We obtained a repeat chest xray yesterday that was negative for acute cardiopulmonary disease. We obtained a respiratory swab and blood cultures. Repeat lactic acid yesterday afternoon was down to 2.5. Morning labs: hgb 7.6, wbc 18.7, bun 39/creatinine 2.94. His vitals are stable. He is afebrile. Morning chest xray showed Chronic elevation of the right hemidiaphragm, Lungs clear, Hiatal hernia. Respiratory swab and blood cultures are still pending. Past Medical Family Social History Allergies: Allergies brimonidine Allergy (Verified 04/16/24 11:08) ferrous sulfate [From FeroSul] Allergy (Verified 04/16/24 11:08) iron [From FeroSul] Allergy (Verified 04/16/24 11:08) nitroglycerin Allergy (Verified 04/16/24 11:08) tetanus immune globulin Allergy (Verified 04/16/24 11:08) Review of Systems ROS: No change since H&P Vital Signs and I&O's Vital Signs: Vital Signs Temperature 97.3 F Temperature 97.9 F Pulse Rate [Left Brachial] 86 Pulse Rate [Left Brachial] 93 Respiratory Rate 20 Respiratory Rate 20 Respiratory Rate 20 Blood Pressure [Right Arm] 115/63 Blood Pressure [Right Arm] 132/68 O2 Sat by Pulse Oximetry 93 O2 Sat by Pulse Oximetry 95 Intake and Output: Intake & Output 04/19/24 04/20/24 04/21/24 04/22/24 11:59 11:59 11:59 11:59 Intake Total 3375 / 3375 5415 / 5415 3294 / 3294 Output Total 100 / 100 Balance 3275 / 3275 5415 / 5415 3294 / 3294 Physical Exam Oriented: Normal Eyes: Normal Ear: Normal Nose: Normal Throat: Normal Respiratory: Diminished Cardiovascular: Normal : Normal Auscultation: Bowel Sounds: Normal Palpation: Normal Tenderness: Normal Skin: Decreased [place]urg[place] Musculoskeletal: Normal Psychiatric: Anxiety Mood Description: Anxious Affect: Normal Speech Pattern: Clear Laboratory and Diagnostics 04/21/24 06:15 04/21/24 15:20 Labs: Laboratory WBC 18.7 X10^3/uL (3.6-10.0) H 04/21/24 06:15 RBC 2.45 X10^6/uL (4.7-6.0) L 04/21/24 06:15 Hgb 7.6 g/dL (13.5-18.0) L 04/21/24 06:15 Hct 23.0 % (42.0-54.0) L 04/21/24 06:15 MCV 93.8 fL (80.0-100.0) 04/21/24 06:15 MCH 30.8 pg (27.0-34.0) 04/21/24 06:15 MCHC 32.9 g/dL (33.0-35.0) L 04/21/24 06:15 RDW 14.8 % (11.6-16.5) 04/21/24 06:15 Plt Count 235 X10^3/uL (150.0-450.0) 04/21/24 06:15 MPV 7.8 fL (7.4-11.0) 04/21/24 06:15 Neut % (Auto) 87.1 % (42.0-75.0) H 04/21/24 06:15 Lymph % (Auto) 3.0 % (21.0-51.0) L 04/21/24 06:15 [place] % (Auto) 9.9 % (0.0-13.0) 04/21/24 06:15 Eos % (Auto) 0.0 % (0.9-2.9) L 04/21/24 06:15 Baso % (Auto) 0 % (0.2-1.0) L 04/21/24 06:15 Neut # (Auto) 16.3 x10^3/uL (2.2-4.8) H 04/21/24 06:15 Lymph # (Auto) 0.6 X10^3/uL (1.3-2.9) L 04/21/24 06:15 [place] # (Auto) 1.9 x10^3/uL (0.3-0.8) H 04/21/24 06:15 Eos # (Auto) 0.0 x10^3/uL (0.0-0.2) 04/21/24 06:15 Baso # (Auto) 0.0 X10^3/uL (0.0-0.1) 04/21/24 06:15 Absolute Nucleated RBC 0.1 /100WBC 04/21/24 06:15 Absolute Retic 0.0421 10^6/uL 04/18/24 11:20 Percent Retic 1.57 % (0.8-2.2) 04/18/24 11:20 Sodium 137 mmol/L (136-145) 04/21/24 06:15 Corrected Sodium 138 mmol/L (136-145) 04/21/24 06:15 Potassium 3.7 mmol/L (3.5-5.1) 04/21/24 06:15 Chloride 105 mmol/L (98-107) 04/21/24 06:15 Carbon Dioxide 20.2 mmol/L (21-32) L 04/21/24 06:15 BUN 39 mg/dL (7-18) H 04/21/24 06:15 Creatinine 2.94 mg/dL (0.70-1.30) H 04/21/24 06:15 Est GFR (MDRD) Af Amer 28 (>60) L 04/21/24 06:15 Est GFR (MDRD) Non-Af 23 (>60) L 04/21/24 06:15 Glucose 145 mg/dL (65-99) H 04/21/24 06:15 Lactic Acid 1.7 mmol/L (0.4-2.0) 04/20/24 19:07 Calcium 8.4 mg/dL (8.5-10.1) L 04/21/24 06:15 Corrected Calcium 9.4 mg/dL (8.5-10.1) 04/21/24 06:15 Magnesium 2.2 mg/dL (2.0-2.9) 04/21/24 06:15 Iron 40 ug/dL (50-175) L 04/18/24 11:20 TIBC 277 ug/dL (250-450) 04/18/24 11:20 Transferrin 229 mg/dL (202-364) 04/18/24 11:20 Ferritin 25 ng/mL (26-388) L 04/18/24 11:20 Total Bilirubin 0.60 mg/dL (0.2-1.0) 04/21/24 06:15 AST 24 Units/L (15-37) 04/21/24 06:15 ALT 17 Units/L (12-78) 04/21/24 06:15 Alkaline Phosphatase 48 Units/L (46-116) 04/21/24 06:15 Troponin I High Sens 7.5 ng/L (4.0-60.0) 04/16/24 11:20 Total Protein 6.1 g/dL (6.4-8.2) L 04/21/24 06:15 Albumin 2.7 g/dL (3.4-5.0) L 04/21/24 06:15 Globulin 3.4 g/dL (2.5-4.5) 04/21/24 06:15 Albumin/Globulin Ratio 0.8 Ratio (1.1-2.1) L 04/21/24 06:15 Lipase 22 Units/L (16-77) 04/16/24 11:20 Vitamin B12 187 pg/mL (193-986) L 04/18/24 11:20 Folate 13.5 ng/mL (>8.6) 04/18/24 11:20 Specimen Type Clean catch urine 04/20/24 14:15 Urine Color Yellow (YELLOW) 04/20/24 14:15 Urine Appearance Slightly hazy (CLEAR) 04/20/24 14:15 Urine pH 7.0 (5.0 - 8.0) 04/20/24 14:15 Ur Specific [place] 1.010 (1.000-1.030) 04/20/24 14:15 Urine Protein 2+ (NEGATIVE) 04/20/24 14:15 Urine Glucose (UA) Negative (NEGATIVE) 04/20/24 14:15 Urine Ketones Negative (NEGATIVE) 04/20/24 14:15 Urine Blood 5+ (NEGATIVE) 04/20/24 14:15 Urine Nitrite Negative (NEGATIVE) 04/20/24 14:15 Urine Bilirubin Negative (NEGATIVE) 04/20/24 14:15 Urine Urobilinogen Normal (NORMAL) 04/20/24 14:15 Ur Leukocyte Esterase 1+ (NEGATIVE) 04/20/24 14:15 Urine RBC 10-20 /HPF (0-3) A 04/20/24 14:15 Urine WBC 0-2 /HPF (0-5) 04/20/24 14:15 Ur Squamous Epith Cells Few /HPF (NEGATIVE) 04/20/24 14:15 Amorphous Sediment 1+ /HPF (NEGATIVE) 04/20/24 14:15 Urine Bacteria 1+ /HPF (NEGATIVE) 04/20/24 14:15 Urine Mucus Rare /HPF (NEGATIVE) 04/16/24 11:06 Urine Sperm Many /HPF (NEGATIVE) 04/20/24 14:15 Ur Culture Indicated? No/not indicated 04/20/24 14:15 Stool Occult Blood Positive (NEGATIVE) A 04/16/24 12:30 Plan (1) Sepsis: Status: Acute Plan: Obtain repeat lactic acid, stool studies. Insert de souza catheter. Hold Levaquin due to renal function. Continue IV hydration, IV abx, strict I&O's. (2) Iron deficiency anemia due to chronic blood loss: Status: Acute (3) Vitamin B 12 deficiency: Status: Acute Plan: Cyanocobalamin 1000 mcg IM daily. (4) Hypokalemia: Status: Acute Plan: We will start the potassium replacement protocol and replace his potassium per protocol. (5) Hypomagnesemia: Status: Acute Plan: Replace. (6) Hematemesis: Status: Resolved Qualifiers: Nausea presence: unspecified Qualified Code(s): K92.0 - Hematemesis (7) Mild intellectual disabilities: Status: Acute (8) Legal blindness: Status: Acute (9) Artificial cardiac pacemaker: Status: Chronic
[2024-04-22 04:47] LABS: BASOPHILS % (AUTO) 0.3 % (0.2-1.0); EOSINOPHILS # (AUTO) 0.2 x10^3/uL (0.0-0.2); EOSINOPHILS % (AUTO) 1.3 % (0.9-2.9); HEMATOCRIT 22.3 % (42.0-54.0); HEMOGLOBIN 7.5 g/dL (13.5-18.0); LYMPHOCYTES # (AUTO) 1.4 X10^3/uL (1.3-2.9); LYMPHOCYTES % (AUTO) 10.2 % (21.0-51.0); MEAN CORPUSCULAR HEMOGLOBIN 31.2 pg (27.0-34.0); MEAN CORPUSCULAR HGB CONC 33.5 g/dL (33.0-35.0); MEAN CORPUSCULAR VOLUME 93.3 fL (80.0-100.0); MEAN PLATELET VOLUME 7.8 fL (7.4-11.0); MONOCYTES # (AUTO) 1.5 x10^3/uL (0.3-0.8); MONOCYTES % (AUTO) 10.9 % (0.0-13.0); NEUTROPHILS # (AUTO) 10.3 x10^3/uL (2.2-4.8); NEUTROPHILS % (AUTO) 77.3 % (42.0-75.0); PLATELET COUNT 237 X10^3/uL (150.0-450.0); RED BLOOD COUNT 2.39 X10^6/uL (4.7-6.0); RED CELL DISTRIBUTION WIDTH 15.6 % (11.6-16.5); WHITE BLOOD COUNT 13.3 X10^3/uL (3.6-10.0)
[2024-04-22 04:59] LABS: ALANINE AMINOTRANSFERASE 16 Units/L (12-78); ALBUMIN 2.3 g/dL (3.4-5.0); ALKALINE PHOSPHATASE 44 Units/L (46-116); ASPARTATE AMINO TRANSFERASE 23 Units/L (15-37); BLOOD UREA NITROGEN 23 mg/dL (7-18); CALCIUM 7.8 mg/dL (8.5-10.1); CARBON DIOXIDE 26.8 mmol/L (21-32); CHLORIDE 110 mmol/L (98-107); COR CA(FOR HYPOALB) 9.2 mg/dL (8.5-10.1); COR NA(FOR HYPERGLY) 144 mmol/L (136-145); CREATININE 1.43 mg/dL (0.70-1.30); GLUCOSE 125 mg/dL (65-99); SODIUM 143 mmol/L (136-145); TOTAL PROTEIN 5.4 g/dL (6.4-8.2); eGFR NON BLACK RACES 53 (>60)
[2024-04-22] MEDS ORDERED: CONSULT PHARMACY - POTASSIUM & MAGNESIUM XX SCH ×2 (06:00→08:00)
[2024-04-22] MEDS ORDERED: K-DUR TAB 20 MEQ PO SCH (09:00)
[2024-04-22] MEDS: D5 NS + KCL 20 MEQ/L 1,000 ML IV SCH (09:13)
[2024-04-22] MEDS ORDERED: MILK OF MAGNESIA PO PRN (09:25)
[2024-04-22] MEDS: COLACE CAP 100 MG PO PRN (11:08)
[2024-04-22] MEDS ORDERED: NS 250 ML IV 250 ML IV ONE (14:48)
[2024-04-22] MEDS: NORVASC TAB 2.5 MG ONE (15:29)
[2024-04-23 04:48] VITALS: PULSE 78
[2024-04-23 06:32] LABS: BASOPHILS # (AUTO) 0.1 X10^3/uL (0.0-0.1); BASOPHILS % (AUTO) 0.6 % (0.2-1.0); EOSINOPHILS # (AUTO) 0.3 x10^3/uL (0.0-0.2); EOSINOPHILS % (AUTO) 3.6 % (0.9-2.9); HEMATOCRIT 23.8 % (42.0-54.0); LYMPHOCYTES % (AUTO) 12.1 % (21.0-51.0); MEAN CORPUSCULAR HEMOGLOBIN 31.2 pg (27.0-34.0); MEAN CORPUSCULAR HGB CONC 33.6 g/dL (33.0-35.0); MEAN PLATELET VOLUME 7.7 fL (7.4-11.0); MONOCYTES # (AUTO) 0.9 x10^3/uL (0.3-0.8); MONOCYTES % (AUTO) 11.5 % (0.0-13.0); NEUTROPHILS # (AUTO) 5.9 x10^3/uL (2.2-4.8); NEUTROPHILS % (AUTO) 72.2 % (42.0-75.0); PLATELET COUNT 274 X10^3/uL (150.0-450.0); RED BLOOD COUNT 2.56 X10^6/uL (4.7-6.0); RED CELL DISTRIBUTION WIDTH 15.7 % (11.6-16.5); WHITE BLOOD COUNT 8.2 X10^3/uL (3.6-10.0)
[2024-04-23 06:46] LABS: ALANINE AMINOTRANSFERASE 18 Units/L (12-78); ALBUMIN 2.2 g/dL (3.4-5.0); ALKALINE PHOSPHATASE 45 Units/L (46-116); ASPARTATE AMINO TRANSFERASE 24 Units/L (15-37); BLOOD UREA NITROGEN 11 mg/dL (7-18); CALCIUM 7.8 mg/dL (8.5-10.1); CARBON DIOXIDE 28.8 mmol/L (21-32); CHLORIDE 109 mmol/L (98-107); COR CA(FOR HYPOALB) 9.2 mg/dL (8.5-10.1); COR NA(FOR HYPERGLY) 146 mmol/L (136-145); CREATININE 0.86 mg/dL (0.70-1.30); GLUCOSE 125 mg/dL (65-99); POTASSIUM 3.3 mmol/L (3.5-5.1); SODIUM 145 mmol/L (136-145); TOTAL PROTEIN 5.6 g/dL (6.4-8.2); eGFR NON BLACK RACES > 60 (>60)
[2024-04-23 07:34] VITALS: BP 130/65; TEMP 97.8; O2SAT 96
[2024-04-23] MEDS ORDERED: NORVASC TAB 2.5 MG ONE (08:36)
[2024-04-23] MEDS: MILK OF MAGNESIA PO SCH (09:06)
[2024-04-23] MEDS: K-DUR TAB 20 MEQ PO SCH (09:33)
[2024-04-23] MEDS: CIPRO TAB 500 MG PO SCH (09:33)
--- NOTE | 2024-04-23 09:43 | RAD ---
EXAM: ACUTE ABDOMEN SERI ES HISTORY: ABD PAIN AND DISTENTION ; COMPARISON: None FINDINGS: The cardiomediastinal silhouette is normal in size. Left-sided pacer and pacer wires demonstrate exp ected positioning. No acute airspace disease. No pneumothorax or effusion.ACDF hardware. Evaluation of the abdomen demonstrates a nonobstructive bowel gas pattern. no evidence of pneumoperit oneum. No pathologic soft tissue calcification. No acute osseous abnormality in the abdomen. IMPRESSION: 1. No acute cardiopulmonary process. 2. No acute abdominal process. THIS IS AN ELECTRONICALLY VERIFIED FINAL REPORT 04/23/2024 9:40 AM - Electronically signed by Je Jones MD
[2024-04-23] MEDS: K-DUR TAB 20 MEQ PO ONE (09:44)
== END 2024-04-23 13:30 | disposition home health service (06) | DRG 391 ==
LOC: ER 11:00 → MED/SURG 13:24
PROVIDERS: ADMIT Internal Medicine; ATTEND Internal Medicine
DX: I10 Essential (primary) hypertension; E83.42 Hypomagnesemia; E53.8 Deficiency of other specified B group vitamins; F41.8 Other specified anxiety disorders; H54.8 Legal blindness, as defined in USA; K21.00 Gastro-esophageal reflux disease with esophagitis, without bleeding; K29.00 Acute gastritis without bleeding; K44.9 Diaphragmatic hernia without obstruction or gangrene; K31.84 Gastroparesis; A41.89 Other specified sepsis; R51.9 Headache, unspecified; J44.9 Chronic obstructive pulmonary disease, unspecified; E87.6 Hypokalemia; Z95.0 Presence of cardiac pacemaker; K52.89 Other specified noninfective gastroenteritis and colitis; F70 Mild intellectual disabilities; D50.0 Iron deficiency anemia secondary to blood loss (chronic); R11.2 Nausea with vomiting, unspecified

== ENCOUNTER 2024-05-06 10:13 | Inpatient (IN) ==
--- NOTE | 2024-05-06 10:21 | DR.DIZZY ---
HPI Time seen Time Seen by Provider: 05/06/24 10:28 Complaint Chief Complaint Doctor Comments: 63 y/o male brought in via EMS for evaluation. Patient took his a.m. meds, shortly after he became lightheaded, dizzy, diaphoretic. EMS was called. Patient found to have low blood pressure at the scene. BP improved while they were there. Patient denies associated chest pain. Had some nausea, no vomiting. Denies fever, chills, URI symptoms. No bowel or bladder issues. Does have a chronic Kelly. Currently feeling better, without EMS intervention. Has a pacemaker. Nurses Notes Reviewed Nurses Notes Review: Yes Source History Provided: Patient and EMS Mode of Arrival Mode of Arrival: EMS Context Stroke Symptoms: None PMH PMH Past Medical History: Arthritis, COPD, GERD, Hypertension and Sleep Apnea Past Surgical History: Yes Surgical History: Ortho Surgery and Other Family History Family Medical History: Diabetes Mellitus and Hypertension Social History Does patient currently use any type of tobacco product: No Alcohol Use: None Do you use any recreational Drugs:: No ROS Review of Systems Constitutional: Weakness Eyes: No Symptoms Reported ENTM: No Symptoms Reported Respiratoy: No Symptoms Reported Cardiovascular: No Symptoms Reported Gastrointestinal/Abdominal: No Symptoms Reported Genitourinary: No Symptoms Reported Neurological: Weakness and Dizziness Musculoskeletal: No Symptoms Reported Integumentary: No Symptoms Reported Hematologic/Lymphatic: No Symptoms Reported All Other Systems: Reviewed and Negative PE Vital Signs Vitals: Vital Signs Temperature 98.0 F Pulse Rate 76 Pulse Rate 73 Pulse Rate 71 Pulse Rate 77 Pulse Rate 77 Pulse Rate 75 Pulse Rate 80 Pulse Rate 79 Respiratory Rate 20 Respiratory Rate 15 Respiratory Rate 24 Respiratory Rate 23 Respiratory Rate 16 Respiratory Rate 21 Respiratory Rate 13 Respiratory Rate 14 Respiratory Rate 20 Blood Pressure 119/67 Blood Pressure 122/64 Blood Pressure 119/63 Blood Pressure 132/98 O2 Sat by Pulse Oximetry 98 O2 Sat by Pulse Oximetry 95 O2 Sat by Pulse Oximetry 98 O2 Sat by Pulse Oximetry 100 O2 Sat by Pulse Oximetry 99 O2 Sat by Pulse Oximetry 99 O2 Sat by Pulse Oximetry 99 O2 Sat by Pulse Oximetry 98 General General Appearance: Alert and In No Apparent Distress Eyes Eye exam: PERRL and EOMI ENT ENT Exam: Normal Exam and Normal Oropharynx; negative Mucous Membranes Moist Neck Neck Exam: Normal Inspection Respiratory Respiratory Exam: Normal Lung Sounds Bilat; negative Accessory Muscle Use or Respiratory Distress Cardiovascular Cardiovascular Exam: Regular Rate, Normal Rhythm and Normal Heart Sounds Abdominal Exam Abdominal Exam: Normal Bowel Sounds; negative Tenderness Extremeties Extremities Exam: Normal Inspection; negative Edema Neurologic Neurological Exam: Alert, Oriented X3 and CN II-XII Intact (but legally blind); negative Motor Sensory Deficit Skin Skin Exam: Warm and Dry COURSE Treatment Treatment: 63-year-old male brought in by EMS for evaluation. Had episode of low blood pressure prior to arrival, BP currently better without intervention. Patient with a syncopal episode yesterday AM, was seen at [place] ER yesterday, then here at our ER yesterday afternoon. Workup was unremarkable, was discharged to home.. Patient was fine last p.m. W/u initiated. CXR with slight streaking of left base, possible early infiltrate. Will treat IV rocephin, continue IV fluids, and admit for observation. Discussed with Dr Fierro, accepts the admission. [facility] Labs Reviewed Laboratory Results Reviewed?: Yes 05/06/24 10:23 05/06/24 10:23 Laboratory: WBC 6.9 X10^3/uL (3.6-10.0) 05/06/24 10:23 RBC 3.06 X10^6/uL (4.7-6.0) L 05/06/24 10:23 Hgb 9.0 g/dL (13.5-18.0) L 05/06/24 10:23 Hct 27.8 % (42.0-54.0) L 05/06/24 10:23 MCV 91.0 fL (80.0-100.0) 05/06/24 10:23 MCH 29.6 pg (27.0-34.0) 05/06/24 10:23 MCHC 32.5 g/dL (33.0-35.0) L 05/06/24 10:23 RDW 16.1 % (11.6-16.5) 05/06/24 10:23 Plt Count 430 X10^3/uL (150.0-450.0) 05/06/24 10:23 MPV 7.1 fL (7.4-11.0) L 05/06/24 10:23 Neut % (Auto) 76.2 % (42.0-75.0) H 05/06/24 10:23 Lymph % (Auto) 13.5 % (21.0-51.0) L 05/06/24 10:23 [place] % (Auto) 7.0 % (0.0-13.0) 05/06/24 10:23 Eos % (Auto) 2.7 % (0.9-2.9) 05/06/24 10:23 Baso % (Auto) 0.6 % (0.2-1.0) 05/06/24 10:23 Neut # (Auto) 5.2 x10^3/uL (2.2-4.8) H 05/06/24 10:23 Lymph # (Auto) 0.9 X10^3/uL (1.3-2.9) L 05/06/24 10:23 [place] # (Auto) 0.5 x10^3/uL (0.3-0.8) 05/06/24 10:23 Eos # (Auto) 0.2 x10^3/uL (0.0-0.2) 05/06/24 10:23 Baso # (Auto) 0.0 X10^3/uL (0.0-0.1) 05/06/24 10:23 Absolute Nucleated RBC 0.0 /100WBC 05/06/24 10:23 Sodium 141 mmol/L (136-145) 05/06/24 10:23 Corrected Sodium 143 mmol/L (136-145) 05/06/24 10:23 Potassium 4.9 mmol/L (3.5-5.1) 05/06/24 10:23 Chloride 105 mmol/L (98-107) 05/06/24 10:23 Carbon Dioxide 30.8 mmol/L (21-32) 05/06/24 10:23 BUN 20 mg/dL (7-18) H 05/06/24 10:23 Creatinine 1.12 mg/dL (0.70-1.30) 05/06/24 10:23 Est GFR (MDRD) Af Amer > 60 (>60) 05/06/24 10:23 Est GFR (MDRD) Non-Af > 60 (>60) 05/06/24 10:23 Glucose 187 mg/dL (65-99) H 05/06/24 10:23 Lactic Acid 1.5 mmol/L (0.4-2.0) 05/06/24 11:12 Calcium 8.4 mg/dL (8.5-10.1) L 05/06/24 10:23 Corrected Calcium 9.4 mg/dL (8.5-10.1) 05/06/24 10:23 Total Bilirubin 0.40 mg/dL (0.2-1.0) 05/06/24 10:23 AST 31 Units/L (15-37) 05/06/24 10:23 ALT 20 Units/L (12-78) 05/06/24 10:23 Alkaline Phosphatase 50 Units/L (46-116) 05/06/24 10:23 Troponin I High Sens 4.2 ng/L (4.0-60.0) 05/06/24 10:23 Total Protein 6.5 g/dL (6.4-8.2) 05/06/24 10:23 Albumin 2.7 g/dL (3.4-5.0) L 05/06/24 10:23 Globulin 3.8 g/dL (2.5-4.5) 05/06/24 10:23 Albumin/Globulin Ratio 0.7 Ratio (1.1-2.1) L 05/06/24 10:23 Lipase 29 Units/L (16-77) 05/06/24 10:23 Specimen Type Catherized urine 05/06/24 11:40 Urine Color Yellow (YELLOW) 05/06/24 11:40 Urine Appearance Flocculent (CLEAR) 05/06/24 11:40 Urine pH 7.0 (5.0 - 8.0) 05/06/24 11:40 Ur Specific [place] 1.015 (1.000-1.030) 05/06/24 11:40 Urine Protein 2+ (NEGATIVE) 05/06/24 11:40 Urine Glucose (UA) Negative (NEGATIVE) 05/06/24 11:40 Urine Ketones Negative (NEGATIVE) 05/06/24 11:40 Urine Blood 5+ (NEGATIVE) 05/06/24 11:40 Urine Nitrite Negative (NEGATIVE) 05/06/24 11:40 Urine Bilirubin Negative (NEGATIVE) 05/06/24 11:40 Urine Urobilinogen Normal (NORMAL) 05/06/24 11:40 Ur Leukocyte Esterase 1+ (NEGATIVE) 05/06/24 11:40 Urine RBC Tntc /HPF (0-3) A 05/06/24 11:40 Urine WBC 3-5 /HPF (0-5) 05/06/24 11:40 Ur Squamous Epith Cells Negative /HPF (NEGATIVE) 05/06/24 11:40 Calcium Oxalate Crystal Rare /HPF (NEGATIVE) 05/06/24 11:40 Amorphous Sediment 1+ /HPF (NEGATIVE) 05/06/24 11:40 Urine Bacteria 2+ /HPF (NEGATIVE) 05/06/24 11:40 Urine Mucus Moderate /HPF (NEGATIVE) 05/06/24 11:40 Ur Culture Indicated? Yes/culture set up 05/06/24 11:40 XRAY XRAY Interpreted by: Both X-ray Results: EXAM: CHEST, 1 VIEW HISTORY: WEAKNESS, HYPOTENSION; COMPARISON: Chest x-ray 05/05/2024 TECHNIQUE: Single AP view of the chest FINDINGS: Lungs are expanded. Patchy infiltrate left pulmonary base. Mild cardiac silhouette enlargement. Moderately sized gastric hiatal hernia. Bones appear intact. Cardiac pacer device left upper lateral chest. Fusion hardware cervical spine. IMPRESSION: Streaky opacity left pulmonary base. Mild cardiac silhouette enlargement. Gastric hiatal hernia. THIS IS AN ELECTRONICALLY VERIFIED FINAL REPORT 05/06/2024 10:53 AM - Electronically signed by Patience Jane MD EKG Rate: 70 [place]: Normal Rhythm: Paced (atrial) Opioid Opioid Risk Tool Age (Lucien box if 16-45): No History of Preadolescent Sexual Abuse: No Total: 0 Total Score Risk Category: Low Risk Copyright: Ashok CHAUDHRY predicting aberrant behaviors Discharge Plan Diagnosis Discharge Problem: Acute hypotension Discharge Plan Patient Disposition: ADMITTED INPATIENT Condition: Stable Orders to Discharge Patient Discharge Orders: Transfer (Routine); Ordered 05/06/24 Ordered By: Carlos Davidson
[2024-05-06 10:26] VITALS: BMI 28.6
[2024-05-06] MEDS: NS 500 ML IV 500 ML IV ONE (10:28)
--- NOTE | 2024-05-06 10:28 | EKG ---
Test Reason : hypotension Blood Pressure : */* mmHG Vent. Rate : 70 BPM Atrial Rate : 70 BPM P-R Int : 168 ms QRS Dur : 86 ms QT Int : 392 ms P-R-T Axes : 10 0 18 degrees QTc Int : 423 ms Atrial-paced rhythm Abnormal ECG When compared with ECG of 05-MAY-2024 17:12, No significant change was found Confirmed by Lucho Mina MD ([id number]) on 05/07/2024 7:34:37 AM Referred By: Confirmed By: Lucho Mina MD
[2024-05-06 10:39] LABS: BASOPHILS % (AUTO) 0.6 % (0.2-1.0); EOSINOPHILS # (AUTO) 0.2 x10^3/uL (0.0-0.2); EOSINOPHILS % (AUTO) 2.7 % (0.9-2.9); HEMATOCRIT 27.8 % (42.0-54.0); LYMPHOCYTES # (AUTO) 0.9 X10^3/uL (1.3-2.9); LYMPHOCYTES % (AUTO) 13.5 % (21.0-51.0); MEAN CORPUSCULAR HEMOGLOBIN 29.6 pg (27.0-34.0); MEAN CORPUSCULAR HGB CONC 32.5 g/dL (33.0-35.0); MEAN PLATELET VOLUME 7.1 fL (7.4-11.0); MONOCYTES # (AUTO) 0.5 x10^3/uL (0.3-0.8); NEUTROPHILS # (AUTO) 5.2 x10^3/uL (2.2-4.8); NEUTROPHILS % (AUTO) 76.2 % (42.0-75.0); PLATELET COUNT 430 X10^3/uL (150.0-450.0); RED BLOOD COUNT 3.06 X10^6/uL (4.7-6.0); RED CELL DISTRIBUTION WIDTH 16.1 % (11.6-16.5); WHITE BLOOD COUNT 6.9 X10^3/uL (3.6-10.0)
[2024-05-06 10:56] LABS: ALANINE AMINOTRANSFERASE 20 Units/L (12-78); ALBUMIN 2.7 g/dL (3.4-5.0); ALKALINE PHOSPHATASE 50 Units/L (46-116); ASPARTATE AMINO TRANSFERASE 31 Units/L (15-37); BLOOD UREA NITROGEN 20 mg/dL (7-18); CALCIUM 8.4 mg/dL (8.5-10.1); CARBON DIOXIDE 30.8 mmol/L (21-32); CHLORIDE 105 mmol/L (98-107); COR CA(FOR HYPOALB) 9.4 mg/dL (8.5-10.1); COR NA(FOR HYPERGLY) 143 mmol/L (136-145); CREATININE 1.12 mg/dL (0.70-1.30); GLUCOSE 187 mg/dL (65-99); LIPASE 29 Units/L (16-77); POTASSIUM 4.9 mmol/L (3.5-5.1); SODIUM 141 mmol/L (136-145); TOTAL PROTEIN 6.5 g/dL (6.4-8.2); eGFR NON BLACK RACES > 60 (>60)
--- NOTE | 2024-05-06 10:56 | RAD ---
EXAM:CHEST, 1 VIEWHISTORY:WEAKNESS, HYPOTENSION;COMPARISON:Chest x-ray 05/05/2024TECHNIQUE:Single AP view of the chestFINDINGS:Lungs are expanded. Patchy infiltrate left pulmonary base. Mild cardiac silhouette enlargement. Moderately sized gastric hiatal hernia. Bones appear intact. Cardiac pacer device left upper lateral chest. Fusion hardware cervical spine.IMPRESSION:Streaky opacity left pulmonary base.Mild cardiac silhouette enlargement.Gastric hiatal hernia.THIS IS AN ELECTRONICALLY VERIFIED FINAL REPORT05/06/2024 10:53 AM - Electronically signed by Patience Jane MD
[2024-05-06] MEDS: ROCEPHIN VIAL 1 GRAM IVP ONE (11:36)
[2024-05-06 11:48] LABS: BILIRUBIN,URINE NEGATIVE (NEGATIVE); BLOOD/HEMOGLOBIN,URINE 5+ (NEGATIVE); GLUCOSE, URINE NEGATIVE (NEGATIVE); KETONES,URINE NEGATIVE (NEGATIVE); LEUKOCYTE ESTERASE ,URINE 1+ (NEGATIVE); NITRITES,URINE NEGATIVE (NEGATIVE); PROTEIN,URINE 2+ (NEGATIVE); UROBILINOGEN,URINE NORMAL (NORMAL)
[2024-05-06 12:01] LABS: COLOR,URINE YELLOW (YELLOW)
[2024-05-06 12:03] LABS: APPEARANCE,URINE FLOCCULENT (CLEAR)
[2024-05-06 12:04] LABS: BACTERIA,URINE 2+ /HPF (NEGATIVE); CALCIUM OXALATE CRYSTALS,UR RARE /HPF (NEGATIVE); RBC,URINE TNTC /HPF (0-3); SQUAMOUS EPITHELIAL CELL,UR NEGATIVE /HPF (NEGATIVE)
[2024-05-06] MEDS ORDERED: CONSULT PHARMACY - POTASSIUM & MAGNESIUM XX SCH (12:57)
[2024-05-06] MEDS ORDERED: CITROMA PO SCH (13:00)
--- NOTE | 2024-05-06 13:18 | DR.DIZZY ---
HPI Time seen Time Seen by Provider: 05/06/24 10:28 PCP Primary Care Physician: Clementina Hernandez Complaint Chief Complaint Doctor Comments: (see other chart generated today) Chief Complaint:: "feel like Im going to pass out" states that other than yesterday he has never had this feeling. Was in the yesterday for syncopal episode. was brought in via EMS BP low at scene 70/40s but came up to 110s/70s once loaded and in truck COVID-19 Coronavirus risk:travel/contact w/high risk person: No Has patient experienced Coronavirus symptoms: No Source History Provided: Patient and EMS Mode of Arrival Mode of Arrival: EMS Timing Onset of Chief Complaint: 05/06/24 Context Stroke Symptoms: None PMH PMH Past Medical History: Yes Past Medical History: Arthritis, COPD, GERD, Hypertension and Sleep Apnea Past Surgical History: Yes Surgical History: Ortho Surgery and Other Family History History of Family Medical Conditions: Yes Family Medical History: Diabetes Mellitus and Hypertension Social History Does patient currently use any type of tobacco product: No Alcohol Use: None Do you use any recreational Drugs:: No Lives With: Friend Lives Where: Home Travel Risk Coronavirus risk:travel/contact w/high risk person: No Has patient experienced Coronavirus symptoms: No Infectious screening Have you traveled outside the country in the last 6 months?: No Isolation: Standard PE Vital Signs Vitals: Vital Signs Temperature 98.0 F Pulse Rate 76 Pulse Rate 73 Pulse Rate 71 Pulse Rate 77 Pulse Rate 77 Pulse Rate 75 Pulse Rate 80 Pulse Rate 79 Respiratory Rate 20 Respiratory Rate 15 Respiratory Rate 24 Respiratory Rate 23 Respiratory Rate 16 Respiratory Rate 21 Respiratory Rate 13 Respiratory Rate 14 Respiratory Rate 20 Blood Pressure 119/67 Blood Pressure 122/64 Blood Pressure 119/63 Blood Pressure 132/98 O2 Sat by Pulse Oximetry 98 O2 Sat by Pulse Oximetry 95 O2 Sat by Pulse Oximetry 98 O2 Sat by Pulse Oximetry 100 O2 Sat by Pulse Oximetry 99 O2 Sat by Pulse Oximetry 99 O2 Sat by Pulse Oximetry 99 O2 Sat by Pulse Oximetry 98 [facility] Labs Reviewed 05/06/24 10:23 05/06/24 10:23 Laboratory: WBC 6.9 X10^3/uL (3.6-10.0) 05/06/24 10:23 RBC 3.06 X10^6/uL (4.7-6.0) L 05/06/24 10:23 Hgb 9.0 g/dL (13.5-18.0) L 05/06/24 10:23 Hct 27.8 % (42.0-54.0) L 05/06/24 10:23 MCV 91.0 fL (80.0-100.0) 05/06/24 10:23 MCH 29.6 pg (27.0-34.0) 05/06/24 10:23 MCHC 32.5 g/dL (33.0-35.0) L 05/06/24 10:23 RDW 16.1 % (11.6-16.5) 05/06/24 10:23 Plt Count 430 X10^3/uL (150.0-450.0) 05/06/24 10:23 MPV 7.1 fL (7.4-11.0) L 05/06/24 10:23 Neut % (Auto) 76.2 % (42.0-75.0) H 05/06/24 10:23 Lymph % (Auto) 13.5 % (21.0-51.0) L 05/06/24 10:23 [place] % (Auto) 7.0 % (0.0-13.0) 05/06/24 10:23 Eos % (Auto) 2.7 % (0.9-2.9) 05/06/24 10:23 Baso % (Auto) 0.6 % (0.2-1.0) 05/06/24 10:23 Neut # (Auto) 5.2 x10^3/uL (2.2-4.8) H 05/06/24 10:23 Lymph # (Auto) 0.9 X10^3/uL (1.3-2.9) L 05/06/24 10:23 [place] # (Auto) 0.5 x10^3/uL (0.3-0.8) 05/06/24 10:23 Eos # (Auto) 0.2 x10^3/uL (0.0-0.2) 05/06/24 10:23 Baso # (Auto) 0.0 X10^3/uL (0.0-0.1) 05/06/24 10:23 Absolute Nucleated RBC 0.0 /100WBC 05/06/24 10:23 Sodium 141 mmol/L (136-145) 05/06/24 10:23 Corrected Sodium 143 mmol/L (136-145) 05/06/24 10:23 Potassium 4.9 mmol/L (3.5-5.1) 05/06/24 10:23 Chloride 105 mmol/L (98-107) 05/06/24 10:23 Carbon Dioxide 30.8 mmol/L (21-32) 05/06/24 10:23 BUN 20 mg/dL (7-18) H 05/06/24 10:23 Creatinine 1.12 mg/dL (0.70-1.30) 05/06/24 10:23 Est GFR (MDRD) Af Amer > 60 (>60) 05/06/24 10:23 Est GFR (MDRD) Non-Af > 60 (>60) 05/06/24 10:23 Glucose 187 mg/dL (65-99) H 05/06/24 10:23 Lactic Acid 1.5 mmol/L (0.4-2.0) 05/06/24 11:12 Calcium 8.4 mg/dL (8.5-10.1) L 05/06/24 10:23 Corrected Calcium 9.4 mg/dL (8.5-10.1) 05/06/24 10:23 Total Bilirubin 0.40 mg/dL (0.2-1.0) 05/06/24 10:23 AST 31 Units/L (15-37) 05/06/24 10:23 ALT 20 Units/L (12-78) 05/06/24 10:23 Alkaline Phosphatase 50 Units/L (46-116) 05/06/24 10:23 Troponin I High Sens 4.2 ng/L (4.0-60.0) 05/06/24 10:23 Total Protein 6.5 g/dL (6.4-8.2) 05/06/24 10:23 Albumin 2.7 g/dL (3.4-5.0) L 05/06/24 10:23 Globulin 3.8 g/dL (2.5-4.5) 05/06/24 10:23 Albumin/Globulin Ratio 0.7 Ratio (1.1-2.1) L 05/06/24 10:23 Lipase 29 Units/L (16-77) 05/06/24 10:23 Specimen Type Catherized urine 05/06/24 11:40 Urine Color Yellow (YELLOW) 05/06/24 11:40 Urine Appearance Flocculent (CLEAR) 05/06/24 11:40 Urine pH 7.0 (5.0 - 8.0) 05/06/24 11:40 Ur Specific [place] 1.015 (1.000-1.030) 05/06/24 11:40 Urine Protein 2+ (NEGATIVE) 05/06/24 11:40 Urine Glucose (UA) Negative (NEGATIVE) 05/06/24 11:40 Urine Ketones Negative (NEGATIVE) 05/06/24 11:40 Urine Blood 5+ (NEGATIVE) 05/06/24 11:40 Urine Nitrite Negative (NEGATIVE) 05/06/24 11:40 Urine Bilirubin Negative (NEGATIVE) 05/06/24 11:40 Urine Urobilinogen Normal (NORMAL) 05/06/24 11:40 Ur Leukocyte Esterase 1+ (NEGATIVE) 05/06/24 11:40 Urine RBC Tntc /HPF (0-3) A 05/06/24 11:40 Urine WBC 3-5 /HPF (0-5) 05/06/24 11:40 Ur Squamous Epith Cells Negative /HPF (NEGATIVE) 05/06/24 11:40 Calcium Oxalate Crystal Rare /HPF (NEGATIVE) 05/06/24 11:40 Amorphous Sediment 1+ /HPF (NEGATIVE) 05/06/24 11:40 Urine Bacteria 2+ /HPF (NEGATIVE) 05/06/24 11:40 Urine Mucus Moderate /HPF (NEGATIVE) 05/06/24 11:40 Ur Culture Indicated? Yes/culture set up 05/06/24 11:40 Opioid Opioid Risk Tool Age (Lucien box if 16-45): No History of Preadolescent Sexual Abuse: No Total: 0 Total Score Risk Category: Low Risk Copyright: Ashok CHAUDHRY predicting aberrant behaviors Discharge Plan Diagnosis Discharge Problem: Acute hypotension Discharge Plan Patient Disposition: 09 ADMITTED INPATIENT Condition: Stable
[2024-05-06] MEDS: ROCEPHIN VIAL 1 GRAM 1 G in NS 100 ML IV 100 ML IV SCH (14:32)
[2024-05-06] MEDS: D5 NS 1,000 ML IV 1,000 ML IV SCH (15:18)
[2024-05-06] MEDS: CARAFATE PO SCH (15:19)
[2024-05-06] MEDS: DUONEB 0.5 MG/3 MG (3 mL) NEB SCH (17:10)
[2024-05-06] MEDS: ROCEPHIN VIAL 1 GRAM ONE (19:03)
[2024-05-06] MEDS ORDERED: PULMICORT NEB TX 0.5 MG NEB ONE (19:57)
[2024-05-06] MEDS: PULMICORT NEB TX 0.5 MG NEB SCH (20:08)
[2024-05-06] MEDS: PROTONIX TAB 40 MG PO SCH (21:22)
[2024-05-06] MEDS: CARDIZEM TAB 30 MG PLAIN PO SCH (21:23)
[2024-05-07 06:20] LABS: BASOPHILS # (AUTO) 0.1 X10^3/uL (0.0-0.1); BASOPHILS % (AUTO) 0.8 % (0.2-1.0); EOSINOPHILS # (AUTO) 0.2 x10^3/uL (0.0-0.2); HEMATOCRIT 25.6 % (42.0-54.0); HEMOGLOBIN 8.5 g/dL (13.5-18.0); LYMPHOCYTES # (AUTO) 1.3 X10^3/uL (1.3-2.9); LYMPHOCYTES % (AUTO) 21.4 % (21.0-51.0); MEAN CORPUSCULAR HEMOGLOBIN 29.9 pg (27.0-34.0); MEAN CORPUSCULAR HGB CONC 33.2 g/dL (33.0-35.0); MEAN CORPUSCULAR VOLUME 90.2 fL (80.0-100.0); MEAN PLATELET VOLUME 6.9 fL (7.4-11.0); MONOCYTES # (AUTO) 0.7 x10^3/uL (0.3-0.8); MONOCYTES % (AUTO) 10.7 % (0.0-13.0); NEUTROPHILS % (AUTO) 64.1 % (42.0-75.0); PLATELET COUNT 383 X10^3/uL (150.0-450.0); RED BLOOD COUNT 2.84 X10^6/uL (4.7-6.0); RED CELL DISTRIBUTION WIDTH 16.1 % (11.6-16.5); WHITE BLOOD COUNT 6.2 X10^3/uL (3.6-10.0)
[2024-05-07 06:35] LABS: ALANINE AMINOTRANSFERASE 15 Units/L (12-78); ALBUMIN 2.6 g/dL (3.4-5.0); ALKALINE PHOSPHATASE 48 Units/L (46-116); ASPARTATE AMINO TRANSFERASE 14 Units/L (15-37); BLOOD UREA NITROGEN 14 mg/dL (7-18); CARBON DIOXIDE 28.7 mmol/L (21-32); CHLORIDE 108 mmol/L (98-107); COR CA(FOR HYPOALB) 9.1 mg/dL (8.5-10.1); COR NA(FOR HYPERGLY) 143 mmol/L (136-145); CREATININE 0.98 mg/dL (0.70-1.30); GLUCOSE 137 mg/dL (65-99); POTASSIUM 3.9 mmol/L (3.5-5.1); SODIUM 142 mmol/L (136-145); eGFR NON BLACK RACES > 60 (>60)
[2024-05-07] MEDS: PROzac PO SCH (09:07)
[2024-05-07] MEDS: MOBIC TAB 15 MG PO SCH (09:08)
[2024-05-07] MEDS: FERROUS GLUCONATE PO SCH (09:08)
--- NOTE | 2024-05-07 17:19 | DR.H&P ---
H&P History & Physical for Day of: H&P Date: 05/06/24 Chief Complaint Chief Complaint: weakness, sob History of Present Illness History of Present Illness: "feel like Im going to pass out" states that other than yesterday he has never had this feeling. Was in the yesterday for syncopal episode. was brought in via EMS BP low at scene 70/40s but came up to 110s/70s once loaded and in truck. Pt has PMH of sick sinus syndrome with pacemaker. 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 Pt reports non productive cough and increased sob. 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 zheng last week and will fu in two weeks from urology. Pt had ER evaluation and dx with pneumonia. Plan to admit for treatment and evaluation of acute illness. 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 1013 Family History Family Medical History: Diabetes Mellitus and Hypertension Social History Does patient currently use any type of tobacco product: No Type of Tobacco Use: None Does any household member use tobacco: No Alcohol Use: None Drug Use: None Medications Home Medications: Home Medications Medication Instructions Recorded Confirmed Type diltiazem HCl 60 mg tablet 60 mg PO BID 05/06/23 05/06/24 History meloxicam 15 mg tablet 15 mg PO DAILY 05/06/23 05/06/24 History pantoprazole 40 mg tablet,delayed 40 mg PO BID 08/20/23 05/06/24 History release fluoxetine 40 mg capsule 40 mg PO QDAY 12/23/23 05/06/24 History erythromycin 5 mg/gram (0.5 %) eye 1 applic ophthalmic (eye) DAILY 04/16/24 05/06/24 History ointment Allergies Allergies Allergy/AdvReac Type Severity Reaction Status Date / Time brimonidine Allergy Verified 05/06/24 10:15 ferrous sulfate Allergy Verified 05/06/24 10:15 [From FeroSul] iron [From FeroSul] Allergy Verified 05/06/24 10:15 nitroglycerin Allergy Verified 05/06/24 10:15 tetanus immune globulin Allergy Verified 05/06/24 10:15 Labs 05/07/24 05:32 05/07/24 05:32 Labs: 05/06/24 11:40 Urine,Catheterized Urine Culture - Preliminary Laboratory WBC 6.2 X10^3/uL (3.6-10.0) 05/07/24 05:32 RBC 2.84 X10^6/uL (4.7-6.0) L 05/07/24 05:32 Hgb 8.5 g/dL (13.5-18.0) L 05/07/24 05:32 Hct 25.6 % (42.0-54.0) L 05/07/24 05:32 MCV 90.2 fL (80.0-100.0) 05/07/24 05:32 MCH 29.9 pg (27.0-34.0) 05/07/24 05:32 MCHC 33.2 g/dL (33.0-35.0) 05/07/24 05:32 RDW 16.1 % (11.6-16.5) 05/07/24 05:32 Plt Count 383 X10^3/uL (150.0-450.0) 05/07/24 05:32 MPV 6.9 fL (7.4-11.0) L 05/07/24 05:32 Neut % (Auto) 64.1 % (42.0-75.0) 05/07/24 05:32 Lymph % (Auto) 21.4 % (21.0-51.0) 05/07/24 05:32 [place] % (Auto) 10.7 % (0.0-13.0) 05/07/24 05:32 Eos % (Auto) 3.0 % (0.9-2.9) H 05/07/24 05:32 Baso % (Auto) 0.8 % (0.2-1.0) 05/07/24 05:32 Neut # (Auto) 4.0 x10^3/uL (2.2-4.8) 05/07/24 05:32 Lymph # (Auto) 1.3 X10^3/uL (1.3-2.9) 05/07/24 05:32 [place] # (Auto) 0.7 x10^3/uL (0.3-0.8) 05/07/24 05:32 Eos # (Auto) 0.2 x10^3/uL (0.0-0.2) 05/07/24 05:32 Baso # (Auto) 0.1 X10^3/uL (0.0-0.1) 05/07/24 05:32 Absolute Nucleated RBC 0.1 /100WBC 05/07/24 05:32 Sodium 142 mmol/L (136-145) 05/07/24 05:32 Corrected Sodium 143 mmol/L (136-145) 05/07/24 05:32 Potassium 3.9 mmol/L (3.5-5.1) 05/07/24 05:32 Chloride 108 mmol/L (98-107) H 05/07/24 05:32 Carbon Dioxide 28.7 mmol/L (21-32) 05/07/24 05:32 BUN 14 mg/dL (7-18) 05/07/24 05:32 Creatinine 0.98 mg/dL (0.70-1.30) 05/07/24 05:32 Est GFR (MDRD) Af Amer > 60 (>60) 05/07/24 05:32 Est GFR (MDRD) Non-Af > 60 (>60) 05/07/24 05:32 Glucose 137 mg/dL (65-99) H 05/07/24 05:32 Lactic Acid 1.5 mmol/L (0.4-2.0) 05/06/24 11:12 Calcium 8.0 mg/dL (8.5-10.1) L 05/07/24 05:32 Corrected Calcium 9.1 mg/dL (8.5-10.1) 05/07/24 05:32 Total Bilirubin 0.30 mg/dL (0.2-1.0) 05/07/24 05:32 AST 14 Units/L (15-37) L 05/07/24 05:32 ALT 15 Units/L (12-78) 05/07/24 05:32 Alkaline Phosphatase 48 Units/L (46-116) 05/07/24 05:32 Troponin I High Sens 4.2 ng/L (4.0-60.0) 05/06/24 10:23 Total Protein 6.0 g/dL (6.4-8.2) L 05/07/24 05:32 Albumin 2.6 g/dL (3.4-5.0) L 05/07/24 05:32 Globulin 3.4 g/dL (2.5-4.5) 05/07/24 05:32 Albumin/Globulin Ratio 0.8 Ratio (1.1-2.1) L 05/07/24 05:32 Lipase 29 Units/L (16-77) 05/06/24 10:23 Specimen Type Catherized urine 05/06/24 11:40 Urine Color Yellow (YELLOW) 05/06/24 11:40 Urine Appearance Flocculent (CLEAR) 05/06/24 11:40 Urine pH 7.0 (5.0 - 8.0) 05/06/24 11:40 Ur Specific [place] 1.015 (1.000-1.030) 05/06/24 11:40 Urine Protein 2+ (NEGATIVE) 05/06/24 11:40 Urine Glucose (UA) Negative (NEGATIVE) 05/06/24 11:40 Urine Ketones Negative (NEGATIVE) 05/06/24 11:40 Urine Blood 5+ (NEGATIVE) 05/06/24 11:40 Urine Nitrite Negative (NEGATIVE) 05/06/24 11:40 Urine Bilirubin Negative (NEGATIVE) 05/06/24 11:40 Urine Urobilinogen Normal (NORMAL) 05/06/24 11:40 Ur Leukocyte Esterase 1+ (NEGATIVE) 05/06/24 11:40 Urine RBC Tntc /HPF (0-3) A 05/06/24 11:40 Urine WBC 3-5 /HPF (0-5) 05/06/24 11:40 Ur Squamous Epith Cells Negative /HPF (NEGATIVE) 05/06/24 11:40 Calcium Oxalate Crystal Rare /HPF (NEGATIVE) 05/06/24 11:40 Amorphous Sediment 1+ /HPF (NEGATIVE) 05/06/24 11:40 Urine Bacteria 2+ /HPF (NEGATIVE) 05/06/24 11:40 Urine Mucus Moderate /HPF (NEGATIVE) 05/06/24 11:40 Ur Culture Indicated? Yes/culture set up 05/06/24 11:40 Resp Viral Panel (PCR) See scanned report 05/06/24 12:55 Review of Systems Constitutional: Weakness Eyes: Vision Change (chronic vision impairment) ENT: No Symptoms Reported Respiratory: Shortness of Breath Cardiovascular: Light Headedness and Other (shortness of breath on exertion) Gastrointestinal: Nausea Genitourinary: Other (indwelling de souza cath) Musculoskeletal: No Symptoms Reported Skin: No Symptoms Reported Neurological: Weakness and Other (dizzy spells, near syncope) Physical Exam Vital Signs: Vital Signs Temperature 98.7 F Pulse Rate [Bilateral Radial] 89 Respiratory Rate 18 Blood Pressure [Left Arm] 133/78 O2 Sat by Pulse Oximetry 96 Oriented: Normal Eyes: Blurred Vision Nose: Discharge Throat: Normal Respiratory: RLL Diminished and LLL Diminished Cardiovascular: Other (pacemaker present) Auscultation: Bowel Sounds: Normal Palpation: Normal Tenderness: Normal Skin: Decreased Turgur Musculoskeletal: Motor Deficit Psychiatric: Anxiety and Depression Mood Description: Depressed Affect: Depressed Speech Pattern: Appropriate and Delayed Assessment/Plan (1) Pneumonia: Narrative Support Text: admit, resp consult iv hydration, bp control verify home medications i&os, repeat am cxr, ce and ekg obtain dc summary from [facility] Status: Acute (2) Syncope: Status: Acute (3) Hypomagnesemia: Status: Acute (4) Shortness of breath: Status: Acute (5) Blindness of both eyes: Status: Acute (6) Sick sinus syndrome: Status: Acute (7) Mental retardation: Status: Chronic
--- NOTE | 2024-05-07 17:34 | PCM.PROG ---
Progress Note Progress Note for Day of Date of Exam: 05/07/24 Subjective Subjective: PT IS 63 WM, ER ADMISSION WITH PNEUMONIA AND REOCCURRING SYNCOPE. 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 PT REPORTS INCREASE SOB WORSE ON EXERTION AND FATIGUE. PT IS CURRENTLY UNDER THE CARE OF DR MARTINEZ IN [place] FOR BPH WITH OUTLET OBST RUCTION, WITH INDWELLING MERIDA CATH. PTS HOME MEDICATIONS WERE REVIEWED. PT HAS HAD CE AND EKG ON ADMISSION. PT BP 133/78 THIS AM. PT CO POOR APPETITE AND INCREASED WEAKNESS. PT IS LEGALLY BLIND AND LIVES ALONE WITH MID. PT'S FAMILY STATES HE HAS DECLINED RECENTLY AND THEY WOULD LIKE TO SEEK REHAB PLACEMENT THERAPY AFTER RESOLUTION OF ACUTE ILLNESS. PT ON O2 AT 2L WITH O2 SAT AT 96 THIS AM. RESP CONSULTING WITH NEB TREATMENT, IV ATBX THERAPY CONTINUED AND PT CONSULT IN PLACE. PLAN TO OBTAIN DC SUMMARY FROM [facility]. REPEAT AM CHEST XRAY AND CULTURES PENDING FOR BLOOD AND SPUTUM. Past Medical Family Social History Allergies: Allergies brimonidine Allergy (Verified 05/06/24 10:15) ferrous sulfate [From FeroSul] Allergy (Verified 05/06/24 10:15) iron [From FeroSul] Allergy (Verified 05/06/24 10:15) nitroglycerin Allergy (Verified 05/06/24 10:15) tetanus immune globulin Allergy (Verified 05/06/24 10:15) Vital Signs and I&O's Vital Signs: Vital Signs Temperature 98.7 F Pulse Rate [Bilateral Radial] 89 Respiratory Rate 18 Blood Pressure [Left Arm] 133/78 O2 Sat by Pulse Oximetry 96 Intake and Output: Intake & Output 05/05/24 05/06/24 05/07/24 05/08/24 11:59 11:59 11:59 11:59 Intake Total 1307 / 1307 180 / 180 Output Total 500 / 500 1225 / 1225 Balance 807 / 807 -1045 / -1045 Physical Exam Oriented: Normal Eyes: Blurred Vision Nose: Discharge Throat: Normal Cardiovascular: Other (pacemaker present) Auscultation: Bowel Sounds: Normal Tenderness: Normal Skin: Decreased Turgur Musculoskeletal: Motor Deficit Psychiatric: Anxiety and Depression Mood Description: Depressed Affect: Depressed Speech Pattern: Appropriate and Delayed Laboratory and Diagnostics 05/07/24 05:32 05/07/24 05:32 Labs: 05/06/24 11:40 Urine,Catheterized Urine Culture - Preliminary Laboratory WBC 6.2 X10^3/uL (3.6-10.0) 05/07/24 05:32 RBC 2.84 X10^6/uL (4.7-6.0) L 05/07/24 05:32 Hgb 8.5 g/dL (13.5-18.0) L 05/07/24 05:32 Hct 25.6 % (42.0-54.0) L 05/07/24 05:32 MCV 90.2 fL (80.0-100.0) 05/07/24 05:32 MCH 29.9 pg (27.0-34.0) 05/07/24 05:32 MCHC 33.2 g/dL (33.0-35.0) 05/07/24 05:32 RDW 16.1 % (11.6-16.5) 05/07/24 05:32 Plt Count 383 X10^3/uL (150.0-450.0) 05/07/24 05:32 MPV 6.9 fL (7.4-11.0) L 05/07/24 05:32 Neut % (Auto) 64.1 % (42.0-75.0) 05/07/24 05:32 Lymph % (Auto) 21.4 % (21.0-51.0) 05/07/24 05:32 [place] % (Auto) 10.7 % (0.0-13.0) 05/07/24 05:32 Eos % (Auto) 3.0 % (0.9-2.9) H 05/07/24 05:32 Baso % (Auto) 0.8 % (0.2-1.0) 05/07/24 05:32 Neut # (Auto) 4.0 x10^3/uL (2.2-4.8) 05/07/24 05:32 Lymph # (Auto) 1.3 X10^3/uL (1.3-2.9) 05/07/24 05:32 [place] # (Auto) 0.7 x10^3/uL (0.3-0.8) 05/07/24 05:32 Eos # (Auto) 0.2 x10^3/uL (0.0-0.2) 05/07/24 05:32 Baso # (Auto) 0.1 X10^3/uL (0.0-0.1) 05/07/24 05:32 Absolute Nucleated RBC 0.1 /100WBC 05/07/24 05:32 Sodium 142 mmol/L (136-145) 05/07/24 05:32 Corrected Sodium 143 mmol/L (136-145) 05/07/24 05:32 Potassium 3.9 mmol/L (3.5-5.1) 05/07/24 05:32 Chloride 108 mmol/L (98-107) H 05/07/24 05:32 Carbon Dioxide 28.7 mmol/L (21-32) 05/07/24 05:32 BUN 14 mg/dL (7-18) 05/07/24 05:32 Creatinine 0.98 mg/dL (0.70-1.30) 05/07/24 05:32 Est GFR (MDRD) Af Amer > 60 (>60) 05/07/24 05:32 Est GFR (MDRD) Non-Af > 60 (>60) 05/07/24 05:32 Glucose 137 mg/dL (65-99) H 05/07/24 05:32 Lactic Acid 1.5 mmol/L (0.4-2.0) 05/06/24 11:12 Calcium 8.0 mg/dL (8.5-10.1) L 05/07/24 05:32 Corrected Calcium 9.1 mg/dL (8.5-10.1) 05/07/24 05:32 Total Bilirubin 0.30 mg/dL (0.2-1.0) 05/07/24 05:32 AST 14 Units/L (15-37) L 05/07/24 05:32 ALT 15 Units/L (12-78) 05/07/24 05:32 Alkaline Phosphatase 48 Units/L (46-116) 05/07/24 05:32 Troponin I High Sens 4.2 ng/L (4.0-60.0) 05/06/24 10:23 Total Protein 6.0 g/dL (6.4-8.2) L 05/07/24 05:32 Albumin 2.6 g/dL (3.4-5.0) L 05/07/24 05:32 Globulin 3.4 g/dL (2.5-4.5) 05/07/24 05:32 Albumin/Globulin Ratio 0.8 Ratio (1.1-2.1) L 05/07/24 05:32 Lipase 29 Units/L (16-77) 05/06/24 10:23 Specimen Type Catherized urine 05/06/24 11:40 Urine Color Yellow (YELLOW) 05/06/24 11:40 Urine Appearance Flocculent (CLEAR) 05/06/24 11:40 Urine pH 7.0 (5.0 - 8.0) 05/06/24 11:40 Ur Specific [place] 1.015 (1.000-1.030) 05/06/24 11:40 Urine Protein 2+ (NEGATIVE) 05/06/24 11:40 Urine Glucose (UA) Negative (NEGATIVE) 05/06/24 11:40 Urine Ketones Negative (NEGATIVE) 05/06/24 11:40 Urine Blood 5+ (NEGATIVE) 05/06/24 11:40 Urine Nitrite Negative (NEGATIVE) 05/06/24 11:40 Urine Bilirubin Negative (NEGATIVE) 05/06/24 11:40 Urine Urobilinogen Normal (NORMAL) 05/06/24 11:40 Ur Leukocyte Esterase 1+ (NEGATIVE) 05/06/24 11:40 Urine RBC Tntc /HPF (0-3) A 05/06/24 11:40 Urine WBC 3-5 /HPF (0-5) 05/06/24 11:40 Ur Squamous Epith Cells Negative /HPF (NEGATIVE) 05/06/24 11:40 Calcium Oxalate Crystal Rare /HPF (NEGATIVE) 05/06/24 11:40 Amorphous Sediment 1+ /HPF (NEGATIVE) 05/06/24 11:40 Urine Bacteria 2+ /HPF (NEGATIVE) 05/06/24 11:40 Urine Mucus Moderate /HPF (NEGATIVE) 05/06/24 11:40 Ur Culture Indicated? Yes/culture set up 05/06/24 11:40 Resp Viral Panel (PCR) See scanned report 05/06/24 12:55 Plan (1) Pneumonia: Status: Acute Narrative Support Text: RESP THERAPY, PRN SUPPLEMENTAL O2 IV HYDRATION WITH STRICT I&OS BP MONITORING PT AND OT (2) Syncope: Status: Acute (3) Hypomagnesemia: Status: Acute (4) Shortness of breath: Status: Acute (5) Blindness of both eyes: Status: Acute (6) Sick sinus syndrome: Status: Acute (7) Mental retardation: Status: Chronic
[2024-05-08] MEDS ORDERED: COLACE CAP 100 MG PO PRN (00:03)
[2024-05-08] MEDS: MILK OF MAGNESIA PO PRN (05:27)
[2024-05-08 05:35] LABS: HEMOGLOBIN 8.6 g/dL (13.5-18.0)
[2024-05-08 05:39] LABS: BASOPHILS # (AUTO) 0.1 X10^3/uL (0.0-0.1); BASOPHILS % (AUTO) 1.6 % (0.2-1.0); EOSINOPHILS # (AUTO) 0.2 x10^3/uL (0.0-0.2); EOSINOPHILS % (AUTO) 2.9 % (0.9-2.9); HEMATOCRIT 25.8 % (42.0-54.0); LYMPHOCYTES # (AUTO) 1.5 X10^3/uL (1.3-2.9); LYMPHOCYTES % (AUTO) 21.7 % (21.0-51.0); MEAN CORPUSCULAR HGB CONC 33.5 g/dL (33.0-35.0); MEAN CORPUSCULAR VOLUME 89.6 fL (80.0-100.0); MONOCYTES # (AUTO) 0.7 x10^3/uL (0.3-0.8); MONOCYTES % (AUTO) 10.3 % (0.0-13.0); NEUTROPHILS # (AUTO) 4.3 x10^3/uL (2.2-4.8); NEUTROPHILS % (AUTO) 63.5 % (42.0-75.0); PLATELET COUNT 362 X10^3/uL (150.0-450.0); RED BLOOD COUNT 2.88 X10^6/uL (4.7-6.0); RED CELL DISTRIBUTION WIDTH 15.4 % (11.6-16.5); WHITE BLOOD COUNT 6.7 X10^3/uL (3.6-10.0)
[2024-05-08 05:57] LABS: ALANINE AMINOTRANSFERASE 15 Units/L (12-78); ALBUMIN 2.6 g/dL (3.4-5.0); ALKALINE PHOSPHATASE 44 Units/L (46-116); ASPARTATE AMINO TRANSFERASE 9 Units/L (15-37); BLOOD UREA NITROGEN 8 mg/dL (7-18); CALCIUM 8.1 mg/dL (8.5-10.1); CARBON DIOXIDE 28.4 mmol/L (21-32); CHLORIDE 108 mmol/L (98-107); COR CA(FOR HYPOALB) 9.2 mg/dL (8.5-10.1); COR NA(FOR HYPERGLY) 143 mmol/L (136-145); CREATININE 0.89 mg/dL (0.70-1.30); GLUCOSE 134 mg/dL (65-99); POTASSIUM 3.4 mmol/L (3.5-5.1); SODIUM 142 mmol/L (136-145); eGFR NON BLACK RACES > 60 (>60)
--- NOTE | 2024-05-08 08:00 | RAD ---
EXAMINATION: ACUTE ABDOMEN SERI ES HISTORY: constipation; . COMPARISON STUDY: Acute abdominal series 04/23/2024 TECHNIQUE: Single frontal view of the chest and four views abdomen FINDINGS: Lungs are expanded. Mild cardiac silhouette enlargement. Mild gastric hiatal hernia. Cardiac pacer device left upper lateral chest. Fusion hardware cervical spine. Moderate amount of feces throughout the colon. Visualized osseous structures appear intact. IMPRESSION: Moderate amount of feces. Mild cardiac silhouette enlargement. Mild gastric hiatal hernia. THIS IS AN ELECTRONICALLY VERIFIED FINAL REPORT 05/08/2024 7:57 AM - Electronically signed by Patience Jane MD
[2024-05-08] MEDS: MILK OF MAGNESIA PO SCH (10:27)
--- NOTE | 2024-05-08 12:46 | PCM.PROG ---
Progress Note Progress Note for Day of Date of Exam: 05/08/24 Subjective Subjective: PT IS 63 WM, ER ADMISSION WITH PNEUMONIA AND REOCCURRING SYNCOPE. PT WAS RECENTLY DC FROM [facility] AFTER A SYNCOPAL EPISODE IN HIS [employer] OFFICE. PT REPORTS INCREASE SOB WORSE ON EXERTION AND FATIGUE. PT IS CURRENTLY UNDER THE CARE OF DR MARTINEZ IN [place] FOR BPH WITH OUTLET OBST RUCTION, WITH INDWELLING MERIDA CATH. PTS HOME MEDICATIONS WERE REVIEWED. PT HAS HAD CE AND EKG ON ADMISSION. PT BP 143/76 THIS AM. PT CO POOR APPETITE AND INCREASED WEAKNESS. PT IS LEGALLY BLIND AND LIVES ALONE WITH MID. PT'S FAMILY STATES HE HAS DECLINED RECENTLY AND THEY WOULD LIKE TO SEEK REHAB PLACEMENT THERAPY AFTER RESOLUTION OF ACUTE ILLNESS. PT ON O2 AT 2L WITH O2 SAT AT 96 THIS AM. RESP CONSULTING WITH NEB TREATMENT, IV ATBX THERAPY CONTINUED AND PT CONSULT IN PLACE. PLAN TO OBTAIN DC SUMMARY FROM [facility]. POTASSIUM AT 3.4 THIS AM WITH REPLACEMENT THERAPY. WBC 6.7. PT HAS BEEN UNABLE TO PRODUCE A SPUTUM SPECIMEN. PT REPORTS POOR APPETITE, PT HAD NOT ATE ANY BREAKFAST THIS AM. PT DENIES ANY CHEST PAIN ON ASSESSMENT. Past Medical Family Social History Allergies: Allergies brimonidine Allergy (Verified 05/06/24 10:15) ferrous sulfate [From FeroSul] Allergy (Verified 05/06/24 10:15) iron [From FeroSul] Allergy (Verified 05/06/24 10:15) nitroglycerin Allergy (Verified 05/06/24 10:15) tetanus immune globulin Allergy (Verified 05/06/24 10:15) Vital Signs and I&O's Vital Signs: Vital Signs Temperature 97.8 F Pulse Rate [Bilateral Radial] 86 Respiratory Rate 20 Blood Pressure [Left Arm] 143/76 O2 Sat by Pulse Oximetry 97 Intake and Output: Intake & Output 05/06/24 05/07/24 05/08/24 05/09/24 11:59 11:59 11:59 11:59 Intake Total 1307 / 1307 2526 / 2526 Output Total 500 / 500 1645 / 1645 Balance 807 / 807 881 / 881 Physical Exam Oriented: Normal Eyes: Blurred Vision Nose: Discharge Throat: Normal Respiratory: Diminished Cardiovascular: Other (pacemaker present) Auscultation: Bowel Sounds: Normal Tenderness: Normal Skin: Decreased Turgur Musculoskeletal: Motor Deficit Psychiatric: Anxiety and Depression Mood Description: Depressed Affect: Depressed Speech Pattern: Clear and Appropriate Laboratory and Diagnostics 05/08/24 04:30 05/08/24 04:30 Labs: 05/06/24 11:12 Blood Blood Culture - Preliminary 05/06/24 11:05 Blood Blood Culture - Preliminary 05/06/24 11:40 Urine,Catheterized Urine Culture - Final Laboratory WBC 6.7 X10^3/uL (3.6-10.0) 05/08/24 04:30 RBC 2.88 X10^6/uL (4.7-6.0) L 05/08/24 04:30 Hgb 8.6 g/dL (13.5-18.0) L 05/08/24 04:30 Hct 25.8 % (42.0-54.0) L 05/08/24 04:30 MCV 89.6 fL (80.0-100.0) 05/08/24 04:30 MCH 30.0 pg (27.0-34.0) 05/08/24 04:30 MCHC 33.5 g/dL (33.0-35.0) 05/08/24 04:30 RDW 15.4 % (11.6-16.5) 05/08/24 04:30 Plt Count 362 X10^3/uL (150.0-450.0) 05/08/24 04:30 MPV 7.0 fL (7.4-11.0) L 05/08/24 04:30 Neut % (Auto) 63.5 % (42.0-75.0) 05/08/24 04:30 Lymph % (Auto) 21.7 % (21.0-51.0) 05/08/24 04:30 [place] % (Auto) 10.3 % (0.0-13.0) 05/08/24 04:30 Eos % (Auto) 2.9 % (0.9-2.9) 05/08/24 04:30 Baso % (Auto) 1.6 % (0.2-1.0) H 05/08/24 04:30 Neut # (Auto) 4.3 x10^3/uL (2.2-4.8) 05/08/24 04:30 Lymph # (Auto) 1.5 X10^3/uL (1.3-2.9) 05/08/24 04:30 [place] # (Auto) 0.7 x10^3/uL (0.3-0.8) 05/08/24 04:30 Eos # (Auto) 0.2 x10^3/uL (0.0-0.2) 05/08/24 04:30 Baso # (Auto) 0.1 X10^3/uL (0.0-0.1) 05/08/24 04:30 Absolute Nucleated RBC 0.1 /100WBC 05/08/24 04:30 Sodium 142 mmol/L (136-145) 05/08/24 04:30 Corrected Sodium 143 mmol/L (136-145) 05/08/24 04:30 Potassium 3.4 mmol/L (3.5-5.1) L 05/08/24 04:30 Chloride 108 mmol/L (98-107) H 05/08/24 04:30 Carbon Dioxide 28.4 mmol/L (21-32) 05/08/24 04:30 BUN 8 mg/dL (7-18) 05/08/24 04:30 Creatinine 0.89 mg/dL (0.70-1.30) 05/08/24 04:30 Est GFR (MDRD) Af Amer > 60 (>60) 05/08/24 04:30 Est GFR (MDRD) Non-Af > 60 (>60) 05/08/24 04:30 Glucose 134 mg/dL (65-99) H 05/08/24 04:30 Lactic Acid 1.5 mmol/L (0.4-2.0) 05/06/24 11:12 Calcium 8.1 mg/dL (8.5-10.1) L 05/08/24 04:30 Corrected Calcium 9.2 mg/dL (8.5-10.1) 05/08/24 04:30 Total Bilirubin 0.20 mg/dL (0.2-1.0) 05/08/24 04:30 AST 9 Units/L (15-37) L 05/08/24 04:30 ALT 15 Units/L (12-78) 05/08/24 04:30 Alkaline Phosphatase 44 Units/L (46-116) L 05/08/24 04:30 Troponin I High Sens 4.2 ng/L (4.0-60.0) 05/06/24 10:23 Total Protein 6.0 g/dL (6.4-8.2) L 05/08/24 04:30 Albumin 2.6 g/dL (3.4-5.0) L 05/08/24 04:30 Globulin 3.4 g/dL (2.5-4.5) 05/08/24 04:30 Albumin/Globulin Ratio 0.8 Ratio (1.1-2.1) L 05/08/24 04:30 Lipase 29 Units/L (16-77) 05/06/24 10:23 Specimen Type Catherized urine 05/06/24 11:40 Urine Color Yellow (YELLOW) 05/06/24 11:40 Urine Appearance Flocculent (CLEAR) 05/06/24 11:40 Urine pH 7.0 (5.0 - 8.0) 05/06/24 11:40 Ur Specific [place] 1.015 (1.000-1.030) 05/06/24 11:40 Urine Protein 2+ (NEGATIVE) 05/06/24 11:40 Urine Glucose (UA) Negative (NEGATIVE) 05/06/24 11:40 Urine Ketones Negative (NEGATIVE) 05/06/24 11:40 Urine Blood 5+ (NEGATIVE) 05/06/24 11:40 Urine Nitrite Negative (NEGATIVE) 05/06/24 11:40 Urine Bilirubin Negative (NEGATIVE) 05/06/24 11:40 Urine Urobilinogen Normal (NORMAL) 05/06/24 11:40 Ur Leukocyte Esterase 1+ (NEGATIVE) 05/06/24 11:40 Urine RBC Tntc /HPF (0-3) A 05/06/24 11:40 Urine WBC 3-5 /HPF (0-5) 05/06/24 11:40 Ur Squamous Epith Cells Negative /HPF (NEGATIVE) 05/06/24 11:40 Calcium Oxalate Crystal Rare /HPF (NEGATIVE) 05/06/24 11:40 Amorphous Sediment 1+ /HPF (NEGATIVE) 05/06/24 11:40 Urine Bacteria 2+ /HPF (NEGATIVE) 05/06/24 11:40 Urine Mucus Moderate /HPF (NEGATIVE) 05/06/24 11:40 Ur Culture Indicated? Yes/culture set up 05/06/24 11:40 Resp Viral Panel (PCR) See scanned report 05/06/24 12:55 Plan (1) Pneumonia: Status: Acute (2) Syncope: Status: Acute (3) Hypomagnesemia: Status: Acute (4) Shortness of breath: Status: Acute (5) Blindness of both eyes: Status: Acute (6) Sick sinus syndrome: Status: Acute (7) Mental retardation: Status: Chronic
[2024-05-08] MEDS: D5 1/2 NS + KCL 20 MEQ/L 1,000 ML IV SCH (12:58)
[2024-05-09 04:52] LABS: BASOPHILS # (AUTO) 0.1 X10^3/uL (0.0-0.1); BASOPHILS % (AUTO) 1.4 % (0.2-1.0); EOSINOPHILS # (AUTO) 0.3 x10^3/uL (0.0-0.2); EOSINOPHILS % (AUTO) 3.9 % (0.9-2.9); HEMATOCRIT 25.3 % (42.0-54.0); HEMOGLOBIN 8.1 g/dL (13.5-18.0); LYMPHOCYTES # (AUTO) 1.5 X10^3/uL (1.3-2.9); LYMPHOCYTES % (AUTO) 20.3 % (21.0-51.0); MEAN CORPUSCULAR HEMOGLOBIN 28.9 pg (27.0-34.0); MEAN CORPUSCULAR HGB CONC 32.1 g/dL (33.0-35.0); MEAN CORPUSCULAR VOLUME 90.1 fL (80.0-100.0); MONOCYTES # (AUTO) 0.6 x10^3/uL (0.3-0.8); MONOCYTES % (AUTO) 8.9 % (0.0-13.0); NEUTROPHILS # (AUTO) 4.7 x10^3/uL (2.2-4.8); NEUTROPHILS % (AUTO) 65.5 % (42.0-75.0); PLATELET COUNT 358 X10^3/uL (150.0-450.0); RED BLOOD COUNT 2.81 X10^6/uL (4.7-6.0); RED CELL DISTRIBUTION WIDTH 15.5 % (11.6-16.5); WHITE BLOOD COUNT 7.2 X10^3/uL (3.6-10.0)
[2024-05-09 05:01] LABS: ALANINE AMINOTRANSFERASE 13 Units/L (12-78); ALBUMIN 2.6 g/dL (3.4-5.0); ALKALINE PHOSPHATASE 45 Units/L (46-116); ASPARTATE AMINO TRANSFERASE 10 Units/L (15-37); BLOOD UREA NITROGEN 9 mg/dL (7-18); CARBON DIOXIDE 29.7 mmol/L (21-32); CHLORIDE 107 mmol/L (98-107); COR CA(FOR HYPOALB) 9.1 mg/dL (8.5-10.1); COR NA(FOR HYPERGLY) 143 mmol/L (136-145); CREATININE 0.92 mg/dL (0.70-1.30); GLUCOSE 126 mg/dL (65-99); POTASSIUM 3.9 mmol/L (3.5-5.1); SODIUM 142 mmol/L (136-145); TOTAL PROTEIN 5.8 g/dL (6.4-8.2); eGFR NON BLACK RACES > 60 (>60)
[2024-05-09] MEDS: FLONASE NASAL SPRAY ENOSTRIL SCH (09:22)
[2024-05-09] MEDS: ROBITUSSIN DM PO SCH (09:23)
--- NOTE | 2024-05-09 12:47 | RAD ---
EXAM: CHEST, PA/LAT ADULT HISTORY: Pneumonia COMPARISON: 05/06/2024 FINDINGS: The trachea is midline. The cardiac silhouette is unremarkable. A pacing device overlying the left hemithorax is observed . The lungs are clear without focal infiltrate or effusion. The bony thorax is unremarkable. IMPRESSION: No acute cardiopulmonary disease. THIS IS AN ELECTRONICALLY VERIFIED FINAL REPORT 05/09/2024 12:43 PM - Electronically signed by Roberth rBanch MD
[2024-05-10 05:04] LABS: BASOPHILS # (AUTO) 0.1 X10^3/uL (0.0-0.1); EOSINOPHILS # (AUTO) 0.3 x10^3/uL (0.0-0.2); HEMATOCRIT 25.7 % (42.0-54.0); HEMOGLOBIN 8.4 g/dL (13.5-18.0); LYMPHOCYTES # (AUTO) 1.5 X10^3/uL (1.3-2.9); LYMPHOCYTES % (AUTO) 22.6 % (21.0-51.0); MEAN CORPUSCULAR HEMOGLOBIN 29.6 pg (27.0-34.0); MEAN CORPUSCULAR HGB CONC 32.8 g/dL (33.0-35.0); MEAN CORPUSCULAR VOLUME 90.1 fL (80.0-100.0); MEAN PLATELET VOLUME 6.7 fL (7.4-11.0); MONOCYTES # (AUTO) 0.6 x10^3/uL (0.3-0.8); MONOCYTES % (AUTO) 9.2 % (0.0-13.0); NEUTROPHILS # (AUTO) 4.2 x10^3/uL (2.2-4.8); NEUTROPHILS % (AUTO) 63.2 % (42.0-75.0); PLATELET COUNT 335 X10^3/uL (150.0-450.0); RED BLOOD COUNT 2.85 X10^6/uL (4.7-6.0); WHITE BLOOD COUNT 6.7 X10^3/uL (3.6-10.0)
[2024-05-10 05:15] LABS: ALANINE AMINOTRANSFERASE 14 Units/L (12-78); ALBUMIN 2.6 g/dL (3.4-5.0); ALKALINE PHOSPHATASE 44 Units/L (46-116); ASPARTATE AMINO TRANSFERASE 8 Units/L (15-37); BLOOD UREA NITROGEN 8 mg/dL (7-18); CHLORIDE 108 mmol/L (98-107); COR CA(FOR HYPOALB) 9.1 mg/dL (8.5-10.1); COR NA(FOR HYPERGLY) 144 mmol/L (136-145); CREATININE 0.97 mg/dL (0.70-1.30); GLUCOSE 123 mg/dL (65-99); POTASSIUM 4.2 mmol/L (3.5-5.1); SODIUM 143 mmol/L (136-145); TOTAL PROTEIN 5.9 g/dL (6.4-8.2); eGFR NON BLACK RACES > 60 (>60)
[2024-05-11 05:05] LABS: BASOPHILS # (AUTO) 0.1 X10^3/uL (0.0-0.1); BASOPHILS % (AUTO) 0.9 % (0.2-1.0); EOSINOPHILS # (AUTO) 0.4 x10^3/uL (0.0-0.2); HEMATOCRIT 25.5 % (42.0-54.0); HEMOGLOBIN 8.2 g/dL (13.5-18.0); LYMPHOCYTES # (AUTO) 1.7 X10^3/uL (1.3-2.9); LYMPHOCYTES % (AUTO) 23.2 % (21.0-51.0); MEAN CORPUSCULAR HGB CONC 32.3 g/dL (33.0-35.0); MEAN PLATELET VOLUME 6.9 fL (7.4-11.0); MONOCYTES # (AUTO) 0.8 x10^3/uL (0.3-0.8); MONOCYTES % (AUTO) 10.8 % (0.0-13.0); NEUTROPHILS # (AUTO) 4.4 x10^3/uL (2.2-4.8); NEUTROPHILS % (AUTO) 60.1 % (42.0-75.0); PLATELET COUNT 328 X10^3/uL (150.0-450.0); RED BLOOD COUNT 2.83 X10^6/uL (4.7-6.0); RED CELL DISTRIBUTION WIDTH 16.2 % (11.6-16.5); WHITE BLOOD COUNT 7.3 X10^3/uL (3.6-10.0)
[2024-05-11 05:24] LABS: ALANINE AMINOTRANSFERASE 13 Units/L (12-78); ALBUMIN 2.5 g/dL (3.4-5.0); ALKALINE PHOSPHATASE 45 Units/L (46-116); ASPARTATE AMINO TRANSFERASE 10 Units/L (15-37); BLOOD UREA NITROGEN 10 mg/dL (7-18); CALCIUM 8.1 mg/dL (8.5-10.1); CARBON DIOXIDE 30.8 mmol/L (21-32); CHLORIDE 108 mmol/L (98-107); COR CA(FOR HYPOALB) 9.3 mg/dL (8.5-10.1); COR NA(FOR HYPERGLY) 145 mmol/L (136-145); CREATININE 0.88 mg/dL (0.70-1.30); GLUCOSE 129 mg/dL (65-99); POTASSIUM 4.1 mmol/L (3.5-5.1); SODIUM 144 mmol/L (136-145); TOTAL PROTEIN 5.8 g/dL (6.4-8.2); eGFR NON BLACK RACES > 60 (>60)
[2024-05-11] MEDS: FERROUS GLUCONATE PO ONE (11:01)
[2024-05-11] MEDS: COLACE CAP 100 MG PO SCH (20:27)
[2024-05-12 05:03] LABS: BASOPHILS # (AUTO) 0.1 X10^3/uL (0.0-0.1); BASOPHILS % (AUTO) 0.7 % (0.2-1.0); EOSINOPHILS # (AUTO) 0.4 x10^3/uL (0.0-0.2); EOSINOPHILS % (AUTO) 6.1 % (0.9-2.9); HEMATOCRIT 25.4 % (42.0-54.0); HEMOGLOBIN 8.2 g/dL (13.5-18.0); LYMPHOCYTES # (AUTO) 1.8 X10^3/uL (1.3-2.9); LYMPHOCYTES % (AUTO) 25.5 % (21.0-51.0); MEAN CORPUSCULAR HGB CONC 32.4 g/dL (33.0-35.0); MEAN CORPUSCULAR VOLUME 89.6 fL (80.0-100.0); MEAN PLATELET VOLUME 7.3 fL (7.4-11.0); MONOCYTES # (AUTO) 0.7 x10^3/uL (0.3-0.8); MONOCYTES % (AUTO) 9.4 % (0.0-13.0); NEUTROPHILS # (AUTO) 4.2 x10^3/uL (2.2-4.8); NEUTROPHILS % (AUTO) 58.3 % (42.0-75.0); PLATELET COUNT 324 X10^3/uL (150.0-450.0); RED BLOOD COUNT 2.83 X10^6/uL (4.7-6.0); RED CELL DISTRIBUTION WIDTH 16.3 % (11.6-16.5); WHITE BLOOD COUNT 7.1 X10^3/uL (3.6-10.0)
[2024-05-12 05:24] LABS: ALANINE AMINOTRANSFERASE 13 Units/L (12-78); ALBUMIN 2.6 g/dL (3.4-5.0); ALKALINE PHOSPHATASE 43 Units/L (46-116); ASPARTATE AMINO TRANSFERASE 19 Units/L (15-37); BLOOD UREA NITROGEN 10 mg/dL (7-18); CALCIUM 8.5 mg/dL (8.5-10.1); CARBON DIOXIDE 30.1 mmol/L (21-32); CHLORIDE 106 mmol/L (98-107); COR CA(FOR HYPOALB) 9.6 mg/dL (8.5-10.1); COR NA(FOR HYPERGLY) 141 mmol/L (136-145); CREATININE 0.86 mg/dL (0.70-1.30); GLUCOSE 126 mg/dL (65-99); POTASSIUM 4.1 mmol/L (3.5-5.1); SODIUM 140 mmol/L (136-145); eGFR NON BLACK RACES > 60 (>60)
[2024-05-13 05:34] LABS: BASOPHILS % (AUTO) 0.7 % (0.2-1.0); EOSINOPHILS # (AUTO) 0.4 x10^3/uL (0.0-0.2); EOSINOPHILS % (AUTO) 5.9 % (0.9-2.9); HEMATOCRIT 26.3 % (42.0-54.0); HEMOGLOBIN 8.5 g/dL (13.5-18.0); LYMPHOCYTES # (AUTO) 1.8 X10^3/uL (1.3-2.9); LYMPHOCYTES % (AUTO) 24.9 % (21.0-51.0); MEAN CORPUSCULAR HEMOGLOBIN 28.9 pg (27.0-34.0); MEAN CORPUSCULAR HGB CONC 32.3 g/dL (33.0-35.0); MEAN CORPUSCULAR VOLUME 89.6 fL (80.0-100.0); MEAN PLATELET VOLUME 7.1 fL (7.4-11.0); MONOCYTES # (AUTO) 0.7 x10^3/uL (0.3-0.8); MONOCYTES % (AUTO) 10.5 % (0.0-13.0); NEUTROPHILS # (AUTO) 4.1 x10^3/uL (2.2-4.8); PLATELET COUNT 338 X10^3/uL (150.0-450.0); RED BLOOD COUNT 2.94 X10^6/uL (4.7-6.0); RED CELL DISTRIBUTION WIDTH 16.3 % (11.6-16.5); WHITE BLOOD COUNT 7.1 X10^3/uL (3.6-10.0)
[2024-05-13 05:43] LABS: ALANINE AMINOTRANSFERASE 11 Units/L (12-78); ALBUMIN 2.6 g/dL (3.4-5.0); ALKALINE PHOSPHATASE 46 Units/L (46-116); ASPARTATE AMINO TRANSFERASE 8 Units/L (15-37); BLOOD UREA NITROGEN 8 mg/dL (7-18); CALCIUM 8.5 mg/dL (8.5-10.1); CARBON DIOXIDE 32.9 mmol/L (21-32); CHLORIDE 106 mmol/L (98-107); COR CA(FOR HYPOALB) 9.6 mg/dL (8.5-10.1); COR NA(FOR HYPERGLY) 142 mmol/L (136-145); CREATININE 0.95 mg/dL (0.70-1.30); GLUCOSE 127 mg/dL (65-99); MAGNESIUM 1.8 mg/dL (2.0-2.9); SODIUM 141 mmol/L (136-145); eGFR NON BLACK RACES > 60 (>60)
[2024-05-13 09:11] VITALS: BP 139/75; PULSE 88; RESP 20; TEMP 98.6; O2SAT 98
== END 2024-05-13 11:49 | disposition swing bed (61) | DRG 179 ==
LOC: MED/SURG 10:13 → ER 10:13 → INTOOBSV 12:13 → OBSVTOIN 12:13 → MED/SURG 12:48
PROVIDERS: ADMIT Internal Medicine; ATTEND Internal Medicine
DX: R42 Dizziness and giddiness; I10 Essential (primary) hypertension; R06.02 Shortness of breath; E83.42 Hypomagnesemia; K59.09 Other constipation; I95.89 Other hypotension; H54.8 Legal blindness, as defined in USA; F79 Unspecified intellectual disabilities; I49.5 Sick sinus syndrome; E11.65 Type 2 diabetes mellitus with hyperglycemia; R55 Syncope and collapse; Z95.0 Presence of cardiac pacemaker; J15.211 Pneumonia due to Methicillin susceptible Staphylococcus aureus; R94.31 Abnormal electrocardiogram [ECG] [EKG]; N40.0 Benign prostatic hyperplasia without lower urinary tract symptoms; K44.9 Diaphragmatic hernia without obstruction or gangrene; R53.1 Weakness; R29.6 Repeated falls

== ENCOUNTER 2024-05-13 11:50 | Inpatient (IN) ==
[2024-05-13] MEDS ORDERED: DUONEB 0.5 MG/3 MG (3 mL) NEB SCH (13:00)
[2024-05-13] MEDS: ROBITUSSIN DM PO SCH (13:00)
[2024-05-13] MEDS: CARAFATE PO SCH (14:50)
--- NOTE | 2024-05-13 14:51 | PT/OTEVAL ---
PT/OT OBJECTIVES - HISTORY Prescription: PT Consult Diagnosis: Deconditioning s/p Pneumonia Precautions: Fall Risk, Legally Blind, Pacemaker PMH: CP/MR, Arthritis, COPD, GERD, HTN, Sleep Apnea, Ataxia, Legally Blind, Neck Sx, Carpal Tunnel Release, Pacemaker, R Elbow Surgery, Corneal Transplant Prior Level of Function: Assistance Required Other: Per patient report he resides at home alone but goes to an adult day center Saturday-Saturday from 8am-2pm. Home: Single story with 3 ZOEY with BHR (cannot reach both at the same time). Reports being able to perform all mobility tasks within home independently with use of rollator and has assistance when out of home; however, has been having increased falls and day center issued patient a helmet for safety. Pt is legally blind. DME: Rollator, Wheelchair, Shower Chair History of Present Illness: Mr. Crabtree is a 63 year old male who was initially admitted to acute care hospital on 05/06/2024 due to feeling like he is going to pass out. Pt was found to be hypotensive and have pneumonia. Pt with decline in strength, balance, functional activity tolerance and overall independence and safety with functional mobility tasks from [facility]. Pt not able to safely return home at [facility] and pt has transitioned to swing bed therapy to address these deficits and facilitate highest level of function and safe discharge planning. - COGNITION Mental Status: Alert, Oriented, Name, Place Communication Status: Verbal Ability to Follow Directions: 2 Step Affect: Happy - PAIN No signs of pain Pain Scale: No Pain Comments: No reports of pain at time of evaluation. - BED MOBILITY Rolling: Supervision - TRANSFERS Supine to Sit: Supervision Sit to Stand: Supervision, Minimal Sit to Stand Comment: Touch assist Sit or Stand Pivot: Supervision, Minimal Sit or Stand Pivot Comment: Touch assist Safety Comment: Cues for proper hand placement & facilitation of COM over ISIDRO Safety (requires cues for:): Hand Placement Precaution - BALANCE Static Sitting: Good Standing: Fair Balance Comment: Fair- Dynamic Sitting: Good Standing: Poor Balance Comment: Poor+ - NEUROMOTOR/SENSATION Zander. Lower Ext Sensation: WFL Coordination: WFL Proprioception: WFL - HAND DOMINANCE Extremity Function: Hand Dominance: Right - ROM Bilateral LE ROM: WFL Muscle Tone: WFL - STRENGTH Bilateral LE Strength Number: 3 Other comment: 3+/5 - GAIT Pt. ambulates how many feet?: 75 Amount of Assistance Required: Minimal Type of Assistive Device: Rolling Walker Comments: Touch assist - OBJECTIVE MEASURES & STANDARDS Objective Measures & Standards: 30 Second Sit to Stand: 0 - unable to complete without physical assist - TREATMENT Date: 05/13/24 Time: 12:00 Treatment Type: Evaluation Treatment Provided: Gait, Therapeutic Activities - TOTAL TREATMENT TIME Total Time: 90 - POST ASSESSMENT Post Assessment Comment: Pt was found supine in bed in room and agreeable to participation in PT services. Pt reports that he is feeling better in general and that he was motivated to do therapy to get better to go home. Pt with no complaints of pain noted. Pt able to perform bed mobility tasks with superv ision and cues for proper technique. Pt touch assist for functional transfers from various surface types with focus on proper hand placement and facilitation of COM over ISIDRO. Pt performed gait tasks with FWW and touch assist with mod cues for safety and sequencing with AD for safety with obstacle negotiation due to visual deficits. Pt able to ambulate 100ft x 3 requiring therapeutic rest breaks throughout. Pt does easily fatigue. Pt was agreeable to sit in recliner chair following session. Pt would benefit from participation in PT services to address deficits and facilitate highest level of function and safe discharge planning. 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 Days: 20 Gait: Pt will ambulate 400ft withr rollator with mod I Balance: Pt will increase dynamic standing balance to fair+/good- ROM/Strength: Pt will increase BLE strength to 5/5 Others: Pt will ascend/descend 3 stairs with HR with mod I - PATIENT GOALS Patient/Family Goals: "I want to get stronger" Goals Discussed with Patient/Family: Yes Rehabilitation Potential: Good to meet stated goals Justification for Potential: Facilitate highest level of function and safe discharge planning Weakness and Barriers: Cognitive Barrier If yes, explain: Hx MR/CP - PLAN Suggested Treatment Plan: Bed Mobility Training, Therapeutic Activity, Gait Training, Neuro Re-education, Therapeutic Ex with HEP, Patient Education - FREQUENCY AND DURATION PT: 5-6x per week x hospital stay Expected Continuation of Care at Discharge: Home Health Anticipated Equipment Needs: TBD
--- NOTE | 2024-05-13 17:38 | DR.UPDATE ---
H&P UPDATE Review Yes Any changes to H&P?: No Patient was examined?: Yes
[2024-05-13] MEDS ORDERED: PULMICORT NEB TX 0.5 MG NEB SCH (21:00)
[2024-05-13] MEDS: COLACE CAP 100 MG PO SCH (21:23)
[2024-05-13] MEDS: CARDIZEM TAB 30 MG PLAIN PO SCH (21:23)
[2024-05-13] MEDS: PROTONIX TAB 40 MG PO SCH (21:23)
[2024-05-14] MEDS: FERROUS GLUCONATE PO SCH (08:52)
[2024-05-14] MEDS: MOBIC TAB 15 MG PO SCH (08:52)
[2024-05-14] MEDS: PROzac PO SCH (08:52)
[2024-05-14] MEDS: ROCEPHIN VIAL 1 GRAM 1 G in NS 100 ML IV 100 ML IV SCH (08:53)
[2024-05-14] MEDS: FLONASE NASAL SPRAY ENOSTRIL SCH (08:53)
--- NOTE | 2024-05-14 10:31 | PT/OTEVAL ---
PT/OT OBJECTIVES - HISTORY Prescription: OT consult Diagnosis: acute hypotension Precautions: severe visual impairment, fall risk, intellectual impairment PMH: chronic de souza, PPM, COPD, GERD, GAURAV, CP (per cousin) Prior Level of Function: Independent Other: Per patient and cousin Janeth, patient lived at home alone in single story home w 4 ZOEY and 1 step inside. Patient reportedly occasionally used rollator inside home, but was unable to bring outside of home for community use. Denies other DME. Patient attends developmental disabilty day program with assistance, and reports they had issued him a helmet to wear at program due to frequent falls. Patient reports to have been independent with ADLs, IADLs, and mobility, but cousin reports concern that patient was unable to care for self pr operly (not eating, falling, etc). History of Present Illness: Patient is 63yr old R hand dominant male w recent acute hospitalization for hypotension and multiple ER visits for same. Patient is known to this therapist from prior therapy course in acute hospital. Patient medically stable and transferred to swing bed for additional therapy services. - COGNITION Mental Status: Alert, Oriented, Name, Place, Purpose Communication Status: Verbal Ability to Follow Directions: 1 Step Identifies: Patient w reported developmental/intellectual disability/delay. Patient does best w simple, short, 1 step commands, and when allotted increased response time. Patient has been blind in R eye since infant, and does not demo much residual functional vision in L eye. Memory Loss: None Affect: Appropriate - PAIN No signs of pain Pain Scale: No Pain Comments: No reports of pain at time of evaluation. - BED MOBILITY Rolling: Supervision Scooting: Supervision Bridging: Supervision - TRANSFERS Supine to Sit: Supervision Sit to Stand: Supervision Sit or Stand Pivot: Supervision Toileting: Minimal Safety (requires cues for:): Hand Placement Precaution - ADL'S Feeding: Supervision Feeding Comment: may require cues for food/utensil placement due to vision impairment Grooming: Minimum Upper Body ADL: Minimum Lower Body ADL: Moderate Lower Body ADL: de souza cath management w dressing Toileting: Moderate Toileting Comment: patient w de souza at time of OT eval Bathing: Moderate Hygeine: Minimum - BALANCE Static Sitting: Good Standing: Fair Balance Comment: Fair- Dynamic Sitting: Good Standing: Fair Balance Comment: Poor+ - NEUROMOTOR/SENSATION Zander. Upper Ext Sensation: WFL Coordination: Impaired Proprioception: WFL Zander. Lower Ext Sensation: WFL Coordination: WFL Proprioception: WFL - HAND DOMINANCE Extremity Function: Hand Dominance: Right - ROM Bilateral UE ROM: WFL Muscle Tone: WFL - STRENGTH Bilateral UE Strength Number: 3 Bilateral LE Strength Number: 3 Other comment: 3+/5 - TREATMENT Date: 05/13/24 (late entry due to doc error) Time: 12:00 (late entry due to doc error) Treatment Type: Evaluation Treatment Provided: Therapeutic Activities, Other - TOTAL TREATMENT TIME Total Time: 68 - POST ASSESSMENT Post Assessment Comment: Patient supine in bed on arrival and agreeable to OT assessment. Patient demo significant functional activity tolerance and functional activity improvement from recent OT eval during acute care stay, but continues to demo deficits in ADLs, functional transfers, functional mobility, UE strength, and functional activity tolerance. POC and goals completed in collaboration w patient. DC plan to be determined based on progress. 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 Upper Ext. Strength/Use: Patient will demo BUE strength 4/5 w no s/s of fatigue during dressing. Short Term Goals Days: 10 Mobility for ADL's: Patient will be supervision for all ADL transfers and ADL mobility Dressing: Patient will complete UB & LB dressing w no more than min A. Upper Ext. Strength/Use: Patient will demo BUE strength 4-/5 w no s/s of fatigue during grooming - PATIENT GOALS Patient/Family Goals: Cousin would like patient to get back to how he was. Goals Discussed with Patient/Family: Yes Rehabilitation Potential: Excellent for stated goals Justification for Potential: High PLOF, good family support, motivated to participate, recent onset Weakness and Barriers: Cognitive Barrier - PLAN Suggested Treatment Plan: Therapeutic Activity, Self Care Training, Therapeutic Ex with HEP, Patient Education, Family Education - FREQUENCY AND DURATION OT: 5x per week x 20 days Expected Continuation of Care at Discharge: Determined on Progress (DC to be determined based on functional progression- home vs placement)
--- NOTE | 2024-05-14 15:24 | PCM.PROG ---
Progress Note Progress Note for Day of Date of Exam: 05/12/24 Subjective Subjective: This is a 63-year-old white male who has been treated for recently treated for pneumonia. The patient has had multiple recent ER visits, as well as hospitalizations due to syncope, dehydration, acute renal insufficiency. We have been working to get him placed at [facility]. He needs some rehab therapy. The patient is legally blind and lives alone. He has had multiple falls and needs jail care to help with medication administration and management of his Kelly catheter. He also has had diffuse weakness and will benefit from physical therapy. AM labs: wbc 7.1, hgb 8.2, bun 10/creatinine 0.86. Past Medical Family Social History Allergies: Allergies brimonidine Allergy (Verified 05/06/24 10:15) ferrous sulfate [From FeroSul] Allergy (Verified 05/06/24 10:15) iron [From FeroSul] Allergy (Verified 05/06/24 10:15) nitroglycerin Allergy (Verified 05/06/24 10:15) tetanus immune globulin Allergy (Verified 05/06/24 10:15) Vital Signs and I&O's Vital Signs: Vital Signs Temperature 97.6 F Pulse Rate [Left Radial] 96 Respiratory Rate 20 Blood Pressure [Right Arm] 134/82 O2 Sat by Pulse Oximetry 94 Intake and Output: Intake & Output 05/12/24 05/13/24 05/14/24 05/15/24 11:59 11:59 11:59 11:59 Intake Total 320 / 320 Output Total 1250 / 1250 Balance -930 / -930 Physical Exam Oriented: Normal Eyes: Blurred Vision Ear: Normal Nose: Normal Throat: Normal Respiratory: Diminished Cardiovascular: Other (pacemaker present) : Normal Auscultation: Bowel Sounds: Normal Palpation: Normal Tenderness: Normal Skin: Decreased Turgur Musculoskeletal: Motor Deficit Psychiatric: Anxiety and Depression Mood Description: Depressed Affect: Depressed Speech Pattern: Appropriate Plan (1) Acute hypotension: Status: Acute Plan: Continue antibiotics and respiratory therapy, strict I&O's, home medications. (2) Pneumonia: Status: Acute
[2024-05-15 06:07] LABS: ALANINE AMINOTRANSFERASE 13 Units/L (12-78); ALBUMIN 2.9 g/dL (3.4-5.0); ALKALINE PHOSPHATASE 53 Units/L (46-116); ASPARTATE AMINO TRANSFERASE 11 Units/L (15-37); BASOPHILS % (AUTO) 0.6 % (0.2-1.0); BLOOD UREA NITROGEN 21 mg/dL (7-18); CALCIUM 8.7 mg/dL (8.5-10.1); CARBON DIOXIDE 27.2 mmol/L (21-32); CHLORIDE 106 mmol/L (98-107); COR CA(FOR HYPOALB) 9.6 mg/dL (8.5-10.1); COR NA(FOR HYPERGLY) 141 mmol/L (136-145); CREATININE 1.04 mg/dL (0.70-1.30); EOSINOPHILS # (AUTO) 0.5 x10^3/uL (0.0-0.2); GLUCOSE 119 mg/dL (65-99); HEMATOCRIT 28.5 % (42.0-54.0); HEMOGLOBIN 9.2 g/dL (13.5-18.0); LYMPHOCYTES # (AUTO) 1.2 X10^3/uL (1.3-2.9); LYMPHOCYTES % (AUTO) 14.3 % (21.0-51.0); MEAN CORPUSCULAR HEMOGLOBIN 28.8 pg (27.0-34.0); MEAN CORPUSCULAR HGB CONC 32.4 g/dL (33.0-35.0); MEAN PLATELET VOLUME 7.5 fL (7.4-11.0); MONOCYTES # (AUTO) 0.9 x10^3/uL (0.3-0.8); MONOCYTES % (AUTO) 10.8 % (0.0-13.0); NEUTROPHILS # (AUTO) 5.8 x10^3/uL (2.2-4.8); NEUTROPHILS % (AUTO) 68.3 % (42.0-75.0); PLATELET COUNT 344 X10^3/uL (150.0-450.0); POTASSIUM 3.8 mmol/L (3.5-5.1); SODIUM 141 mmol/L (136-145); TOTAL PROTEIN 6.4 g/dL (6.4-8.2); WHITE BLOOD COUNT 8.4 X10^3/uL (3.6-10.0); eGFR NON BLACK RACES > 60 (>60)
[2024-05-15] MEDS ORDERED: CONSULT PHARMACY - POTASSIUM & MAGNESIUM XX SCH (07:00)
[2024-05-15] MEDS: FLOMAX PO SCH (10:00)
[2024-05-15] MEDS: K-DUR TAB 20 MEQ PO SCH (10:08)
[2024-05-15 15:43] LABS: BILIRUBIN,URINE NEGATIVE (NEGATIVE); BLOOD/HEMOGLOBIN,URINE NEGATIVE (NEGATIVE); GLUCOSE, URINE NEGATIVE (NEGATIVE); KETONES,URINE NEGATIVE (NEGATIVE); LEUKOCYTE ESTERASE ,URINE 1+ (NEGATIVE); NITRITES,URINE NEGATIVE (NEGATIVE); PROTEIN,URINE 1+ (NEGATIVE); UROBILINOGEN,URINE NORMAL (NORMAL)
[2024-05-15 15:48] LABS: APPEARANCE,URINE CLEAR (CLEAR); COLOR,URINE YELLOW (YELLOW)
[2024-05-15 15:52] LABS: BACTERIA,URINE TRACE /HPF (NEGATIVE); RBC,URINE 0-2 /HPF (0-3); SQUAMOUS EPITHELIAL CELL,UR RARE /HPF (NEGATIVE)
[2024-05-18 06:16] LABS: BASOPHILS # (AUTO) 0.1 X10^3/uL (0.0-0.1); BASOPHILS % (AUTO) 1.1 % (0.2-1.0); EOSINOPHILS # (AUTO) 0.3 x10^3/uL (0.0-0.2); EOSINOPHILS % (AUTO) 4.5 % (0.9-2.9); HEMATOCRIT 26.9 % (42.0-54.0); HEMOGLOBIN 8.8 g/dL (13.5-18.0); LYMPHOCYTES # (AUTO) 1.6 X10^3/uL (1.3-2.9); MEAN CORPUSCULAR HEMOGLOBIN 28.8 pg (27.0-34.0); MEAN CORPUSCULAR HGB CONC 32.7 g/dL (33.0-35.0); MEAN CORPUSCULAR VOLUME 87.9 fL (80.0-100.0); MEAN PLATELET VOLUME 7.5 fL (7.4-11.0); MONOCYTES # (AUTO) 0.7 x10^3/uL (0.3-0.8); MONOCYTES % (AUTO) 11.3 % (0.0-13.0); NEUTROPHILS # (AUTO) 3.6 x10^3/uL (2.2-4.8); NEUTROPHILS % (AUTO) 58.1 % (42.0-75.0); PLATELET COUNT 287 X10^3/uL (150.0-450.0); RED BLOOD COUNT 3.06 X10^6/uL (4.7-6.0); RED CELL DISTRIBUTION WIDTH 16.3 % (11.6-16.5); WHITE BLOOD COUNT 6.3 X10^3/uL (3.6-10.0)
[2024-05-18 06:31] LABS: ALANINE AMINOTRANSFERASE 13 Units/L (12-78); ALBUMIN 2.7 g/dL (3.4-5.0); ALKALINE PHOSPHATASE 46 Units/L (46-116); ASPARTATE AMINO TRANSFERASE 9 Units/L (15-37); BLOOD UREA NITROGEN 14 mg/dL (7-18); CALCIUM 8.4 mg/dL (8.5-10.1); CHLORIDE 107 mmol/L (98-107); COR CA(FOR HYPOALB) 9.4 mg/dL (8.5-10.1); CREATININE 0.91 mg/dL (0.70-1.30); GLUCOSE 102 mg/dL (65-99); POTASSIUM 3.2 mmol/L (3.5-5.1); SODIUM 143 mmol/L (136-145); TOTAL PROTEIN 6.1 g/dL (6.4-8.2); eGFR NON BLACK RACES > 60 (>60)
[2024-05-18] MEDS ORDERED: CONSULT PHARMACY - POTASSIUM & MAGNESIUM XX SCH (07:00)
[2024-05-18] MEDS: K-DUR TAB 20 MEQ PO SCH (09:26)
[2024-05-18] MEDS: MAG-OX TAB PO SCH (09:26)
--- NOTE | 2024-05-18 17:38 | PCM.PROG ---
Progress Note Progress Note for Day of Date of Exam: 05/18/24 Subjective Subjective: This is a 63-year-old white male who has been treated for recently treated for pneumonia. The patient has had multiple recent ER visits, as well as hospitalizations due to syncope, dehydration, acute renal insufficiency. We have been working to get him placed at [facility]. He needs some rehab therapy. The patient is legally blind and lives alone. He has had multiple falls and needs halfway care to help with medication administration and management of his De Souza catheter. He also has had diffuse weakness and will benefit from physical therapy. Pt had indwelling de souza cath that was removed last . Pt had to have catheter reinserted due to urinary retention caused from BPH Past Medical Family Social History Allergies: Allergies brimonidine Allergy (Verified 05/06/24 10:15) ferrous sulfate [From FeroSul] Allergy (Verified 05/06/24 10:15) iron [From FeroSul] Allergy (Verified 05/06/24 10:15) nitroglycerin Allergy (Verified 05/06/24 10:15) tetanus immune globulin Allergy (Verified 05/06/24 10:15) Vital Signs and I&O's Vital Signs: Vital Signs Temperature 97.8 F Pulse Rate [Left Radial] 81 Respiratory Rate 20 Blood Pressure [Right Arm] 125/68 O2 Sat by Pulse Oximetry 95 Intake and Output: Intake & Output 05/16/24 05/17/24 05/18/24 05/19/24 11:59 11:59 11:59 11:59 Intake Total 1361 / 1361 440 / 440 560 / 560 100 / 100 Output Total 875 / 875 1450 / 1450 950 / 950 Balance 486 / 486 -1010 / -1010 -390 / -390 100 / 100 Physical Exam Oriented: Normal Eyes: Blurred Vision Ear: Normal Nose: Normal Throat: Normal Respiratory: Diminished Cardiovascular: Other (pacemaker present) : Normal Auscultation: Bowel Sounds: Normal Tenderness: Normal Skin: Decreased Turgur Musculoskeletal: Motor Deficit Psychiatric: Anxiety and Depression Mood Description: Depressed Affect: Depressed Speech Pattern: Clear and Appropriate Laboratory and Diagnostics 05/18/24 05:10 05/18/24 05:10 Labs: 05/15/24 15:25 Urine,Catheterized Urine Culture - Final Laboratory WBC 6.3 X10^3/uL (3.6-10.0) 05/18/24 05:10 RBC 3.06 X10^6/uL (4.7-6.0) L 05/18/24 05:10 Hgb 8.8 g/dL (13.5-18.0) L 05/18/24 05:10 Hct 26.9 % (42.0-54.0) L 05/18/24 05:10 MCV 87.9 fL (80.0-100.0) 05/18/24 05:10 MCH 28.8 pg (27.0-34.0) 05/18/24 05:10 MCHC 32.7 g/dL (33.0-35.0) L 05/18/24 05:10 RDW 16.3 % (11.6-16.5) 05/18/24 05:10 Plt Count 287 X10^3/uL (150.0-450.0) 05/18/24 05:10 MPV 7.5 fL (7.4-11.0) 05/18/24 05:10 Neut % (Auto) 58.1 % (42.0-75.0) 05/18/24 05:10 Lymph % (Auto) 25.0 % (21.0-51.0) 05/18/24 05:10 [place] % (Auto) 11.3 % (0.0-13.0) 05/18/24 05:10 Eos % (Auto) 4.5 % (0.9-2.9) H 05/18/24 05:10 Baso % (Auto) 1.1 % (0.2-1.0) H 05/18/24 05:10 Neut # (Auto) 3.6 x10^3/uL (2.2-4.8) 05/18/24 05:10 Lymph # (Auto) 1.6 X10^3/uL (1.3-2.9) 05/18/24 05:10 [place] # (Auto) 0.7 x10^3/uL (0.3-0.8) 05/18/24 05:10 Eos # (Auto) 0.3 x10^3/uL (0.0-0.2) H 05/18/24 05:10 Baso # (Auto) 0.1 X10^3/uL (0.0-0.1) 05/18/24 05:10 Absolute Nucleated RBC 0.1 /100WBC 05/18/24 05:10 Sodium 143 mmol/L (136-145) 05/18/24 05:10 Corrected Sodium TNP 05/18/24 05:10 Potassium 3.2 mmol/L (3.5-5.1) L 05/18/24 05:10 Chloride 107 mmol/L (98-107) 05/18/24 05:10 Carbon Dioxide 29.0 mmol/L (21-32) 05/18/24 05:10 BUN 14 mg/dL (7-18) 05/18/24 05:10 Creatinine 0.91 mg/dL (0.70-1.30) 05/18/24 05:10 Est GFR (MDRD) Af Amer > 60 (>60) 05/18/24 05:10 Est GFR (MDRD) Non-Af > 60 (>60) 05/18/24 05:10 Glucose 102 mg/dL (65-99) H 05/18/24 05:10 Calcium 8.4 mg/dL (8.5-10.1) L 05/18/24 05:10 Corrected Calcium 9.4 mg/dL (8.5-10.1) 05/18/24 05:10 Magnesium 1.9 mg/dL (2.0-2.9) L 05/18/24 05:10 Total Bilirubin 0.20 mg/dL (0.2-1.0) 05/18/24 05:10 AST 9 Units/L (15-37) L 05/18/24 05:10 ALT 13 Units/L (12-78) 05/18/24 05:10 Alkaline Phosphatase 46 Units/L (46-116) 05/18/24 05:10 Total Protein 6.1 g/dL (6.4-8.2) L 05/18/24 05:10 Albumin 2.7 g/dL (3.4-5.0) L 05/18/24 05:10 Globulin 3.4 g/dL (2.5-4.5) 05/18/24 05:10 Albumin/Globulin Ratio 0.8 Ratio (1.1-2.1) L 05/18/24 05:10 Specimen Type Catherized urine 05/15/24 15:25 Urine Color Yellow (YELLOW) 05/15/24 15:25 Urine Appearance Clear (CLEAR) 05/15/24 15:25 Urine pH 6.0 (5.0 - 8.0) 05/15/24 15:25 Ur Specific [place] 1.020 (1.000-1.030) 05/15/24 15:25 Urine Protein 1+ (NEGATIVE) 05/15/24 15:25 Urine Glucose (UA) Negative (NEGATIVE) 05/15/24 15:25 Urine Ketones Negative (NEGATIVE) 05/15/24 15:25 Urine Blood Negative (NEGATIVE) 05/15/24 15:25 Urine Nitrite Negative (NEGATIVE) 05/15/24 15:25 Urine Bilirubin Negative (NEGATIVE) 05/15/24 15:25 Urine Urobilinogen Normal (NORMAL) 05/15/24 15:25 Ur Leukocyte Esterase 1+ (NEGATIVE) 05/15/24 15:25 Urine RBC 0-2 /HPF (0-3) 05/15/24 15:25 Urine WBC 10-20 /HPF (0-5) A 05/15/24 15:25 Ur Squamous Epith Cells Rare /HPF (NEGATIVE) 05/15/24 15:25 Urine Bacteria Trace /HPF (NEGATIVE) 05/15/24 15:25 Urine Mucus Numerous /HPF (NEGATIVE) 05/15/24 15:25 Ur Culture Indicated? Yes/culture set up 05/15/24 15:25 Plan (1) Generalized weakness: Status: Acute Narrative Support Text: continue physical therapy, routine labs fu with cardiology as scheduled and dr marce velez (2) Acute hypotension: Status: Acute Plan: Continue antibiotics and respiratory therapy, strict I&O's, home medications. (3) Pneumonia: Status: Acute (4) BPH (benign prostatic hyperplasia): Status: Acute
[2024-05-20 06:15] LABS: BASOPHILS # (AUTO) 0.1 X10^3/uL (0.0-0.1); BASOPHILS % (AUTO) 1.1 % (0.2-1.0); EOSINOPHILS # (AUTO) 0.3 x10^3/uL (0.0-0.2); EOSINOPHILS % (AUTO) 4.5 % (0.9-2.9); HEMATOCRIT 26.6 % (42.0-54.0); HEMOGLOBIN 8.7 g/dL (13.5-18.0); LYMPHOCYTES # (AUTO) 1.6 X10^3/uL (1.3-2.9); LYMPHOCYTES % (AUTO) 23.9 % (21.0-51.0); MEAN CORPUSCULAR HEMOGLOBIN 28.7 pg (27.0-34.0); MEAN CORPUSCULAR HGB CONC 32.9 g/dL (33.0-35.0); MEAN CORPUSCULAR VOLUME 87.3 fL (80.0-100.0); MEAN PLATELET VOLUME 7.6 fL (7.4-11.0); MONOCYTES # (AUTO) 0.8 x10^3/uL (0.3-0.8); MONOCYTES % (AUTO) 11.7 % (0.0-13.0); NEUTROPHILS % (AUTO) 58.8 % (42.0-75.0); PLATELET COUNT 275 X10^3/uL (150.0-450.0); RED BLOOD COUNT 3.04 X10^6/uL (4.7-6.0); RED CELL DISTRIBUTION WIDTH 16.6 % (11.6-16.5); WHITE BLOOD COUNT 6.7 X10^3/uL (3.6-10.0)
[2024-05-20 06:38] LABS: ALANINE AMINOTRANSFERASE 9 Units/L (12-78); ALBUMIN 2.7 g/dL (3.4-5.0); ALKALINE PHOSPHATASE 48 Units/L (46-116); ASPARTATE AMINO TRANSFERASE 12 Units/L (15-37); BLOOD UREA NITROGEN 15 mg/dL (7-18); CALCIUM 8.4 mg/dL (8.5-10.1); CARBON DIOXIDE 29.7 mmol/L (21-32); CHLORIDE 106 mmol/L (98-107); COR CA(FOR HYPOALB) 9.4 mg/dL (8.5-10.1); CREATININE 0.98 mg/dL (0.70-1.30); GLUCOSE 105 mg/dL (65-99); MAGNESIUM 1.9 mg/dL (2.0-2.9); POTASSIUM 3.3 mmol/L (3.5-5.1); SODIUM 141 mmol/L (136-145); TOTAL PROTEIN 6.1 g/dL (6.4-8.2); eGFR NON BLACK RACES > 60 (>60)
[2024-05-20] MEDS ORDERED: CONSULT PHARMACY - POTASSIUM & MAGNESIUM XX SCH (08:00)
[2024-05-20] MEDS: MAG-OX TAB PO SCH (09:44)
[2024-05-20] MEDS: K-DUR TAB 20 MEQ PO SCH (09:45)
[2024-05-20 12:39] VITALS: BMI 28.8
[2024-05-21] MEDS ORDERED: CONSULT PHARMACY - POTASSIUM & MAGNESIUM XX SCH (08:00)
[2024-05-22 05:10] LABS: BASOPHILS % (AUTO) 0.5 % (0.2-1.0); EOSINOPHILS # (AUTO) 0.3 x10^3/uL (0.0-0.2); HEMATOCRIT 27.5 % (42.0-54.0); HEMOGLOBIN 8.9 g/dL (13.5-18.0); LYMPHOCYTES # (AUTO) 1.6 X10^3/uL (1.3-2.9); LYMPHOCYTES % (AUTO) 24.2 % (21.0-51.0); MEAN CORPUSCULAR HGB CONC 32.2 g/dL (33.0-35.0); MEAN CORPUSCULAR VOLUME 86.8 fL (80.0-100.0); MONOCYTES # (AUTO) 0.8 x10^3/uL (0.3-0.8); MONOCYTES % (AUTO) 11.7 % (0.0-13.0); NEUTROPHILS % (AUTO) 59.6 % (42.0-75.0); PLATELET COUNT 293 X10^3/uL (150.0-450.0); RED BLOOD COUNT 3.17 X10^6/uL (4.7-6.0); RED CELL DISTRIBUTION WIDTH 16.1 % (11.6-16.5); WHITE BLOOD COUNT 6.6 X10^3/uL (3.6-10.0)
[2024-05-22 05:27] LABS: ALANINE AMINOTRANSFERASE 9 Units/L (12-78); ALBUMIN 2.7 g/dL (3.4-5.0); ALKALINE PHOSPHATASE 51 Units/L (46-116); ASPARTATE AMINO TRANSFERASE 9 Units/L (15-37); BLOOD UREA NITROGEN 14 mg/dL (7-18); CALCIUM 8.2 mg/dL (8.5-10.1); CARBON DIOXIDE 29.6 mmol/L (21-32); CHLORIDE 105 mmol/L (98-107); COR CA(FOR HYPOALB) 9.2 mg/dL (8.5-10.1); COR NA(FOR HYPERGLY) 141 mmol/L (136-145); CREATININE 0.97 mg/dL (0.70-1.30); GLUCOSE 122 mg/dL (65-99); MAGNESIUM 1.9 mg/dL (2.0-2.9); POTASSIUM 3.4 mmol/L (3.5-5.1); SODIUM 140 mmol/L (136-145); TOTAL PROTEIN 6.1 g/dL (6.4-8.2); eGFR NON BLACK RACES > 60 (>60)
[2024-05-22] MEDS ORDERED: CONSULT PHARMACY - POTASSIUM & MAGNESIUM XX SCH (06:00)
[2024-05-22] MEDS: MAG-OX TAB PO SCH (08:16)
[2024-05-22] MEDS: K-DUR TAB 20 MEQ PO SCH (08:16)
--- NOTE | 2024-05-22 12:11 | PCM.PROG ---
Progress Note Progress Note for Day of Date of Exam: 05/22/24 Subjective Subjective: This is a 63-year-old white male who has been treated for recently treated for pneumonia. The patient has had multiple recent ER visits, as well as hospitalizations due to syncope, dehydration, acute renal insufficiency. We have been working to get him placed at [facility]. He needs some rehab therapy. The patient is legally blind and lives alone. He has had multiple falls and needs fpc care to help with medication administration and management of his De Souza catheter. He also has had diffuse weakness and will benefit from physical therapy. Pt had indwelling de souza cath that was removed last . Pt had to have catheter reinserted due to urinary retention caused from BPH Past Medical Family Social History Allergies: Allergies brimonidine Allergy (Verified 05/06/24 10:15) ferrous sulfate [From FeroSul] Allergy (Verified 05/06/24 10:15) iron [From FeroSul] Allergy (Verified 05/06/24 10:15) nitroglycerin Allergy (Verified 05/06/24 10:15) tetanus immune globulin Allergy (Verified 05/06/24 10:15) Vital Signs and I&O's Vital Signs: Vital Signs Temperature 97.3 F Pulse Rate [Right Brachial] 77 Respiratory Rate 19 Blood Pressure [Left Arm] 136/68 O2 Sat by Pulse Oximetry 95 Intake and Output: Intake & Output 05/20/24 05/21/24 05/22/24 05/23/24 11:59 11:59 11:59 11:59 Intake Total 640 / 640 940 / 940 1230 / 1230 Output Total 700 / 700 1950 / 1950 1230 / 1230 Balance -60 / -60 -1010 / -1010 0 / 0 Physical Exam Oriented: Normal Eyes: Blurred Vision Ear: Normal Nose: Normal Throat: Normal Respiratory: Diminished Cardiovascular: Other (pacemaker present) : Normal Auscultation: Bowel Sounds: Normal Tenderness: Normal Skin: Decreased Turgur Musculoskeletal: Motor Deficit Psychiatric: Anxiety and Depression Mood Description: Depressed Affect: Depressed Speech Pattern: Clear and Appropriate Laboratory and Diagnostics 05/22/24 04:47 05/22/24 04:47 Labs: 05/15/24 15:25 Urine,Catheterized Urine Culture - Final Laboratory WBC 6.6 X10^3/uL (3.6-10.0) 05/22/24 04:47 RBC 3.17 X10^6/uL (4.7-6.0) L 05/22/24 04:47 Hgb 8.9 g/dL (13.5-18.0) L 05/22/24 04:47 Hct 27.5 % (42.0-54.0) L 05/22/24 04:47 MCV 86.8 fL (80.0-100.0) 05/22/24 04:47 MCH 28.0 pg (27.0-34.0) 05/22/24 04:47 MCHC 32.2 g/dL (33.0-35.0) L 05/22/24 04:47 RDW 16.1 % (11.6-16.5) 05/22/24 04:47 Plt Count 293 X10^3/uL (150.0-450.0) 05/22/24 04:47 MPV 7.0 fL (7.4-11.0) L 05/22/24 04:47 Neut % (Auto) 59.6 % (42.0-75.0) 05/22/24 04:47 Lymph % (Auto) 24.2 % (21.0-51.0) 05/22/24 04:47 [place] % (Auto) 11.7 % (0.0-13.0) 05/22/24 04:47 Eos % (Auto) 4.0 % (0.9-2.9) H 05/22/24 04:47 Baso % (Auto) 0.5 % (0.2-1.0) 05/22/24 04:47 Neut # (Auto) 4.0 x10^3/uL (2.2-4.8) 05/22/24 04:47 Lymph # (Auto) 1.6 X10^3/uL (1.3-2.9) 05/22/24 04:47 [place] # (Auto) 0.8 x10^3/uL (0.3-0.8) 05/22/24 04:47 Eos # (Auto) 0.3 x10^3/uL (0.0-0.2) H 05/22/24 04:47 Baso # (Auto) 0.0 X10^3/uL (0.0-0.1) 05/22/24 04:47 Absolute Nucleated RBC 0.0 /100WBC 05/22/24 04:47 Sodium 140 mmol/L (136-145) 05/22/24 04:47 Corrected Sodium 141 mmol/L (136-145) 05/22/24 04:47 Potassium 3.4 mmol/L (3.5-5.1) L 05/22/24 04:47 Chloride 105 mmol/L (98-107) 05/22/24 04:47 Carbon Dioxide 29.6 mmol/L (21-32) 05/22/24 04:47 BUN 14 mg/dL (7-18) 05/22/24 04:47 Creatinine 0.97 mg/dL (0.70-1.30) 05/22/24 04:47 Est GFR (MDRD) Af Amer > 60 (>60) 05/22/24 04:47 Est GFR (MDRD) Non-Af > 60 (>60) 05/22/24 04:47 Glucose 122 mg/dL (65-99) H 05/22/24 04:47 Calcium 8.2 mg/dL (8.5-10.1) L 05/22/24 04:47 Corrected Calcium 9.2 mg/dL (8.5-10.1) 05/22/24 04:47 Magnesium 1.9 mg/dL (2.0-2.9) L 05/22/24 04:47 Total Bilirubin 0.20 mg/dL (0.2-1.0) 05/22/24 04:47 AST 9 Units/L (15-37) L 05/22/24 04:47 ALT 9 Units/L (12-78) L 05/22/24 04:47 Alkaline Phosphatase 51 Units/L (46-116) 05/22/24 04:47 Total Protein 6.1 g/dL (6.4-8.2) L 05/22/24 04:47 Albumin 2.7 g/dL (3.4-5.0) L 05/22/24 04:47 Globulin 3.4 g/dL (2.5-4.5) 05/22/24 04:47 Albumin/Globulin Ratio 0.8 Ratio (1.1-2.1) L 05/22/24 04:47 Specimen Type Catherized urine 05/15/24 15:25 Urine Color Yellow (YELLOW) 05/15/24 15:25 Urine Appearance Clear (CLEAR) 05/15/24 15:25 Urine pH 6.0 (5.0 - 8.0) 05/15/24 15:25 Ur Specific [place] 1.020 (1.000-1.030) 05/15/24 15:25 Urine Protein 1+ (NEGATIVE) 05/15/24 15:25 Urine Glucose (UA) Negative (NEGATIVE) 05/15/24 15:25 Urine Ketones Negative (NEGATIVE) 05/15/24 15:25 Urine Blood Negative (NEGATIVE) 05/15/24 15: Urine Nitrite Negative (NEGATIVE) 05/15/24 15: Urine Bilirubin Negative (NEGATIVE) 05/15/24 15:25 Urine Urobilinogen Normal (NORMAL) 05/15/24 15:25 Ur Leukocyte Esterase 1+ (NEGATIVE) 05/15/24 15:25 Urine RBC 0-2 /HPF (0-3) 05/15/24 15:25 Urine WBC 10-20 /HPF (0-5) A 05/15/24 15:25 Ur Squamous Epith Cells Rare /HPF (NEGATIVE) 05/15/24 15:25 Urine Bacteria Trace /HPF (NEGATIVE) 05/15/24 15:25 Urine Mucus Numerous /HPF (NEGATIVE) 05/15/24 15:25 Ur Culture Indicated? Yes/culture set up 05/15/24 15:25 Plan (1) Generalized weakness: Status: Acute Narrative Support Text: continue with swing bed therapy. case management working [place] placement at [facility] (2) Acute hypotension: Status: Acute Plan: Continue antibiotics and respiratory therapy, strict I&O's, home medications. (3) Pneumonia: Status: Acute (4) BPH (benign prostatic hyperplasia): Status: Acute
[2024-05-23 13:38] LABS: MAGNESIUM 1.9 mg/dL (2.0-2.9); POTASSIUM 4.1 mmol/L (3.5-5.1)
[2024-05-24] MEDS ORDERED: CONSULT PHARMACY - POTASSIUM & MAGNESIUM XX SCH (08:00)
[2024-05-24] MEDS: MAG-OX TAB PO SCH (09:28)
[2024-05-25 05:21] LABS: BASOPHILS # (AUTO) 0.1 X10^3/uL (0.0-0.1); BASOPHILS % (AUTO) 0.9 % (0.2-1.0); EOSINOPHILS # (AUTO) 0.3 x10^3/uL (0.0-0.2); EOSINOPHILS % (AUTO) 4.4 % (0.9-2.9); HEMOGLOBIN 9.1 g/dL (13.5-18.0); LYMPHOCYTES # (AUTO) 1.7 X10^3/uL (1.3-2.9); LYMPHOCYTES % (AUTO) 25.1 % (21.0-51.0); MEAN CORPUSCULAR HEMOGLOBIN 28.1 pg (27.0-34.0); MEAN CORPUSCULAR HGB CONC 32.6 g/dL (33.0-35.0); MEAN CORPUSCULAR VOLUME 86.4 fL (80.0-100.0); MEAN PLATELET VOLUME 7.4 fL (7.4-11.0); MONOCYTES # (AUTO) 0.8 x10^3/uL (0.3-0.8); MONOCYTES % (AUTO) 11.3 % (0.0-13.0); NEUTROPHILS # (AUTO) 3.9 x10^3/uL (2.2-4.8); NEUTROPHILS % (AUTO) 58.3 % (42.0-75.0); PLATELET COUNT 299 X10^3/uL (150.0-450.0); RED BLOOD COUNT 3.24 X10^6/uL (4.7-6.0); RED CELL DISTRIBUTION WIDTH 16.6 % (11.6-16.5); WHITE BLOOD COUNT 6.7 X10^3/uL (3.6-10.0)
[2024-05-25 05:42] LABS: ALANINE AMINOTRANSFERASE 11 Units/L (12-78); ALBUMIN 2.7 g/dL (3.4-5.0); ALKALINE PHOSPHATASE 51 Units/L (46-116); ASPARTATE AMINO TRANSFERASE 8 Units/L (15-37); BLOOD UREA NITROGEN 16 mg/dL (7-18); CALCIUM 8.4 mg/dL (8.5-10.1); CHLORIDE 106 mmol/L (98-107); COR CA(FOR HYPOALB) 9.4 mg/dL (8.5-10.1); COR NA(FOR HYPERGLY) 141 mmol/L (136-145); CREATININE 1.06 mg/dL (0.70-1.30); GLUCOSE 144 mg/dL (65-99); POTASSIUM 3.4 mmol/L (3.5-5.1); SODIUM 140 mmol/L (136-145); TOTAL PROTEIN 6.1 g/dL (6.4-8.2); eGFR NON BLACK RACES > 60 (>60)
[2024-05-25] MEDS: K-DUR TAB 20 MEQ PO SCH (08:46)
--- NOTE | 2024-05-25 15:54 | PCM.PROG ---
Progress Note Progress Note for Day of Date of Exam: 05/25/24 Subjective Subjective: This is a 63-year-old white male who has been treated for recently treated for pneumonia. The patient has had multiple recent ER visits, as well as hospitalizations due to syncope, dehydration, acute renal insufficiency. We have been working to get him placed at [facility]. He needs some rehab therapy. The patient is legally blind and lives alone. He has had multiple falls and needs care home care to help with medication administration and management of his De Souza catheter. He also has had diffuse weakness and will benefit from physical therapy. Pt had indwelling de souza cath that was removed last . Pt had to have catheter reinserted due to urinary retention caused from BPH Past Medical Family Social History Allergies: Allergies brimonidine Allergy (Verified 05/06/24 10:15) ferrous sulfate [From FeroSul] Allergy (Verified 05/06/24 10:15) iron [From FeroSul] Allergy (Verified 05/06/24 10:15) nitroglycerin Allergy (Verified 05/06/24 10:15) tetanus immune globulin Allergy (Verified 05/06/24 10:15) Vital Signs and I&O's Intake and Output: Intake & Output 05/23/24 05/24/24 05/25/24 05/26/24 11:59 11:59 11:59 11:59 Intake Total 1300 / 1300 710 / 710 1590 / 1590 Output Total 1710 / 1710 1200 / 1200 1160 / 1160 Balance -410 / -410 -490 / -490 430 / 430 Physical Exam Oriented: Normal Eyes: Blurred Vision Ear: Normal Nose: Normal Throat: Normal Respiratory: Diminished Cardiovascular: Other (pacemaker present) : Normal Auscultation: Bowel Sounds: Normal Tenderness: Normal Skin: Decreased Turgur Musculoskeletal: Motor Deficit Psychiatric: Anxiety and Depression Mood Description: Depressed Affect: Depressed Speech Pattern: Clear and Appropriate Laboratory and Diagnostics 05/25/24 04:38 05/25/24 04:38 Labs: 05/15/24 15:25 Urine,Catheterized Urine Culture - Final Laboratory WBC 6.7 X10^3/uL (3.6-10.0) 05/25/24 04:38 RBC 3.24 X10^6/uL (4.7-6.0) L 05/25/24 04:38 Hgb 9.1 g/dL (13.5-18.0) L 05/25/24 04:38 Hct 28.0 % (42.0-54.0) L 05/25/24 04:38 MCV 86.4 fL (80.0-100.0) 05/25/24 04:38 MCH 28.1 pg (27.0-34.0) 05/25/24 04:38 MCHC 32.6 g/dL (33.0-35.0) L 05/25/24 04:38 RDW 16.6 % (11.6-16.5) H 05/25/24 04:38 Plt Count 299 X10^3/uL (150.0-450.0) 05/25/24 04:38 MPV 7.4 fL (7.4-11.0) 05/25/24 04:38 Neut % (Auto) 58.3 % (42.0-75.0) 05/25/24 04:38 Lymph % (Auto) 25.1 % (21.0-51.0) 05/25/24 04:38 [place] % (Auto) 11.3 % (0.0-13.0) 05/25/24 04:38 Eos % (Auto) 4.4 % (0.9-2.9) H 05/25/24 04:38 Baso % (Auto) 0.9 % (0.2-1.0) 05/25/24 04:38 Neut # (Auto) 3.9 x10^3/uL (2.2-4.8) 05/25/24 04:38 Lymph # (Auto) 1.7 X10^3/uL (1.3-2.9) 05/25/24 04:38 [place] # (Auto) 0.8 x10^3/uL (0.3-0.8) 05/25/24 04:38 Eos # (Auto) 0.3 x10^3/uL (0.0-0.2) H 05/25/24 04:38 Baso # (Auto) 0.1 X10^3/uL (0.0-0.1) 05/25/24 04:38 Absolute Nucleated RBC 0.0 /100WBC 05/25/24 04:38 Sodium 140 mmol/L (136-145) 05/25/24 04:38 Corrected Sodium 141 mmol/L (136-145) 05/25/24 04:38 Potassium 3.4 mmol/L (3.5-5.1) L 05/25/24 04:38 Chloride 106 mmol/L (98-107) 05/25/24 04:38 Carbon Dioxide 28.0 mmol/L (21-32) 05/25/24 04:38 BUN 16 mg/dL (7-18) 05/25/24 04:38 Creatinine 1.06 mg/dL (0.70-1.30) 05/25/24 04:38 Est GFR (MDRD) Af Amer > 60 (>60) 05/25/24 04:38 Est GFR (MDRD) Non-Af > 60 (>60) 05/25/24 04:38 Glucose 144 mg/dL (65-99) H 05/25/24 04:38 Calcium 8.4 mg/dL (8.5-10.1) L 05/25/24 04:38 Corrected Calcium 9.4 mg/dL (8.5-10.1) 05/25/24 04:38 Magnesium 2.0 mg/dL (2.0-2.9) 05/25/24 04:38 Total Bilirubin 0.20 mg/dL (0.2-1.0) 05/25/24 04:38 AST 8 Units/L (15-37) L 05/25/24 04:38 ALT 11 Units/L (12-78) L 05/25/24 04:38 Alkaline Phosphatase 51 Units/L (46-116) 05/25/24 04:38 Total Protein 6.1 g/dL (6.4-8.2) L 05/25/24 04:38 Albumin 2.7 g/dL (3.4-5.0) L 05/25/24 04:38 Globulin 3.4 g/dL (2.5-4.5) 05/25/24 04:38 Albumin/Globulin Ratio 0.8 Ratio (1.1-2.1) L 05/25/24 04:38 Specimen Type Catherized urine 05/15/24 15:25 Urine Color Yellow (YELLOW) 05/15/24 15:25 Urine Appearance Clear (CLEAR) 05/15/24 15:25 Urine pH 6.0 (5.0 - 8.0) 05/15/24 15:25 Ur Specific [place] 1.020 (1.000-1.030) 05/15/24 15:25 Urine Protein 1+ (NEGATIVE) 05/15/24 15:25 Urine Glucose (UA) Negative (NEGATIVE) 05/15/24 15:25 Urine Ketones Negative (NEGATIVE) 05/15/24 15:25 Urine Blood Negative (NEGATIVE) 05/15/24 15: Urine Nitrite Negative (NEGATIVE) 05/15/24 15: Urine Bilirubin Negative (NEGATIVE) 05/15/24 15:25 Urine Urobilinogen Normal (NORMAL) 05/15/24 15:25 Ur Leukocyte Esterase 1+ (NEGATIVE) 05/15/24 15:25 Urine RBC 0-2 /HPF (0-3) 05/15/24 15:25 Urine WBC 10-20 /HPF (0-5) A 05/15/24 15:25 Ur Squamous Epith Cells Rare /HPF (NEGATIVE) 05/15/24 15:25 Urine Bacteria Trace /HPF (NEGATIVE) 05/15/24 15:25 Urine Mucus Numerous /HPF (NEGATIVE) 05/15/24 15:25 Ur Culture Indicated? Yes/culture set up 05/15/24 15:25 Plan (1) Generalized weakness: Status: Acute (2) Acute hypotension: Status: Acute Plan: Continue antibiotics and respiratory therapy, strict I&O's, home medications. (3) Pneumonia: Status: Acute (4) BPH (benign prostatic hyperplasia): Status: Acute
[2024-05-25] MEDS: CONSULT PHARMACY - POTASSIUM & MAGNESIUM XX SCH ×2 (18:59)
[2024-05-27 05:31] LABS: BASOPHILS # (AUTO) 0.1 X10^3/uL (0.0-0.1); BASOPHILS % (AUTO) 0.8 % (0.2-1.0); EOSINOPHILS # (AUTO) 0.3 x10^3/uL (0.0-0.2); EOSINOPHILS % (AUTO) 4.6 % (0.9-2.9); HEMATOCRIT 29.8 % (42.0-54.0); HEMOGLOBIN 9.5 g/dL (13.5-18.0); LYMPHOCYTES # (AUTO) 1.4 X10^3/uL (1.3-2.9); LYMPHOCYTES % (AUTO) 21.4 % (21.0-51.0); MEAN CORPUSCULAR HEMOGLOBIN 27.6 pg (27.0-34.0); MEAN CORPUSCULAR HGB CONC 31.9 g/dL (33.0-35.0); MEAN CORPUSCULAR VOLUME 86.6 fL (80.0-100.0); MEAN PLATELET VOLUME 7.4 fL (7.4-11.0); MONOCYTES # (AUTO) 0.7 x10^3/uL (0.3-0.8); MONOCYTES % (AUTO) 11.1 % (0.0-13.0); NEUTROPHILS # (AUTO) 4.1 x10^3/uL (2.2-4.8); NEUTROPHILS % (AUTO) 62.1 % (42.0-75.0); PLATELET COUNT 334 X10^3/uL (150.0-450.0); RED BLOOD COUNT 3.44 X10^6/uL (4.7-6.0); RED CELL DISTRIBUTION WIDTH 16.8 % (11.6-16.5); WHITE BLOOD COUNT 6.7 X10^3/uL (3.6-10.0)
[2024-05-27 05:41] LABS: ALANINE AMINOTRANSFERASE 9 Units/L (12-78); ALBUMIN 2.9 g/dL (3.4-5.0); ALKALINE PHOSPHATASE 49 Units/L (46-116); ASPARTATE AMINO TRANSFERASE 9 Units/L (15-37); BLOOD UREA NITROGEN 15 mg/dL (7-18); CALCIUM 8.5 mg/dL (8.5-10.1); CARBON DIOXIDE 29.7 mmol/L (21-32); CHLORIDE 105 mmol/L (98-107); COR CA(FOR HYPOALB) 9.4 mg/dL (8.5-10.1); CREATININE 0.94 mg/dL (0.70-1.30); GLUCOSE 105 mg/dL (65-99); MAGNESIUM 1.9 mg/dL (2.0-2.9); POTASSIUM 3.7 mmol/L (3.5-5.1); SODIUM 141 mmol/L (136-145); TOTAL PROTEIN 6.3 g/dL (6.4-8.2); eGFR NON BLACK RACES > 60 (>60)
[2024-05-27] MEDS ORDERED: CONSULT PHARMACY - POTASSIUM & MAGNESIUM XX SCH (08:00)
[2024-05-27] MEDS: MAG-OX TAB PO SCH (08:51)
[2024-05-29 06:06] LABS: BASOPHILS % (AUTO) 0.5 % (0.2-1.0); EOSINOPHILS # (AUTO) 0.3 x10^3/uL (0.0-0.2); EOSINOPHILS % (AUTO) 4.1 % (0.9-2.9); HEMATOCRIT 28.6 % (42.0-54.0); HEMOGLOBIN 9.2 g/dL (13.5-18.0); LYMPHOCYTES # (AUTO) 1.5 X10^3/uL (1.3-2.9); LYMPHOCYTES % (AUTO) 21.6 % (21.0-51.0); MEAN CORPUSCULAR HEMOGLOBIN 27.7 pg (27.0-34.0); MEAN CORPUSCULAR HGB CONC 32.2 g/dL (33.0-35.0); MEAN CORPUSCULAR VOLUME 86.2 fL (80.0-100.0); MEAN PLATELET VOLUME 7.8 fL (7.4-11.0); MONOCYTES # (AUTO) 0.8 x10^3/uL (0.3-0.8); MONOCYTES % (AUTO) 11.8 % (0.0-13.0); NEUTROPHILS # (AUTO) 4.3 x10^3/uL (2.2-4.8); PLATELET COUNT 337 X10^3/uL (150.0-450.0); RED BLOOD COUNT 3.32 X10^6/uL (4.7-6.0); RED CELL DISTRIBUTION WIDTH 16.7 % (11.6-16.5); WHITE BLOOD COUNT 6.9 X10^3/uL (3.6-10.0)
[2024-05-29 06:21] LABS: ALANINE AMINOTRANSFERASE 9 Units/L (12-78); ALBUMIN 2.8 g/dL (3.4-5.0); ALKALINE PHOSPHATASE 45 Units/L (46-116); ASPARTATE AMINO TRANSFERASE 10 Units/L (15-37); BLOOD UREA NITROGEN 14 mg/dL (7-18); CALCIUM 8.7 mg/dL (8.5-10.1); CARBON DIOXIDE 27.2 mmol/L (21-32); CHLORIDE 106 mmol/L (98-107); COR CA(FOR HYPOALB) 9.7 mg/dL (8.5-10.1); CREATININE 1.03 mg/dL (0.70-1.30); GLUCOSE 110 mg/dL (65-99); POTASSIUM 3.7 mmol/L (3.5-5.1); SODIUM 140 mmol/L (136-145); TOTAL PROTEIN 6.2 g/dL (6.4-8.2); eGFR NON BLACK RACES > 60 (>60)
[2024-05-29] MEDS ORDERED: CONSULT PHARMACY - POTASSIUM & MAGNESIUM XX SCH ×2 (07:00→20:00)
[2024-05-29] MEDS: K-DUR TAB 20 MEQ PO SCH (09:58)
[2024-05-30] MEDS: ZOFRAN TAB 4 MG PO PRN (13:10)
[2024-05-30] MEDS: LINZESS PO ONE (14:42)
[2024-05-30] MEDS: PHENERGAN INJ 25 MG IM ONE (14:43)
[2024-06-01 04:52] LABS: HEMOGLOBIN 9.5 g/dL (13.5-18.0); MEAN PLATELET VOLUME 7.7 fL (7.4-11.0)
[2024-06-01 05:02] LABS: ALANINE AMINOTRANSFERASE 10 Units/L (12-78); ALBUMIN 2.9 g/dL (3.4-5.0); ALKALINE PHOSPHATASE 45 Units/L (46-116); ASPARTATE AMINO TRANSFERASE 11 Units/L (15-37); BLOOD UREA NITROGEN 16 mg/dL (7-18); CALCIUM 8.5 mg/dL (8.5-10.1); CARBON DIOXIDE 29.3 mmol/L (21-32); CHLORIDE 104 mmol/L (98-107); COR CA(FOR HYPOALB) 9.4 mg/dL (8.5-10.1); CREATININE 1.06 mg/dL (0.70-1.30); GLUCOSE 105 mg/dL (65-99); POTASSIUM 3.6 mmol/L (3.5-5.1); SODIUM 142 mmol/L (136-145); TOTAL PROTEIN 6.3 g/dL (6.4-8.2); eGFR NON BLACK RACES > 60 (>60)
[2024-06-01 05:15] LABS: BASOPHILS % (AUTO) 0.6 % (0.2-1.0); EOSINOPHILS # (AUTO) 0.3 x10^3/uL (0.0-0.2); EOSINOPHILS % (AUTO) 4.1 % (0.9-2.9); HEMATOCRIT 29.5 % (42.0-54.0); LYMPHOCYTES # (AUTO) 1.7 X10^3/uL (1.3-2.9); MEAN CORPUSCULAR HEMOGLOBIN 27.6 pg (27.0-34.0); MEAN CORPUSCULAR HGB CONC 32.2 g/dL (33.0-35.0); MEAN CORPUSCULAR VOLUME 85.8 fL (80.0-100.0); MONOCYTES # (AUTO) 0.7 x10^3/uL (0.3-0.8); MONOCYTES % (AUTO) 11.2 % (0.0-13.0); NEUTROPHILS # (AUTO) 3.8 x10^3/uL (2.2-4.8); NEUTROPHILS % (AUTO) 58.1 % (42.0-75.0); PLATELET COUNT 333 X10^3/uL (150.0-450.0); RED BLOOD COUNT 3.43 X10^6/uL (4.7-6.0); WHITE BLOOD COUNT 6.6 X10^3/uL (3.6-10.0)
[2024-06-01] MEDS ORDERED: CONSULT PHARMACY - POTASSIUM & MAGNESIUM XX SCH (07:00)
[2024-06-01] MEDS: CONSULT PHARMACY - POTASSIUM & MAGNESIUM XX SCH (07:18)
[2024-06-01] MEDS: K-DUR TAB 20 MEQ PO SCH (08:39)
--- NOTE | 2024-06-01 12:56 | PCM.PROG ---
Progress Note Progress Note for Day of Date of Exam: 06/01/24 Subjective Subjective: This is a 63-year-old white male who has been treated for recently treated for pneumonia. The patient has had multiple recent ER visits, as well as hospitalizations due to syncope, dehydration, acute renal insufficiency. We have been working to get him placed at [facility]. He needs some rehab therapy. The patient is legally blind and lives alone. He has had multiple falls and needs long term care to help with medication administration and management of his De Souza catheter. He also has had diffuse weakness and will benefit from physical therapy. Pt had indwelling de souza cath that was removed 2 weeks ago. Pt had to have catheter reinserted due to urinary retention caused from BPH. hgb 9.5 Past Medical Family Social History Allergies: Allergies brimonidine Allergy (Verified 05/06/24 10:15) ferrous sulfate [From FeroSul] Allergy (Verified 05/06/24 10:15) iron [From FeroSul] Allergy (Verified 05/06/24 10:15) nitroglycerin Allergy (Verified 05/06/24 10:15) tetanus immune globulin Allergy (Verified 05/06/24 10:15) Vital Signs and I&O's Vital Signs: Vital Signs Temperature 97.6 F Pulse Rate [Right Brachial] 80 Respiratory Rate 18 Blood Pressure [Left Arm] 117/66 O2 Sat by Pulse Oximetry 92 Intake and Output: Intake & Output 05/30/24 05/31/24 06/01/24 06/02/24 11:59 11:59 11:59 11:59 Intake Total 835 / 835 690 / 690 1487 / 1487 Output Total 1840 / 1840 650 / 650 800 / 800 Balance -1005 / -1005 40 / 40 687 / 687 Physical Exam Oriented: Normal Eyes: Blurred Vision Ear: Normal Nose: Normal Throat: Normal Respiratory: Diminished Cardiovascular: Other (pacemaker present) : Normal Auscultation: Bowel Sounds: Normal Tenderness: Normal Skin: Decreased Turgur Musculoskeletal: Motor Deficit Psychiatric: Anxiety and Depression Mood Description: Depressed Affect: Depressed Speech Pattern: Clear and Appropriate Laboratory and Diagnostics 06/01/24 04:16 06/01/24 04:16 Labs: 05/15/24 15:25 Urine,Catheterized Urine Culture - Final Laboratory WBC 6.6 X10^3/uL (3.6-10.0) 06/01/24 04:16 RBC 3.43 X10^6/uL (4.7-6.0) L 06/01/24 04:16 Hgb 9.5 g/dL (13.5-18.0) L 06/01/24 04:16 Hct 29.5 % (42.0-54.0) L 06/01/24 04:16 MCV 85.8 fL (80.0-100.0) 06/01/24 04:16 MCH 27.6 pg (27.0-34.0) 06/01/24 04:16 MCHC 32.2 g/dL (33.0-35.0) L 06/01/24 04:16 RDW 17.0 % (11.6-16.5) H 06/01/24 04:16 Plt Count 333 X10^3/uL (150.0-450.0) 06/01/24 04:16 MPV 7.7 fL (7.4-11.0) 06/01/24 04:16 Neut % (Auto) 58.1 % (42.0-75.0) 06/01/24 04:16 Lymph % (Auto) 26.0 % (21.0-51.0) 06/01/24 04:16 [place] % (Auto) 11.2 % (0.0-13.0) 06/01/24 04:16 Eos % (Auto) 4.1 % (0.9-2.9) H 06/01/24 04:16 Baso % (Auto) 0.6 % (0.2-1.0) 06/01/24 04:16 Neut # (Auto) 3.8 x10^3/uL (2.2-4.8) 06/01/24 04:16 Lymph # (Auto) 1.7 X10^3/uL (1.3-2.9) 06/01/24 04:16 [place] # (Auto) 0.7 x10^3/uL (0.3-0.8) 06/01/24 04:16 Eos # (Auto) 0.3 x10^3/uL (0.0-0.2) H 06/01/24 04:16 Baso # (Auto) 0.0 X10^3/uL (0.0-0.1) 06/01/24 04:16 Absolute Nucleated RBC 0.1 /100WBC 06/01/24 04:16 Sodium 142 mmol/L (136-145) 06/01/24 04:16 Corrected Sodium TNP 06/01/24 04:16 Potassium 3.6 mmol/L (3.5-5.1) 06/01/24 04:16 Chloride 104 mmol/L (98-107) 06/01/24 04:16 Carbon Dioxide 29.3 mmol/L (21-32) 06/01/24 04:16 BUN 16 mg/dL (7-18) 06/01/24 04:16 Creatinine 1.06 mg/dL (0.70-1.30) 06/01/24 04:16 Est GFR (MDRD) Af Amer > 60 (>60) 06/01/24 04:16 Est GFR (MDRD) Non-Af > 60 (>60) 06/01/24 04:16 Glucose 105 mg/dL (65-99) H 06/01/24 04:16 Calcium 8.5 mg/dL (8.5-10.1) 06/01/24 04:16 Corrected Calcium 9.4 mg/dL (8.5-10.1) 06/01/24 04:16 Magnesium 1.9 mg/dL (2.0-2.9) L 06/01/24 04:16 Total Bilirubin 0.20 mg/dL (0.2-1.0) 06/01/24 04:16 AST 11 Units/L (15-37) L 06/01/24 04:16 ALT 10 Units/L (12-78) L 06/01/24 04:16 Alkaline Phosphatase 45 Units/L (46-116) L 06/01/24 04:16 Total Protein 6.3 g/dL (6.4-8.2) L 06/01/24 04:16 Albumin 2.9 g/dL (3.4-5.0) L 06/01/24 04:16 Globulin 3.4 g/dL (2.5-4.5) 06/01/24 04:16 Albumin/Globulin Ratio 0.9 Ratio (1.1-2.1) L 06/01/24 04:16 Specimen Type Catherized urine 05/15/24 15:25 Urine Color Yellow (YELLOW) 05/15/24 15:25 Urine Appearance Clear (CLEAR) 05/15/24 15:25 Urine pH 6.0 (5.0 - 8.0) 05/15/24 15:25 Ur Specific [place] 1.020 (1.000-1.030) 05/15/24 15:25 Urine Protein 1+ (NEGATIVE) 05/15/24 15:25 Urine Glucose (UA) Negative (NEGATIVE) 05/15/24 15:25 Urine Ketones Negative (NEGATIVE) 05/15/24 15:25 Urine Blood Negative (NEGATIVE) 05/15/24 15: Urine Nitrite Negative (NEGATIVE) 05/15/24 15: Urine Bilirubin Negative (NEGATIVE) 05/15/24 15:25 Urine Urobilinogen Normal (NORMAL) 05/15/24 15:25 Ur Leukocyte Esterase 1+ (NEGATIVE) 05/15/24 15:25 Urine RBC 0-2 /HPF (0-3) 05/15/24 15:25 Urine WBC 10-20 /HPF (0-5) A 05/15/24 15:25 Ur Squamous Epith Cells Rare /HPF (NEGATIVE) 05/15/24 15:25 Urine Bacteria Trace /HPF (NEGATIVE) 05/15/24 15:25 Urine Mucus Numerous /HPF (NEGATIVE) 05/15/24 15:25 Ur Culture Indicated? Yes/culture set up 05/15/24 15:25 Plan (1) Generalized weakness: Status: Acute (2) Acute hypotension: Status: Acute Plan: Continue antibiotics and respiratory therapy, strict I&O's, home medications. (3) Pneumonia: Status: Acute (4) BPH (benign prostatic hyperplasia): Status: Acute
--- NOTE | 2024-06-01 14:01 | RAD ---
EXAM:CHEST, 1 VIEWHISTORY:R/O TB for care home placement.;COMPARISON:No relevant prior studies were available for comparison at the time of interpretation.TECHNIQUE:CHEST, 1 VIEWFINDINGS:Chest:Lines and tubes: Left-sided pacemaker generator with lead or leads in satisfactory position.Mediastinum: Cardiac and mediastinal shadow is within normal limits for size and contour.Pulmonary vessels: No pulmonary vascular congestion.Lung ely: No suspicious airspace opacity.Pleura: No effusion. No pneumothorax.Bones and soft tissues: No acute osseous or soft tissue abnormality.IMPRESSION:1. No acute cardiopulmonary abnormalityTHIS IS AN ELECTRONICALLY VERIFIED FINAL REPORT06/01/2024 1:58 PM - Electronically signed by Jimmy Longoria MD
--- NOTE | 2024-06-01 15:11 | PCM.PROG ---
Progress Note Progress Note for Day of Date of Exam: 05/14/24 Subjective Subjective: This is a 63-year-old white male who has been recently treated for pneumonia. The patient has had multiple recent ER visits, as well as hospitalizations due to syncope, dehydration, acute renal insufficiency. We have been working to get him placed at [facility]. He is in need of rehab therapy. The patient is legally blind and lives alone. He has had multiple falls and needs fpc care to help with medication administration and management of his de souza catheter. We had previously attempted to discontinue his de souza, however he had urinary retention due to bph and we had to reinsert. He also has had diffuse weakness and will benefit from physical therapy. AM vitals: 134/82-96-20-97.6-94% room air. Past Medical Family Social History Allergies: Allergies brimonidine Allergy (Verified 05/06/24 10:15) ferrous sulfate [From FeroSul] Allergy (Verified 05/06/24 10:15) iron [From FeroSul] Allergy (Verified 05/06/24 10:15) nitroglycerin Allergy (Verified 05/06/24 10:15) tetanus immune globulin Allergy (Verified 05/06/24 10:15) Vital Signs and I&O's Vital Signs: Vital Signs Temperature 97.6 F Pulse Rate [Right Brachial] 80 Respiratory Rate 18 Blood Pressure [Left Arm] 117/66 O2 Sat by Pulse Oximetry 92 Intake and Output: Intake & Output 05/30/24 05/31/24 06/01/24 06/02/24 11:59 11:59 11:59 11:59 Intake Total 835 / 835 690 / 690 1487 / 1487 Output Total 1840 / 1840 650 / 650 800 / 800 Balance -1005 / -1005 40 / 40 687 / 687 Physical Exam Oriented: Normal Eyes: Blurred Vision Ear: Normal Nose: Normal Throat: Normal Respiratory: Diminished Cardiovascular: Other (pacemaker present) : Normal Auscultation: Bowel Sounds: Normal Tenderness: Normal Skin: Decreased Turgur Musculoskeletal: Motor Deficit Psychiatric: Anxiety and Depression Mood Description: Depressed Affect: Depressed Speech Pattern: Clear and Appropriate Laboratory and Diagnostics 06/01/24 04:16 06/01/24 04:16 Labs: 05/15/24 15:25 Urine,Catheterized Urine Culture - Final Laboratory WBC 6.6 X10^3/uL (3.6-10.0) 06/01/24 04:16 RBC 3.43 X10^6/uL (4.7-6.0) L 06/01/24 04:16 Hgb 9.5 g/dL (13.5-18.0) L 06/01/24 04:16 Hct 29.5 % (42.0-54.0) L 06/01/24 04:16 MCV 85.8 fL (80.0-100.0) 06/01/24 04:16 MCH 27.6 pg (27.0-34.0) 06/01/24 04:16 MCHC 32.2 g/dL (33.0-35.0) L 06/01/24 04:16 RDW 17.0 % (11.6-16.5) H 06/01/24 04:16 Plt Count 333 X10^3/uL (150.0-450.0) 06/01/24 04:16 MPV 7.7 fL (7.4-11.0) 06/01/24 04:16 Neut % (Auto) 58.1 % (42.0-75.0) 06/01/24 04:16 Lymph % (Auto) 26.0 % (21.0-51.0) 06/01/24 04:16 [place] % (Auto) 11.2 % (0.0-13.0) 06/01/24 04:16 Eos % (Auto) 4.1 % (0.9-2.9) H 06/01/24 04:16 Baso % (Auto) 0.6 % (0.2-1.0) 06/01/24 04:16 Neut # (Auto) 3.8 x10^3/uL (2.2-4.8) 06/01/24 04:16 Lymph # (Auto) 1.7 X10^3/uL (1.3-2.9) 06/01/24 04:16 [place] # (Auto) 0.7 x10^3/uL (0.3-0.8) 06/01/24 04:16 Eos # (Auto) 0.3 x10^3/uL (0.0-0.2) H 06/01/24 04:16 Baso # (Auto) 0.0 X10^3/uL (0.0-0.1) 06/01/24 04:16 Absolute Nucleated RBC 0.1 /100WBC 06/01/24 04:16 Sodium 142 mmol/L (136-145) 06/01/24 04:16 Corrected Sodium TNP 06/01/24 04:16 Potassium 3.6 mmol/L (3.5-5.1) 06/01/24 04:16 Chloride 104 mmol/L (98-107) 06/01/24 04:16 Carbon Dioxide 29.3 mmol/L (21-32) 06/01/24 04:16 BUN 16 mg/dL (7-18) 06/01/24 04:16 Creatinine 1.06 mg/dL (0.70-1.30) 06/01/24 04:16 Est GFR (MDRD) Af Amer > 60 (>60) 06/01/24 04:16 Est GFR (MDRD) Non-Af > 60 (>60) 06/01/24 04:16 Glucose 105 mg/dL (65-99) H 06/01/24 04:16 Calcium 8.5 mg/dL (8.5-10.1) 06/01/24 04:16 Corrected Calcium 9.4 mg/dL (8.5-10.1) 06/01/24 04:16 Magnesium 1.9 mg/dL (2.0-2.9) L 06/01/24 04:16 Total Bilirubin 0.20 mg/dL (0.2-1.0) 06/01/24 04:16 AST 11 Units/L (15-37) L 06/01/24 04:16 ALT 10 Units/L (12-78) L 06/01/24 04:16 Alkaline Phosphatase 45 Units/L (46-116) L 06/01/24 04:16 Total Protein 6.3 g/dL (6.4-8.2) L 06/01/24 04:16 Albumin 2.9 g/dL (3.4-5.0) L 06/01/24 04:16 Globulin 3.4 g/dL (2.5-4.5) 06/01/24 04:16 Albumin/Globulin Ratio 0.9 Ratio (1.1-2.1) L 06/01/24 04:16 Specimen Type Catherized urine 05/15/24 15:25 Urine Color Yellow (YELLOW) 05/15/24 15:25 Urine Appearance Clear (CLEAR) 05/15/24 15:25 Urine pH 6.0 (5.0 - 8.0) 05/15/24 15:25 Ur Specific [place] 1.020 (1.000-1.030) 05/15/24 15:25 Urine Protein 1+ (NEGATIVE) 05/15/24 15:25 Urine Glucose (UA) Negative (NEGATIVE) 05/15/24 15:25 Urine Ketones Negative (NEGATIVE) 05/15/24 15:25 Urine Blood Negative (NEGATIVE) 05/15/24 15:25 Urine Nitrite Negative (NEGATIVE) 05/15/24 15: Urine Bilirubin Negative (NEGATIVE) 05/15/24 15:25 Urine Urobilinogen Normal (NORMAL) 05/15/24 15:25 Ur Leukocyte Esterase 1+ (NEGATIVE) 05/15/24 15:25 Urine RBC 0-2 /HPF (0-3) 05/15/24 15:25 Urine WBC 10-20 /HPF (0-5) A 05/15/24 15:25 Ur Squamous Epith Cells Rare /HPF (NEGATIVE) 05/15/24 15:25 Urine Bacteria Trace /HPF (NEGATIVE) 05/15/24 15:25 Urine Mucus Numerous /HPF (NEGATIVE) 05/15/24 15:25 Ur Culture Indicated? Yes/culture set up 05/15/24 15:25 Plan (1) Generalized weakness: Status: Acute Plan: continue physical therapy, routine labs fu with cardiology as scheduled and dr marce velez (2) Acute hypotension: Status: Acute (3) Pneumonia: Status: Acute (4) BPH (benign prostatic hyperplasia): Status: Acute
--- NOTE | 2024-06-01 16:52 | PCM.PROG ---
Progress Note Progress Note for Day of Date of Exam: 05/27/24 Subjective Subjective: This is a 63-year-old white male who has been recently treated for pneumonia. The patient has had multiple recent ER visits, as well as hospitalizations due to syncope, dehydration, acute renal insufficiency. We have been working to get him placed at [facility]. He is in need of rehab therapy. The patient is legally blind and lives alone. He has had multiple falls and needs alf care to help with medication administration and management of his de souza catheter. We had previously attempted to discontinue his de souza, however he had urinary retention due to bph and we had to reinsert. We started him on flomax. He has had diffuse weakness and is benefitting from physical therapy. AM vitals: 121/60-83-20-97.9-94% room air. AM labs: hgb 9.5, wbc 6.7, bun 15/creatinine 0.94. Past Medical Family Social History Allergies: Allergies brimonidine Allergy (Verified 05/06/24 10:15) ferrous sulfate [From FeroSul] Allergy (Verified 05/06/24 10:15) iron [From FeroSul] Allergy (Verified 05/06/24 10:15) nitroglycerin Allergy (Verified 05/06/24 10:15) tetanus immune globulin Allergy (Verified 05/06/24 10:15) Vital Signs and I&O's Intake and Output: Intake & Output 05/30/24 05/31/24 06/01/24 06/02/24 11:59 11:59 11:59 11:59 Intake Total 835 / 835 690 / 690 1487 / 1487 Output Total 1840 / 1840 650 / 650 800 / 800 Balance -1005 / -1005 40 / 40 687 / 687 Physical Exam Oriented: Normal Eyes: Blurred Vision Ear: Normal Nose: Normal Throat: Normal Respiratory: Diminished Cardiovascular: Other (pacemaker present) : Normal Auscultation: Bowel Sounds: Normal Tenderness: Normal Skin: Decreased Turgur Musculoskeletal: Motor Deficit Psychiatric: Anxiety and Depression Mood Description: Depressed Affect: Depressed Speech Pattern: Clear and Appropriate Laboratory and Diagnostics 06/01/24 04:16 06/01/24 04:16 Labs: 05/15/24 15:25 Urine,Catheterized Urine Culture - Final Laboratory WBC 6.6 X10^3/uL (3.6-10.0) 06/01/24 04:16 RBC 3.43 X10^6/uL (4.7-6.0) L 06/01/24 04:16 Hgb 9.5 g/dL (13.5-18.0) L 06/01/24 04:16 Hct 29.5 % (42.0-54.0) L 06/01/24 04:16 MCV 85.8 fL (80.0-100.0) 06/01/24 04:16 MCH 27.6 pg (27.0-34.0) 06/01/24 04:16 MCHC 32.2 g/dL (33.0-35.0) L 06/01/24 04:16 RDW 17.0 % (11.6-16.5) H 06/01/24 04:16 Plt Count 333 X10^3/uL (150.0-450.0) 06/01/24 04:16 MPV 7.7 fL (7.4-11.0) 06/01/24 04:16 Neut % (Auto) 58.1 % (42.0-75.0) 06/01/24 04:16 Lymph % (Auto) 26.0 % (21.0-51.0) 06/01/24 04:16 [place] % (Auto) 11.2 % (0.0-13.0) 06/01/24 04:16 Eos % (Auto) 4.1 % (0.9-2.9) H 06/01/24 04:16 Baso % (Auto) 0.6 % (0.2-1.0) 06/01/24 04:16 Neut # (Auto) 3.8 x10^3/uL (2.2-4.8) 06/01/24 04:16 Lymph # (Auto) 1.7 X10^3/uL (1.3-2.9) 06/01/24 04:16 [place] # (Auto) 0.7 x10^3/uL (0.3-0.8) 06/01/24 04:16 Eos # (Auto) 0.3 x10^3/uL (0.0-0.2) H 06/01/24 04:16 Baso # (Auto) 0.0 X10^3/uL (0.0-0.1) 06/01/24 04:16 Absolute Nucleated RBC 0.1 /100WBC 06/01/24 04:16 Sodium 142 mmol/L (136-145) 06/01/24 04:16 Corrected Sodium TNP 06/01/24 04:16 Potassium 3.6 mmol/L (3.5-5.1) 06/01/24 04:16 Chloride 104 mmol/L (98-107) 06/01/24 04:16 Carbon Dioxide 29.3 mmol/L (21-32) 06/01/24 04:16 BUN 16 mg/dL (7-18) 06/01/24 04:16 Creatinine 1.06 mg/dL (0.70-1.30) 06/01/24 04:16 Est GFR (MDRD) Af Amer > 60 (>60) 06/01/24 04:16 Est GFR (MDRD) Non-Af > 60 (>60) 06/01/24 04:16 Glucose 105 mg/dL (65-99) H 06/01/24 04:16 Calcium 8.5 mg/dL (8.5-10.1) 06/01/24 04:16 Corrected Calcium 9.4 mg/dL (8.5-10.1) 06/01/24 04:16 Magnesium 1.9 mg/dL (2.0-2.9) L 06/01/24 04:16 Total Bilirubin 0.20 mg/dL (0.2-1.0) 06/01/24 04:16 AST 11 Units/L (15-37) L 06/01/24 04:16 ALT 10 Units/L (12-78) L 06/01/24 04:16 Alkaline Phosphatase 45 Units/L (46-116) L 06/01/24 04:16 Total Protein 6.3 g/dL (6.4-8.2) L 06/01/24 04:16 Albumin 2.9 g/dL (3.4-5.0) L 06/01/24 04:16 Globulin 3.4 g/dL (2.5-4.5) 06/01/24 04:16 Albumin/Globulin Ratio 0.9 Ratio (1.1-2.1) L 06/01/24 04:16 Specimen Type Catherized urine 05/15/24 15:25 Urine Color Yellow (YELLOW) 05/15/24 15:25 Urine Appearance Clear (CLEAR) 05/15/24 15:25 Urine pH 6.0 (5.0 - 8.0) 05/15/24 15:[address] 1.020 (1.000-1.030) 05/15/24 15:25 Urine Protein 1+ (NEGATIVE) 05/15/24 15:25 Urine Glucose (UA) Negative (NEGATIVE) 05/15/24 15:25 Urine Ketones Negative (NEGATIVE) 05/15/24 15:25 Urine Blood Negative (NEGATIVE) 05/15/24 15:25 Urine Nitrite Negative (NEGATIVE) 05/15/24 15: Urine Bilirubin Negative (NEGATIVE) 05/15/24 15:25 Urine Urobilinogen Normal (NORMAL) 05/15/24 15:25 Ur Leukocyte Esterase 1+ (NEGATIVE) 05/15/24 15:25 Urine RBC 0-2 /HPF (0-3) 05/15/24 15:25 Urine WBC 10-20 /HPF (0-5) A 05/15/24 15:25 Ur Squamous Epith Cells Rare /HPF (NEGATIVE) 05/15/24 15:25 Urine Bacteria Trace /HPF (NEGATIVE) 05/15/24 15:25 Urine Mucus Numerous /HPF (NEGATIVE) 05/15/24 15:25 Ur Culture Indicated? Yes/culture set up 05/15/24 15:25 Plan (1) Generalized weakness: Status: Acute Plan: continue physical therapy, routine labs fu with cardiology as scheduled and dr marce velez (2) Acute hypotension: Status: Acute Plan: Continue PT/OT. (3) Pneumonia: Status: Acute (4) BPH (benign prostatic hyperplasia): Status: Acute
[2024-06-03 06:25] LABS: BASOPHILS # (AUTO) 0.1 X10^3/uL (0.0-0.1); BASOPHILS % (AUTO) 1.4 % (0.2-1.0); EOSINOPHILS # (AUTO) 0.3 x10^3/uL (0.0-0.2); EOSINOPHILS % (AUTO) 4.5 % (0.9-2.9); HEMATOCRIT 30.3 % (42.0-54.0); HEMOGLOBIN 9.8 g/dL (13.5-18.0); LYMPHOCYTES # (AUTO) 1.7 X10^3/uL (1.3-2.9); LYMPHOCYTES % (AUTO) 27.6 % (21.0-51.0); MEAN CORPUSCULAR HEMOGLOBIN 27.7 pg (27.0-34.0); MEAN CORPUSCULAR HGB CONC 32.2 g/dL (33.0-35.0); MEAN CORPUSCULAR VOLUME 86.1 fL (80.0-100.0); MEAN PLATELET VOLUME 7.4 fL (7.4-11.0); MONOCYTES # (AUTO) 0.7 x10^3/uL (0.3-0.8); MONOCYTES % (AUTO) 10.9 % (0.0-13.0); NEUTROPHILS # (AUTO) 3.4 x10^3/uL (2.2-4.8); NEUTROPHILS % (AUTO) 55.6 % (42.0-75.0); PLATELET COUNT 338 X10^3/uL (150.0-450.0); RED BLOOD COUNT 3.52 X10^6/uL (4.7-6.0); RED CELL DISTRIBUTION WIDTH 16.6 % (11.6-16.5); WHITE BLOOD COUNT 6.2 X10^3/uL (3.6-10.0)
[2024-06-03 07:06] LABS: ALANINE AMINOTRANSFERASE 9 Units/L (12-78); ALKALINE PHOSPHATASE 49 Units/L (46-116); ASPARTATE AMINO TRANSFERASE 12 Units/L (15-37); BLOOD UREA NITROGEN 13 mg/dL (7-18); CALCIUM 8.6 mg/dL (8.5-10.1); CARBON DIOXIDE 29.4 mmol/L (21-32); CHLORIDE 105 mmol/L (98-107); COR CA(FOR HYPOALB) 9.4 mg/dL (8.5-10.1); CREATININE 0.99 mg/dL (0.70-1.30); GLUCOSE 100 mg/dL (65-99); MAGNESIUM 1.8 mg/dL (2.0-2.9); POTASSIUM 3.5 mmol/L (3.5-5.1); SODIUM 141 mmol/L (136-145); TOTAL PROTEIN 6.6 g/dL (6.4-8.2); eGFR NON BLACK RACES > 60 (>60)
[2024-06-03] MEDS: K-DUR TAB 20 MEQ PO SCH (10:56)
[2024-06-03] MEDS: MAG-OX TAB PO SCH (10:56)
[2024-06-04] MEDS: MILK OF MAGNESIA PO NR (16:21)
--- NOTE | 2024-06-04 16:45 | PCM.PROG ---
Progress Note Progress Note for Day of Date of Exam: 06/03/24 Subjective Subjective: This is a 63-year-old white male who has been recently treated for pneumonia. The patient has had multiple recent ER visits, as well as hospitalizations due to syncope, dehydration, acute renal insufficiency. We have been working to get him placed at [facility] for rehab therapy and senior living care. The patient is legally blind and lives alone. He has had multiple falls and needs senior living care to help with medication administration and management of his de souza catheter. We had previously attempted to discontinue his de souza, however he had urinary retention due to bph and we had to reinsert. He was started on flomax. He is benefitting from physical therapy. AM vitals: 136/[id number]% room air. Morning labs: hgb 9.8, wbc 6.2, bun 13/creatinine 0.99. Past Medical Family Social History Allergies: Allergies brimonidine Allergy (Verified 05/06/24 10:15) ferrous sulfate [From FeroSul] Allergy (Verified 05/06/24 10:15) iron [From FeroSul] Allergy (Verified 05/06/24 10:15) nitroglycerin Allergy (Verified 05/06/24 10:15) tetanus immune globulin Allergy (Verified 05/06/24 10:15) Vital Signs and I&O's Intake and Output: Intake & Output 06/02/24 06/03/24 06/04/24 06/05/24 11:59 11:59 11:59 11:59 Intake Total 1460 / 1460 920 / 920 500 / 500 360 / 360 Output Total 1901 / 1901 1000 / 1000 1800 / 1800 300 / 300 Balance -441 / -441 -80 / -80 -1300 / -1300 60 / 60 Physical Exam Oriented: Normal Eyes: Blurred Vision Ear: Normal Nose: Normal Throat: Normal Respiratory: Diminished Cardiovascular: Other (pacemaker present) : Normal Auscultation: Bowel Sounds: Normal Tenderness: Normal Skin: Decreased Turgur Musculoskeletal: Motor Deficit Psychiatric: Anxiety and Depression Mood Description: Depressed Affect: Depressed Speech Pattern: Clear and Appropriate Laboratory and Diagnostics 06/03/24 05:55 06/03/24 05:55 Labs: 05/15/24 15:25 Urine,Catheterized Urine Culture - Final Laboratory WBC 6.2 X10^3/uL (3.6-10.0) 06/03/24 05:55 RBC 3.52 X10^6/uL (4.7-6.0) L 06/03/24 05:55 Hgb 9.8 g/dL (13.5-18.0) L 06/03/24 05:55 Hct 30.3 % (42.0-54.0) L 06/03/24 05:55 MCV 86.1 fL (80.0-100.0) 06/03/24 05:55 MCH 27.7 pg (27.0-34.0) 06/03/24 05:55 MCHC 32.2 g/dL (33.0-35.0) L 06/03/24 05:55 RDW 16.6 % (11.6-16.5) H 06/03/24 05:55 Plt Count 338 X10^3/uL (150.0-450.0) 06/03/24 05:55 MPV 7.4 fL (7.4-11.0) 06/03/24 05:55 Neut % (Auto) 55.6 % (42.0-75.0) 06/03/24 05:55 Lymph % (Auto) 27.6 % (21.0-51.0) 06/03/24 05:55 [place] % (Auto) 10.9 % (0.0-13.0) 06/03/24 05:55 Eos % (Auto) 4.5 % (0.9-2.9) H 06/03/24 05:55 Baso % (Auto) 1.4 % (0.2-1.0) H 06/03/24 05:55 Neut # (Auto) 3.4 x10^3/uL (2.2-4.8) 06/03/24 05:55 Lymph # (Auto) 1.7 X10^3/uL (1.3-2.9) 06/03/24 05:55 [place] # (Auto) 0.7 x10^3/uL (0.3-0.8) 06/03/24 05:55 Eos # (Auto) 0.3 x10^3/uL (0.0-0.2) H 06/03/24 05:55 Baso # (Auto) 0.1 X10^3/uL (0.0-0.1) 06/03/24 05:55 Absolute Nucleated RBC 0.1 /100WBC 06/03/24 05:55 Sodium 141 mmol/L (136-145) 06/03/24 05:55 Corrected Sodium TNP 06/03/24 05:55 Potassium 3.5 mmol/L (3.5-5.1) 06/03/24 05:55 Chloride 105 mmol/L (98-107) 06/03/24 05:55 Carbon Dioxide 29.4 mmol/L (21-32) 06/03/24 05:55 BUN 13 mg/dL (7-18) 06/03/24 05:55 Creatinine 0.99 mg/dL (0.70-1.30) 06/03/24 05:55 Est GFR (MDRD) Af Amer > 60 (>60) 06/03/24 05:55 Est GFR (MDRD) Non-Af > 60 (>60) 06/03/24 05:55 Glucose 100 mg/dL (65-99) H 06/03/24 05:55 Calcium 8.6 mg/dL (8.5-10.1) 06/03/24 05:55 Corrected Calcium 9.4 mg/dL (8.5-10.1) 06/03/24 05:55 Magnesium 1.8 mg/dL (2.0-2.9) L 06/03/24 05:55 Total Bilirubin 0.20 mg/dL (0.2-1.0) 06/03/24 05:55 AST 12 Units/L (15-37) L 06/03/24 05:55 ALT 9 Units/L (12-78) L 06/03/24 05:55 Alkaline Phosphatase 49 Units/L (46-116) 06/03/24 05:55 Total Protein 6.6 g/dL (6.4-8.2) 06/03/24 05:55 Albumin 3.0 g/dL (3.4-5.0) L 06/03/24 05:55 Globulin 3.6 g/dL (2.5-4.5) 06/03/24 05:55 Albumin/Globulin Ratio 0.8 Ratio (1.1-2.1) L 06/03/24 05:55 Specimen Type Catherized urine 05/15/24 15:25 Urine Color Yellow (YELLOW) 05/15/24 15:25 Urine Appearance Clear (CLEAR) 05/15/24 15:25 Urine pH 6.0 (5.0 - 8.0) 05/15/24 15:25 Ur Specific [place] 1.020 (1.000-1.030) 05/15/24 15:25 Urine Protein 1+ (NEGATIVE) 05/15/24 15:25 Urine Glucose (UA) Negative (NEGATIVE) 05/15/24 15:25 Urine Ketones Negative (NEGATIVE) 05/15/24 15:25 Urine Blood Negative (NEGATIVE) 05/15/24 15:25 Urine Nitrite Negative (NEGATIVE) 05/15/24 15: Urine Bilirubin Negative (NEGATIVE) 05/15/24 15:25 Urine Urobilinogen Normal (NORMAL) 05/15/24 15:25 Ur Leukocyte Esterase 1+ (NEGATIVE) 05/15/24 15:25 Urine RBC 0-2 /HPF (0-3) 05/15/24 15:25 Urine WBC 10-20 /HPF (0-5) A 05/15/24 15:25 Ur Squamous Epith Cells Rare /HPF (NEGATIVE) 05/15/24 15:25 Urine Bacteria Trace /HPF (NEGATIVE) 05/15/24 15:25 Urine Mucus Numerous /HPF (NEGATIVE) 05/15/24 15:25 Ur Culture Indicated? Yes/culture set up 05/15/24 15:25 Plan (1) Generalized weakness: Status: Acute Plan: continue physical therapy, routine labs fu with cardiology as scheduled and dr marce velez (2) Acute hypotension: Status: Acute Plan: Continue PT/OT. (3) Pneumonia: Status: Acute (4) BPH (benign prostatic hyperplasia): Status: Acute
[2024-06-04] MEDS: MILK OF MAGNESIA PO PRN (20:34)
[2024-06-05 09:00] VITALS: BP 129/80; PULSE 104; RESP 21; TEMP 97.4; O2SAT 94
[2024-06-05] MEDS ORDERED: CONSULT PHARMACY - POTASSIUM & MAGNESIUM XX SCH (09:00)
== END 2024-06-05 12:10 | DRG 194 ==
LOC: MED/SURG 11:50
PROVIDERS: ADMIT Internal Medicine; ATTEND Internal Medicine
DX: J18.8 Other pneumonia, unspecified organism; F79 Unspecified intellectual disabilities; R26.89 Other abnormalities of gait and mobility; E83.42 Hypomagnesemia; H54.8 Legal blindness, as defined in USA; N40.0 Benign prostatic hyperplasia without lower urinary tract symptoms; Z51.89 Encounter for other specified aftercare; R53.1 Weakness; N17.8 Other acute kidney failure; E86.0 Dehydration; R06.02 Shortness of breath; I49.5 Sick sinus syndrome; I95.89 Other hypotension; R55 Syncope and collapse; R53.81 Other malaise; R29.6 Repeated falls; Z95.0 Presence of cardiac pacemaker